=== PATIENT | male | born 1945 | race Caucasian/White ===

== ENCOUNTER 2016-10-28 16:04 | Emergency (ER) | payer MEDICARE, MEDICAID ==
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
[2016-10-28 18:43] VITALS: BP 136/76
== END 2016-10-28 18:43 | disposition home or self-care (01) ==
LOC: ED 16:04
DX: L03.115 Cellulitis of right lower limb (principal); Z88.0 Allergy status to penicillin
CPT/HCPCS: 99282

== ENCOUNTER 2016-12-02 18:23 | Emergency (ER) | payer MEDICARE, MEDICAID ==
[2016-12-02] MEDS ORDERED: Oxymetazoline 0.05% NASAL SPR* 15 ML BTL RIGHT NARE ONE (19:52)
--- NOTE | 2016-12-02 19:56 | ED ---
Throat Pain/Nasal Congestion - HPI Summary HPI Summary: 71M presents with nose bleed from right nostril today. He takes Flonase on a daily basis. He states he had some sinus pain so he placed neosporin up his noses and that it started to ooze. only had nosebleed 6 years ago and stopped on own although states lost a lot of blood. was told has superficial veins. no fever. no chest pain or SOB. not on blood thinners. Also has lesion on right armstrong that is healing. had infection there and is currently placing neosporin on it. has been there for a month. was on antibiotics but is done with them. is requesting a new script. - History of Current Complaint Chief Complaint: EDGeneral Time Seen by Provider: 12/02/16 19:19 - Allergies/Home Medications Allergies/Adverse Reactions: Allergies Allergy/AdvReac Type Severity Reaction Status Date / Time Penicillins Allergy Unknown Verified 12/02/16 18:26 Reaction Details Sulfa Drugs Allergy Unknown Verified 12/02/16 18:26 Reaction Details PMH/Surg Hx/FS Hx/Imm Hx Endocrine/Hematology History: Denies: Hx Anticoagulant Therapy Cardiovascular History: Denies: Hx Pacemaker/ICD Sensory History: Reports: Hx Contacts or Glasses Denies: Hx Hearing Aid Opthamlomology History: Reports: Hx Contacts or Glasses Neurological History: Reports: Other Neuro Impairments/Disorders - HX DISK PROBLEM 1967 Psychiatric History: Reports: Hx Panic Disorder - Surgical History Surgery Procedure, Year, and Place: BILATERAL BREAST GLAND SURGERY 2007&1973 Infectious Disease History: No Infectious Disease History: Denies: Traveled Outside the [place] in Last 30 Days - Family History Known Family History: Negative: Blood Disorder - Social History Alcohol Use: None Hx Substance Use: No Substance Use Type: Reports: None Hx Tobacco Use: No Smoking Status (MU): Never Smoked Tobacco Review of Systems Negative: Fever Positive: Epistaxis Negative: Chest Pain Negative: Shortness Of Breath Positive: Other - lesion right armstrong All Other Systems Reviewed And Are Negative: Yes Physical Exam Triage Information Reviewed: Yes Vital Signs On Initial Exam: Initial Vitals Temp Pulse Resp BP Pulse Ox 98.5 F 62 16 146/77 100 12/02/16 18:25 12/02/16 18:25 12/02/16 18:25 12/02/16 18:25 12/02/16 18:25 Vital Signs Reviewed: Yes Appearance: Positive: Well-Appearing Skin: Positive: Warm, Dry, Other - healing wound on right armstrong without dehisence , no surrounding erythema Head/Face: Positive: Normal Head/Face Inspection Eyes: Positive: Normal, EOMI, VENTURA, Conjunctiva Clear ENT: Positive: Other - area of irritation on right nostril Respiratory/Lung Sounds: Positive: Clear to Auscultation, Breath Sounds Present Cardiovascular: Positive: Normal, RRR Abdomen Description: Positive: Nontender, Soft Bowel Sounds: Positive: Present Musculoskeletal: Positive: Strength/ROM Intact - legs, Other - good pulses - [place] Coma Scale Coma Scale Total: 15 Diagnostics - Vital Signs Vital Signs Temp Pulse Resp BP Pulse Ox 12/02/16 18:25 98.5 F 62 16 146/77 100 - Laboratory Lab Statement: Any lab studies that have been ordered have been reviewed, and results considered in the medical decision making process. EENT Course/Dx - Course Course Of Treatment: 71M presents with nose bleed from right nostril today. He takes Flonase on a daily basis. He states he had some sinus pain so he placed neosporin up his noses and that it started to ooze. only had nosebleed 6 years ago and stopped on own although states lost alot of blood. was told has superficial veins. no fever. no chest pain or SOB. on exam has irritated of right nases with no active bleeding. gave dose of afrin and no bleeding. also has wound on right armstrong looks to be healing well. will give antiobiotics although may not be necessary. told to stop flonase as likely causing nosebleeds. patient understands and agrees with plan. - Differential Diagnoses Differential Diagnoses: Allergic Rhinitis, Epistaxis, Sinusitis - Diagnoses Provider Diagnoses: Nosebleed Discharge - Discharge Plan Condition: Good Disposition: HOME Prescriptions: DOXYcycline CAP(*) [DOXYcycline 100MG CAP(*)] 100 mg PO BID #14 cap Patient Education Materials: Nosebleed (ED) Referrals: [facility] [Outside] Rogelio Garza MD [Primary Care Provider] - Additional Instructions: Place one spray of afrin in nostril if bleed returns Place vaseline in nose Stop flonase in that nostril for next [address] saline spray in nose Place ice on nose for 20 mins if bleeding reoccurs Take antibiotic twice a day for 7 days for possible right leg infection, take with food, avoid sun exposure Return to ED if develop any new or worsening symptoms
[2016-12-02 20:30] VITALS: BP 138/79
== END 2016-12-02 20:35 | disposition home or self-care (01) ==
LOC: ED 18:23
DX: R04.0 Epistaxis (principal)
CPT/HCPCS: 99282; A9270-GY

== ENCOUNTER 2016-12-05 16:16 | Emergency (ER) | payer MEDICARE, MEDICAID ==
[2016-12-05 16:28] VITALS: BP 148/57
--- NOTE | 2016-12-05 17:39 | UC ---
Epistaxis Nasal HPI - HPI Summary HPI Summary: had a right side nose bleed earlier this week that he is concerned about---also has some changes and itching in his lower legs he is concerned about - History of Current Complaint Chief Complaint: [place] Stated Complaint: NOSE AND LEG PAIN Time Seen by Provider: 12/05/16 17:11 Hx Obtained From: Patient Onset/Duration: Sudden Onset - right nares, Gradual Onset - lower legs Timing: Constant Severity Initially: Mild Severity Currently: Mild Aggravating Factor(s): Nothing Alleviating Factor(s): Nothing Associated Signs And Symptoms: Positive: Negative - Allergies/Home Medications Allergies/Adverse Reactions: Allergies Allergy/AdvReac Type Severity Reaction Status Date / Time Penicillins Allergy Unknown Verified 12/05/16 16:28 Reaction Details Sulfa Drugs Allergy Unknown Verified 12/05/16 16:28 Reaction Details PMH/Surg Hx/FS Hx/Imm Hx Previously Healthy: Yes Endocrine History: Dyslipidemia Psychological History: Anxiety Other History Of: Negative For: Anticoagulant Therapy - Surgical History Surgical History: Yes Surgery Procedure, Year, and Place: BILATERAL BREAST GLAND SURGERY 2007&1973 - Family History Known Family History: Positive: Hypertension, Diabetes Negative: Blood Disorder - Social History Occupation: Retired Lives: With Family - God Son Alcohol Use: None Substance Use Type: Prescribed Smoking Status (MU): Never Smoked Tobacco Review of Systems Constitutional: Negative Skin: Negative, Other - itching both lower legs Eyes: Negative ENT: Negative Respiratory: Negative Cardiovascular: Negative Gastrointestinal: Negative Genitourinary: Negative Motor: Negative Neurovascular: Negative Musculoskeletal: Negative Neurological: Negative Psychological: Negative Is Patient Immunocompromised?: No All Other Systems Reviewed And Are Negative: Yes Physical Exam Triage Information Reviewed: Yes Appearance: Well-Appearing, No Pain Distress, Well-Nourished Vital Signs: Initial Vital Signs Temp 99.0 F 12/05/16 16:24 Pulse 76 12/05/16 16:24 Resp 18 12/05/16 16:24 BP 148/57 12/05/16 16:24 Pulse Ox 99 12/05/16 16:24 Vital Signs Reviewed: Yes Eye Exam: Normal Eyes: Positive: Conjunctiva Clear ENT Exam: Normal ENT: Positive: Normal ENT inspection, Hearing grossly normal, Pharynx normal, Other: - some old blood in right nares. Negative: Nasal congestion, Nasal drainage, TMs normal, Tonsillar swelling, Tonsillar exudate, Trismus, Muffled/ hoarse voice Dental Exam: Normal Neck exam: Normal Neck: Positive: Supple, Nontender, No Lymphadenopathy Respiratory Exam: Normal Respiratory: Positive: Chest non-tender, No respiratory distress, No accessory muscle use Cardiovascular Exam: Normal Cardiovascular: Positive: RRR, Pulses Normal, Brisk Capillary Refill Musculoskeletal Exam: Normal Musculoskeletal: Positive: Strength Intact, ROM Intact, No Edema Neurological Exam: Normal Neurological: Positive: Alert, Muscle Tone Normal Psychological Exam: Normal Skin Exam: Normal Skin: Positive: Other - CHronic PVD changes Bilateral lower extremities Epistaxis Nasal Course/Dx - Course Course Of Treatment: vaseline on q-tip right nare, saline nasal spray, cool mist humidifer, yasmany/compression stockings - Differential Dx/Diagnosis Differential Diagnosis/HQI/PQRI: Allergic Rhinitis, Sinusitis, Trauma, Other - pvd Provider Diagnoses: Chronic PVD, epistaxis right nares Discharge - Discharge Plan Condition: Stable Disposition: HOME Prescriptions: Saline NASAL SPRAY 0.65%* [Sodium Chloride 0.65% Nasal [place]*] 1 spray BOTH NARES Q4H PRN #1 btl PRN Reason: nasal dryness Patient Education Materials: Nosebleed (ED), Peripheral Vascular Disease (ED), Hypertension (ED) Referrals: Rogelio Garza MD [Primary Care Provider] - 1 Week
== END 2016-12-05 17:41 | disposition home or self-care (01) ==
LOC: UCEAST 16:16
DX: R04.0 Epistaxis (principal); Z88.0 Allergy status to penicillin; Z88.2 Allergy status to sulfonamides; E78.5 Hyperlipidemia, unspecified; I73.9 Peripheral vascular disease, unspecified
CPT/HCPCS: 99212; G0463

== ENCOUNTER 2017-03-07 16:43 | Emergency (ER) | payer MEDICARE, MEDICAID ==
--- NOTE | 2017-03-07 18:36 | ED ---
HPI Cardiac - HPI Summary HPI Summary: Pt here w/ pain from throat to epigastrum over the past week. Pain is worse w/ deep breath. He reports feeling "weak" in this area when he tries to take a deep breath. Denies fever, chills, hemoptysis, back pain, general weakness, night sweats, weight loss, change in breathing with sitting or lying. He also admits to a h/o asthma, bronchitis, bronchopneumonia, pneumonia and pleurisy - feels his sx this past week and today may be respiratory in nature. He has been eating and drinking well w/o pain but does admit he needs to drink carefully as he has a lot of nasal/sinus congestion which he's had since Spring d/t allergies. This is better since taking zyrtec and using nasonex nasal spray. Reports his house is warm (in the 70's) in 3 main rooms of the house, however his sleeping quarters are much cooler and the path in between the well heated areas and his room are quite cool (48F). He was seen by his PCP, Tomas PEREZ in [place], since these sx started. Basic labs and a CXR were ordered this past week in our system - labs reveals mild anemia and so per pt a colonoscopy has been ordered for the pt although he does not report rectal bleeding, hematochezia nor dark tarry stools today. His CXR was w /o acute findings of pneumonia, CHF, pneumothorax, wide mediastinum, etc and no chronic conditions such as cardiomegaly, COPD, etc. Tomas, his PA, also mentioned he's concerned about the pt's heart and wants him to see a turning and beading machine operator. Pt does admit to leg swelling for a few years now and was recommended he wear compression stockings as he admits he's on his feet all day - has not tried yet. Also reports he has a h/o arrhythmia and mitral valve dysfunction - "snaps". Was seen by a turning and beading machine operator in the past however this physician hence new referral. Does not take any medications for cardiac issues. - History of Current Complaint Chief Complaint: EDGeneral Stated Complaint: SHORT OF BREATH Time Seen by Provider: 03/07/17 17:41 Hx Obtained From: Patient Pain Intensity: 2 - Allergy/Home Medications Allergies/Adverse Reactions: Allergies Allergy/AdvReac Type Severity Reaction Status Date / Time Penicillins Allergy Unknown Verified 03/07/17 16:58 Reaction Details Sulfa Drugs Allergy Unknown Verified 03/07/17 16:58 Reaction Details PMH/Surg Hx/FS Hx/Imm Hx Previously Healthy: Yes Endocrine/Hematology History: Reports: Hx Anemia Denies: Hx Anticoagulant Therapy, Hx Blood Disorders, Hx Blood Transfusions, Hx Diabetes, Hx Systemic Lupus Erythematosus, Hx Thyroid Disease, Hx Unexplained Bleeding, Hx Coagulopothy Cardiovascular History: Reports: 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 " - no meds, Other Cardiovascular Problems/Disorders - "arrhythmia" in the past - no meds Denies: Hx Aneurysm, Hx Angina, Hx Atrial Fibrillation, Hx Cardiomegaly, Hx Congenital Heart Disease, Hx Congestive Heart Failure, Hx Coronary Artery Disease, Hx Deep Vein Thrombosis, Hx Hypercholesterolemia, Hx Hypotension, Hx Hypertension, Hx Myocardial Infarction, Hx Pacemaker/ICD, Hx Peripheral Vascular Disease, Hx Rheumatic Fever, Hx Syncope Respiratory History: Reports: Hx Asthma, Hx Pneumonia, Hx Seasonal Allergies, Other Respiratory Problems/Disorders - pleurisy, bronchitis Denies: Hx Chronic Obstructive Pulmonary Disease (COPD), Hx Pulmonary Edema, Hx Pulmonary Embolism, Hx Sleep Apnea GI History: Reports: Other GI Disorders - Hep A and Hep B - followed by PCP - no issues at this time Denies: Hx Crohn's Disease, Hx Diverticulosis, Hx Gall Bladder Disease, Hx Gastroesophageal Reflux Disease, Hx Gastrointestinal Bleed, Hx Hiatal Hernia, Hx Irritable Bowel, Hx Obstructive Bowel, Hx Ulcer Musculoskeletal History: Reports: Hx Back Problems - wears an elastic wrap but makes blood pressure increase while on Sensory History: Reports: Hx Contacts or Glasses Denies: Hx Hearing Aid Opthamlomology History: Reports: Hx Contacts or Glasses Neurological History: Reports: Other Neuro Impairments/Disorders - HX DISK PROBLEM 1967 Psychiatric History: Reports: Hx Panic Disorder - Surgical History Surgery Procedure, Year, and Place: BILATERAL BREAST GLAND SURGERY 2007&1973 Infectious Disease History: No Infectious Disease History: Reports: Hx Hepatitis Denies: Traveled Outside the [place] in Last 30 Days - Family History Known Family History: Positive: Cardiac Disease - mom, Hypertension, Diabetes Negative: Blood Disorder - Social History Occupation: Unemployed Lives: With Family - godson lives w/ him Alcohol Use: None Hx Substance Use: No Substance Use Type: Reports: Prescribed Hx Tobacco Use: No Smoking Status (MU): Never Smoked Tobacco Review of Systems Constitutional: Negative Negative: Fever, Chills, Fatigue Eyes: Negative Negative: Drainage, Erythema Positive: Sore Throat, Ear Ache Positive: Chest Pain Positive: Shortness Of Breath, Cough - scant Positive: Abdominal Pain. Negative: Vomiting, Diarrhea, Nausea Positive: no symptoms reported Musculoskeletal: Negative Skin: Negative Neurological: Negative Psychological: Normal All Other Systems Reviewed And Are Negative: Yes Physical Exam Vital Signs On Initial Exam: Initial Vitals Temp Pulse Resp BP Pulse Ox 98.2 F 80 16 139/83 99 03/07/17 16:53 03/07/17 16:53 03/07/17 16:53 03/07/17 16:53 03/07/17 16:53 - [place] Coma Scale Coma Scale Total: 15 Diagnostics - Vital Signs Vital Signs Temp Pulse Resp BP Pulse Ox 03/07/17 16:53 98.2 F 80 16 139/83 99 - Laboratory Result Diagrams: 03/07/17 18:30 03/07/17 18:30 Diagnostic Studies Comment: CT: report reviewed - neg for acute findings however he does appear to have cholelithiasis w/o cholecystitis and Rt renal cyst 1.3 cm in size. 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 Lab Statement: Any lab studies that have been ordered have been reviewed, and results considered in the medical decision making process. Disposition - Course Course Of Treatment: Pt presents w/ throat, chest and upper ab "weakness" and pain w/ deep breathes. Reports h/o resp issues and this feels similar. Had CXR this week which was normal and labs which are also normal. He had mild anemia however this has improved today. D/t sx a Ddimer was ordered and upon being elevated, further imaging ordered. 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 Pt was offered an albuterol HFA to aid in sx as he does have a h/o asthma and this has helped in the past. Does not appear to have acute bronchospasm at the moment however w/ h/o asthma, recent URI sx and living in cold conditions at times, this may reduce sx of chest tightness if he is having bronchospasm in these conditions. He will try this and f/u w/ PCP. He is d/c'd home and advised to f/u w/ PCP if symptoms persist. If worse will return to ED. - Diagnoses Provider Diagnoses: Chest pain made worse by breathing Discharge - Discharge Plan Condition: Stable Disposition: HOME Patient Education Materials: Noncardiac Chest Pain (ED), Albuterol (By breathing) Referrals: Michael Perez PA [Primary Care Provider] - Additional Instructions: The definitive cause of your chest discomfort was not identified tonight however given your recent symptoms of head congestion and history of asthma while in and out of cold temperatures may indicate mild bronchospasm or "asthma attack". It is advised that you try the inhaler provided for your tonight and if this relieves your symptoms, notify your PCP. If it does not improve symptoms and they persist, please follow-up with your PCP. Call Thursday to update office of your visit here today. You may try the following to aid in respiratory health: Nasal wash (netti pot) & throat gargle 2 x day with 8 ounces of warm water + 1/ 4 teaspoon of salt Drink 60+ ounces of water daily Sleep 8+ hours per night Avoid Dairy and sugar Hot herbal/decaf tea with lemon & honey Chicken broth (preferably organic, free range chicken) - try to get low sodium brothes Humidifier in house, but especially near bed at night Try a facial steam with or without eucalyptus essential oil OR Vicks vapor rub to aid in decongestion Avoid extremes in temperature (hot to cold and cold to hot). This may be done by covering your nose and mouth to keep breath warm. Avoid scents/chemical such as candles, colognes, household irradiated fuel handler, etc until symptoms resolve. Consider taking Vitamin C 1,000mg every day during illness *If symptoms are worse or you develop worsening chest pain, trouble breathing or swallowing, fever or chills, return to the ED.
[2017-03-07 18:53] LABS: ABS Basophils 0 10^3/ul (0-0.2); ABS Eosinophils 0.1 10^3/ul (0-0.6); ABS Lymphocytes 1.6 10^3/ul (1.0-4.8); ABS Monocytes 0.6 10^3/ul (0-0.8); ABS Neutrophils 6.6 10^3/ul (1.5-7.7); ABS Nucleated RBC 0 10^3/ul; Eosinophil % 0.7 % (0-6); Hematocrit 40 % (42-52); Lymphocyte % 18.3 % (25-47); Mean Corpuscular HGB Conc 33 g/dl (31-36); Mean Corpuscular Hemoglobin 30 pg (27-31); Mean Corpuscular Volume 90 fL (80-94); Mean Platelet Volume 10 um3 (7.4-10.4); Nucleated Red Blood Cells % 0; Platelet Count 180 10^3/ul (150-450); Red Blood Count 4.41 10^6/ul (4.0-5.4); Red Cell Distribution Width 14 % (10.5-15)
[2017-03-07 19:03] LABS: INR 0.98 (0.77-1.02)
[2017-03-07 19:07] LABS: EGFR Non-African American 66.4 (>60)
[2017-03-07] MEDS ORDERED: Iohexol 350* (CONTRAST) 500 ML MDV IV ONE (19:33)
--- NOTE | 2017-03-07 20:14 | RAD ---
INDICATION: Chest and epigastric pain with deep breath, shortness of breath. COMPARISON: Comparison is made with a prior chest x-ray study from March 04, 2017. TECHNIQUE: A CT angiogram of the chest and a CT of the abdomen and pelvis was performed with intravenous contrast following intravenous injection of 100 ml of Omnipaque 350 nonionic contrast. Contiguous axial sections were obtained from the lung apices through the symphysis pubis. Images were reconstructed in the coronal and sagittal planes. FINDINGS: CT ANGIOGRAM OF THE CHEST: There is relatively homogeneous opacification of the pulmonary arteries. No intraluminal filling defect or pulmonary embolism is seen. The heart is within normal limits in size. No pericardial effusion is present. The thoracic aorta is normal in caliber and demonstrates homogeneous contrast opacification without evidence for dissection. No significant enlarged mediastinal or hilar lymph nodes are seen. There is mild dependent bilateral lower lobe subsegmental atelectasis. There is a small 0.5 cm calcified nodule in the left upper lobe suggestive of old granulomatous disease. The lungs are otherwise clear. No pleural effusion is seen. CT OF THE ABDOMEN AND PELVIS: The liver and spleen are normal in size without significant focal abnormality. There is mild increased density in the neck of the gallbladder possibly representing gallstones. No gallbladder wall thickening is seen. No pericholecystic fluid is noted. The pancreas appears to be within normal limits. The kidneys and adrenal glands are normal in size. No hydronephrosis is seen. There is a small 1.3 cm right renal cyst. The abdominal aorta is normal in caliber. There is mild calcific plaque present. No significant enlarged retroperitoneal lymph nodes are seen. The stomach, small and large bowel appear nondistended. The appendix appears to be within normal limits. There are few scattered diverticuli within the colon. There is no evidence for diverticulitis or colitis. There are bilateral inguinal hernias right greater than left containing fat. No free intraperitoneal air or fluid is seen. No significant focal osseous abnormality is seen. IMPRESSION: 1. NO EVIDENCE FOR PULMONARY EMBOLISM. 2. POSSIBLE CHOLELITHIASIS.
[2017-03-07] MEDS ORDERED: Albuterol HFA INHALER* 8 gm MDI INH ONE (20:34)
[2017-03-07 21:44] VITALS: BP 147/71
== END 2017-03-07 21:52 | disposition home or self-care (01) ==
LOC: ED 16:43
DX: R07.9 Chest pain, unspecified (principal); R06.02 Shortness of breath; J02.9 Acute pharyngitis, unspecified; R05 Cough; R10.9 Unspecified abdominal pain
CPT/HCPCS: 36415; 71275; 74177; 80053; 83605; 83735; 83880; 84484; 85025; 85379; 85610; 85730; 93005; 99283; A9270-GY; Q9967

== ENCOUNTER 2017-03-20 20:22 | Emergency (ER) | payer MEDICARE, MEDICAID ==
[2017-03-20] MEDS ORDERED: Fluorescein Sodium TOPICAL* 1 MG TEST OPHTHALMIC ONE (20:55)
[2017-03-20] MEDS ORDERED: Tetracaine 0.5% OPTH.SOL 4 ML* 1 DROP BTL LEFT EYE ONE (20:55)
[2017-03-20] MEDS ORDERED: Fluorescein Sodium TOPICAL* 1 MG TEST ONE (20:56)
[2017-03-20] MEDS ORDERED: Tetracaine 0.5% OPTH.SOL 15ML* BTL ONE (20:56)
--- NOTE | 2017-03-20 21:37 | ED ---
Throat Pain/Nasal Congestion - HPI Summary HPI Summary: 71M presents with left eye injury today. He was walking when his masked slipped into his eye and then he found an eyelash there. He states he flushed his eye multiples times at it helped. He states occasionally he feels like something may be in there and it is irritated. He denies any drainage from area. He denies any change in vision. He does not wear contacts. He has had sore throat for past month and a half and has been evaluated by primary and here multiple times and lab work was normal last time and had normal CTA. He states pain has not mold changer past month and a half. He denies any difficult swallow. He states that his voice has been more hoarse due to sore throat. He admits to post nasal drip. He states zytrec helps the irritation. - History of Current Complaint Chief Complaint: EDThroatPain Time Seen by Provider: 03/20/17 20:53 - Allergies/Home Medications Allergies/Adverse Reactions: Allergies Allergy/AdvReac Type Severity Reaction Status Date / Time Penicillins Allergy Unknown Verified 03/07/17 16:58 Reaction Details Sulfa Drugs Allergy Unknown Verified 03/07/17 16:58 Reaction Details PMH/Surg Hx/FS Hx/Imm Hx Endocrine/Hematology History: Reports: Hx Anemia Denies: Hx Anticoagulant Therapy, Hx Blood Disorders, Hx Blood Transfusions, Hx Diabetes, Hx Systemic Lupus Erythematosus, Hx Thyroid Disease, Hx Unexplained Bleeding Cardiovascular History: Reports: 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 " - no meds, Other Cardiovascular Problems/Disorders - "arrhythmia" in the past - no meds Denies: Hx Aneurysm, Hx Angina, Hx Atrial Fibrillation, Hx Cardiomegaly, Hx Congenital Heart Disease, Hx Congestive Heart Failure, Hx Coronary Artery Disease, Hx Deep Vein Thrombosis, Hx Hypercholesterolemia, Hx Hypotension, Hx Hypertension, Hx Myocardial Infarction, Hx Pacemaker/ICD, Hx Peripheral Vascular Disease, Hx Rheumatic Fever, Hx Syncope Respiratory History: Reports: Hx Asthma, Hx Pneumonia, Hx Seasonal Allergies, Other Respiratory Problems/Disorders - pleurisy, bronchitis Denies: Hx Chronic Obstructive Pulmonary Disease (COPD), Hx Pulmonary Edema, Hx Pulmonary Embolism, Hx Sleep Apnea GI History: Reports: Other GI Disorders - Hep A and Hep B - followed by PCP - no issues at this time Denies: Hx Crohn's Disease, Hx Diverticulosis, Hx Gall Bladder Disease, Hx Gastroesophageal Reflux Disease, Hx Gastrointestinal Bleed, Hx Hiatal Hernia, Hx Irritable Bowel, Hx Obstructive Bowel, Hx Ulcer Musculoskeletal History: Reports: Hx Back Problems - wears an elastic wrap but makes blood pressure increase while on Sensory History: Reports: Hx Contacts or Glasses Denies: Hx Hearing Aid Opthamlomology History: Reports: Hx Contacts or Glasses Neurological History: Reports: Other Neuro Impairments/Disorders - HX DISK PROBLEM 1967 Psychiatric History: Reports: Hx Panic Disorder - Surgical History Surgery Procedure, Year, and Place: BILATERAL BREAST GLAND SURGERY 2007&1973 - Immunization History Date of Influenza Vaccine: 11/2016 Immunizations Up to Date: Yes Infectious Disease History: No Infectious Disease History: Reports: Hx Hepatitis Denies: Traveled Outside the [place] in Last 30 Days - Family History Known Family History: Positive: Cardiac Disease - mom, Hypertension, Diabetes Negative: Blood Disorder - Social History Alcohol Use: None Hx Substance Use: No Substance Use Type: Reports: Prescribed Hx Tobacco Use: No Smoking Status (MU): Never Smoked Tobacco Review of Systems Negative: Fever Positive: Other - irritation of left eye Positive: Sore Throat All Other Systems Reviewed And Are Negative: Yes Physical Exam Triage Information Reviewed: Yes Vital Signs On Initial Exam: Initial Vitals Temp Pulse Resp BP Pulse Ox 99.4 F 71 16 157/79 100 03/20/17 20:25 03/20/17 20:25 03/20/17 20:25 03/20/17 20:25 03/20/17 20:25 Vital Signs Reviewed: Yes Appearance: Positive: Well-Appearing Skin: Positive: Warm, Dry Head/Face: Positive: Normal Head/Face Inspection Eyes: Positive: Normal, EOMI, VENTURA, Conjunctiva Clear, Other: - no uptake on fluorescein exam ENT: Positive: Normal ENT inspection, Pharynx normal, TMs normal Respiratory/Lung Sounds: Positive: Clear to Auscultation, Breath Sounds Present Cardiovascular: Positive: Normal, RRR Musculoskeletal: Positive: Normal Neurological: Positive: Normal - [place] Coma Scale Coma Scale Total: 15 Procedures - Eye Procedure Alcaine Drops Administered: Yes - no uptake on fluorescein exam of left eye Diagnostics - Vital Signs Vital Signs Temp Pulse Resp BP Pulse Ox 03/20/17 20:25 99.4 F 71 16 157/79 100 - Laboratory Lab Results: Lab Results 01/19/18 01/19/18 Range/Units 21:11 21:13 Influenza A (Rapid) Negative (Negative) Influenza B (Rapid) Negative (Negative) Group A Strep Rapid Negative (Negative) Lab Statement: Any lab studies that have been ordered have been reviewed, and results considered in the medical decision making process. EENT Course/Dx - Course Course Of Treatment: 71M presents with left eye injury today. He was walking when his masked slipped into his eye and then he found an eyelash there. He states he flushed his eye multiples times at it helped. He states occasionally he feels like something may be in there and it is irritated. He denies any drainage from area. He denies any change in vision. He does not wear contacts. He has had sore throat for past month and a half and has been evaluated by primary and here multiple times and lab work was normal last time and had normal CTA. He states pain has not mold changer past month and a half. He denies any difficult swallow. He states that his voice has been more hoarse due to sore throat. He admits to post nasal drip. He states zytrec helps the irritation. on exam pharynx normal. lungs CTA. no uptake fluorescein exam of left eye. flu and strept normal. throat irritation may be allergic so will have continue zytrec. has history of nose bleeds so consider adding flonase but will wait at this time. patient has an ENT so will have follow up with such for throat pain. patient understand and agrees with plan. - Differential Diagnoses Differential Diagnoses: Corneal Abrasion, Foreign Body, Pharyngitis, URI/ Bronchitis - Diagnoses Provider Diagnoses: Sensation of foreign body in eye, Throat irritation Discharge - Discharge Plan Condition: Good Disposition: HOME Referrals: Michael Perez PA [Primary Care Provider] - Robert Lara MD [Medical Doctor] - Additional Instructions: Follow up with your ent doctor about throat pain Continue saline flush for eye Use zytrec once a day for throat Take tyenlol for pain every 6 hours Return to ED if develop any new or worsening symptoms
[2017-03-20 22:06] VITALS: BP 137/72
== END 2017-03-20 22:08 | disposition home or self-care (01) ==
LOC: ED 20:22
DX: H57.8 Other specified disorders of eye and adnexa (principal); R07.0 Pain in throat; Z88.0 Allergy status to penicillin; Z88.2 Allergy status to sulfonamides; I38 Endocarditis, valve unspecified
CPT/HCPCS: 87502; 87651; 99282; A9270-GY

== ENCOUNTER 2017-08-11 07:12 | Day surgery (SDC) | payer MEDICARE, MEDICAID ==
[~2017-08-11 07:12] MED LIST: Acetaminophen TAB* 325 MG PO PRN; Buffered Lidocaine 0.9% SYRIN* 5 ML/SYR SYRINGE INTRADERM ONE
[2017-08-11] MEDS ORDERED: fentaNYL* 50 MCG/ML 2 ML VIAL (100 MCG VIAL) ONE (08:40)
[2017-08-11] MEDS ORDERED: Midazolam* 1 MG/ML 2 ML VIAL (2 MG) ONE ×2 (08:40→09:37)
[2017-08-11] MEDS ORDERED: Lidocaine 1%* 5 ML VIAL ONE (09:08)
[2017-08-11] MEDS ORDERED: Tetracaine 0.5% OPTH.SOL 4 ML* 1 DROP BTL ONE (09:08)
[2017-08-11] MEDS ORDERED: Neomycin/Polymy/Dex OPHTH.OIN* 3.5 GM ONE (09:08)
[2017-08-11] MEDS ORDERED: Phenylephrine 2.5% OPTH.SOL* 2 ML BTL ONE (09:08)
[2017-08-11] MEDS ORDERED: Cyclopentolate 1% OPTH.SOL* 2 ML BTL ONE (09:08)
[2017-08-11] MEDS ORDERED: Ketorolac 0.5% OPHTH (NF) 0.5 % 5 ML BTL ONE (09:08)
[2017-08-11] MEDS ORDERED: Tropicamide 1% OPTH.SOL* BTL ONE (09:08)
[2017-08-11 09:59] VITALS: BP 119/66
--- NOTE | 2017-08-12 00:29 | OP ---
DATE OF OPERATION: 08/11/17 [facility] DATE OF : 49 SURGEON: Dr. Davis Mccoy. WAITER/WAITRESS FORMAL: None. ANESTHESIA: Topical with intravenous sedation. PRE-OP DIAGNOSIS: Cataract, right eye. POST-OP DIAGNOSIS: Cataract, right eye. OPERATIVE PROCEDURE: Phacoemulsification and cataract extraction with posterior chamber intraocular lens implant, right eye. COMPLICATIONS: None. BLOOD LOSS: None. DESCRIPTION OF PROCEDURE: The patient was brought to the operating room and received a small amount of intravenous sedation. A drop of Tetracaine was placed in the right eye. He was prepped and draped in the usual sterile fashion for ophthalmic surgery and attention was directed to the right eye where a speculum was placed. A paracentesis was created at the 11 o'clock position and 0.1 cc of 1 percent preservative-free Lidocaine was injected into the anterior chamber followed by DisCoVisc. The eye was digitally stabilized while a 2.75 mm keratome was used to create a triplanar clear corneal incision at the 9 o'clock position. A continuous curvilinear capsulorrhexis was created with a cystotome and Utrata forceps. BSS on a cannula was used to hydrodissect the lens from the capsule. Phacoemulsification was performed in a divide-and- conquer technique to create four fragments which were removed. Residual cortical material was removed with irrigation and aspiration. DisCoVisc was used to inflate the capsular bag and an AU00T0 21.0 diopter lens was folded and inserted into the capsular bag. DisCoVisc was removed using irrigation and aspiration. BSS on a cannula was used to hydrate the corneal stroma and seal the wound. At the end of the case the pupil was round and the lens was centered. The eye was of normal pressure and the wound was water tight. The speculum was removed and topical Maxitrol ointment was placed on the surface of the eye. The eye was closed, patched and shielded and the patient was sent to the recovery room in stable condition with post operative instructions and follow-up appointment given. [id number]/CPS #: [id number] BELIA
== END 2017-08-11 10:00 | disposition home or self-care (01) ==
LOC: OREAST 07:12
PROVIDERS: ATTEND Ophthalmology
DX: H25.11 Age-related nuclear cataract, right eye (principal); G47.33 Obstructive sleep apnea (adult) (pediatric); F41.8 Other specified anxiety disorders; J45.909 Unspecified asthma, uncomplicated; R00.2 Palpitations; E83.42 Hypomagnesemia
CPT/HCPCS: A9270-GY; J2250; J3010; V2632

== ENCOUNTER 2017-08-18 10:25 | Day surgery (SDC) | payer MEDICARE, MEDICAID ==
[~2017-08-18 10:25] MED LIST changes: -Acetaminophen TAB* 325 MG PO PRN
[2017-08-18] MEDS ORDERED: Tetracaine 0.5% OPTH.SOL 4 ML* 1 DROP BTL ONE (11:53)
[2017-08-18] MEDS ORDERED: Phenylephrine 2.5% OPTH.SOL* 2 ML BTL ONE (11:53)
[2017-08-18] MEDS ORDERED: Neomycin/Polymy/Dex OPHTH.OIN* 3.5 GM ONE (11:53)
[2017-08-18] MEDS ORDERED: Cyclopentolate 1% OPTH.SOL* 2 ML BTL ONE (11:53)
[2017-08-18] MEDS ORDERED: Tropicamide 1% OPTH.SOL* BTL ONE (11:53)
[2017-08-18] MEDS ORDERED: Ketorolac 0.5% OPHTH (NF) 0.5 % 5 ML BTL ONE (11:53)
[2017-08-18] MEDS ORDERED: Lidocaine 1%* 5 ML VIAL ONE (11:53)
[2017-08-18] MEDS ORDERED: Midazolam* 1 MG/ML 2 ML VIAL (2 MG) ONE (12:04)
[2017-08-18] MEDS ORDERED: fentaNYL* 50 MCG/ML 2 ML VIAL (100 MCG VIAL) ONE (12:04)
[2017-08-18 22:34] VITALS: BP 124/77
--- NOTE | 2017-08-19 09:35 | OP ---
DATE OF OPERATION: 08/18/17 [facility] DATE OF : 49 SURGEON: Dr. Davis Mccoy. FURNACE COMBUSTION TESTER: None. ANESTHESIA: Topical with intravenous sedation. PRE-OP DIAGNOSIS: Cataract, left eye. POST-OP DIAGNOSIS: Cataract, left eye. OPERATIVE PROCEDURE: Phacoemulsification and cataract extraction with posterior chamber intraocular lens implant, left eye. COMPLICATIONS: None. BLOOD LOSS: None. DESCRIPTION OF PROCEDURE: The patient was brought to the operating room and received a small amount of intravenous sedation. A drop of Tetracaine was placed in his left eye. The patient was prepped and draped in the usual sterile fashion for ophthalmic surgery and attention was directed to the left eye where a speculum was placed. A paracentesis was created at the 5 o'clock position and 0.1 cc of 1 percent preservative-free Lidocaine was injected into the anterior chamber followed by DisCoVisc. The eye was digitally stabilized while a 2.75 mm keratome was used to create a triplanar clear corneal incision at the 3 o'clock position. A continuous curvilinear capsulorrhexis was created with a cystotome and Utrata forceps. BSS on a cannula was used to hydrodissect the lens from the capsule. Phacoemulsification was performed in a divide-and- conquer technique to create four fragments which were removed. Residual cortical material was removed with irrigation and aspiration. DisCoVisc was used to inflate the capsular bag and an AUOOTO 21.0 diopter lens was folded and inserted into the capsular bag. DisCoVisc was removed using irrigation and aspiration. BSS on a cannula was used to hydrate the corneal stroma and seal the wound. At the end of the case the pupil was round and the lens was centered. The eye was of normal pressure and the wound was water tight. The speculum was removed and topical Maxitrol ointment was placed on the surface of the eye. The eye was closed, patched and shielded and the patient was sent to the recovery room in stable condition with post operative instructions and follow-up appointment given. [id number]/CPS #: [id number] BELIA
== END 2017-08-18 12:44 | disposition home or self-care (01) ==
LOC: OREAST 10:25
PROVIDERS: ATTEND Ophthalmology
DX: H25.13 Age-related nuclear cataract, bilateral (principal); E78.00 Pure hypercholesterolemia, unspecified; F32.2 Major depressive disorder, single episode, severe without psychotic features; Z88.0 Allergy status to penicillin; Z88.2 Allergy status to sulfonamides
CPT/HCPCS: A9270-GY; J2250; J3010; V2632

== ENCOUNTER 2018-02-15 16:06 | Emergency (ER) | payer MEDICARE, MEDICAID ==
[2018-02-15 16:11] VITALS: BP 154/81
--- NOTE | 2018-02-15 16:28 | ED ---
Throat Pain/Nasal Congestion - HPI Summary HPI Summary: The pt is a 72 y/o male [facility] ear pain worse in the L since 1 week ago. The pain rated 10/10 in severity is described as fullness . He notes sore throat and hoarseness. He recently saw Dr. Kerns to no relief. - History of Current Complaint Chief Complaint: EDEarPain Time Seen by Provider: 02/15/18 16:17 Hx Obtained From: Patient Onset/Duration: Gradual Onset, Lasting Weeks - 1 week, Still Present Severity: Severe Associated Signs And Symptoms: Positive: Hoarseness - Allergies/Home Medications Allergies/Adverse Reactions: Allergies Allergy/AdvReac Type Severity Reaction Status Date / Time Penicillins Allergy Unknown Verified 02/15/18 16:08 Reaction Details red dye Allergy Facial Verified 02/15/18 16:08 Redness/Flushing Sulfa (Sulfonamide Allergy Unknown Verified 02/15/18 16:08 Antibiotics) Reaction Details PMH/Surg Hx/FS Hx/Imm Hx Previously Healthy: No Endocrine/Hematology History: Reports: Hx Anemia Denies: Hx Anticoagulant Therapy, Hx Blood Disorders, Hx Blood Transfusions, Hx Diabetes, Hx Systemic Lupus Erythematosus, Hx Thyroid Disease, Hx Unexplained Bleeding Cardiovascular History: Reports: Hx Angina - DOESN;T TAKE ANYTHING FOR THIS, 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" - no meds, Other Cardiovascular Problems/Disorders - "arrhythmia" in the past - no meds Denies: Hx Aneurysm, Hx Atrial Fibrillation, Hx Cardiomegaly, Hx Congenital Heart Disease, Hx Congestive Heart Failure, Hx Coronary Artery Disease, Hx Deep Vein Thrombosis, Hx Hypercholesterolemia, Hx Hypotension, Hx Hypertension, Hx Myocardial Infarction, Hx Pacemaker/ICD, Hx Peripheral Vascular Disease, Hx Rheumatic Fever, Hx Syncope Respiratory History: Reports: Hx Asthma - INHALER, Hx Pneumonia, Hx Seasonal Allergies, Other Respiratory Problems/Disorders - pleurisy, bronchitis IN THE PAST Denies: Hx Chronic Obstructive Pulmonary Disease (COPD), Hx Pulmonary Edema, Hx Pulmonary Embolism, Hx Sleep Apnea GI History: Reports: Other GI Disorders - Hep A and Hep B - followed by PCP - no issues at this time Denies: Hx Crohn's Disease, Hx Diverticulosis, Hx Gall Bladder Disease, Hx Gastroesophageal Reflux Disease, Hx Gastrointestinal Bleed, Hx Hiatal Hernia, Hx Irritable Bowel, Hx Obstructive Bowel, Hx Ulcer History: Reports: Other Problems/Disorders - ENLARGED PROSTATE Musculoskeletal History: Reports: Hx Arthritis - R/A, Hx Back Problems - wears an elastic wrap but makes blood pressure increase while on Sensory History: Reports: Hx Cataracts, Hx Contacts or Glasses - GLASSES Denies: Hx Hearing Aid Opthamlomology History: Reports: Hx Cataracts, Hx Contacts or Glasses - GLASSES Neurological History: Reports: Hx Migraine, Other Neuro Impairments/Disorders - HX DISK PROBLEM 1967 Psychiatric History: Reports: Hx Anxiety, Hx Depression, Hx Panic Disorder - Cancer History Cancer Type, Location and Year: None reported - Surgical History Surgery Procedure, Year, and Place: BILATERAL BREAST GLAND SURGERY 2007&1973 Hx Anesthesia Reactions: No - Immunization History Date of Influenza Vaccine: 11/2016 Infectious Disease History: No Infectious Disease History: Reports: Hx Hepatitis Denies: Traveled Outside the [place] in Last 30 Days - Family History Known Family History: Positive: Cardiac Disease - mom, Hypertension, Diabetes Negative: Blood Disorder - Social History Occupation: Disabled Lives: With Family Alcohol Use: None Hx Substance Use: No Substance Use Type: Reports: Prescribed Hx Tobacco Use: No Smoking Status (MU): Never Smoked Tobacco Have You Smoked in the Last Year: No Review of Systems Negative: Fever Positive: Sore Throat, Ear Ache, Other - Hoarseness Positive: no symptoms reported All Other Systems Reviewed And Are Negative: Yes Physical Exam - Summary Physical Exam Summary: Appearance: Well appearing, no pain distress Skin: warm, dry, reflects adequate perfusion Head/face: normal Eyes: EOMI, VENTURA ENT: L ext ear canal is tender and swollen,Unable to see the left TM Neck: supple, non-tender Respiratory: CTA, breath sounds present Cardiovascular: RRR, pulses symmetrical Abdomen: non-tender, soft Musculoskeletal: normal, strength/ROM intact Neuro: normal, sensory motor intact, A&Ox3 Triage Information Reviewed: Yes Vital Signs On Initial Exam: Initial Vitals Temp Pulse Resp BP Pulse Ox 98.0 F 70 18 154/81 100 02/15/18 16:08 02/15/18 16:08 02/15/18 16:08 02/15/18 16:08 02/15/18 16:08 Vital Signs Reviewed: Yes Diagnostics - Vital Signs Vital Signs Temp Pulse Resp BP Pulse Ox 02/15/18 16:08 98.0 F 70 18 154/81 100 - Laboratory Lab Statement: Any lab studies that have been ordered have been reviewed, and results considered in the medical decision making process. EENT Course/Dx - Course Course Of Treatment: A 72 year-old M presents to the ED with a CC of bilateral ear pain worse in the L since 1 week ago. He notes sore throat and hoarseness. A physical exam revealed a swollen and tender L ear. The L TM is not visible. In the ED course, pt was given Ibuprofen 600 mg PO and Levofloxacin 500 mg PO which improved the symptoms. Patient will be discharged with a final Dx of otitis media. Pt is agreeable with this plan. Allergies noted. - Differential Diagnoses Differential Diagnoses: Otitis Externa, Otitis Media - Diagnoses Provider Diagnoses: Otitis media Discharge - Sign-Out/Discharge Documenting (check all that apply): Patient Departure - DC - Discharge Plan Condition: Stable Disposition: HOME Prescriptions: Ibuprofen TAB* [Motrin TAB* 600 MG] 600 mg PO Q8H PRN #15 tab MDD 3 PRN Reason: Pain Levofloxacin TAB* [Levaquin TAB*] 500 mg PO DAILY #9 tab Patient Education Materials: Ear Infection (ED) Referrals: Michael Perez PA [Primary Care Provider] - Robert Lara MD [Medical Doctor] - Additional Instructions: Follow up with Dr. Lara as soon as possible. Return to the ED for any new or worsening symptoms. - Billing Disposition and Condition Condition: STABLE Disposition: Home - Attestation Statements Document Initiated by Elvinibe: Yes Documenting Scribe: Cheyenne Villanueva Provider For Whom Elvinibe is Documenting (Include Credential): Dr. Gerber Deshpande MD Scribe Attestation: Cheyenne Escobar scribed for Dr. Gerber Deshpande MD on 02/15/18 at 1747. Scribe Documentation Reviewed: Yes Provider Attestation: The documentation as recorded by the Cheyenne garcia accurately reflects the service I personally performed and the decisions made by , Dr. Gerber Deshpande MD Status of Scribe Document: Viewed
[2018-02-15] MEDS ORDERED: Levofloxacin TAB* 500 MG PO ONE (16:30)
[2018-02-15] MEDS ORDERED: Ibuprofen TAB* 600 MG PO ONE (16:30)
--- OUTSIDE RECORDS SUMMARY | 2018-02-15 16:44 | XMS REPORT ---
:1945 Author Organization [facility] Address [address] [place] [address] Care Team Providers Name Role Phone Michael Perez Unavailable Unavailable PROBLEMS Type Condition ICD9-CM Code [id number] Onset Condition SNOMED Code Code Dates Status Problem High cholesterol E78.00 Active 32720255 Problem Right inguinal K40.90 Active 090982353 hernia Problem Environmental Z91.09 Active 723537932 allergies Problem Hypomagnesemia E83.42 Active 059350613 Problem Heart palpitations R00.2 Active 66894966 Problem Nasal congestion R09.81 Active 88787184 Problem Chronic fatigue R53.82 Active 11702271 Problem Mood disorder F39 Active 08738462 Problem BMI 27.0-27.9,adult Z68.27 Active 601874645 Problem Overweight (BMI E66.3 Active 113907765 25.0-29.9) Problem History of Z86.59 Active 535137488 depression Problem Migraine without G43.009 Active 723793682 aura and without status migrainosus, not intractable ALLERGIES No Information ENCOUNTERS Encounter Location Date Diagnosis [facility] [address] [facility] Jan, [place] [address] [facility] [address] [facility] Jan, [place] [address] [facility] [address] Dec, [place] [address] [facility] [address] Dec, [place] [address] infectious origin R19.7 [facility] [address] Dec, Skin rash R21 ; [place] [address] blood pressure reading without diagnosis of hypertension R03.0 and Shaking R25.[address] Nov, [place] [address] Nov, Dermatitis L30.9 ; [place] [address] without aura and without status migrainosus, not intractable G43.009 ; Elevated blood pressure reading without diagnosis of hypertension R03.0 and Encounter for immunization Z23 [facility] [address] [facility] Nov, [place] [address] Nov, Mood disorder F39 [place] [address] [facility] Nov, Mood disorder F39 [place] [address] Nov, [place] [address] Oct, [place] [address] Oct, Mood disorder F39 [place] [address] Sep, [place] [address] without status migrainosus, not intractable G43.009 and Chronic fatigue R53.[address] [facility] Sep, [place] [address] without status migrainosus, not intractable G43.[address] Sep, [place] [address] Sep, [place] [address] Sep, [place] [address] Sep, [place] [address] Sep, [place] [address] Sep, Other [place] [address] externa of left ear H60.392 and Migraine without aura and without status migrainosus, not intractable G43.[address] Sep, [place] [address] Sep, [place] [address] Aug, [place] [address] Aug, [place] [address] Aug, [place] [address] [place] [address] . [facility] Jul, [place] [address] Jul, [place] [address] Jul, [place] [address] Jul, History of depression Z86.59 [place] [address] Jul, [place] [address] Jul, [place] [address] Jul, [place] [address] Jul, [place] [address] Jul, [place] [address] cardiovascular examination Z01.810 ; Snoring R06.83 ; Postnasal drip R09.82 and Moderately severe depression F32.[address] June, [place] [address] June, [place] [address] June, [place] [address] [place] [address]50[address] . [facility] June, [place] [address] June, [place] [address] without status migrainosus, not intractable G43.[address] June, [place] [address] June, Right inguinal hernia K40.90 [place] [address] ; Screening for lipid disorders Z13.220 ; Screening for prostate cancer Z12.5 and Anxiety F41.[address] June, [place] [address] [facility] [address] [place] June, [place] [address] [facility] [address] [place] June, [place] [address] [facility] [address] [place] June, [place] [address] [facility] [address] [facility] [address] June, [address] [place] [address] June, [place] [address] [facility] [address] [place] June, [place] [address] June, Moder[place] [address] F32.2 ; Hypomagnesemia E83.42 ; Anxiety F41.9 ; Pain in right knee M25.561 and Pain in left knee M25.[address] June, [place] [address] May, [place] [address] May, [place] [address] May, Neck pain M54.2 ; [place] [address] Hypomagnesemia E83.42 ; Rash R21 ; Moderately severe depression F32.2 and Elevated blood pressure reading without diagnosis of hypertension R03.[address] May, [place] [address] May, Migraine without aura and [place] without status migrainosus, [address] not intractable G43.[address] May, [place] [address] May, [place] [address] without status migrainosus, not intractable G43.009 and Environmental allergies Z91.[address] [facility] May, [place] [address] May, Moder[place] [address] F32.2 and Migraine without aura and without status migrainosus, not intractable G43.009 [facility] [address] May, 2017 [address] [place] [address] Apr, [place] [address] [place] [address] [place], [place] [address] [place] [address] [place] Apr, [place] [address] Apr, [place] [address] Apr, Worst headache of life R51 [place] [address] Apr, Pain [place] [address] M25.541 ; Hepatitis B core antibody positive R76.8 and Pain in joints of left hand M25.[address] Apr, [place] [address] Apr, [place] [address] Apr, Pain [place] [address] M25.541 ; Pain in joints of left hand M25.542 and Need for hepatitis C screening test Z11.[address] Apr, Anxiety F41.9 [place] [address] Apr, Chest tightness R07.89 ; [place] [address] Overweight (BMI 25.0-29.9) E66.3 ; BMI 27.0-27.9,adult Z68.27 and History of asthma Z87.[address] Mar, Chest tightness R07.89 [place] [address] [place] [address] [place] Mar, [place] [address] Mar, [place] [address] Z91.09 [place] [address] [place] Mar, [place] [address] Mar, Chest tightness R07.89 [place] [address] Mar, [place] [address] Mar, Heart palpitations R00.2 ; [place] [address] Nasal congestion R09.81 ; Screening for HIV (human immunodeficiency virus) Z11.4 ; Right inguinal hernia K40.90 ; Anxiety F41.9 ; Screening for colon cancer Z12.11 and Anemia, unspecified type D64.[address] Jan, Chest congestion R09.89 [place] [address] Unilateral recurrent inguinal hernia without obstruction or gangrene K40.[address] Jan, [place] [address] Z91.09 ; Anxiety F41.9 ; Skin lesion L98.9 ; Screening, lipid Z13.220 and Right inguinal hernia K40.[address] Nov, [place] [address] Sep, [place] [address] IMMUNIZATIONS No Known Immunizations SOCIAL HISTORY Never Assessed REASON FOR REFERRAL FUNCTIONAL STATUS PLAN OF CARE VITAL SIGNS MEDICATIONS Medication Instructions Dosage Frequency Start End Date Duration Status Date [place] 3 1000 Orally daily 2 capsule 24h 90 days Active mg Nasonex 50 Nasally Once a 2 sprays in 24h Jan, 30 day(s) Active MCG/ACT day each 2018 nostril PROCEDURES No Known procedures RESULTS No Results REASON FOR VISIT Refill Medication Insurance Providers [facility] Member Patient Patient Patient Patient Patient Subscriber Subscriber Subscriber Group Insurance Plan Plan Plan Plan ID Relationship Address Phone Name Date of ID Name Date of No Type Insurance Insurance Insurance Coverage to Subscriber Address Phone Name Dates Medicaid [phone] Medicaid self [place] [id number] [facility] [address] [address] Medicare National Medicare self [place] [id number] PPS QMB No Government 41 PPS QMB No [place] [employer] [address] [place] [id number] Medicare National 702 Medicare self [place] [id number] PPS QMB No Government 41 PPS QMB No [place] [employer] [address] [place] [id number] Case [phone] Case self [place] [id number] Management Teodoro Mortensen 02 Management [facility] [address] [facility] MEDICAL (GENERAL) HISTORY Type Description Date Medical History anxiety and panic disorder Medical History hyperactive Medical History Hep A and B Medical History Herpes Medical History Asthma (as a child) Surgical History glands in breast removed Hospitalization History glands removed 2007
--- OUTSIDE RECORDS SUMMARY | 2018-02-15 16:44 | XMS REPORT ---
:1945 Author Organization [facility] Address [address] [place] [address] Care Team Providers Name Role Phone Michael Perez Unavailable Unavailable PROBLEMS Type Condition ICD9-CM Code [id number] Onset Condition SNOMED Code Code Dates Status Problem High cholesterol E78.00 Active 86816046 Problem Right inguinal K40.90 Active 727983804 hernia Problem Environmental Z91.09 Active 081401401 allergies Problem Hypomagnesemia E83.42 Active 226736767 Problem Heart palpitations R00.2 Active 02798221 Problem Nasal congestion R09.81 Active 70100558 Problem Chronic fatigue R53.82 Active 27772900 Problem Mood disorder F39 Active 69116574 Problem BMI 27.0-27.9,adult Z68.27 Active 424372253 Problem Overweight (BMI E66.3 Active 868636170 25.0-29.9) Problem History of Z86.59 Active 581632807 depression Problem Migraine without G43.009 Active 877281935 aura and without status migrainosus, not intractable ALLERGIES No Information ENCOUNTERS Encounter Location Date Diagnosis [place] [address] Dec, [place] [address] [facility] [address] Dec, Diarrhea of presumed [place] infectious origin R19.[address] [place] [address] Dec, Skin rash R21 ; [place] [address] blood pressure reading without diagnosis of hypertension R03.0 and Shaking R25.1 [facility] [address] Nov, [place] [address] [facility] [address] Nov, Dermatitis L30.9 ; [place] [address] without aura and without status migrainosus, not intractable G43.009 ; Elevated blood pressure reading without diagnosis of hypertension R03.0 and Encounter for immunization Z23 Teodoro Mortensen [facility] [address] [facility] Nov, [place] [address] Nov, Mood disorder F39 [place] [address] [facility] Nov, Mood disorder F39 [place] [address] Nov, [facility] [place] [address] Oct, [place] [address] Oct, Mood disorder F39 [place] [address] Sep, Migraine [place] [address] without status migrainosus, not intractable G43.009 and Chronic fatigue R53.[address] [facility] Sep, Migraine [place] [address] without status migrainosus, not intractable G43.[address] Sep, [place] [address] Sep, [place] [address] Sep, [place] [address] Sep, [place] [address] Sep, [place] [address] Sep, Other [place] [address] externa of left ear H60.392 and Migraine without aura and without status migrainosus, not intractable G43.[address] Sep, [facility] [address] Sep, [place] [address] Aug, [place] [address] Aug, [place] [address] [facility] [address] [place] [address] Aug, [place] [address] [facility] [address] [facility] Jul, [place] [address] Jul, [place] [address] Jul, [place] [address] Jul, History of depression Z86.59 [place] [address] [place] [id number] [facility] Jul, [place] [address] Jul, [place] [address] Jul, [place] [address] Jul, [place] [address] Jul, [place] [address] cardiovascular examination Z01.810 ; Snoring R06.83 ; Postnasal drip R09.82 and Moderately severe depression F32.[address] June, [place] [address] June, [place] [address] June, [place] [address] [place] [address] . [facility] June, [place] [address] June, [place] [address] without status migrainosus, not intractable G43.[address] June, [place] [address] June, Right inguinal hernia K40.90 [place] [address] ; Screening for lipid disorders Z13.220 ; Screening for prostate cancer Z12.5 and Anxiety F41.[address] June, [place] [address] June, [place] [address] June, [place] [address] June, [place] [address] [facility] [address] [facility] [address], [address] [place] [address] June, [place] [address] June, [place] [address] June, [place] [address] F32.2 ; Hypomagnesemia E83.42 ; Anxiety F41.9 ; Pain in right knee M25.561 and Pain in left knee M25.[address] June, [place] [address] May, [place] [address] May, [facility] [place] [address] May, Neck pain M54.2 ; [place] [address] Hypomagnesemia E83.42 ; Rash R21 ; Moderately severe depression F32.2 and Elevated blood pressure reading without diagnosis of hypertension R03.[address] May, [place] [address] May, Migraine without aura and [place] without status migrainosus, [address] not intractable G43.[address] May, [place] [address] May, [place] [address] without status migrainosus, not intractable G43.009 and Environmental allergies Z91.[address] May, [place] [address] May, [place] [address] F32.2 and Migraine without aura and without status migrainosus, not intractable G43.[address], [address] [place] [address] Apr, [place] [address] Apr, [place] [address] Apr, [place] [address] Apr, [place] [address] Apr, Worst headache of life R51 [place] [address] Apr, Pain [place] [address] M25.541 ; Hepatitis B core antibody positive R76.8 and Pain in joints of left hand M25.[address] Apr, [place] [address] Apr, [place] [address] Apr, Pain [place] [address] M25.541 ; Pain in joints of left hand M25.542 and Need for hepatitis C screening test Z11.[address] Apr, Anxiety F41.9 [place] [address] Apr, Chest tightness R07.89 ; [place] [address] Overweight (BMI 25.0-29.9) E66.3 ; BMI 27.0-27.9,adult Z68.27 and History of asthma Z87.[address] Mar, Chest tightness R07.89 [place] [address] Mar, [place] [address] Mar, [place] [address] Z91.[address] Mar, [place] [address] Mar, Chest tightness R07.89 [place] [address] Mar, [place] [address] Mar, Heart palpitations R00.2 ; [place] [address] Nasal congestion R09.81 ; Screening for HIV (human immunodeficiency virus) Z11.4 ; Right inguinal hernia K40.90 ; Anxiety F41.9 ; Screening for colon cancer Z12.11 and Anemia, unspecified type D64.[address] Jan, Chest congestion R09.89 [place] [address] Unilateral recurrent inguinal hernia without obstruction or gangrene K40.[address] Jan, [place] [address] Z91.09 ; Anxiety F41.9 ; Skin lesion L98.9 ; Screening, lipid Z13.220 and Right inguinal hernia K40.[address] Nov, [place] [address] Sep, [place] [address] IMMUNIZATIONS No Known Immunizations SOCIAL HISTORY Never Assessed REASON FOR REFERRAL FUNCTIONAL STATUS PLAN OF CARE VITAL SIGNS MEDICATIONS Unknown Medications PROCEDURES No Known procedures RESULTS No Results REASON FOR VISIT neuro 04/28/18 Insurance Providers [facility] Member Patient Patient Patient Patient Patient Subscriber Subscriber Subscriber Group Insurance Plan Plan Plan Plan ID Relationship Address Phone Name Date of ID Name Date of No Type Insurance Insurance Insurance Coverage to Subscriber Address Phone Name Dates Medicare National [id number] Medicare self [place] [id number] PPS QMB No Government 41 PPS QMB No [facility] [employer] e [address] [place] [id number] Medicare National [phone] Medicare self [place] [id number] PPS QMB No Government 41 PPS QMB No [place] [employer] e [address] [place] [id number] Case [phone] Case self [place] [id number] Management [place] Management [place] [id number] Community Medicaid [id number] Medicaid self [place] [id number] [facility] [address] [address] MEDICAL (GENERAL) HISTORY Type Description Date Medical History anxiety and panic disorder Medical History hyperactive Medical History Hep A and B Medical History Herpes Medical History Asthma (as a child) Surgical History glands in breast removed Hospitalization History glands removed 2007
--- OUTSIDE RECORDS SUMMARY | 2018-02-15 16:44 | XMS REPORT ---
:1945 Author Organization [facility] Address [address] [place] [address] Care Team Providers Name Role Phone Michael Perez Unavailable Unavailable PROBLEMS Type Condition ICD9-CM Code [id number] Onset Condition SNOMED Code Code Dates Status Problem High cholesterol E78.00 Active 81398326 Problem Right inguinal K40.90 Active 666694307 hernia Problem Environmental Z91.09 Active 116707137 allergies Problem Hypomagnesemia E83.42 Active 814520286 Problem Heart palpitations R00.2 Active 26658561 Problem Nasal congestion R09.81 Active 08896726 Problem Chronic fatigue R53.82 Active 14504310 Problem Mood disorder F39 Active 22453461 Problem BMI 27.0-27.9,adult Z68.27 Active 941195782 Problem Overweight (BMI E66.3 Active 331259276 25.0-29.9) Problem History of Z86.59 Active 455606829 depression Problem Migraine without G43.009 Active 383697338 aura and without status migrainosus, not intractable ALLERGIES No Information ENCOUNTERS Encounter Location Date Diagnosis [address] Jan, [place] [address] Jan, [place] [address] Jan, [place] [address] [facility] [address] Dec, [place] [address] [facility] [address] Dec, [place] [address] infectious origin R19.7 [facility] [address] Dec, Skin rash R21 ; [place] [address] blood pressure reading without diagnosis of hypertension R03.0 and Shaking R25.[address] Nov, [place] [address] Nov, Dermatitis L30.9 ; [place] [address] without aura and without status migrainosus, not intractable G43.009 ; Elevated blood pressure reading without diagnosis of hypertension R03.0 and Encounter for immunization Z23 [facility] [address] [facility] Nov, [place] [address] Nov, Mood disorder [address] [address] Nov, Mood disorder [address] [address] Nov, [place] [address] Oct, [place] [address] Oct, Mood disorder 9 [place] [address] Sep, [place]raine [place] [address] without status migrainosus, not intractable G43.009 and Chronic fatigue R53.[address] [facility] Sep, Migraine without [place] [address] without status migrainosus, not intractable G43.[address] Sep, [place] [address] Sep, [place] [address] Sep, [place] [address] Sep, [place] [address] Sep, [place] [address] Sep, Other infect[place] [address] externa of left ear H60.392 and Migraine without aura and without status migrainosus, not intractable G43.[address] Sep, [place] [address] [facility] [address] [facility] Sep, [place] [address] [facility] [address] [place] [address] Aug, [place] [address] [facility] [address] [place] [address] [place], [place] [address] Aug, [place] [address] [facility] 513 . [facility] Jul, [place] [address] Jul, [place] [address] [facility] [address] [place] [address] Jul, [place] [address] Jul, History of depression Z86.59 [place] [address] [facility] [address] [facility] Jul, [place] [address] Jul, [place] [address] [facility] [address] [facility] Jul, [place] [address] Jul, [place] [address] Jul, [place] [address] cardiovascular examination Z01.810 ; Snoring R06.83 ; Postnasal drip R09.82 and Moderately severe depression F32.[address] June, [place] [address] June, [place] [address] June, [place] [address] [facility] 513 . [facility] June, [place] [address] June, [place] [address] without status migrainosus, not intractable G43.[address] June, [place] [address] June, Right inguinal hernia K40.90 [place] [address] ; Screening for lipid disorders Z13.220 ; Screening for prostate cancer Z12.5 and Anxiety F41.[address] June, [place] [address] [place] [address] June, [place] [address] [place] [address] June, [place] [address] [place] [address] June[place] [address] [facility] [address] [facility] [address], [address] [place] [address] June, [place] [address] [place] [address] June, [place] [address] June, Moder[place] [address] F32.2 ; Hypomagnesemia E83.42 ; Anxiety F41.9 ; Pain in right knee M25.561 and Pain in left knee M25.[address] June, [place] [address] May, [place] [address] [facility] [address] [facility] May, [place] [address] May, Neck pain M54.2 ; [place] [address] Hypomagnesemia E83.42 ; Rash R21 ; Moderately severe depression F32.2 and Elevated blood pressure reading without diagnosis of hypertension R03.[address] May, [place] [address] May, Migraine without aura [place] without status migrainosus, [address] not intractable G43.[address] May, [place] [address] May, Migraine [place] [address] without status migrainosus, not intractable G43.009 and Environmental allergies Z91.[address] [facility] May, [place] [address] May, Moder[place] [address] F32.2 and Migraine without aura and without status migrainosus, not intractable G43.009 [facility] [address] May, 2017 [address] [place] [address] Apr, [place] [address] [place] [address] Apr, [place] [address] [place] [address] Apr, [place] [address] Apr, [place] [address] Apr, Worst headache of life R51 [place] [address] Apr, Pain [place] [address] M25.541 ; Hepatitis B core antibody positive R76.8 and Pain in joints of left hand M25.[address] Apr, [place] [address] [place] [address] Apr, [place] [address] Apr, Pain [place] [address] M25.541 ; Pain in joints of left hand M25.542 and Need for hepatitis C screening test Z11.[address] Apr, Anxiety F41.9 [place] [address] Apr, Chest tightness R07.89 ; [place] [address] Overweight (BMI 25.0-29.9) E66.3 ; BMI 27.0-27.9,adult Z68.27 and History of asthma Z87.09 [place] [address] Mar, Chest tightness R07.89 [place] [address] [place] [address] Mar, [place] [address] [place] [address] Mar, [place] [address] Z91.09 [place] [address] Mar, [place] [address] [place] [address] Mar, Chest tightness R07.89 [place] [address] [facility] [address], [place] [address] Mar, Heart palpitations R00.2 ; [place] [address] Nasal congestion R09.81 ; Screening for HIV (human immunodeficiency virus) Z11.4 ; Right inguinal hernia K40.90 ; Anxiety F41.9 ; Screening for colon cancer Z12.11 and Anemia, unspecified type D64.[address] Jan, Chest congestion R09.89 [place] [address] Unilateral recurrent inguinal hernia without obstruction or gangrene K40.[address] Jan, Environmental allergies [place] [address] Z91.09 ; Anxiety F41.9 ; Skin lesion L98.9 ; Screening, lipid Z13.220 and Right inguinal hernia K40.[address] Nov, [place] [address] Sep, [place] [address] IMMUNIZATIONS No Known Immunizations SOCIAL HISTORY Never Assessed REASON FOR REFERRAL FUNCTIONAL STATUS PLAN OF CARE VITAL SIGNS MEDICATIONS Medication Instructions Dosage Frequency Start Date End Date Duration Status [place] 3 1000 mg Orally daily 2 capsule 24h 90 days Active PROCEDURES No Known procedures RESULTS No Results REASON FOR VISIT Refill Medication Insurance Providers [facility] Health Member Patient Patient Patient Patient Patient Subscriber Subscriber Subscriber Group Insurance Plan Plan Plan Plan ID Relationship Address Phone Name Date of ID Name Date of No Type Insurance Insurance Insurance Coverage to Subscriber Address Phone Name Dates Medicaid [phone] Medicaid self [place] [id number] [facility] [place] [address] Medicare National 67- Medicare self [place] [id number] PPS QMB No [facility] 41 PPS QMB No [facility] [employer] Co[employer] e [address] [place] [id number] Case [phone] Case self [place] [id number] Management [place] [facility] [address] Community Medicare National 7 Medicare self [place] [id number] PPS QMB No [facility] 41 PPS QMB No [facility] [employer] Co[employer]anc e [address] [facility] [id number] MEDICAL (GENERAL) HISTORY Type Description Date Medical History anxiety and panic disorder Medical History hyperactive Medical History Hep A and B Medical History Herpes Medical History Asthma (as a child) Surgical History glands in breast removed Hospitalization History glands removed 2007
--- OUTSIDE RECORDS SUMMARY | 2018-02-15 16:44 | XMS REPORT ---
:1945 Author Organization [facility] Address [address] [place] [address] Care Team Providers Name Role Phone Michael Perez Unavailable Unavailable PROBLEMS Type Condition ICD9-CM Code [id number] Onset Condition SNOMED Code Code Dates Status Problem High cholesterol E78.00 Active 53573766 Problem Right inguinal K40.90 Active 413290123 hernia Problem Environmental Z91.09 Active 446268322 allergies Problem Hypomagnesemia E83.42 Active 681210197 Problem Heart palpitations R00.2 Active 67134940 Problem Nasal congestion R09.81 Active 79730451 Problem Chronic fatigue R53.82 Active 42545020 Problem Mood disorder F39 Active 90669012 Problem BMI 27.0-27.9,adult Z68.27 Active 107971586 Problem Overweight (BMI E66.3 Active 702825737 25.0-29.9) Problem History of Z86.59 Active 072545997 depression Problem Migraine without G43.009 Active 769731691 aura and without status migrainosus, not intractable ALLERGIES No Information ENCOUNTERS Encounter Location Date Diagnosis [place] [address] Dec, [place] [address] [facility] [address] Dec, Diarrhea of presumed [place] infectious origin R19.7 [place] [address] Dec, Skin rash R21 ; [place] [address] blood pressure reading without diagnosis of hypertension R03.0 and Shaking R25.1 [facility] [address] Nov, [place] [address] [facility] [address] Nov, Dermatitis L30.9 ; [place] [address] without aura and without status migrainosus, not intractable G43.009 ; Elevated blood pressure reading without diagnosis of hypertension R03.0 and Encounter for immunization Z23 Teodoro Mortensen [facility] [address] [facility] Nov, [place] [address] Nov, Mood disorder F39 [place] [address] [facility] Nov, Mood disorder F39 [place] [address] Nov, [facility] [place] [address] Oct, [place] [address] Oct, Mood disorder F39 [place] [address] Sep, Migraine [place] [address] without status migrainosus, not intractable G43.009 and Chronic fatigue R53.[address] [facility] Sep, Migraine without [place] [address] without status migrainosus, not intractable G43.[address] Sep, [place] [address] Sep, [place] [address] Sep, [place] [address] Sep, [place] [address] Sep, [place] [address] Sep, Other [place] [address] externa of left ear H60.392 and Migraine without aura and without status migrainosus, not intractable G43.[address] Sep, [place] [address] Sep, [place] [address] Aug, [place] [address] Aug, [place] [address] [facility] [address] [place] [address] Aug, [place] [address] [facility] [address] [facility] Jul, [place] [address] Jul, [place] [address] Jul, [place] [address] Jul, History of depression Z86.59 [place] [address] [place] [id number] [facility] Jul, [place] [address] Jul, [place] [address] Jul, [place] [address] Jul, [place] [address] Jul, [place] [address] cardiovascular examination Z01.810 ; Snoring R06.83 ; Postnasal drip R09.82 and Moderately severe depression F32.[address] June, [place] [address] June, [place] [address] June, [place] [address] [place] [address] . [facility] June, [place] [address] June, [place] [address] without status migrainosus, not intractable G43.[address] June, [place] [address] June, Right inguinal hernia K40.90 [place] [address] ; Screening for lipid disorders Z13.220 ; Screening for prostate cancer Z12.5 and Anxiety F41.[address] June, [place] [address] June, [place] [address] June, [place] [address] June, [place] [address] [facility] [address] [facility] [address] [place] [address] June, [place] [address] June, [place] [address] June, Moder[place] [address] F32.2 ; Hypomagnesemia E83.42 ; Anxiety F41.9 ; Pain in right knee M25.561 and Pain in left knee M25.[address] June, [place] [address] May, [place] [address] May, [facility] [address] May, Neck pain M54.2 ; [place] [address] Hypomagnesemia E83.42 ; Rash R21 ; Moderately severe depression F32.2 and Elevated blood pressure reading without diagnosis of hypertension R03.[address] May, [place] [address] May, Migraine without aura and [place] without status migrainosus, [address] not intractable G43.[address] May, [place] [address] May, Migraine [place] [address] without status migrainosus, not intractable G43.009 and Environmental allergies Z91.[address] May, [place] [address] May, Moder[place] [address] F32.2 and Migraine without aura and without status migrainosus, not intractable G43.[address], [address] [place] [address] Apr, [place] [address] Apr, [place] [address] Apr, [place] [address] Apr, [place] [address] Apr, Worst headache of life R51 [place] [address] Apr, Pain [place] [address] M25.541 ; Hepatitis B core antibody positive R76.8 and Pain in joints of left hand M25.[address] Apr, [place] [address] Apr, [place] [address] Apr, Pain [place] [address] M25.541 ; Pain in joints of left hand M25.542 and Need for hepatitis C screening test Z11.[address] Apr, Anxiety F41.9 [place] [address] Apr, Chest tightness R07.89 ; [place] [address] Overweight (BMI 25.0-29.9) E66.3 ; BMI 27.0-27.9,adult Z68.27 and History of asthma Z87.[address] Mar, Chest tightness R07.89 [place] [address] Mar, [place] [address] Mar, [place] [address] Z91.[address] Mar, [place] [address] Mar, Chest tightness R07.89 [place] [address] Mar, [place] [address] Mar, Heart palpitations R00.2 ; [place] [address] Nasal congestion R09.81 ; Screening for HIV (human immunodeficiency virus) Z11.4 ; Right inguinal hernia K40.90 ; Anxiety F41.9 ; Screening for colon cancer Z12.11 and Anemia, unspecified type D64.[address] Jan, Chest congestion R09.89 [place] [address] Unilateral recurrent inguinal hernia without obstruction or gangrene K40.[address] Jan, [place] [address] Z91.09 ; Anxiety F41.9 ; Skin lesion L98.9 ; Screening, lipid Z13.220 and Right inguinal hernia K40.[address] Nov, [place] [address] Sep, [place] [address] IMMUNIZATIONS No Known Immunizations SOCIAL HISTORY Never Assessed REASON FOR REFERRAL FUNCTIONAL STATUS PLAN OF CARE VITAL SIGNS MEDICATIONS Unknown Medications PROCEDURES No Known procedures RESULTS No Results REASON FOR VISIT 1st no show Insurance Providers [facility] Health Member Patient Patient Patient Patient Patient Subscriber Subscriber Subscriber Group Insurance Plan Plan Plan Plan ID Relationship Address Phone Name Date of ID Name Date of No Type Insurance Insurance Insurance Coverage to Subscriber Address Phone Name Dates Medicare National [id number] Medicare self [place] [id number] PPS QMB No Government 41 PPS QMB No [place] [employer] Co[employer]sur[employer] e [address] [place] [id number] Medicare National [phone] Medicare self [place] [id number] PPS QMB No Government 41 PPS QMB No [place] [employer] e [address] [place] [id number] Medicaid [phone] Medicaid self [place] [id number] [facility] [address] [place] [address] Case [phone] Case self [place] [id number] Management [place] [facility] [address] MEDICAL (GENERAL) HISTORY Type Description Date Medical History anxiety and panic disorder Medical History hyperactive Medical History Hep A and B Medical History Herpes Medical History Asthma (as a child) Surgical History glands in breast removed Hospitalization History glands removed 2007
--- OUTSIDE RECORDS SUMMARY | 2018-02-15 16:44 | XMS REPORT ---
:1945 Author Organization [facility] Address [address] [place] [address] Care Team Providers Name Role Phone Michael Perez Unavailable Unavailable PROBLEMS Type Condition ICD9-CM Code [id number] Onset Condition SNOMED Code Code Dates Status Problem High cholesterol E78.00 Active 79388295 Problem Right inguinal K40.90 Active 385330666 hernia Problem Environmental Z91.09 Active 362848977 allergies Problem Hypomagnesemia E83.42 Active 853160049 Problem Heart palpitations R00.2 Active 01684439 Problem Nasal congestion R09.81 Active 78262569 Problem Chronic fatigue R53.82 Active 47862049 Problem Mood disorder F39 Active 87707698 Problem BMI 27.0-27.9,adult Z68.27 Active 597175405 Problem Overweight (BMI E66.3 Active 496148349 25.0-29.9) Problem History of Z86.59 Active 668427284 depression Problem Migraine without G43.009 Active 079856297 aura and without status migrainosus, not intractable ALLERGIES No Information ENCOUNTERS Encounter Location Date Diagnosis [address] Jan, [place] [address] Jan, [place] [address] Jan, [place] [address] [facility] [address] Dec, [place] [address] [facility] [address] Dec, [place] [address] infectious origin R19.[address] [facility] [address] Dec, Skin rash R21 ; [place] [address] blood pressure reading without diagnosis of hypertension R03.0 and Shaking R25.[address] Nov, [place] [address] Nov, Dermatitis L30.9 ; [place] [address] without aura and without status migrainosus, not intractable G43.009 ; Elevated blood pressure reading without diagnosis of hypertension R03.0 and Encounter for immunization Z23 [facility] [address] [facility] Nov, [place] [address] Nov, Mood disorder [address] [address] Nov, Mood disorder [address] [address] Nov, [place] [address] Oct, [place] [address] Oct, Mood disorder [address] [place] [address] Sep, Migraine [place] [address] without status migrainosus, not intractable G43.009 and Chronic fatigue R53.[address] [facility] Sep, Migraine [place] [address] without status migrainosus, not intractable G43.[address] Sep, [place] [address] Sep, [place] [address] Sep, [place] [address] Sep, [place] [address] Sep, [place] [address] Sep, Other infective [place] [address] externa of left ear H60.392 and Migraine without aura and without status migrainosus, not intractable G43.[address] Sep, [place] [address] [facility] [address] [facility] Sep, [place] [address] [facility] [address] [place] [address] Aug, [place] [address] [facility] [address] [place] [address] Aug, [place] [address] Aug, [place] [address] [facility] [address] [facility] Jul, [place] [address] Jul, [place] [address] [facility] [address] [place] [address] Jul, [place] [address] Jul, History of depression Z86.59 [place] [address] [facility] [address] [facility] Jul, [place] [address] Jul, [place] [address] [facility] [address] [facility] Jul, [place] [address] Jul, [place] [address] Jul, [place] [address] cardiovascular examination Z01.810 ; Snoring R06.83 ; Postnasal drip R09.82 and Moderately severe depression F32.[address] June, [place] [address] June, [place] [address] June, [place] [address] [facility] 513 . [facility] June, [place] [address] June, [place] [address] without status migrainosus, not intractable G43.[address] June, [place] [address] June, Right inguinal hernia K40.90 [place] [address] ; Screening for lipid disorders Z13.220 ; Screening for prostate cancer Z12.5 and Anxiety F41.[address] June, [place] [address] [place] [address] June, [place] [address] [place] [address] June, [place] [address] [place] [address] June[place] [address] [facility] [address] [facility] [address], [address] [place] [address] June, [place] [address] [place] [address] June, [place] [address] June, Moderately [place] [address] F32.2 ; Hypomagnesemia E83.42 ; Anxiety F41.9 ; Pain in right knee M25.561 and Pain in left knee M25.[address] June, [place] [address] May, [place] [address] [facility] 60 [facility] May, [place] [address] May, Neck pain M54.2 ; [place] [address] Hypomagnesemia E83.42 ; Rash R21 ; Moderately severe depression F32.2 and Elevated blood pressure reading without diagnosis of hypertension R03.[address] May, [place] [address] May, Migraine without aura and [place] without status migrainosus, [address] not intractable G43.[address] May, [place] [address] May, Migraine [place] [address] without status migrainosus, not intractable G43.009 and Environmental allergies Z91.[address] [facility] May, [place] [address] May, Moderately [place] [address] F32.2 and Migraine without aura and without status migrainosus, not intractable G43.009 [facility] [address] [facility] [address] May, 2017 [address] [place] [address] [place] Apr, [facility] [place] [address] [place] [address] Apr, [place] [address] [place] [address] Apr, [place] [address] Apr, [place] [address] Apr, Worst headache of life R51 [place] [address] Apr, Pain in [place] [address] M25.541 ; Hepatitis B core antibody positive R76.8 and Pain in joints of left hand M25.[address] Apr, [place] [address] [place] [address] Apr, [place] [address] Apr, Pain in [place] [address] M25.541 ; Pain in joints of left hand M25.542 and Need for hepatitis C screening test Z11.[address] Apr, Anxiety F41.9 [place] [address] Apr, Chest tightness R07.89 ; [place] [address] Overweight (BMI 25.0-29.9) E66.3 ; BMI 27.0-27.9,adult Z68.27 and History of asthma Z87.09 [place] [address] Mar, Chest tightness R07.89 [place] [address] [place] [address] Mar, [place] [address] [place] [address] Mar, [place] [address] Z91.09 [place] [address] Mar, [place] [address] [place] [address] Mar, Chest tightness R07.89 [place] [address] [facility] [address] [facility] Mar, [place] [address] Mar, Heart palpitations R00.2 ; [place] [address] Nasal congestion R09.81 ; Screening for HIV (human immunodeficiency virus) Z11.4 ; Right inguinal hernia K40.90 ; Anxiety F41.9 ; Screening for colon cancer Z12.11 and Anemia, unspecified type D64.[address] Jan, Chest congestion R09.89 [place] [address] Unilateral recurrent inguinal hernia without obstruction or gangrene K40.[address] Jan, [place] [address] Z91.09 ; Anxiety F41.9 ; Skin lesion L98.9 ; Screening, lipid Z13.220 and Right inguinal hernia K40.[address] Nov, [place] [address] Sep, [place] [address] IMMUNIZATIONS No Known Immunizations SOCIAL HISTORY Never Assessed REASON FOR REFERRAL FUNCTIONAL STATUS PLAN OF CARE VITAL SIGNS MEDICATIONS Unknown Medications PROCEDURES No Known procedures RESULTS No Results REASON FOR VISIT Information Request Insurance Providers [facility] Member Patient Patient Patient Patient Patient Subscriber Subscriber Subscriber Group Insurance Plan Plan Plan Plan ID Relationship Address Phone Name Date of ID Name Date of No Type Insurance Insurance Insurance Coverage to Subscriber Address Phone Name Dates Medicare National Medicare self [place] [id number] PPS QMB No Government 41 PPS QMB No [place]ael[place] [employer] [address] [place] [id number] Medicaid [phone] Medicaid self [place] [id number] [facility] [address] [place] [address] Medicare National Medicare self [place] [id number] PPS QMB No Government 41 PPS QMB No [place] [employer] [address] [place] [id number] Case [phone] Case self [place] [id number] Management [facility] 02 Management [facility] [address] [facility] MEDICAL (GENERAL) HISTORY Type Description Date Medical History anxiety and panic disorder Medical History hyperactive Medical History Hep A and B Medical History Herpes Medical History Asthma (as a child) Surgical History glands in breast removed Hospitalization History glands removed 2007
--- OUTSIDE RECORDS SUMMARY | 2018-02-15 16:44 | XMS REPORT ---
:1945 Author Organization [facility] Address [address] [place] [address] Care Team Providers Name Role Phone Michael Perez Unavailable Unavailable PROBLEMS Type Condition ICD9-CM Code [id number] Onset Condition SNOMED Code Code Dates Status Problem High cholesterol E78.00 Active 10823376 Problem Right inguinal K40.90 Active 919429177 hernia Problem Environmental Z91.09 Active 672537460 allergies Problem Hypomagnesemia E83.42 Active 491594558 Problem Heart palpitations R00.2 Active 10926268 Problem Nasal congestion R09.81 Active 13723706 Problem Chronic fatigue R53.82 Active 79042974 Problem Mood disorder F39 Active 83935451 Problem BMI 27.0-27.9,adult Z68.27 Active 101149518 Problem Overweight (BMI E66.3 Active 735948460 25.0-29.9) Problem History of Z86.59 Active 366308509 depression Problem Migraine without G43.009 Active 099677902 aura and without status migrainosus, not intractable ALLERGIES No Information ENCOUNTERS Encounter Location Date Diagnosis [place] [address] Dec, [place] [address] [facility] [address] Dec, Diarrhea of presumed [place] infectious origin R19.7 [place] [address] Dec, Skin rash R21 ; [place] [address] blood pressure reading without diagnosis of hypertension R03.0 and Shaking R25.1 [facility] [address] Nov, [place] [address] [facility] [address] Nov, Dermatitis L30.9 ; [place] [address] without aura and without status migrainosus, not intractable G43.009 ; Elevated blood pressure reading without diagnosis of hypertension R03.0 and Encounter for immunization Z23 Teodoro Mortensen [facility] [address] [facility] Nov, [place] [address] Nov, Mood disorder F39 [place] [address] [facility] Nov, Mood disorder F39 [place] [address] Nov, [facility] [place] [address] Oct, [place] [address] Oct, Mood disorder F39 [place] [address] Sep, Migraine without aura [place] [address] without status migrainosus, not intractable G43.009 and Chronic fatigue R53.[address] [facility] Sep, Migraine without [place] [address] without status migrainosus, not intractable G43.[address] Sep, [place] [address] Sep, [place] [address] Sep, [place] [address] Sep, [place] [address] Sep, [place] [address] Sep, Other infect[place] [address] externa of left ear H60.392 and Migraine without aura and without status migrainosus, not intractable G43.[address] Sep, [place] [address] Sep, [place] [address] Aug, [place] [address] Aug, [place] [address] [facility] [address] [place] [address] [place] [address] [facility] [address] [facility] Jul, [place] [address] Jul, [place] [address] Jul, [place] [address] Jul, History of depression Z86.59 [place] [address] [place] [address] [facility] Jul, [place] [address] Jul, [place] [address] Jul, [place] [address] Jul, [place] [address] Jul, En[place] [address] cardiovascular examination Z01.810 ; Snoring R06.83 ; Postnasal drip R09.82 and Moderately severe depression F32.[address] June, [place] [address] June, [place] [address] June, [place] [address] [place] [id number] . [facility] June, [place] [address] June, Mig[place] [address] without status migrainosus, not intractable G43.[address] June, [place] [address] June, Right inguinal hernia K40.90 [place] [address] ; Screening for lipid disorders Z13.220 ; Screening for prostate cancer Z12.5 and Anxiety F41.[address] June, [place] [address] June, [place] [address] June, [place] [address] June, [place] [address] [facility] [address] [facility] [address], [address] [place] [address] June, [place] [address] June, [place] [address] June, Moder[place] [address] F32.2 ; Hypomagnesemia E83.42 ; Anxiety F41.9 ; Pain in right knee M25.561 and Pain in left knee M25.[address] June, [place] [address] May, [place] [address] May, [facility] [place] [address] May, Neck pain M54.2 ; [place] [address] Hypomagnesemia E83.42 ; Rash R21 ; Moderately severe depression F32.2 and Elevated blood pressure reading without diagnosis of hypertension R03.[address] May, [place] [address] May, Migraine without aura [place] without status migrainosus, [address] not intractable G43.[address] May, [place] [address] May, Mig[place] [address] without status migrainosus, not intractable G43.009 and Environmental allergies Z91.[address] May, [place] [address] May, [place] [address] F32.2 and Migraine without aura and without status migrainosus, not intractable G43.[address], [address] [place] [address] [place] Apr, [place] [address] Apr, [place] [address] Apr, [place] [address] Apr, [place] [address] Apr, Worst headache of life R51 [place] [address] Apr, Pain [place] [address] M25.541 ; Hepatitis B core antibody positive R76.8 and Pain in joints of left hand M25.[address] Apr, [place] [address] Apr, [place] [address] Apr, Pain [place] [address] M25.541 ; Pain in joints of left hand M25.542 and Need for hepatitis C screening test Z11.[address] Apr, Anxiety F41.9 [place] [address] Apr, Chest tightness R07.89 ; [place] [address] Overweight (BMI 25.0-29.9) E66.3 ; BMI 27.0-27.9,adult Z68.27 and History of asthma Z87.[address] Mar, Chest tightness R07.89 [place] [address] Mar, [place] [address] Mar, [place] [address] Z91.[address] Mar, [place] [address] Mar, Chest tightness R07.89 [place] [address] Mar, [place] [address] Mar, Heart palpitations R00.2 ; [place] [address] Nasal congestion R09.81 ; Screening for HIV (human immunodeficiency virus) Z11.4 ; Right inguinal hernia K40.90 ; Anxiety F41.9 ; Screening for colon cancer Z12.11 and Anemia, unspecified type D64.[address] Jan, Chest congestion R09.89 [place] [address] Unilateral recurrent inguinal hernia without obstruction or gangrene K40.[address] Jan, [place] [address] Z91.09 ; Anxiety F41.9 ; Skin lesion L98.9 ; Screening, lipid Z13.220 and Right inguinal hernia K40.90 [place] [address] [place] Nov, [place] [address] Sep, [place] [address] IMMUNIZATIONS No Known Immunizations SOCIAL HISTORY Never Assessed REASON FOR REFERRAL FUNCTIONAL STATUS PLAN OF CARE Activity Details Follow Up prn Reason: VITAL SIGNS Temperature 97.9 degrees Fahrenheit 2018-01-06 Weight 187 2018-01-06 Height 68.9 in 2018-01-06 BMI 27.69 kg/m2 2018-01-06 Oximetry 99% % 2018-01-06 Blood pressure systolic 121 mm Hg 2018-01-06 Blood pressure diastolic 73 mm Hg 2018-01-06 MEDICATIONS Medication Instructions Dosage Frequency Start End Duration Status Date Date Sumatriptan Orally Once a 1 tablet May, Active Succinate 100 mg day as needed 2018 for headache [place] 3 1000 mg Orally daily 2 capsule 24h 90 days Active Trazadone 100 orally every 3 tab 30 days Active night at bedtime as needed Zyrtec Allergy 10 Orally Once a 1 tablet 24h Jan, day(s) Active mg day 2016 Triamcinolone Externally 1 application 12h Nov, day(s) Active Acetonide 0.1 % Twice a day to affected 2018 area Pseudoephedrine Orally qam 1 tablet as Active HCl 30 mg needed Depakote ER 500 Orally two as directed Oct, 30 days Active MG tablets take 2018 at night Albuterol 90 as directed Mar, Not-Taki MCG/ACT 2017 ng Advil 200 MG Orally Three 1 capsule 8h Not-Taki times a day with food or ng milk as needed Lipitor 40 mg Orally Once a TAKE 1 TABLET 24h 90 Active day BY MOUTH EVERY NIGHT AT BEDTIME Fluticasone Nasally Once a 1 spray in 24h June, day(s) Not-Taki Propionate 50 day each nostril 2017 ng MCG/DOSE HydrOXYzine HCl Orally every 8 1 tablet as Oct, days Not-Taki 50 MG hrs for needed 2017 ng anxiety PROCEDURES Procedure Date Ordered Result Body Site BLOOD PRESSURE, MEASURED Jan 06, 2018 Oxygen saturation results documented and reviewed Jan 06, 2018 BODY MASS INDEX DOCD Jan 06, 2018 SMOKING + 2ND HAND ASSESSED Jan 06, 2018 [facility] visit, est patient Jan 06, 2018 RESULTS No Results REASON FOR VISIT possible flu, STOMACH BUG [id number] Insurance Providers [facility] Health Member Patient Patient Patient Patient Patient Subscriber Subscriber Subscriber Group Insurance Plan Plan Plan Plan ID Relationship Address Phone Name Date of ID Name Date of No Type Insurance Insurance Insurance Coverage to Subscriber Address Phone Name Dates Medicare National [id number] Medicare self [place] [id number] PPS QMB No Government 41 PPS QMB No [facility] [employer]anc Services CoInsur[employer] e [address] [place] [id number] Case [phone] Case self [place] [id number] Management [place] 02 Management [facility] [address] Community Medicaid [id number] Medicaid self [place] [id number] [facility] 00 [place] [address] Medicare National [id number] Medicare self [place] [id number] PPS QMB No Government 41 PPS QMB No [facility] [employer] Services CoInsuranc e [address] [place] [id number] MEDICAL (GENERAL) HISTORY Type Description Date Medical History anxiety and panic disorder Medical History hyperactive Medical History Hep A and B Medical History Herpes Medical History Asthma (as a child) Surgical History glands in breast removed Hospitalization History glands removed 2007
== END 2018-02-15 17:00 | disposition home or self-care (01) ==
LOC: ED 16:06
DX: H66.90 Otitis media, unspecified, unspecified ear (principal); H92.03 Otalgia, bilateral; Z88.0 Allergy status to penicillin; J02.9 Acute pharyngitis, unspecified
CPT/HCPCS: 99282; A9270-GY

== ENCOUNTER 2018-06-17 12:18 | Emergency (ER) | payer MEDICARE, MEDICAID ==
--- OUTSIDE RECORDS SUMMARY | 2018-06-17 12:37 | XMS REPORT ---
:1945 Author Organization [facility] Address [address] [place] [address] Care Team Providers Name Role Phone Michael Perez Unavailable Unavailable PROBLEMS Type Condition ICD9-CM Code [id number] Onset Condition SNOMED Code Code Dates Status Problem High cholesterol E78.00 Active 58197733 Problem Environmental Z91.09 Active 090334529 allergies Problem Right inguinal K40.90 Active 348859805 hernia Problem Hypomagnesemia E83.42 Active 677493604 Problem Mood disorder F39 Active 10454336 Problem Nasal congestion R09.81 Active 54191296 Problem Chronic fatigue R53.82 Active 38896884 Problem Heart palpitations R00.2 Active 49582531 Problem Overweight (BMI E66.3 Active 896071209 25.0-29.9) Problem BMI 27.0-27.9,adult Z68.27 Active 543062927 Problem Migraine without G43.009 Active 098771303 aura and without status migrainosus, not intractable Problem History of Z86.59 Active 924269164 depression ALLERGIES Substance Reaction Event Type Date Status Penicillin Unknown Drug Allergy Apr, Active pollen Unknown Non Drug Allergy Apr, Active Red Dye shortness of breath Non Drug Allergy Apr, Active Sulfa Unknown Drug Allergy Apr, Active ENCOUNTERS Encounter Location Date Diagnosis [place] [address] Apr, [place] [address] R10.12 and Right inguinal hernia K40.[address] [place] [address] Apr, [place] [address] [facility] Resource - [place] [address] Apr, [place] [address] [place] [address] Apr, [place] [address] [facility] [address] [place] [address] Mar, Cellulitis, neck L03.221 [place] [address] Mood disorder F39 [address] Jan, [place] [address] Jan, [place] [address] Jan, [place] [address] [facility] [address] [facility] Jan, [place] [address] Jan, [place] [address] Dec, [place] [address] Dec, [place] [address] infectious origin R19.[address] Dec, Skin rash R21 ; [place] [address] blood pressure reading without diagnosis of hypertension R03.0 and Shaking R25.[address] Nov, [place] [address] Nov, Dermatitis L30.9 ; [place] [address] without aura and without status migrainosus, not intractable G43.009 ; Elevated blood pressure reading without diagnosis of hypertension R03.0 and Encounter for immunization Z23 [facility] [address] [facility] Nov, [place] [address] Nov, Mood disorder F39 [place] [address] [place] [address] [facility] Nov, Mood disorder 9 [place] [address] Nov, [place] [address] Oct, [place] [address] Oct, Mood disorder F39 [place] [address] Sep, Migraine [place] [address] without status migrainosus, not intractable G43.009 and Chronic fatigue R53.82 [facility] [address] [facility] Sep, Migraine [place] [address] without status migrainosus, not intractable G43.009 [facility] [address] [facility] Sep, [place] [address] [facility] [address] [place] [address] Sep, [place] [address] [facility] [address] [facility] Sep, [place] [address] [facility] [address] [place] [address] [place] [address] [facility] [address] [facility] Sep, [place] [address] [facility] [address] [facility] Sep, Other [place] [address] externa of left ear H60.392 and Migraine without aura and without status migrainosus, not intractable G43.[address] Sep, [place] [address] Sep, [place] [address] [facility] [address] [facility] Aug, [place] [address] [facility] [address] [place] [address] [place] [address] Aug, [place] [address] [place] [address] . [facility] Jul, [place] [address] [facility] [address] [facility] Jul, [place] [address] Jul, [place] [address] [facility] [address] [facility] Jul, History of depression Z86.59 [place] [address] [facility] [address] [place] [address] Jul, [place] [address] Jul, [place] [address] Jul, [facility] [address] Jul, [place] [address] Jul, [place] [address] cardiovascular examination Z01.810 ; Snoring R06.83 ; Postnasal drip R09.82 and Moderately severe depression F32.[address] June, [place] [address] June, [place] [address] June, [place] [address] [facility] [address] [facility] June, [place] [address] June, [place] [address] without status migrainosus, not intractable G43.[address] June, [place] [address] June, Right inguinal hernia K40.90 [place] [address] ; Screening for lipid disorders Z13.220 ; Screening for prostate cancer Z12.5 and Anxiety F41.[address] June, [place] [address] June, [place] [address] June, [place] [address] June, [place] [address] June, [address] [place] [address] June, [place] [address] June, [place] [address] June, [place] [address] F32.2 ; Hypomagnesemia E83.42 ; Anxiety F41.9 ; Pain in right knee M25.561 and Pain in left knee M25.[address] June, [place] [address] [address] May, [facility] [address] [facility] [address] [facility] [place] May, [place] [address] May, Neck pain M54.2 ; [place] [address] Hypomagnesemia E83.42 ; Rash R21 ; Moderately severe depression F32.2 and Elevated blood pressure reading without diagnosis of hypertension R03.0 [facility] [address] May, [place] [address] May, Migraine without aura [place] without status migrainosus, [address] not intractable G43.[address] May, [place] [address] [place] [address] May, Migraine [place] [address] without status migrainosus, not intractable G43.009 and Environmental allergies Z91.[address] [facility] May, [place] [address] [facility] [address] May, [place] [address] F32.2 and Migraine without aura and without status migrainosus, not intractable G43.009 [employer] [employer] [facility] [address] [facility] [address], [address] [place] [address] [facility] [address] [facility] [place] Apr, [place] [address] [facility] [address] [place], [place] [address] [place] [address] Apr, [place] [address] Apr, [place] [address] [facility] [address] Apr, Worst headache of life R51 [place] [address] [place] [address] Apr, [place] [address] M25.541 ; Hepatitis B core antibody positive R76.8 and Pain in joints of left hand M25.542 [facility] [address] Apr, [place] [address] [place] [address] Apr, [place] [address] [facility] [address] Apr, Pain [place] [address] M25.541 ; Pain in joints of left hand M25.542 and Need for hepatitis C screening test Z11.[address] Apr, Anxiety F41.9 [place] [address] Apr, Chest tightness R07.89 ; [place] [address] Overweight (BMI 25.0-29.9) E66.3 ; BMI 27.0-27.9,adult Z68.27 and History of asthma Z87.[address] Mar, Chest tightness R07.89 [place] [address] Mar, [place] [address] Mar, [place] [address] Z91.[address] Mar, [place] [address] Mar, Chest tightness R07.89 [place] [address] Mar, [place] [address] Mar, Heart palpitations R00.2 ; [place] [address] Nasal congestion R09.81 ; Screening for HIV (human immunodeficiency virus) Z11.4 ; Right inguinal hernia K40.90 ; Anxiety F41.9 ; Screening for colon cancer Z12.11 and Anemia, unspecified type D64.[address] Jan, Chest congestion R09.89 [place] [address] Unilateral recurrent inguinal hernia without obstruction or gangrene K40.[address] Jan, [place] [address] Z91.09 ; Anxiety F41.9 ; Skin lesion L98.9 ; Screening, lipid Z13.220 and Right inguinal hernia K40.[address] Nov, [place] [address] Sep, [place] [address] IMMUNIZATIONS No Known Immunizations SOCIAL HISTORY Never Assessed REASON FOR REFERRAL FUNCTIONAL STATUS PLAN OF CARE Activity Details Follow Up 6 Weeks Reason:Abd pain Pending Test -HEPATITIS PANEL W/REFLEX Pending Test -CBC W/ DIFF and PLT Pending Test -COMPREHENSIVE METABOLIC PANEL W/EGFR VITAL SIGNS Temperature 97.6 degrees Fahrenheit 2018-05-27 Heart Rate 16 2018-05-27 Weight 186.8 2018-05-27 Height 68.9 in 2018-05-27 BMI 27.66 kg/m2 2018-05-27 Oximetry 100 % 2018-05-27 Blood pressure systolic 143 mm Hg 2018-05-27 Blood pressure diastolic 68 mm Hg 2018-05-27 MEDICATIONS Medication Instructions Dosage Frequency Start End Duration Status Date Date Albuterol 90 as directed Mar, Not-Taki MCG/ACT 2017 ng Fluticasone Nasally Once a 1 spray in 24h June, day(s) Not-Taki Propionate 50 day each 2017 ng MCG/DOSE nostril Nasonex 50 MCG/ACT Nasally Once a 2 sprays in 24h Jan, day(s) Not -Taki day each 2017 ng nostril Lipitor 40 mg Orally Once a TAKE 1 24h 90 Active day TABLET BY MOUTH EVERY NIGHT AT BEDTIME Depakote ER 500 MG Orally two as directed Oct, days Not-Taki tablets take at 2017 ng night Trazadone 100 orally every 3 tab 30 days Active night at bedtime as needed HydrOXYzine HCl 50 Orally every 8 1 tablet as Oct, days Not-Taki MG hrs for anxiety needed 2017 ng Ethridge 3 1000 mg Orally daily 2 capsule 24h 90 days Active Zyrtec Allergy 10 Orally Once a 1 tablet 24h Jan, day(s) Not-Taki mg day 2016 ng Pseudoephedrine Orally qam 1 tablet as Active HCl 30 mg needed Advil 200 MG Orally Three 1 capsule 8h Not-Taki times a day with food ng or milk as needed Sumatriptan Orally Once a 1 tablet 30 Not-Taki Succinate 100 mg day as needed ng for headache PROCEDURES Procedure Date Ordered Result Body Site [facility] visit, est patient May 27, 2018 BODY MASS INDEX DOCD May 27, 2018 SMOKING + 2ND HAND ASSESSED May 27, 2018 Oxygen saturation results documented and reviewed May 27, 2018 BLOOD PRESSURE, MEASURED May 27, 2018 RESULTS No Results REASON FOR VISIT speak about blood draw/liver profile, Patient woould like to have labs for Liver function due to having Hep A and Hep B over 30 years ago. Has had discomfort where liver is but that is all he states.Does not have any specific symptoms. - BL Insurance Providers [facility] Patient Patient Patient Patient Patient Subscriber Subscriber Subscriber Group Insurance Plan Plan Plan Plan ID Relationship Address Phone Name Date of ID Name Date of No Type Insurance Insurance Insurance Coverage to Subscriber Address Phone Name Dates Case [phone] Case self [place] [id number] Management [place] 02 Management [facility] [address] Community Medicaid [phone] Medicaid self [place] [id number] [facility] [address] [place] [address] Medicare National [phone] Medicare self [place] [id number] PPS QMB No Government 41 PPS QMB No [place] [employer] [address] [place] [id number] Medicare National [phone] Medicare self [place] [id number] PPS QMB No Government [address] [facility] [employer] e [address] [place] [id number] MEDICAL (GENERAL) HISTORY Type Description Date Medical History anxiety and panic disorder Medical History hyperactive Medical History Hep A and B Medical History Herpes Medical History Asthma (as a child) Surgical History glands in breast removed Hospitalization History glands removed 2007
--- OUTSIDE RECORDS SUMMARY | 2018-06-17 12:37 | XMS REPORT ---
:1945 Author Organization [facility] Address [address] [place] [address] Care Team Providers Name Role Phone Michael Perez Unavailable Unavailable PROBLEMS Type Condition ICD9-CM Code ZEZ50-AE Onset Condition SNOMED Code Code Dates Status Problem High cholesterol E78.00 Active 47457375 Problem Environmental Z91.09 Active 947722816 allergies Problem Right inguinal K40.90 Active 715138229 hernia Problem Hypomagnesemia E83.42 Active 656342214 Problem Mood disorder F39 Active 21326378 Problem Nasal congestion R09.81 Active 20400295 Problem Chronic fatigue R53.82 Active 30465914 Problem Heart palpitations R00.2 Active 12138746 Problem Overweight (BMI E66.3 Active 611479231 25.0-29.9) Problem BMI 27.0-27.9,adult Z68.27 Active 215603223 Problem Migraine without G43.009 Active 480725280 aura and without status migrainosus, not intractable Problem History of Z86.59 Active 447682930 depression ALLERGIES No Information ENCOUNTERS Encounter Location Date Diagnosis [place] [address] May, [place] [address] [place] [address] May, [place] [address] effusion H65.[address] [place] [address] May, [place] [address] May, [place] [address] [place] [address] Apr, [place] [address] R10.12 and Right inguinal hernia K40.90 [place] [address] Apr, [place] [address] [facility] - Resource - [place] [address] [facility] Apr, [place] [address] Apr, [place] [address] Mar, Cellulitis, neck L03.221 [place] [address] Mood disorder F39 [address] Jan, [place] [address] Jan, [place] [address] Jan, [place] [address] [facility] [address] [facility] Jan, [place] [address] Jan, [place] [address] Dec, [place] [address] Dec, [place] [address] infectious origin R19.[address] Dec, Skin rash R21 ; [place] [address] blood pressure reading without diagnosis of hypertension R03.0 and Shaking R25.[address] Nov, [place] [address] Nov, Dermatitis L30.9 ; [place] [address] without aura and without status migrainosus, not intractable G43.009 ; Elevated blood pressure reading without diagnosis of hypertension R03.0 and Encounter for immunization Z23 [facility] [address] [facility] Nov, [place] [address] [facility] [address] [place] [address] Nov, Mood disorder F39 [place] [address] [facility] [address] [facility] Nov, Mood disorder F39 [place] [address] Nov, [place] [address] Oct, [place] [address] [facility] [address] [place] [address] Oct, Mood disorder F39 [place] [address] [facility] [address] [facility] Sep, Migraine [place] [address] without status migrainosus, not intractable G43.009 and Chronic fatigue R53.82 [facility] [address] . [facility] Sep, Migraine [place] [address] without status migrainosus, not intractable G43.009 [facility] [address] [facility] Sep, [place] [address] Sep, [place] [address] Sep, [place] [address] Sep, [place] [address] [facility] [address] [place] [address] Sep, [place] [address] Sep, Other [place] [address] externa of left ear H60.392 and Migraine without aura and without status migrainosus, not intractable G43.[address] Sep, [place] [address] Sep, [place] [address] [place] [id number] [facility] Aug, [place] [address] Aug, [place] [address] Aug, [place] [address] [facility] Jul, [place] [address] Jul, [place] [address] Jul, [place] [address] [facility] [address] [facility] Jul, History of depression Z86.59 [place] [address] Jul, [place] [address] Jul, [place] [address] [facility] [address] [facility] Jul, [place] [address] Jul, [place] [address] Jul, [place] [address] cardiovascular examination Z01.810 ; Snoring R06.83 ; Postnasal drip R09.82 and Moderately severe depression F32.[address] June, [place] [address] June, [place] [address] June, [place] [address] [facility] June, [place] [address] June, Migraine [place] [address] without status migrainosus, not intractable G43.[address] June, [place] [address] June, Right inguinal hernia K40.90 [place] [address] ; Screening for lipid disorders Z13.220 ; Screening for prostate cancer Z12.5 and Anxiety F41.[address] June, [place] [address] June, [place] [address] June, [place] [address] June, [place] [address] [facility] [address] [place] [address] June, [address] [place] [address] June, [place] [address] [place] [address] June, [place] [address] June, Moder[place] [address] F32.2 ; Hypomagnesemia E83.42 ; Anxiety F41.9 ; Pain in right knee M25.561 and Pain in left knee M25.562 [place] [address] June, [place] [address] May, [place] [address] [place], [place] [address] [facility] [address] May, Neck pain M54.2 ; [place] [address] Hypomagnesemia E83.42 ; Rash R21 ; Moderately severe depression F32.2 and Elevated blood pressure reading without diagnosis of hypertension R03.0 [facility] [address] May, [place] [address] May, Migraine without aura and [place] without status migrainosus, [address] not intractable G43.[address] May, [place] [address] May, Migraine [place] [address] without status migrainosus, not intractable G43.009 and Environmental allergies Z91.[address] [facility] May, [place] [address] May, Moderately [place] [address] F32.2 and Migraine without aura and without status migrainosus, not intractable G43.[address] [facility] [address] May, [address] [place] [address] Apr, [place] [address] [facility] [address] Apr, [place] [address] [place] [address] Apr, [place] [address] Apr, [place] [address] [place] [address] Apr, Worst headache of life R51 [place] [address] [place] [address] Apr, Pain [place] [address] M25.541 ; Hepatitis B core antibody positive R76.8 and Pain in joints of left hand M25.542 [facility] [address] Apr, [place] [address] [facility] [address] Apr, [place] [address] Apr, Pain [place] [address] M25.541 ; Pain in joints of left hand M25.542 and Need for hepatitis C screening test Z11.[address] Apr, Anxiety F41.9 [place] [address] Apr, Chest tightness R07.89 ; [place] [address] Overweight (BMI 25.0-29.9) E66.3 ; BMI 27.0-27.9,adult Z68.27 and History of asthma Z87.[address] Mar, Chest tightness R07.89 [place] [address] Mar, [place] [address] Mar, [place] [address] Z91.[address] Mar, [place] [address] Mar, Chest tightness R07.89 [place] [address] Mar, [place] [address] Mar, Heart palpitations R00.2 ; [place] [address] Nasal congestion R09.81 ; Screening for HIV (human immunodeficiency virus) Z11.4 ; Right inguinal hernia K40.90 ; Anxiety F41.9 ; Screening for colon cancer Z12.11 and Anemia, unspecified type D64.[address] Jan, Chest congestion R09.89 [place] [address] Unilateral recurrent inguinal hernia without obstruction or gangrene K40.[address] Jan, [place] [address] Z91.09 ; Anxiety F41.9 ; Skin lesion L98.9 ; Screening, lipid Z13.220 and Right inguinal hernia K40.[address] Nov, [place] [address] Sep, [place] [address] IMMUNIZATIONS No Known Immunizations SOCIAL HISTORY Never Assessed REASON FOR REFERRAL FUNCTIONAL STATUS PLAN OF CARE VITAL SIGNS MEDICATIONS Unknown Medications PROCEDURES No Known procedures RESULTS No Results REASON FOR VISIT Test Results Insurance Providers [facility] Health Member Patient Patient Patient Patient Patient Subscriber Subscriber Subscriber Group Insurance Plan Plan Plan Plan ID Relationship Address Phone Name Date of ID Name Date of No Type Insurance Insurance Insurance Coverage to Subscriber Address Phone Name Dates Medicare National Medicare self [place] [id number] PPS QMB No Government 41 PPS QMB No [place] [employer] [address] [place] [id number] Medicaid [address] [phone] Medicaid self [place] [id number] [facility] [address] [place] [address] Medicare National Medicare self [place] [id number] PPS QMB No Government 41 PPS QMB No [place] [employer] e [address] [place] [id number] Case [phone] Case self [place] [id number] Management [place] 02 Management [place] [id number] [facility] MEDICAL (GENERAL) HISTORY Type Description Date Medical History anxiety and panic disorder Medical History hyperactive Medical History Hep A and B Medical History Herpes Medical History Asthma (as a child) Surgical History glands in breast removed Hospitalization History glands removed 2007
--- OUTSIDE RECORDS SUMMARY | 2018-06-17 12:37 | XMS REPORT ---
:1945 Author Organization [facility] Address [address] [place] [address] Care Team Providers Name Role Phone Michael Perez Unavailable Unavailable PROBLEMS Type Condition ICD9-CM Code [id number] Onset Condition SNOMED Code Code Dates Status Problem High cholesterol E78.00 Active 56039645 Problem Environmental Z91.09 Active 109100299 allergies Problem Right inguinal K40.90 Active 183700326 hernia Problem Hypomagnesemia E83.42 Active 835028811 Problem Mood disorder F39 Active 32830800 Problem Nasal congestion R09.81 Active 87901727 Problem Chronic fatigue R53.82 Active 59558791 Problem Heart palpitations R00.2 Active 18121117 Problem Overweight (BMI E66.3 Active 022441461 25.0-29.9) Problem BMI 27.0-27.9,adult Z68.27 Active 943184318 Problem Migraine without G43.009 Active 621235790 aura and without status migrainosus, not intractable Problem History of Z86.59 Active 267963719 depression ALLERGIES No Information ENCOUNTERS Encounter Location Date Diagnosis [place] [address] May, [place] [address] effusion H65.[address] [place] [address] May, [place] [address] May, [place] [address] [place] [address] Apr, [place] [address] R10.12 and Right inguinal hernia K40.[address] [place] [address] Apr, [place] [address] [facility] - Resource - [place] [address] Apr, [place] [address] [facility] [address] [place] Apr, [place] [address] Mar, Cellulitis, neck L03.221 [place] [address] Mood disorder F39 [address] Jan, [place] [address] [facility] [address] [place] [address] Jan, [place] [address] Jan, [place] [address] [facility] [address] [facility] Jan, [place] [address] Jan, [place] [address] Dec, [place] [address] Dec, [place] [address] infectious origin R19.[address] Dec, Skin rash R21 ; [place] [address] blood pressure reading without diagnosis of hypertension R03.0 and Shaking R25.[address] Nov, [place] [address] Nov, Dermatitis L30.9 ; [place] [address] without aura and without status migrainosus, not intractable G43.009 ; Elevated blood pressure reading without diagnosis of hypertension R03.0 and Encounter for immunization Z23 [facility] [address] [facility] Nov, [place] [address] Nov, Mood disorder F39 [place] [address] [place] [address] [facility] Nov, Mood disorder 9 [place] [address] Nov, [place] [address] Oct, [place] [address] Oct, Mood disorder F39 [place] [address] Sep, [place] [address] without status migrainosus, not intractable G43.009 and Chronic fatigue R53.82 [facility] 513 . [facility] Sep, Migraine without [place] [address] without status migrainosus, not intractable G43.009 [facility] [address] [place] Sep, [place] [address] [facility] [address] [place] [address] Sep, [place] [address] [facility] [address] [facility] Sep, [place] [address] [facility] [address] [place] [address] Sep, [place] [address] [facility] [address] [place] Sep, [place] [address] [facility] [address] [place] [address] Sep, Other [place] [address] externa of left ear H60.392 and Migraine without aura and without status migrainosus, not intractable G43.[address] Sep, [place] [address] [facility] [address] [place] [address] Sep, [place] [address] [facility] [address] [facility] Aug, [place] [address] Aug[place] [address] Aug, [place] [address] [facility] Jul, [place] [address] [facility] [address] [facility] Jul, [place] [address] Jul, [place] [address] [facility] [address] [facility] Jul, History of depression Z86.59 [place] [address] Jul, [place] [address] Jul, [place] [address] Jul, [place] [address] Jul, [place] [address] Jul, [place] [address] cardiovascular examination Z01.810 ; Snoring R06.83 ; Postnasal drip R09.82 and Moderately severe depression F32.[address] June, [place] [address] June, [place] [address] June, [place] [address] [facility] [address] [facility] June, [place] [address] June, [place] [address] without status migrainosus, not intractable G43.[address] June, [place] [address] June, Right inguinal hernia K40.90 [place] [address] ; Screening for lipid disorders Z13.220 ; Screening for prostate cancer Z12.5 and Anxiety F41.[address] June, [place] [address] June, [place] [address] June, [place] [address] June, [place] [address] [facility] [address] [facility] June, [address] [place] [address] June, [place] [address] June, [place] [address] June, Moder[place] [address] F32.2 ; Hypomagnesemia E83.42 ; Anxiety F41.9 ; Pain in right knee M25.561 and Pain in left knee M25.[address] June, [place] [address] [place] [address] [facility] May, [place] [address] May, [place] [address] [facility] [address] May, Neck pain M54.2 ; [place] [address] Hypomagnesemia E83.42 ; Rash R21 ; Moderately severe depression F32.2 and Elevated blood pressure reading without diagnosis of hypertension R03.0 [facility] [address] May, [place] [address] May, Migraine without aura [place] without status migrainosus, [address] not intractable G43.[address] May, [place] [address] [facility] [address] May, [place] [address] without status migrainosus, not intractable G43.009 and Environmental allergies Z91.[address] [facility] May, [place] [address] [facility] [address] May, [place]er[place] [address] F32.2 and Migraine without aura and without status migrainosus, not intractable G43.009 [facility] [address] [facility] [address] May, [address] [place] [address] [place] Apr, [place] [address] [facility] [address] [place] [address] [facility] [address] Apr, [place] [address] Apr, [place] [address] [facility] [address] Apr, Worst headache of life R51 [place] [address] [facility] [address] Apr, Pain [place] [address] M25.541 ; Hepatitis B core antibody positive R76.8 and Pain in joints of left hand M25.542 [facility] [address] Apr, [place] [address] [facility] [address] Apr, [place] [address] [facility] [address] Apr, Pain [place] [address] M25.541 ; Pain in joints of left hand M25.542 and Need for hepatitis C screening test Z11.[address] Apr, Anxiety F41.9 [place] [address] Apr, Chest tightness R07.89 ; [place] [address] Overweight (BMI 25.0-29.9) E66.3 ; BMI 27.0-27.9,adult Z68.27 and History of asthma Z87.09 [place] [address] [place] Mar, Chest tightness R07.89 [place] [address] [place] [address] [place] Mar, [place] [address] Mar, [place] [address] [address]91[address] Mar, [place] [address] Mar, Chest tightness R07.89 [place] [address] Mar, [place] [address] Mar, Heart palpitations R00.2 ; [place] [address] Nasal congestion R09.81 ; Screening for HIV (human immunodeficiency virus) Z11.4 ; Right inguinal hernia K40.90 ; Anxiety F41.9 ; Screening for colon cancer Z12.11 and Anemia, unspecified type D64.[address] Jan, Chest congestion R09.89 [place] [address] Unilateral recurrent inguinal hernia without obstruction or gangrene K40.[address] Jan, [place] [address] Z91.09 ; Anxiety F41.9 ; Skin lesion L98.9 ; Screening, lipid Z13.220 and Right inguinal hernia K40.[address] Nov, [place] [address] [place] [address] [place] Sep, [place] [address] IMMUNIZATIONS No Known Immunizations SOCIAL HISTORY Never Assessed REASON FOR REFERRAL FUNCTIONAL STATUS PLAN OF CARE Activity Details Follow Up as scheduled, or if not better next week Reason: VITAL SIGNS Temperature 97.5 degrees Fahrenheit 2018-06-10 Heart Rate 18 2018-06-10 Weight 186.3 2018-06-10 Height 68.9 in 2018-06-10 BMI 27.59 kg/m2 2018-06-10 Oximetry 100 % 2018-06-10 Blood pressure systolic 132 mm Hg 2018-06-10 Blood pressure diastolic 72 mm Hg 2018-06-10 MEDICATIONS Medication Instructions Dosage Frequency Start End Duration Status Date Date Fluticasone Nasally Once a 1 spray in 24h June, day(s) Not-Taki Propionate 50 day each 2017 ng MCG/DOSE nostril Lipitor 40 mg Orally Once a TAKE 1 24h 90 Active day TABLET BY MOUTH EVERY NIGHT AT BEDTIME Nasonex 50 MCG/ACT Nasally Once a 2 sprays in 24h Jan, day(s) Not -Taki day each 2017 ng nostril Zyrtec Allergy 10 Orally Once a 1 tablet 24h Jan, day(s) Not-Taki mg day 2016 ng Advil 200 MG Orally Three 1 capsule 8h Not-Taki times a day with food ng or milk as needed Depakote ER 500 MG Orally two as directed Oct, 30 days Not-Taki tablets take at 2017 ng night Trazadone 100 orally every 3 tab 30 days Active night at bedtime as needed Albuterol 90 as directed Mar, Not-Taki MCG/ACT 2017 ng HydrOXYzine HCl 50 Orally every 8 1 tablet as Oct, days Not-Taki MG hrs for anxiety needed 2017 ng Sumatriptan Orally Once a 1 tablet 30 Not-Taki Succinate 100 mg day as needed ng for headache Terra Bella 3 1000 mg Orally daily 2 capsule 24h 90 days Active Pseudoephedrine Orally qam 1 tablet as Active HCl 30 mg needed PROCEDURES Procedure Date Ordered Result Body Site [facility] visit, est patient June 10, 2018 BODY MASS INDEX DOCD June 10, 2018 SMOKING + 2ND HAND ASSESSED June 10, 2018 Oxygen saturation results documented and reviewed June 10, 2018 BLOOD PRESSURE, MEASURED June 10, 2018 RESULTS No Results REASON FOR VISIT ear plugged, Patient stated hes having his both ears Plugged since 3 weeks ago, he stated hes havingpain at the putside the ear.CM Insurance Providers [facility] Member Patient Patient Patient Patient Patient Subscriber Subscriber Subscriber Group Insurance Plan Plan Plan Plan ID Relationship Address Phone Name Date of ID Name Date of No Type Insurance Insurance Insurance Coverage to Subscriber Address Phone Name Dates Case [phone] Case self [place] [id number] Management [place] 02 Management [facility] [address] Community Medicare National [id number] Medicare self [place] [id number] PPS QMB No Government 41 PPS QMB No [place] [employer] [address] [place] [id number] Medicaid [id number] [phone] Medicaid self [place] [id number] [facility] [address] [place] [address] Medicare National [phone] Medicare self [place] [id number] PPS QMB No Government 41 PPS QMB No [place] [employer] e [address] [place] [id number] MEDICAL (GENERAL) HISTORY Type Description Date Medical History anxiety and panic disorder Medical History hyperactive Medical History Hep A and B Medical History Herpes Medical History Asthma (as a child) Surgical History glands in breast removed Hospitalization History glands removed 2007
--- OUTSIDE RECORDS SUMMARY | 2018-06-17 12:37 | XMS REPORT ---
:1945 Author Organization [facility] Address [address] [place] [address] Care Team Providers Name Role Phone Michael Perez Unavailable Unavailable PROBLEMS Type Condition ICD9-CM Code [id number] Onset Condition SNOMED Code Code Dates Status Problem High cholesterol E78.00 Active 66915781 Problem Environmental Z91.09 Active 501131961 allergies Problem Right inguinal K40.90 Active 996349083 hernia Problem Hypomagnesemia E83.42 Active 544413151 Problem Mood disorder F39 Active 41961310 Problem Nasal congestion R09.81 Active 36896186 Problem Chronic fatigue R53.82 Active 60556615 Problem Heart palpitations R00.2 Active 91041299 Problem Overweight (BMI E66.3 Active 282997884 25.0-29.9) Problem BMI 27.0-27.9,adult Z68.27 Active 309209714 Problem Migraine without G43.009 Active 111099939 aura and without status migrainosus, not intractable Problem History of Z86.59 Active 331271391 depression ALLERGIES No Information ENCOUNTERS Encounter Location Date Diagnosis [place] [address] May, [place] [address] [place] [address] May, [place] [address] effusion H65.93 [place] [address] May, [place] [address] May, [place] [address] [place] [address] Apr, [place] [address] R10.12 and Right inguinal hernia K40.90 [place] [address] Apr, [place] [address] [facility] - Resource - [place] [address] [facility] Apr, [place] [address] Apr, [place] [address] Mar, Cellulitis, neck L03.221 [place] [address] Mood disorder F39 [address] Jan, [place] [address] Jan, [place] [address] Jan, [place] [address] [facility] [address] [facility] Jan, [place] [address] Jan, [place] [address] Dec, [place] [address] Dec, [place] [address] infectious origin R19.[address] Dec, Skin rash R21 ; [place] [address] blood pressure reading without diagnosis of hypertension R03.0 and Shaking R25.[address] Nov, [place] [address] Nov, Dermatitis L30.9 ; [place] [address] without aura and without status migrainosus, not intractable G43.009 ; Elevated blood pressure reading without diagnosis of hypertension R03.0 and Encounter for immunization Z23 [facility] [address] [facility] Nov, [place] [address] [facility] [address] [place] [address] Nov, Mood disorder F39 [place] [address] [facility] [address] [facility] Nov, Mood disorder F39 [place] [address] Nov, [place] [address] Oct, [place] [address] [facility] [address] [place] [address] Oct, Mood disorder F39 [place] [address] [facility] [address] [facility] Sep, Migraine [place] [address] without status migrainosus, not intractable G43.009 and Chronic fatigue R53.82 [facility] 513 . [facility] Sep, Migraine [place] [address] without status migrainosus, not intractable G43.009 [facility] [address] [facility] Sep, [place] [address] Sep, [place] [address] Sep, [place] [address] Sep, [place] [address] [facility] [address] [place] [address] Sep, [place] [address] Sep, Other [place] [address] externa of left ear H60.392 and Migraine without aura and without status migrainosus, not intractable G43.[address] Sep, [place] [address] Sep, [place] [address] [place] [address] [facility] Aug, [place] [address] [place], [place] [address] Aug, [place] [address] [facility] Jul, [place] [address] Jul, [place] [address] Jul, [place] [address] [facility] [address] [facility] Jul, History of depression Z86.59 [place] [address] [address] Jul, [place] [address] Jul, [place] [address] [facility] 60 [facility] Jul, [place] [address] Jul, [place] [address] Jul, [place] [address] cardiovascular examination Z01.810 ; Snoring R06.83 ; Postnasal drip R09.82 and Moderately severe depression F32.[address] June, [place] [address] June, [place] [address] June, [place] [address] [facility] June, [place] [address] June, Migraine [place] [address] without status migrainosus, not intractable G43.[address] June, [place] [address] June, Right inguinal hernia K40.90 [place] [address] ; Screening for lipid disorders Z13.220 ; Screening for prostate cancer Z12.5 and Anxiety F41.[address] June, [place] [address] June, [place] [address] June, [place] [address] June, [place] [address] [facility] [address] [place] [address] June, [address] [place] [address] June, [place] [address] [place] [address] [place] June, [place] [address] June, Moderately [place] [address] F32.2 ; Hypomagnesemia E83.42 ; Anxiety F41.9 ; Pain in right knee M25.561 and Pain in left knee M25.562 [place] [address] [facility] June, [place] [address] May, [place] [address] [place], [place] [address] [facility] [address] [facility] May, Neck pain M54.2 ; [place] [address] Hypomagnesemia E83.42 ; Rash R21 ; Moderately severe depression F32.2 and Elevated blood pressure reading without diagnosis of hypertension R03.0 [facility] [address] [facility] May, [place] [address] May, Migraine without aura [place] without status migrainosus, [address] not intractable G43.[address] May, [place] [address] May, Migraine [place] [address] without status migrainosus, not intractable G43.009 and Environmental allergies Z91.[address] [facility] May, [place] [address] May, Moder[place] [address] F32.2 and Migraine without aura and without status migrainosus, not intractable G43.[address] [facility] [address] May, [address] [place] [address] [place] Apr, [place] [address] [facility] [address] Apr, [place] [address] [place] [address] Apr, [place] [address] Apr, [place] [address] [place] [address] Apr, Worst headache of life R51 [place] [address] [place] [address] Apr, Pain [place] [address] M25.541 ; Hepatitis B core antibody positive R76.8 and Pain in joints of left hand M25.542 [facility] [address] Apr, [place] [address] [facility] [address] Apr, [place] [address] Apr, Pain [place] [address] M25.541 ; Pain in joints of left hand M25.542 and Need for hepatitis C screening test Z11.[address] Apr, Anxiety F41.9 [place] [address] Apr, Chest tightness R07.89 ; [place] [address] Overweight (BMI 25.0-29.9) E66.3 ; BMI 27.0-27.9,adult Z68.27 and History of asthma Z87.[address] Mar, Chest tightness R07.89 [place] [address] Mar, [place] [address] Mar, [place] [address] Z91.[address] Mar, [place] [address] Mar, Chest tightness R07.89 [place] [address] Mar, [place] [address] Mar, Heart palpitations R00.2 ; [place] [address] Nasal congestion R09.81 ; Screening for HIV (human immunodeficiency virus) Z11.4 ; Right inguinal hernia K40.90 ; Anxiety F41.9 ; Screening for colon cancer Z12.11 and Anemia, unspecified type D64.[address] Jan, Chest congestion R09.89 [place] [address] Unilateral recurrent inguinal hernia without obstruction or gangrene K40.[address] Jan, [place] [address] Z91.09 ; Anxiety F41.9 ; Skin lesion L98.9 ; Screening, lipid Z13.220 and Right inguinal hernia K40.[address] Nov, [place] [address] Sep, [place] [address] IMMUNIZATIONS No Known Immunizations SOCIAL HISTORY Never Assessed REASON FOR REFERRAL FUNCTIONAL STATUS PLAN OF CARE VITAL SIGNS MEDICATIONS Unknown Medications PROCEDURES No Known procedures RESULTS No Results REASON FOR VISIT information Insurance Providers [facility] Member Patient Patient Patient Patient Patient Subscriber Subscriber Subscriber Group Insurance Plan Plan Plan Plan ID Relationship Address Phone Name Date of ID Name Date of No Type Insurance Insurance Insurance Coverage to Subscriber Address Phone Name Dates Medicaid [phone] Medicaid self [place] [id number] [facility] [address] [place] [address] Medicare National [id number] Medicare self [place] [id number] PPS QMB No Government 41 PPS QMB No [place] [employer] e [address] [place] [id number] Medicare National [id number] Medicare self [place] [id number] PPS QMB No Government 41 PPS QMB No [place] [employer] [address] [place] [id number] Case [phone] Case self [place] [id number] Management [place] 02 Management [place] [id number] [facility] MEDICAL (GENERAL) HISTORY Type Description Date Medical History anxiety and panic disorder Medical History hyperactive Medical History Hep A and B Medical History Herpes Medical History Asthma (as a child) Surgical History glands in breast removed Hospitalization History glands removed 2007
--- OUTSIDE RECORDS SUMMARY | 2018-06-17 12:37 | XMS REPORT ---
:1945 Author Organization Formerly [facility] Address [address] [place] [address] Care Team Providers Name Role Phone Michael Perez Unavailable Unavailable PROBLEMS Type Condition ICD9-CM Code [id number] Onset Condition SNOMED Code Code Dates Status Problem High cholesterol E78.00 Active 38232372 Problem Environmental Z91.09 Active 365456547 allergies Problem Right inguinal K40.90 Active 598689144 hernia Problem Hypomagnesemia E83.42 Active 319122515 Problem Mood disorder F39 Active 27088251 Problem Nasal congestion R09.81 Active 71315508 Problem Chronic fatigue R53.82 Active 17844146 Problem Heart palpitations R00.2 Active 56125516 Problem Overweight (BMI E66.3 Active 417627494 25.0-29.9) Problem BMI 27.0-27.9,adult Z68.27 Active 144212158 Problem Migraine without G43.009 Active 165183342 aura and without status migrainosus, not intractable Problem History of Z86.59 Active 900597212 depression ALLERGIES No Information ENCOUNTERS Encounter Location Date Diagnosis [place] [address] May, [place] [address] effusion H65.[address] [place] [address] May, [place] [address] May, [place] [address] [place] [address] Apr, [place] [address] R10.12 and Right inguinal hernia K40.[address] [place] [address] Apr, [place] [address] [facility] - Resource - [place] [address] Apr, [place] [address] [facility]ly [facility] [address] Apr, [place] [address] Mar, Cellulitis, neck L03.221 [place] [address] Mood disorder F39 [address] Jan, [place] [address] [facility] [address] [place] [address] Jan, [place] [address] Jan, [place] [address] [facility] [address] [facility] Jan, [place] [address] Jan, [place] [address] Dec, [place] [address] Dec, [place] [address] infectious origin R19.[address] Dec, Skin rash R21 ; [place] [address] blood pressure reading without diagnosis of hypertension R03.0 and Shaking R25.[address] Nov, [place] [address] Nov, Dermatitis L30.9 ; [place] [address] without aura and without status migrainosus, not intractable G43.009 ; Elevated blood pressure reading without diagnosis of hypertension R03.0 and Encounter for immunization Z23 [facility] [address] [facility] Nov, [place] [address] Nov, Mood disorder F39 [place] [address] [place] [address] [facility] Nov, Mood disorder [address] [place] [address] Nov, [place] [address] Oct, [place] [address] Oct, Mood disorder F39 [place] [address] Sep, Migraine [place] [address] without status migrainosus, not intractable G43.009 and Chronic fatigue R53.82 [facility] [address] . [facility] Sep, Migraine without [place] [address] without status migrainosus, not intractable G43.009 [facility] [address] Sep, [place] [address] [facility] [address] [place] [address] Sep, [place] [address] [facility] [address] [facility] Sep, [place] [address] [facility] [address] [place] [address] Sep, [place] [address] [facility] [address] Sep, [place] [address] [facility] [address] [place] [address] Sep, Other [place] [address] externa of left ear H60.392 and Migraine without aura and without status migrainosus, not intractable G43.[address] Sep, [place] [address] [facility] [address] [place] [address] Sep, [place] [address] [facility] [address] [facility] Aug, [place] [address] Aug, [place] [address] Aug, [place] [address] [facility] Jul, [place] [address] [facility] [address] [facility] Jul, [place] [address] Jul, [place] [address] [facility] [address] [facility] Jul, History of depression Z86.59 [place] [address] Jul, [place] [address] Jul, [place] [address] Jul, [place] [address] Jul, [place] [address] Jul, [place] [address] cardiovascular examination Z01.810 ; Snoring R06.83 ; Postnasal drip R09.82 and Moderately severe depression F32.[address] June, [place] [address] June, [place] [address] June, [place] [address] [facility] [address] [facility] June, [place] [address] June, [place]raine [place] [address] without status migrainosus, not intractable G43.[address] June, [place] [address] June, Right inguinal hernia K40.90 [place] [address] ; Screening for lipid disorders Z13.220 ; Screening for prostate cancer Z12.5 and Anxiety F41.[address] June, [place] [address] June, [place] [address] June, [place] [address] June, [place] [address] [facility] [address] [facility] June, [address] [place] [address] June, [place] [address] June, [place] [address] June, Moder[place] [address] F32.2 ; Hypomagnesemia E83.42 ; Anxiety F41.9 ; Pain in right knee M25.561 and Pain in left knee M25.[address] June, [place] [address] [place] [address] [facility] May, [place] [address] [place] [address] May, [place] [address] [facility] [address] May, Neck pain M54.2 ; [place] [address] Hypomagnesemia E83.42 ; Rash R21 ; Moderately severe depression F32.2 and Elevated blood pressure reading without diagnosis of hypertension R03.0 [facility] [address] May, [place] [address] May, Migraine without aura and [place] without status migrainosus, [address] not intractable G43.[address] May, [place] [address] [facility] [address] May, [place] [address] without status migrainosus, not intractable G43.009 and Environmental allergies Z91.[address] [facility] May, [place] [address] [facility] [address] May, Moder[place] [address] F32.2 and Migraine without aura and without status migrainosus, not intractable G43.009 [facility] [address] [facility] [address] May, [address] [place] [address] [place] Apr, [place] [address] [facility] [address] Apr, [place] [address] [facility] [address] Apr, [place] [address] Apr, [place] [address] [facility] [address] Apr, Worst headache of life R51 [place] [address] [facility] [address] Apr, Pain [place] [address] M25.541 ; Hepatitis B core antibody positive R76.8 and Pain in joints of left hand M25.542 [facility] [address] Apr, [place] [address] [facility] [address] Apr, [place] [address] [facility] [address] Apr, Pain [place] [address] M25.541 ; Pain in joints of left hand M25.542 and Need for hepatitis C screening test Z11.[address] Apr, Anxiety F41.9 [place] [address] Apr, Chest tightness R07.89 ; [place] [address] Overweight (BMI 25.0-29.9) E66.3 ; BMI 27.0-27.9,adult Z68.27 and History of asthma Z87.09 [place] [address] Mar, Chest tightness R07.89 [place] [address] [place] [address] Mar, [place] [address] [place] [address] Mar, [place] [address] Z91.09 [place] [address] Mar, [place] [address] Mar, Chest tightness R07.89 [place] [address] Mar, [place] [address] Mar, Heart palpitations R00.2 ; [place] [address] Nasal congestion R09.81 ; Screening for HIV (human immunodeficiency virus) Z11.4 ; Right inguinal hernia K40.90 ; Anxiety F41.9 ; Screening for colon cancer Z12.11 and Anemia, unspecified type D64.[address] Jan, Chest congestion R09.89 [place] [address] Unilateral recurrent inguinal hernia without obstruction or gangrene K40.[address] Jan, [place] [address] Z91.09 ; Anxiety F41.9 ; Skin lesion L98.9 ; Screening, lipid Z13.220 and Right inguinal hernia K40.[address] Nov, [place] [address] [place] [address] Sep, [place] [address] IMMUNIZATIONS No Known Immunizations SOCIAL HISTORY Never Assessed REASON FOR REFERRAL FUNCTIONAL STATUS PLAN OF CARE VITAL SIGNS MEDICATIONS Unknown Medications PROCEDURES No Known procedures RESULTS No Results REASON FOR VISIT labs Insurance Providers [facility] Health Member Patient Patient Patient Patient Patient Subscriber Subscriber Subscriber Group Insurance Plan Plan Plan Plan ID Relationship Address Phone Name Date of ID Name Date of No Type Insurance Insurance Insurance Coverage to Subscriber Address Phone Name Dates Medicare National [id number] Medicare self [place] [id number] PPS QMB No Government 41 PPS QMB No [employer] [address] [place] [id number] Medicaid [id number] [phone] Medicaid self [place] [id number] [facility] [address] [place] [address] Case [phone] Case self [place] [id number] Management [place] 02 Management [facility] [address] Community Medicare National [id number] Medicare self [place] [id number] PPS QMB No Government 41 PPS QMB No [employer]i [employer] e [address] [place] [id number] MEDICAL (GENERAL) HISTORY Type Description Date Medical History anxiety and panic disorder Medical History hyperactive Medical History Hep A and B Medical History Herpes Medical History Asthma (as a child) Surgical History glands in breast removed Hospitalization History glands removed 2007
--- NOTE | 2018-06-17 13:12 | ED ---
Throat Pain/Nasal Congestion - HPI Summary HPI Summary: 72-year-old male presents with ear pain for the past couple days. He states he has a history of issues with this ear. States wanted to make sure there is not an infection. Denies any fevers. He admits to sinus congestion. has a pressure in both ears. He admits to occasional sore throat. No cough. No chest pain or shortness of breath. He takes Nasonex and Sudafed. - History of Current Complaint Chief Complaint: EDEarPain Time Seen by Provider: 06/17/18 12:44 - Allergies/Home Medications Allergies/Adverse Reactions: Allergies Allergy/AdvReac Type Severity Reaction Status Date / Time Penicillins Allergy Unknown Verified 02/15/18 16:08 Reaction Details red dye Allergy Facial Verified 02/15/18 16:08 Redness/Flushing Sulfa (Sulfonamide Allergy Unknown Verified 02/15/18 16:08 Antibiotics) Reaction Details PMH/Surg Hx/FS Hx/Imm Hx Endocrine/Hematology History: Reports: Hx Anemia Denies: Hx Anticoagulant Therapy, Hx Blood Disorders, Hx Blood Transfusions, Hx Diabetes, Hx Systemic Lupus Erythematosus, Hx Thyroid Disease, Hx Unexplained Bleeding Cardiovascular History: Reports: Hx Angina - DOESN;T TAKE ANYTHING FOR THIS, 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" - no meds, Other Cardiovascular Problems/Disorders - "arrhythmia" in the past - no meds Denies: Hx Aneurysm, Hx Atrial Fibrillation, Hx Cardiomegaly, Hx Congenital Heart Disease, Hx Congestive Heart Failure, Hx Coronary Artery Disease, Hx Deep Vein Thrombosis, Hx Hypercholesterolemia, Hx Hypotension, Hx Hypertension, Hx Myocardial Infarction, Hx Pacemaker/ICD, Hx Peripheral Vascular Disease, Hx Rheumatic Fever, Hx Syncope Respiratory History: Reports: Hx Asthma - INHALER, Hx Pneumonia, Hx Seasonal Allergies, Other Respiratory Problems/Disorders - pleurisy, bronchitis IN THE PAST Denies: Hx Chronic Obstructive Pulmonary Disease (COPD), Hx Pulmonary Edema, Hx Pulmonary Embolism, Hx Sleep Apnea GI History: Reports: Other GI Disorders - Hep A and Hep B - followed by PCP - no issues at this time Denies: Hx Crohn's Disease, Hx Diverticulosis, Hx Gall Bladder Disease, Hx Gastroesophageal Reflux Disease, Hx Gastrointestinal Bleed, Hx Hiatal Hernia, Hx Irritable Bowel, Hx Obstructive Bowel, Hx Ulcer History: Reports: Other Problems/Disorders - ENLARGED PROSTATE Musculoskeletal History: Reports: Hx Arthritis - R/A, Hx Back Problems - wears an elastic wrap but makes blood pressure increase while on Sensory History: Reports: Hx Cataracts, Hx Contacts or Glasses - GLASSES Denies: Hx Hearing Aid Opthamlomology History: Reports: Hx Cataracts, Hx Contacts or Glasses - GLASSES Neurological History: Reports: Hx Migraine, Other Neuro Impairments/Disorders - HX DISK PROBLEM 1968 Psychiatric History: Reports: Hx Anxiety, Hx Depression, Hx Panic Disorder - Cancer History Cancer Type, Location and Year: None reported - Surgical History Surgery Procedure, Year, and Place: BILATERAL BREAST GLAND SURGERY 2007&1973 Hx Anesthesia Reactions: No - Immunization History Date of Influenza Vaccine: 11/2016 Infectious Disease History: No Infectious Disease History: Reports: Hx Hepatitis Denies: Traveled Outside the [place] in Last 30 Days - Family History Known Family History: Positive: Cardiac Disease - mom, Hypertension, Diabetes Negative: Blood Disorder - Social History Alcohol Use: None Hx Substance Use: No Substance Use Type: Reports: Prescribed Hx Tobacco Use: No Smoking Status (MU): Never Smoked Tobacco Have You Smoked in the Last Year: No Review of Systems Negative: Fever Positive: Ear Ache, Nasal Discharge Negative: Chest Pain Negative: Shortness Of Breath All Other Systems Reviewed And Are Negative: Yes Physical Exam Triage Information Reviewed: Yes Vital Signs On Initial Exam: Initial Vitals Temp Pulse Resp BP Pulse Ox 98.4 F 85 16 138/76 98 06/17/18 12:20 06/17/18 12:20 06/17/18 12:20 06/17/18 12:20 06/17/18 12:20 Vital Signs Reviewed: Yes Appearance: Positive: Well-Appearing Skin: Positive: Warm, Dry Head/Face: Positive: Normal Head/Face Inspection Eyes: Positive: Normal, EOMI, VENTURA, Conjunctiva Clear ENT: Positive: Normal ENT inspection, Pharynx normal, Nasal congestion, TMs normal - fluid behind. Negative: TM bulging, TM dull, TM red Respiratory/Lung Sounds: Positive: Clear to Auscultation, Breath Sounds Present Cardiovascular: Positive: Normal, RRR Abdomen Description: Positive: Nontender, Soft Bowel Sounds: Positive: Present Musculoskeletal: Positive: Normal Neurological: Positive: Normal Psychiatric: Positive: Normal Diagnostics - Vital Signs Vital Signs Temp Pulse Resp BP Pulse Ox 06/17/18 12:20 98.4 F 85 16 138/76 98 - Laboratory Lab Statement: Any lab studies that have been ordered have been reviewed, and results considered in the medical decision making process. EENT Course/Dx - Course Course Of Treatment: 72-year-old male presents with ear pain for the past couple days. He states he has a history of issues with this ear. States wanted to make sure there is not an infection. Denies any fevers. He admits to sinus congestion. has a pressure in both ears. He admits to occasional sore throat. No cough. No chest pain or shortness of breath. He takes Nasonex and Sudafed. On exam and TMs fluid behind but no erythema. No bulging. Sinus congestion noted. Pharynx normal. Discussed likely has Eustachian Tube dysfunction. Told to continue Nasonex and Sudafed. Offered steroid and patient declined. We'll have follow-up with ENT as patient has previously seen them. Patient understands agrees with plan. - Differential Diagnoses Differential Diagnoses: Otitis Externa, Otitis Media, URI/Bronchitis - Diagnoses Provider Diagnoses: Ear pain, Eustachian tube dysfunction Discharge - Sign-Out/Discharge Documenting (check all that apply): Patient Departure Patient Received Moderate/Deep Sedation with Procedure: No - Discharge Plan Condition: Good Disposition: HOME Referrals: Michael Perez PA [Primary Care Provider] - Facundo Meléndez MD [Medical Doctor] - Additional Instructions: continue nasonex as prescribed Take Zytrec (generic name cetirizine) once a day Use nasal saline in the nose for nasal congestion Take Tylenol for pain every 6 hours follow up with ent Return to ED if develop any new or worsening symptoms - Billing Disposition and Condition Condition: GOOD Disposition: Home
[2018-06-17 13:26] VITALS: BP 130/56
== END 2018-06-17 13:25 | disposition home or self-care (01) ==
LOC: ED 12:18
DX: H92.09 Otalgia, unspecified ear (principal); H69.90 Unspecified Eustachian tube disorder, unspecified ear; D64.9 Anemia, unspecified; I38 Endocarditis, valve unspecified; J45.909 Unspecified asthma, uncomplicated; Z79.51 Long term (current) use of inhaled steroids; M19.90 Unspecified osteoarthritis, unspecified site; Z88.0 Allergy status to penicillin; Z88.2 Allergy status to sulfonamides
CPT/HCPCS: 99281

== ENCOUNTER → 2018-07-18 18:27 | Emergency (ER) | payer MEDICARE, MEDICAID ==
[~2018-07-18 18:27] MED LIST changes: -Buffered Lidocaine 0.9% SYRIN* 5 ML/SYR SYRINGE INTRADERM ONE; +Midazolam* 1 MG/ML 5 ML VIAL (5 MG) IV SLOW PU ONE; +fentaNYL* 50 MCG/ML 2 ML VIAL (100 MCG VIAL) IV SLOW PU ONE
--- OUTSIDE RECORDS SUMMARY | 2018-07-18 19:46 | XMS REPORT ---
:1945 Author Organization [facility] Address [address] [place] [address] Care Team Providers Name Role Phone Michael Perez Unavailable Unavailable PROBLEMS Type Condition ICD9-CM Code [id number] Onset Condition SNOMED Code Code Dates Status Problem Heart palpitations R00.2 Active 82711963 Problem Hypomagnesemia E83.42 Active 140511176 Problem Environmental Z91.09 Active 233399744 allergies Problem Right inguinal K40.90 Active 750825707 hernia Problem Overweight (BMI E66.3 Active 054836824 25.0-29.9) Problem Chronic fatigue R53.82 Active 46133979 Problem High cholesterol E78.00 Active 70292110 Problem Chronic GERD K21.9 Active 150507738 Problem Nasal congestion R09.81 Active 49242957 Problem BMI 27.0-27.9,adult Z68.27 Active 548361451 Problem Migraine without G43.009 Active 414914423 aura and without status migrainosus, not intractable Problem History of Z86.59 Active 744458003 depression Problem Mood disorder F39 Active 90970742 ALLERGIES No Information ENCOUNTERS Encounter Location Date Diagnosis [facility] [address] Jul, [place] [address] [facility] [address] Jul, [place] [address] [facility] [address] June, [place] [address] [facility] [address] June, [place] [address] [facility] [address] May, [place] [address] disorders Z13.220 [facility] [address] May, [place] [address] [place] [address] May, Sore throat J02.9 ; [place] [address] disorder F39 and Chronic GERD K21.9 [place] [address] May, [place] [address] [place] [address] May, [place] [address] effusion H65.93 [place] [address] May, [place] [address] [facility] [address] [facility] May, [place] [address] [place] [address] Apr, [place] [address] R10.12 and Right inguinal hernia K40.90 [place] [address] Apr, [place] [address] [facility] - [facility] - [place] [address] Apr, [place] [address] [place] [address] Apr, [place] [address] [place] [address] Mar, Cellulitis, neck L03.221 [place] [address] Mood disorder F39 [place] [address] Jan, [place] [address] Jan, [place] [address] [place] [address] Jan[place] [address] [place] [address] Jan, [place] [address] Jan, [place] [address] [place] [address] Dec, [place] [address] [place] [address] Dec, [place] [address] infectious origin R19.7 [place] [address] Dec, Skin rash R21 ; [place] [address] blood pressure reading without diagnosis of hypertension R03.0 and Shaking R25.1 [place] [address] Nov, [place] [address] [place] [address] Nov, Dermatitis L30.9 ; [place] [address] without aura and without status migrainosus, not intractable G43.009 ; Elevated blood pressure reading without diagnosis of hypertension R03.0 and Encounter for immunization Z23 Teodoro Mortensen [facility] [address] [facility] Nov, [place] [address] Nov, Mood disorder F39 [place] [address] [facility] Nov, Mood disorder F39 [place] [address] Nov, [facility] [place] [address] Oct, [place] [address] Oct, Mood disorder F39 [place] [address] Sep, Migraine [place] [address] without status migrainosus, not intractable G43.009 and Chronic fatigue R53.[address] [facility] Sep, Migraine [place] [address] without status migrainosus, not intractable G43.[address] Sep, [place] [address] Sep, [place] [address] Sep, [place] [address] Sep, [place] [address] Sep, [place] [address] Sep, Other [place] [address] externa of left ear H60.392 and Migraine without aura and without status migrainosus, not intractable G43.[address] [place] Sep, [facility] [place] [address] Sep, [place] [address] Aug, [place] [address] Aug, [place] [address] Aug, [place] [address] [facility] [address] [facility] Jul, [place] [address] [facility] [address] [facility] Jul, [place] [address] Jul, [place] [address] [facility] [address] [facility] Jul, History of depression Z86.59 [place] [address] [facility] [address] [place] [address] Jul, [place] [address] Jul, [place] [address] Jul, [place] [address] Jul, [place] [address] [facility] [address] [place] [address] Jul, En[place] [address] cardiovascular examination Z01.810 ; Snoring R06.83 ; Postnasal drip R09.82 and Moderately severe depression F32.2 [facility] [address] [facility] June, [place] [address] [facility] [address] [place] [address] June, [place] [address] [facility] [address] [facility] June, [place] [address] [place] [address] . [facility] June, [place] [address] [facility] [address] [facility] June, Migraine [place] [address] without status migrainosus, not intractable G43.[address] June, [place] [address] [facility] [address] [facility] June, Right inguinal hernia K40.90 [place] [address] ; Screening for lipid disorders Z13.220 ; Screening for prostate cancer Z12.5 and Anxiety F41.9 [facility] [address] [facility] June, [place] [address] [facility] [address] [facility] June, [place] [address] [facility] [address] [facility] June, [place] [address] [place] [address] June, [place] [address] [facility] [address] [place] [address] June, [place] [address] [place] [address] June, [place] [address] June, [place] [address] F32.2 ; Hypomagnesemia E83.42 ; Anxiety F41.9 ; Pain in right knee M25.561 and Pain in left knee M25.562 [place] [address] June, [place] [address] May, [place] [address] May, [place] [address] May, Neck pain M54.2 ; [place] [address] Hypomagnesemia E83.42 ; Rash R21 ; Moderately severe depression F32.2 and Elevated blood pressure reading without diagnosis of hypertension R03.[address] May, [place] [address] May, Migraine without aura and [place] without status migrainosus, [address] not intractable G43.[address] May, [place] [address] May, [place] [address] without status migrainosus, not intractable G43.009 and Environmental allergies Z91.[address] [facility] May, [place] [address] May, [place] [address] F32.2 and Migraine without aura and without status migrainosus, not intractable G43.[address] [place] [address] May, [address] [place] [address] [place] Apr, [place] [address] [place] [address] Apr, [place] [address] [place] [address] Apr, [place] [address] Apr, [place] [address] Apr, Worst headache of life R51 [place] [address] Apr, [place] [address] M25.541 ; Hepatitis B core antibody positive R76.8 and Pain in joints of left hand M25.[address] Apr, [place] [address] [place] [address] Apr, [place] [address] Apr, [place] [address] M25.541 ; Pain in joints of left hand M25.542 and Need for hepatitis C screening test Z11.[address] Apr, Anxiety F41.9 [place] [address] Apr, Chest tightness R07.89 ; [place] [address] Overweight (BMI 25.0-29.9) E66.3 ; BMI 27.0-27.9,adult Z68.27 and History of asthma Z87.[address] Mar, Chest tightness R07.89 [place] [address] Mar, [place] [address] Mar, [place] [address] Z91.09 [place] [address] Mar, [place] [address] Mar, Chest tightness R07.89 [place] [address] Mar, [place] [address] Mar, Heart palpitations R00.2 ; [place] [address] Nasal congestion R09.81 ; Screening for HIV (human immunodeficiency virus) Z11.4 ; Right inguinal hernia K40.90 ; Anxiety F41.9 ; Screening for colon cancer Z12.11 and Anemia, unspecified type D64.[address] Jan, Chest congestion R09.89 [place] [address] Unilateral recurrent inguinal hernia without obstruction or gangrene K40.[address] Jan, [place] [address] Z91.09 ; Anxiety F41.9 ; Skin lesion L98.9 ; Screening, lipid Z13.220 and Right inguinal hernia K40.[address] Nov, [place] [address] Sep, [place] [address] IMMUNIZATIONS No Known Immunizations SOCIAL HISTORY Never Assessed REASON FOR REFERRAL FUNCTIONAL STATUS PLAN OF CARE Activity Details Pending Test LIPID PANEL WITH REFLEX TO DIRECT LDL VITAL SIGNS MEDICATIONS Unknown Medications PROCEDURES No Known procedures RESULTS No Results REASON FOR VISIT *PA for [place]-3 Insurance Providers [facility] Member Patient Patient Patient Patient Patient Subscriber Subscriber Subscriber Group Insurance Plan Plan Plan Plan ID Relationship Address Phone Name Date of ID Name Date of No Type Insurance Insurance Insurance Coverage to Subscriber Address Phone Name Dates Case [phone] Case self [place] [id number] Management [place] [address] [facility] [address] Community Medicare National [id number] Medicare self [place] [id number] PPS QMB No Government 41 PPS QMB No [employer] [address] [place] [id number] Medicare National [phone] Medicare self [place] [id number] PPS QMB No Government 41 PPS QMB No [employer] [address] [place] [id number] Medicaid [id number] [phone] Medicaid self [place] [id number] [facility] [address] [place] [address] MEDICAL (GENERAL) HISTORY Type Description Date Medical History anxiety and panic disorder Medical History hyperactive Medical History Hep A and B Medical History Herpes Medical History Asthma (as a child) Surgical History glands in breast removed Hospitalization History glands removed 2007
--- OUTSIDE RECORDS SUMMARY | 2018-07-18 19:46 | XMS REPORT ---
:1945 Author Organization [facility] Address [address] [place] [address] Care Team Providers Name Role Phone Michael Perez Unavailable Unavailable PROBLEMS Type Condition ICD9-CM Code [id number] Onset Condition SNOMED Code Code Dates Status Problem Heart palpitations R00.2 Active 43922996 Problem Hypomagnesemia E83.42 Active 289820060 Problem Environmental Z91.09 Active 388237180 allergies Problem Right inguinal K40.90 Active 679712047 hernia Problem Overweight (BMI E66.3 Active 915557008 25.0-29.9) Problem Chronic fatigue R53.82 Active 54021979 Problem High cholesterol E78.00 Active 59046836 Problem Chronic GERD K21.9 Active 542941961 Problem Nasal congestion R09.81 Active 75759181 Problem BMI 27.0-27.9,adult Z68.27 Active 785748115 Problem Migraine without G43.009 Active 010430072 aura and without status migrainosus, not intractable Problem History of Z86.59 Active 453258043 depression Problem Mood disorder F39 Active 89675038 ALLERGIES No Information ENCOUNTERS Encounter Location Date Diagnosis [facility] [address] Jul, [place] [address] [facility] [address] Jul, [place] [address] [facility] [address] June, [place] [address] [facility] [address] May, Sore throat J02.9 ; [place] [address] disorder F39 and Chronic GERD K21.9 [facility] [address] May, [place] [address] [place] [facility] [address] May, [place] [address] effusion H[address] May, [place] [address] May, [place] [address] Apr, [place] [address] R10.12 and Right inguinal hernia K40.[address] Apr, [place] [address] [facility] [place] [facility] Apr, [place] [address] Apr, [place] [address] Mar, Cellulitis, neck L03.221 [place] [address] Mood disorder F39 [address] Jan, [place] [address] Jan, [place] [address] [place] [address] Jan, [place] [address] [place] [address] Jan, [place] [address] Jan, [place] [address] Dec, [place] [address] Dec, [place] [address] infectious origin R19.[address] Dec, Skin rash R21 ; [place] [address] blood pressure reading without diagnosis of hypertension R03.0 and Shaking R25.[address] Nov, [place] [address] Nov, Dermatitis L30.9 ; [place] [address] without aura and without status migrainosus, not intractable G43.009 ; Elevated blood pressure reading without diagnosis of hypertension R03.0 and Encounter for immunization Z23 [address] Nov, [place] [address] Nov, Mood disorder F39 [place] [address] [facility] Nov, Mood disorder F39 [place] [address] Nov, [facility] [place] [address] [facility] [address] [facility] Oct, [place] [address] Oct, Mood disorder F39 [place] [address] [facility] [address] [facility] Sep, [place] [address] without status migrainosus, not intractable G43.009 and Chronic fatigue R53.[address] [facility] Sep, Migraine [place] [address] without status migrainosus, not intractable G43.009 [facility] [address] [facility] Sep, [place] [address] Sep, [place] [address] [facility] [address] [facility] Sep, [place] [address] Sep, [place] [address] [facility] [address] Sep, [place] [address] Sep, Other [place] [address] externa of left ear H60.392 and Migraine without aura and without status migrainosus, not intractable G43.[address] [place] [address] Sep, [place] [address] Sep, [place] [address] [facility] [address] [facility] Aug, [place] [address] Aug, [place] [address] Aug, [place] [address] [facility] Jul, [place] [address] [facility] [address] [facility] Jul, [place] [address] Jul, [place] [address] [facility] [address] [facility] Jul, History of depression Z86.59 [place] [address] Jul, [place] [address] Jul, [place] [address] Jul, [place] [address] Jul, [place] [address] [facility] [address] [place] [address] Jul, [place] [address] cardiovascular examination Z01.810 ; Snoring R06.83 ; Postnasal drip R09.82 and Moderately severe depression F32.2 [facility] [address] [place] [address] June, [place] [address] [facility] [address] [facility] June, [place] [address] [facility] [address] [facility] June, [place] [address] [facility] June, [place] [address] [facility] [address] [facility] June, [place] [address] without status migrainosus, not intractable G43.[address] June, [place] [address] [facility] [address] [facility] June, Right inguinal hernia K40.90 [place] [address] ; Screening for lipid disorders Z13.220 ; Screening for prostate cancer Z12.5 and Anxiety F41.9 [facility] [address] June, [place] [address] [facility] [address] June, [place] [address] [facility] [address] June, [place] [address] [facility] [address] June, [place] [address] [facility] [address] [facility] June, [address] [address] June, [place] [address] [facility] [address] June, [place] [address] [place] [address] June, [place] [address] F32.2 ; Hypomagnesemia E83.42 ; Anxiety F41.9 ; Pain in right knee M25.561 and Pain in left knee M25.562 [facility] [address] June, [place] [address] Teodoro Mortensen [address] May, [place] [address] [place] [address] [place], [place] [address] [place] [address] May, Neck pain M54.2 ; [place] [address] Hypomagnesemia E83.42 ; Rash R21 ; Moderately severe depression F32.2 and Elevated blood pressure reading without diagnosis of hypertension R03.0 [place] [address] May, [place] [address] May, Migraine without aura [place] without status migrainosus, [address] not intractable G43.[address] May, [place] [address] May, [place] [address] without status migrainosus, not intractable G43.009 and Environmental allergies Z91.[address] [facility] May, [place] [address] [place] [address] May, [place] [address] F32.2 and Migraine without aura and without status migrainosus, not intractable G43.009 [facility] [address] [place] [address] [address] [place] [address] [place] Apr, [place] [address] [place] [address] Apr, [place] [address] [place] [address] Apr, [place] [address] Apr, [place] [address] Apr, Worst headache of life R51 [place] [address] Apr, Pain [place] [address] M25.541 ; Hepatitis B core antibody positive R76.8 and Pain in joints of left hand M25.[address] Apr, [place] [address] Apr, [place] [address] Apr, Pain [place] [address] M25.541 ; Pain in joints of left hand M25.542 and Need for hepatitis C screening test Z11.[address] Apr, Anxiety F41.9 [place] [address] Apr, Chest tightness R07.89 ; [place] [address] Overweight (BMI 25.0-29.9) E66.3 ; BMI 27.0-27.9,adult Z68.27 and History of asthma Z87.[address] Mar, Chest tightness R07.89 [place] [address] Mar, [place] [address] Mar, [place] [address] [address]91.[address] Mar, [place] [address] Mar, Chest tightness R07.89 [place] [address] Mar, [place] [address] Mar, Heart palpitations R00.2 ; [place] [address] Nasal congestion R09.81 ; Screening for HIV (human immunodeficiency virus) Z11.4 ; Right inguinal hernia K40.90 ; Anxiety F41.9 ; Screening for colon cancer Z12.11 and Anemia, unspecified type D64.[address] Jan, Chest congestion R09.89 [place] [address] Unilateral recurrent inguinal hernia without obstruction or gangrene K40.91 [place] [address] Jan, 2017 [place] [address] Z91.09 ; Anxiety F41.9 ; Skin lesion L98.9 ; Screening, lipid Z13.220 and Right inguinal hernia K40.[address] [place] [address] Nov, 2016 [place] [address] [place] [address] Sep, [place] [address] IMMUNIZATIONS No Known Immunizations SOCIAL HISTORY Never Assessed REASON FOR REFERRAL FUNCTIONAL STATUS PLAN OF CARE Activity Details Follow Up 6 weeks Reason:mood Pending Test [facility] VITAL SIGNS Temperature 98.0 degrees Fahrenheit 2018-06-17 Heart Rate 18 2018-06-17 Weight 185.1 2018-06-17 Height 68.9 in 2018-06-17 BMI 27.41 kg/m2 2018-06-17 Oximetry 97 % 2018-06-17 Blood pressure systolic 130 mm Hg 2018-06-17 Blood pressure diastolic 74 mm Hg 2018-06-17 MEDICATIONS Medication Instructions Dosage Frequency Start End Duration Status Date Date Pseudoephedrine Orally qam 1 tablet Active HCl 30 mg as needed Lipitor 40 mg Orally Once a TAKE 1 24h 90 Active day TABLET BY MOUTH EVERY NIGHT AT BEDTIME Trazadone 100 orally every 3 tab 17 30 day(s) Active night at [place], bedtime as 2019 needed Sumatriptan Orally Once a 1 tablet 30 Not-Taki Succinate 100 mg day as needed ng for headache [place] 3 1000 mg Orally daily 2 capsule 24h 90 days Active Ranitidine HCl 75 Orally Twice a 1 tablet 12h 18 May, day(s) Active mg day as needed 2019 Zyrtec Allergy 10 Orally Once a 1 tablet 24h 14 Jan, 30 day(s) Not-Taki mg day 2016 ng Nasonex 50 MCG/ACT Nasally Once a 2 sprays 24h 06 Jan, 30 day(s) Active day in each 2018 nostril PROCEDURES Procedure Date Ordered Result Body Site [facility] visit, est patient June 17, 2018 BODY MASS INDEX DOCD June 17, 2018 SMOKING + 2ND HAND ASSESSED June 17, 2018 Oxygen saturation results documented and reviewed June 17, 2018 BLOOD PRESSURE, MEASURED June 17, 2018 RESULTS No Results REASON FOR VISIT cold symptoms, Patient stated hes having problems sleeping and he also having sore troath and very dry.CM Insurance Providers [facility] Member Patient Patient Patient Patient Patient Subscriber Subscriber Subscriber Group Insurance Plan Plan Plan Plan ID Relationship Address Phone Name Date of ID Name Date of No Type Insurance Insurance Insurance Coverage to Subscriber Address Phone Name Dates Medicaid [phone] Medicaid self [place] [id number] [facility] [address] [address] Medicare National Medicare self [place] [id number] PPS QMB No Government 41 PPS QMB No [place] [employer] [address] [place] [id number] Medicare National 6837- Medicare self [place] [id number] PPS QMB No Government 41 PPS QMB No [place]ael[place] [employer] [address] [place] [id number] Case [phone] Case self [place] [id number] Management Teodoro Mortensen [address] [place] [id number] [facility] MEDICAL (GENERAL) HISTORY Type Description Date Medical History anxiety and panic disorder Medical History hyperactive Medical History Hep A and B Medical History Herpes Medical History Asthma (as a child) Surgical History glands in breast removed Hospitalization History glands removed 2007
--- OUTSIDE RECORDS SUMMARY | 2018-07-18 19:46 | XMS REPORT ---
:1945 Author Organization [facility] Address [address] [place] [address] Care Team Providers Name Role Phone Michael Perez Unavailable Unavailable PROBLEMS Type Condition ICD9-CM Code [id number] Onset Condition SNOMED Code Code Dates Status Problem Heart palpitations R00.2 Active 25129205 Problem Hypomagnesemia E83.42 Active 077862283 Problem Environmental Z91.09 Active 995997056 allergies Problem Right inguinal K40.90 Active 121245481 hernia Problem Overweight (BMI E66.3 Active 454659672 25.0-29.9) Problem Chronic fatigue R53.82 Active 01065914 Problem High cholesterol E78.00 Active 51972184 Problem Chronic GERD K21.9 Active 432278503 Problem Nasal congestion R09.81 Active 17677191 Problem BMI 27.0-27.9,adult Z68.27 Active 857058622 Problem Migraine without G43.009 Active 681401042 aura and without status migrainosus, not intractable Problem History of Z86.59 Active 034690140 depression Problem Mood disorder F39 Active 99691734 ALLERGIES No Information ENCOUNTERS Encounter Location Date Diagnosis [facility] [address] Jul, [place] [address] [facility] [address] Jul, [place] [address] [facility] [address] June, [place] [address] [facility] [address] May, [place] [address] disorders Z13.220 [place] [facility] [address] May, [place] [address] [facility] [address] May, Sore throat J02.9 ; [place] [address] disorder F39 and Chronic GERD K21.9 [place] [address] May, [place] [address] [place] [address] May, [place] [address] effusion H65.93 [place] [address] May, [place] [address] [facility] [address] [facility] May, [place] [address] [place] [address] Apr, [place] [address] R10.12 and Right inguinal hernia K40.90 [place] [address] Apr, [place] [address] [facility] - Resource - [place] [facility]. [address] Apr, [place] [address] [place] [address] Apr, [place] [address] [place] [address] Mar, Cellulitis, neck L03.221 [place] [address] Mood disorder F39 [address] Jan, [place] [address] [facility] [address] [place] [address] Jan, [place] [address] [place] [address] Jan, [place] [address] [facility] [address] [facility] Jan, [place] [address] Jan, [place] [address] Dec, [place] [address] [place] [address] Dec, [place] [address] infectious origin R19.7 [place] [address] Dec, Skin rash R21 ; [place] [address] blood pressure reading without diagnosis of hypertension R03.0 and Shaking R25.1 [place] [address] Nov, [place] [address] [place] [address] Nov, Dermatitis L30.9 ; [place] [address] without aura and without status migrainosus, not intractable G43.009 ; Elevated blood pressure reading without diagnosis of hypertension R03.0 and Encounter for immunization Z23 [facility] [address] [facility] Nov, [place] [address] Nov, Mood disorder F39 [place] [address] [place] [address] [facility] Nov, Mood disorder F39 [place] [address] Nov, [facility] [place] [address] [facility] [address] [place] [address] Oct, [place] [address] Oct, Mood disorder F39 [place] [address] Sep, [place] [address] without status migrainosus, not intractable G43.009 and Chronic fatigue R53.[address] [place] [address] . [facility] Sep, Migraine [place] [address] without status migrainosus, not intractable G43.[address] Sep, [place] [address] Sep, [place] [address] Sep, [place] [address] Sep, [place] [address] Sep, [place] [address] Sep, Other [place] [address] externa of left ear H60.392 and Migraine without aura and without status migrainosus, not intractable G43.[address] Sep, [facility] [place] [address] Sep, [place] [address] Aug, [place] [address] Aug, [place] [address] Aug, [place] [address] [place] [address] . [facility] Jul, [place] [address] [facility] [address] [facility] Jul, [place] [address] Jul, [place] [address] Jul, History of depression Z86.59 [place] [address] Jul, [place] [address] Jul, [place] [address] Jul, [place] [address] Jul, [place] [address] Jul, [place] [address] cardiovascular examination Z01.810 ; Snoring R06.83 ; Postnasal drip R09.82 and Moderately severe depression F32.[address] June, [place] [address] June, [place] [address] June, [place] [address] [facility] June, [place] [address] June, [place]raine [place] [address] without status migrainosus, not intractable G43.[address] June, [place] [address] June, Right inguinal hernia K40.90 [place] [address] ; Screening for lipid disorders Z13.220 ; Screening for prostate cancer Z12.5 and Anxiety F41.9 [facility] [address] June, [place] [address] [facility] [address] June, [place] [address] [facility] [address] [facility] June, [place] [address] [facility] [address] [facility] June, [place] [address] [place] [id number] [facility] [address], [address] [place] [address] June, [place] [address] [place] [address] June, [place] [address] [place] [address] June, [place] [address] F32.2 ; Hypomagnesemia E83.42 ; Anxiety F41.9 ; Pain in right knee M25.561 and Pain in left knee M25.562 [place] [address] June, [place] [address] May, [place] [address] May, [place] [address] May, Neck pain M54.2 ; [place] [address] Hypomagnesemia E83.42 ; Rash R21 ; Moderately severe depression F32.2 and Elevated blood pressure reading without diagnosis of hypertension R03.0 [place] [address] May, [place] [address] May, Migraine without aura and [place] without status migrainosus, [address] not intractable G43.[address] May, [place] [address] May, [place]raine [place] [address] without status migrainosus, not intractable G43.009 and Environmental allergies Z91.[address] May, [place] [address] May, [place] [address] F32.2 and Migraine without aura and without status migrainosus, not intractable G43.[address], [address] [place] [address] [place] Apr, [place] [address] [place] [address] Apr, [place] [address] Apr, [place] [address] Apr, [place] [address] Apr, Worst headache of life R51 [place] [address] Apr, Pain [place] [address] M25.541 ; Hepatitis B core antibody positive R76.8 and Pain in joints of left hand M25.[address] Apr, [place] [address] Apr, [place] [address] Apr, Pain [place] [address] M25.541 ; Pain in joints of left hand M25.542 and Need for hepatitis C screening test Z11.[address] Apr, Anxiety F41.9 [place] [address] Apr, Chest tightness R07.89 ; [place] [address] Overweight (BMI 25.0-29.9) E66.3 ; BMI 27.0-27.9,adult Z68.27 and History of asthma Z87.[address] Mar, Chest tightness R07.89 [place] [address] Mar, [place] [address] Mar, [place] [address] Z91.[address] Mar, [place] [address] Mar, Chest tightness R07.89 [place] [address] Mar, [place] [address] Mar, Heart palpitations R00.2 ; [place] [address] Nasal congestion R09.81 ; Screening for HIV (human immunodeficiency virus) Z11.4 ; Right inguinal hernia K40.90 ; Anxiety F41.9 ; Screening for colon cancer Z12.11 and Anemia, unspecified type D64.[address] Jan, Chest congestion R09.89 [place] [address] Unilateral recurrent inguinal hernia without obstruction or gangrene K40.[address] 14 Jan, 2017 [place] [address] Z91.09 ; Anxiety F41.9 ; Skin lesion L98.9 ; Screening, lipid Z13.220 and Right inguinal hernia K40.[address] Nov, [place] [address] Sep, [place] [address] IMMUNIZATIONS No Known Immunizations SOCIAL HISTORY Never Assessed REASON FOR REFERRAL FUNCTIONAL STATUS PLAN OF CARE VITAL SIGNS MEDICATIONS Medication Instructions Dosage Frequency Start End Duration Status Date Date Fluticasone Nasally Once a 1 spray in 24h May, 30 day(s) Active Propionate 50 day each 2018 MCG/ACT nostril PROCEDURES No Known procedures RESULTS No Results REASON FOR VISIT Drug Request Change Form Insurance Providers [facility] Member Patient Patient Patient Patient Patient Subscriber Subscriber Subscriber Group Insurance Plan Plan Plan Plan ID Relationship Address Phone Name Date of ID Name Date of No Type Insurance Insurance Insurance Coverage to Subscriber Address Phone Name Dates Medicare National Medicare self [place] [id number] PPS QMB No Government 41 PPS QMB No [employer] [address] [place] [id number] Medicaid [id number] [phone] Medicaid self [place] [id number] [facility] [address] [place] [address] Case [phone] Case self [place] [id number] Management [place] 02 Management [facility] [address] Community Medicare National Medicare self [place] [id number] PPS QMB No Government 41 PPS QMB No [employer] [address] [place] [id number] MEDICAL (GENERAL) HISTORY Type Description Date Medical History anxiety and panic disorder Medical History hyperactive Medical History Hep A and B Medical History Herpes Medical History Asthma (as a child) Surgical History glands in breast removed Hospitalization History glands removed 2007
--- OUTSIDE RECORDS SUMMARY | 2018-07-18 19:46 | XMS REPORT | Continuity of Care Document ---
:1945 External Reference #:[id number] Author Name Triston Mariee, OD Address [address] [place] [address] Care Team Providers Name Role Phone Davis Mccoy M.D. 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 Onset: 07/25/2014 Regular astigmatism Eunice Unger O.D. Onset: 07/25/2014 Presbyopia Eunice Unger O.D. 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 Onset: 06/17/2013 Nuclear senile cataract Davis Mccoy M.D. Onset: 06/17/2013 Family History Date Family Member(s) Observation Comments General Cataract General Diabetes General Cancer General High BP Father Noncontributory Mother Noncontributory Social History Type Date Description Comments Sex Unknown ETOH Use Denies alcohol use Tobacco Use Start: Unknown Patient has never smoked Smoking Status Reviewed: 06/24/18 Patient has never smoked Allergies, Adverse Reactions, Alerts Active Allergies Reaction Severity Comments Date Sulfacetamide 06/17/2013 Penicillin 06/17/2013 Seasonal 06/17/2013 Dust 06/09/2018 Pollen 06/09/2018 Red Dye 06/09/2018 Medications Active Medications SIG Qnty Indications Ordering Provider Date Sumatriptan Succinate TK 2 - 1 T Unknown Onset Of Headache. 100mg Tablets May Repeat Once In One Hour Ibuprofen TK 1 T PO tid prn Unknown 600mg Tablets Clotrimazole/Betametha Apply Topically To Unknown sone Dipropionate Groin Area bid prn 1-0.05% Cream Meclizine HCL TK 1/2 To 1 T PO Unknown 25mg tid prn Tablets Doxycycline Hyclate TK One C PO bid Unknown 100mg Capsules Doxazosin Mesylate TK 1 T PO qd Unknown 2mg Tablets Lovaza TK 2 CS PO bid Unknown 1gm Capsules Nasonex Minto 1 Minto Into Unknown 50mcg/Act Each Nostril qd Suspension Valacyclovir HCL TK 1 T PO qd Unknown 1gm Tablets Atorvastatin Calcium TK 1 T PO QHS Unknown 40mg Tablets Omeprazole Unknown 20mg Tablets DR Trazodone HCL Unknown 100mg Tablets History Medications Neomycin/Polymyxin/Dexamethasone one drop 5ml Triston 06/09/2018 - 3.5-48135-6.1 three times a Mariee, OD 06/24/2018 Suspension day both eyes x 1 week, then d/c Soothe XP Xtra Protection 1 drop three 1Bottle Davis 09/30/2017 - 1%-4.5% Solution times a day Darius, 06/09/2018 M.D. Ciprofloxacin HCL instill 1 10ml Davis 08/12/2017 - 0.3% Solution drop right Mccoy, 10/12/2017 eye four M.D. times a day Vigamox 0.5% 1 drop drops 9ml Davis 07/29/2017 - Solution right eye Darius, 08/12/2017 four times a M.D. day Ketorolac Tromethamine 1 drops right 10ml Davis 07/29/2017 - 0.5% Solution eye twice a Mccoy, 10/12/2017 day M.D. Pred Forte 1% 1 drops right 10ml Davis 07/29/2017 - Suspension eye four Darius 10/12/2017 times a day M.D. Neomycin/Polymyxin/Dexamethasone apply 1/4 3.500gm Triston 02/05/2017 - 3.5-18044-3.1 Ointment inch ribbon Mariee, OD 06/22/2017 to affected area bid Ou x 1 week Artificial Tears one drop 15ml Triston 02/05/2017 - 1.4% Solution three times a Mariee, OD 06/09/2018 day both eyes Fluorometholone 1gtt tid OU x 5ml Triston 09/05/2016 - 0.1% Suspension 1 week Mariee, OD 01/16/2017 Immunizations Description No Information Available Vital Signs Date Vital Result Comment 06/24/2018 3:15pm Intraocular Pressure Right Eye 12 mmHg Intraocular Pressure Left Eye 12 mmHg 06/09/2018 3:06pm Intraocular Pressure Right Eye 12 mmHg Intraocular Pressure Left Eye 12 mmHg 09/16/2017 2:10pm Intraocular Pressure Right Eye 14 mmHg Intraocular Pressure Left Eye 14 mmHg 09/01/2017 3:32pm Intraocular Pressure Right Eye 14 mmHg Intraocular Pressure Left Eye 14 mmHg 08/19/2017 11:33am Intraocular Pressure Right Eye 14 mmHg Intraocular Pressure Left Eye 14 mmHg 08/14/2017 3:13pm Intraocular Pressure Right Eye 13 mmHg 08/12/2017 10:55am Intraocular Pressure Right Eye 14 mmHg 09/24/2016 2:26pm Intraocular Pressure Right Eye 12 mmHg Intraocular Pressure Left Eye 12 mmHg 09/05/2016 11:48am Intraocular Pressure Right Eye 15 mmHg Intraocular Pressure Left Eye 15 mmHg 07/25/2014 3:29pm Intraocular Pressure Right Eye 12 mmHg Intraocular Pressure Left Eye 12 mmHg 06/17/2013 3:43pm Intraocular Pressure Right Eye 14 mmHg Intraocular Pressure Left Eye 15 mmHg Results Description No Information Available Procedures Date Code Description Status 06/24/2018 27499 Oct, Optic Nerve Completed 06/24/2018 83808 Refraction Completed 06/24/2018 12764 Eye Exam Est Comprehensive Completed 08/18/2017 07323 Extracapsular Cataract Extraction W/Intraocular Lens Completed 08/14/2017 66994 Eye Exam Est Intermediate Completed 08/11/2017 06234 Extracapsular Cataract Extraction W/Intraocular Lens Completed 07/20/2017 43619 Ophthalmic Biometry By Partial Coherence Interferometry Completed W/Intra 07/20/2017 03944 Eye Exam Est Intermediate Completed 06/22/2017 95661 Eye Exam Est Intermediate Completed 02/05/2017 22817 Eye Exam Est Intermediate Completed 01/16/2017 81597 Eye Exam Est Intermediate Completed 01/16/2017 98796 Refraction Completed 01/16/2017 06141 Oct, Optic Nerve Completed 09/24/2016 50050 Fundus Photography W/Interpretation & Report Completed 09/24/2016 56189 Refraction Completed 09/24/2016 62100 Eye Exam Est Comprehensive Completed 09/05/2016 58304 Eye Exam Est Intermediate Completed 07/25/2014 20319 Fundus Photography W/Interpretation & Report Completed 07/25/2014 94482 Ophthalmoscopy Subsequent Completed 07/25/2014 99678 Refraction Completed 07/25/2014 08203 Eye Exam Est Comprehensive Completed 12/20/2013 64440 Eye Exam Est Intermediate Completed 12/20/2013 47816 Visual Field Exam Extended, Unilateral Or Bilateral Completed 12/20/2013 66236 Oct, Optic Nerve Completed 06/17/2013 06641 Fundus Photography W/Interpretation & Report Completed 06/17/2013 66511 Eye Exam Est Intermediate Completed 06/17/2013 65242 B-Scan Contact, Ophthalmic Ultrasound Echography Completed 06/05/2011 10604 Fundus Photography W/Interpretation & Report Completed 06/05/2011 45769 Ophthalmoscopy Subsequent Completed 06/05/2011 12133 Eye Exam Est Comprehensive Completed 12/30/2010 26847 Ophthalmoscopy Subsequent Completed 12/30/2010 64025 Eye Exam Est Intermediate Completed 07/04/2010 74735 Eye Exam Est Comprehensive Completed 07/04/2010 57555 Ophthalmoscopy Subsequent Completed 07/04/2010 29499 Fundus Photography W/Interpretation & Report Completed 07/27/2009 55363 Ophthalmoscopy Subsequent Completed 07/27/2009 26079 Refraction Completed 07/27/2009 64721 Eye Exam Est Comprehensive Completed 08/21/2008 88460 Eye Exam Est Intermediate Completed 05/18/2008 60599 Ophthalmoscopy Subsequent Completed 05/18/2008 03448 Refraction Completed 05/18/2008 52585 Eye Exam Est Comprehensive Completed 12/31/2006 96227 Ophthalmoscopy Subsequent Completed 12/31/2006 71472 Eye Exam Est Comprehensive Completed 11/25/2006 73352 Fundus Photography W/Interpretation & Report Completed 11/25/2006 74585 Ophthalmoscopy Initial Completed 11/25/2006 67248 Eye Exam New Comprehensive Completed Encounters Type Date Location Provider Dx Diagnosis Office Visit 06/09/2018 Main Office Triston Mariee, OD H04.123 Dry eye syndrome of 2:15p bilateral lacrimal glands H01.02A Squamous blepharitis right eye, upper and lower eyelids H01.02B Squamous blepharitis left eye, upper and lower eyelids Office Visit 11/01/2010 2:40p Main Office DR. Annette Fitch, 366.16 Cataract Nuclear O.D. Sclerosis Plan of Treatment 06/24/2018 - Triston Mariee, ODH47.323 Drusen of optic disc, dkacibxumZ59.493 Other secondary cataract, wqdvxooxxV44.4 GtriibfzqgQ40.123 Dry eye syndrome of bilateral lacrimal glandsFollow up:yearly full, sooner PRN
--- NOTE | 2018-07-18 20:04 | ED ---
GI/ HPI - HPI Summary HPI Summary: Patient complains of insertion of anal plug into rectum and being unable to withdraw plug tonight. States he has some discomfort in the rectal area, denies abdominal pain, change in urine, change in BM. States plug is 5 inches long by 2 inches in diameter at widest, made of plastic. Denies any other pain injury or symptoms. - History of Current Complaint Chief Complaint: EDRectalPain Time Seen by Provider: 07/18/18 18:40 Stated Complaint: "FOREIGN OBJECT IN ANUS PER PT" Hx Obtained From: Patient Onset/Duration: Started Hours Ago Severity: Mild Current Severity: Mild Pain Intensity: 2 Location of Pain: Rectal Pain Characteristics: Dull Associated Signs and Symptoms: Positive: Rectal Pain - Allergy/Home Medications Allergies/Adverse Reactions: Allergies Allergy/AdvReac Type Severity Reaction Status Date / Time Penicillins Allergy Unknown Verified 07/18/18 18:50 Reaction Details red dye Allergy Facial Verified 07/18/18 18:50 Redness/Flushing Sulfa (Sulfonamide Allergy Unknown Verified 07/18/18 18:50 Antibiotics) Reaction Details PMH/Surg Hx/FS Hx/Imm Hx Endocrine/Hematology History: Reports: Hx Anemia Denies: Hx Anticoagulant Therapy, Hx Blood Disorders, Hx Blood Transfusions, Hx Diabetes, Hx Systemic Lupus Erythematosus, Hx Thyroid Disease, Hx Unexplained Bleeding Cardiovascular History: Reports: Hx Angina - DOESN;T TAKE ANYTHING FOR THIS, 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" - no meds, Other Cardiovascular Problems/Disorders - "arrhythmia" in the past - no meds Denies: Hx Aneurysm, Hx Atrial Fibrillation, Hx Cardiomegaly, Hx Congenital Heart Disease, Hx Congestive Heart Failure, Hx Coronary Artery Disease, Hx Deep Vein Thrombosis, Hx Hypercholesterolemia, Hx Hypotension, Hx Hypertension, Hx Myocardial Infarction, Hx Pacemaker/ICD, Hx Peripheral Vascular Disease, Hx Rheumatic Fever, Hx Syncope Respiratory History: Reports: Hx Asthma - INHALER, Hx Pneumonia, Hx Seasonal Allergies, Other Respiratory Problems/Disorders - pleurisy, bronchitis IN THE PAST Denies: Hx Chronic Obstructive Pulmonary Disease (COPD), Hx Pulmonary Edema, Hx Pulmonary Embolism, Hx Sleep Apnea GI History: Reports: Other GI Disorders - Hep A and Hep B - followed by PCP - no issues at this time Denies: Hx Crohn's Disease, Hx Diverticulosis, Hx Gall Bladder Disease, Hx Gastroesophageal Reflux Disease, Hx Gastrointestinal Bleed, Hx Hiatal Hernia, Hx Irritable Bowel, Hx Obstructive Bowel, Hx Ulcer History: Reports: Other Problems/Disorders - ENLARGED PROSTATE Musculoskeletal History: Reports: Hx Arthritis - R/A, Hx Back Problems - wears an elastic wrap but makes blood pressure increase while on Sensory History: Reports: Hx Cataracts, Hx Contacts or Glasses - GLASSES Denies: Hx Hearing Aid Opthamlomology History: Reports: Hx Cataracts, Hx Contacts or Glasses - GLASSES Neurological History: Reports: Hx Migraine, Other Neuro Impairments/Disorders - HX DISK PROBLEM 1967 Psychiatric History: Reports: Hx Anxiety, Hx Depression, Hx Panic Disorder - Cancer History Cancer Type, Location and Year: None reported - Surgical History Surgery Procedure, Year, and Place: BILATERAL BREAST GLAND SURGERY 2007&1973 Hx Anesthesia Reactions: No - Immunization History Date of Influenza Vaccine: 11/2016 Infectious Disease History: No Infectious Disease History: Reports: Hx Hepatitis Denies: Traveled Outside the [place] in Last 30 Days - Family History Known Family History: Positive: Cardiac Disease - mom, Hypertension, Diabetes Negative: Blood Disorder - Social History Alcohol Use: None Hx Substance Use: No Substance Use Type: Reports: Prescribed Hx Tobacco Use: No Smoking Status (MU): Never Smoked Tobacco Have You Smoked in the Last Year: No Review of Systems Constitutional: Negative Eyes: Negative ENT: Negative Cardiovascular: Negative Respiratory: Negative Gastrointestinal: Negative Genitourinary: Negative Musculoskeletal: Negative Skin: Negative Neurological: Negative Psychological: Normal All Other Systems Reviewed And Are Negative: Yes Physical Exam - Summary Physical Exam Summary: Rectal exam unremarkable other than foreign body able to be palpated by DOUGLAS Unable to remove foreign body. Abdomen soft nontender. Unable to feel inserted foreign body on abdominal exam. Triage Information Reviewed: Yes Vital Signs On Initial Exam: Initial Vitals Temp Pulse Resp BP Pulse Ox 97.8 F 90 18 123/104 98 07/18/18 18:30 07/18/18 18:30 07/18/18 18:30 07/18/18 18:30 07/18/18 18:30 Vital Signs Reviewed: Yes Appearance: Positive: Well-Appearing Skin: Positive: Warm Head/Face: Positive: Normal Head/Face Inspection Eyes: Positive: Normal Neck: Positive: Supple Respiratory/Lung Sounds: Positive: Clear to Auscultation Cardiovascular: Positive: Normal Abdomen Description: Positive: Nontender Musculoskeletal: Positive: Normal Neurological: Positive: Normal Psychiatric: Positive: Normal AVPU Assessment: Alert - Martin Coma Scale Best Eye Response: 4 - Spontaneous Best Motor Response: 6 - Obeys Commands Best Verbal Response: 5 - Oriented Coma Scale Total: 15 Diagnostics - Vital Signs Vital Signs Temp Pulse Resp BP Pulse Ox 07/18/18 18:30 97.8 F 90 18 123/104 98 - Laboratory Lab Statement: Any lab studies that have been ordered have been reviewed, and results considered in the medical decision making process. GIGU Course/Dx - Course Course Of Treatment: Patient complains of insertion of anal plug into rectum and being unable to withdraw plug tonight. States he has some discomfort in the rectal area, denies abdominal pain, change in urine, change in BM. States plug is 5 inches long by 2 inches in diameter at widest, made of plastic. Denies any other pain injury or symptoms. Physical exam:Rectal exam unremarkable other than foreign body able to be palpated by DOUGLAS Unable to remove foreign body. Abdomen soft nontender. Unable to feel inserted foreign body on abdominal exam. Vital signs within normal limits. X-ray positive for foreign body in rectum. Removed by GI Dr. Garcia without sedation. - Diagnoses Provider Diagnoses: Foreign body in anus and rectum Discharge - Sign-Out/Discharge Documenting (check all that apply): Patient Departure Patient Received Moderate/Deep Sedation with Procedure: No - Discharge Plan Condition: Stable Disposition: HOME Patient Education Materials: Rectal Foreign Body (ED) Referrals: Michael Perez PA [Primary Care Provider] - Additional Instructions: Follow-up with primary care. Return to the ED for any new or worsening symptoms. - Billing Disposition and Condition Condition: STABLE Disposition: Home
[2018-07-18 20:18] VITALS: BP 128/90
--- NOTE | 2018-07-18 21:25 | CONS ---
CC: Primary care physician * CONSULTATION REPORT: DATE OF CONSULT: 07/18/18 REQUESTING PHYSICIAN: Tono Elmore MD REASON FOR CONSULT: Rectal foreign body. HISTORY OF PRESENT ILLNESS: A 80-year-old male who is utilizing an anal plug at home and had it fall into his rectum. Despite multiple attempts at home removing it with bearing down and flushing, he was unsuccessful and presented to the emergency room. He denies any black or blood in his stools. Denies any abdominal pain or rectal pain. Remainder of the 14-point review of systems were grossly negative. PAST MEDICAL HISTORY: Hyperlipidemia, insomnia. PAST SURGICAL HISTORY: Bilateral breast surgery. ALLERGIES: PENICILLINS, RED DYE and SULFA. FAMILY HISTORY: No family history of colorectal cancer. SOCIAL HISTORY: No alcohol. No substance use. No tobacco. REVIEW OF SYSTEMS: The remainder of the 14-point review of systems is grossly negative. PHYSICAL EXAM: Vital Signs: Blood pressure 123/104, pulse 90, respiratory rate 18, 97.8, he is 98% on room air. In general, alert and oriented x3, in no acute distress. HEENT: Atraumatic, normocephalic. Pupils equal, round and reactive to light. Extraocular movements are intact. Cardiovascular: Regular rate and rhythm, S1, S2. Respiratory: Clear to auscultation bilaterally. Abdomen is soft, nontender, nondistended. Bowel sounds positive. Extremities: No clubbing. No cyanosis. No edema. Rectal exam: Palpable foreign body appreciated. DIAGNOSTIC STUDIES/LAB DATA: X-ray reviewed that shows foreign body roughly 5 x 2 cm in the rectum. ASSESSMENT AND PLAN: This is a 72-year-old male with a rectal foreign body. PROCEDURE: Procedure was done without sedation at initial try, nurse within the room as tie up worker, I was able to digitally extract foreign body manually with success without any rectal trauma. IMPRESSION: Foreign rectal body. RECOMMENDATION: Successful removal. [id number]/[facility] #: [id number] [facility]ENTERMichael
== END | disposition home or self-care (01) ==
LOC: ED 18:27
DX: T18.5XXA Foreign body in anus and rectum, initial encounter (principal); X58.XXXA Exposure to other specified factors, initial encounter; Y92.9 Unspecified place or not applicable; Z88.0 Allergy status to penicillin; Z88.2 Allergy status to sulfonamides; D64.9 Anemia, unspecified; J45.909 Unspecified asthma, uncomplicated; F41.9 Anxiety disorder, unspecified; F32.9 Major depressive disorder, single episode, unspecified; B15.9 Hepatitis A without hepatic coma; B19.10 Unspecified viral hepatitis B without hepatic coma; E78.5 Hyperlipidemia, unspecified; G47.00 Insomnia, unspecified
CPT/HCPCS: 74018; 99282; J2250; J3010

== ENCOUNTER 2018-08-24 15:48 | Emergency (ER) | payer MEDICARE, MEDICAID ==
--- NOTE | 2018-08-24 16:29 | ED ---
Complex/Multi-Sys Presentation - HPI Summary HPI Summary: This pt is a 72 y/o male presenting to [facility] for a referral to an plumber and dentist. Pt reports he saw an fish housekeeper yesterday and was told he had inflammation around both eyes. Pt states he thinks it is sinus related as he has sinus pressure and post nasal drip. He notes he was allergy tested in the 1970s and was placed "immediately on shots." Denies chest pain, SOB, cough, fever, nausea, vomiting. He reports his breathing at night is "depressed." Additionally pt reports he lost a tooth filling and now this tooth is broken. He notes his tooth has been making his tongue bleed from the friction against it. Pt states he needs to see a dentist for this. Pt states he has not been able to get his PCP to refer him to an plumber or dentist. He reports he would like to be referred to an plumber and dentist today because his PCP is not able to help him. - History Of Current Complaint Chief Complaint: EDEyeProblem Time Seen by Provider: 08/24/18 16:08 Hx Obtained From: Patient Onset/Duration: Lasting Days, Still Present Timing: Days Severity Currently: Mild Location: Negative Aggravating Factor(s): nothing Alleviating Factor(s): nothing Associated Signs And Symptoms: Positive: Other - POSITIVE: broken tooth, inflammation around both eyes, sinus pressure, post nasal drip. Negative: SOB , Cough, Chest Pain, Nausea, Vomiting, Fever - Allergies/Home Medications Allergies/Adverse Reactions: Allergies Allergy/AdvReac Type Severity Reaction Status Date / Time Penicillins Allergy Unknown Verified 08/24/18 15:55 Reaction Details red dye Allergy Facial Verified 08/24/18 15:55 Redness/Flushing Sulfa (Sulfonamide Allergy Unknown Verified 08/24/18 15:55 Antibiotics) Reaction Details PMH/Surg Hx/FS Hx/Imm Hx Endocrine/Hematology History: Reports: Hx Anemia Denies: Hx Anticoagulant Therapy, Hx Blood Disorders, Hx Blood Transfusions, Hx Diabetes, Hx Systemic Lupus Erythematosus, Hx Thyroid Disease, Hx Unexplained Bleeding Cardiovascular History: Reports: Hx Angina - DOESN;T TAKE ANYTHING FOR THIS, 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" - no meds, Other Cardiovascular Problems/Disorders - "arrhythmia" in the past - no meds Denies: Hx Aneurysm, Hx Atrial Fibrillation, Hx Cardiomegaly, Hx Congenital Heart Disease, Hx Congestive Heart Failure, Hx Coronary Artery Disease, Hx Deep Vein Thrombosis, Hx Hypercholesterolemia, Hx Hypotension, Hx Hypertension, Hx Myocardial Infarction, Hx Pacemaker/ICD, Hx Peripheral Vascular Disease, Hx Rheumatic Fever, Hx Syncope Respiratory History: Reports: Hx Asthma - INHALER, Hx Pneumonia, Hx Seasonal Allergies, Other Respiratory Problems/Disorders - pleurisy, bronchitis IN THE PAST Denies: Hx Chronic Obstructive Pulmonary Disease (COPD), Hx Pulmonary Edema, Hx Pulmonary Embolism, Hx Sleep Apnea GI History: Reports: Other GI Disorders - Hep A and Hep B - followed by PCP - no issues at this time Denies: Hx Crohn's Disease, Hx Diverticulosis, Hx Gall Bladder Disease, Hx Gastroesophageal Reflux Disease, Hx Gastrointestinal Bleed, Hx Hiatal Hernia, Hx Irritable Bowel, Hx Obstructive Bowel, Hx Ulcer History: Reports: Other Problems/Disorders - ENLARGED PROSTATE Musculoskeletal History: Reports: Hx Arthritis - R/A, Hx Back Problems - wears an elastic wrap but makes blood pressure increase while on Sensory History: Reports: Hx Cataracts, Hx Contacts or Glasses - GLASSES Denies: Hx Hearing Aid Opthamlomology History: Reports: Hx Cataracts, Hx Contacts or Glasses - GLASSES Neurological History: Reports: Hx Migraine, Other Neuro Impairments/Disorders - HX DISK PROBLEM 1967 Psychiatric History: Reports: Hx Anxiety, Hx Depression, Hx Panic Disorder - Cancer History Cancer Type, Location and Year: None reported - Surgical History Surgery Procedure, Year, and Place: BILATERAL BREAST GLAND SURGERY 2007&1973 Hx Anesthesia Reactions: No - Immunization History Date of Influenza Vaccine: 11/2016 Infectious Disease History: No Infectious Disease History: Reports: Hx Hepatitis Denies: Traveled Outside the [place] in Last 30 Days - Family History Known Family History: Positive: Cardiac Disease - mom, Hypertension, Diabetes Negative: Blood Disorder - Social History Alcohol Use: None Hx Substance Use: No Substance Use Type: Reports: Prescribed Hx Tobacco Use: No Smoking Status (MU): Never Smoked Tobacco Have You Smoked in the Last Year: No Review of Systems Negative: Fever, Chills Eyes: Other - POSITIVE: inflammation around eyes ENT: Other - POSITIVE: broken tooth, sinus pressure, post nasal drip Negative: Chest Pain Negative: Shortness Of Breath, Cough Negative: Vomiting, Nausea Skin: Negative Neurological: Negative All Other Systems Reviewed And Are Negative: Yes Physical Exam - Summary Physical Exam Summary: VITAL SIGNS: Reviewed. GENERAL: Patient is a well-developed and nourished male who is lying comfortable in the stretcher. Patient is not in any acute respiratory distress. HEAD AND FACE: No signs of trauma. No ecchymosis, hematomas or skull depressions. No sinus tenderness. EYES: PERRLA, EOMI x 2, No injected conjunctiva, no nystagmus. EARS: Hearing grossly intact. Ear canals and tympanic membranes are within normal limits. MOUTH: Oropharynx within normal limits. NECK: Supple, trachea is midline, no adenopathy, no JVD, no carotid bruit, no c- spine tenderness, neck with full ROM. CHEST: Symmetric, no tenderness at palpation LUNGS: Clear to auscultation bilaterally. No wheezing or crackles. CVS: Regular rate and rhythm, S1 and S2 present, no murmurs or gallops appreciated. ABDOMEN: Soft, non-tender. No signs of distention. No rebound, no guarding, and no masses palpated. Bowel sounds are normal. EXTREMITIES: FROM in all major joints, no edema, no cyanosis or clubbing. NEURO: Alert and oriented x 3. No acute neurological deficits. Speech is normal and follows commands. SKIN: Dry and warm Triage Information Reviewed: Yes Vital Signs On Initial Exam: Initial Vitals Temp Pulse Resp BP Pulse Ox 99.1 F 72 16 143/81 100 08/24/18 15:52 08/24/18 15:52 08/24/18 15:52 08/24/18 15:52 08/24/18 15:52 Vital Signs Reviewed: Yes Diagnostics - Vital Signs Vital Signs Temp Pulse Resp BP Pulse Ox 08/24/18 15:52 99.1 F 72 16 143/81 100 - Laboratory Lab Statement: Any lab studies that have been ordered have been reviewed, and results considered in the medical decision making process. Complex Multi-Symp Course/Dx Assessment/Plan: Pt is a 72 y/o male who presents to the ED for a referral to an plumber and dentist. Pt reports he saw an fish housekeeper yesterday and was told he had inflammation around both eyes. Pt states he thinks it is sinus related as he has sinus pressure and post nasal drip. He notes he was allergy tested in the 1970s and was placed "immediately on shots." Denies chest pain, SOB, cough, fever, nausea, vomiting. He reports his breathing at night is "depressed.". Additionally pt reports he lost a tooth filling and now this tooth is broken. He notes his tooth has been making his tongue bleed from the friction against it. Pt states he needs to see a dentist for this. Pt states he has not been able to get his PCP to refer him to an plumber or dentist. He denies any other complaints. Pt didn't require any pain medications. Pt was discharged home with follow up from an plumber and a dentist. He was given intructions to return to the ED for any new or worsening symptoms. - Diagnoses Provider Diagnoses: Referral needed, Allergy Discharge - Sign-Out/Discharge Documenting (check all that apply): Patient Departure - Discharge home Patient Received Moderate/Deep Sedation with Procedure: No - Discharge Plan Condition: Stable Disposition: HOME Patient Education Materials: Allergy Testing (ED) Referrals: Michael Perez PA [Primary Care Provider] - Additional Instructions: You have been referred to the following plumber: [facility] OFFICE HOURS: M: 8:30-6, W: 8:30-5, Th: 8:30-5, F: 8:30-5 Address: [address] [place] [address] CALL: You have also been referred to the following dentist: [facility] Address: [address] [place] [address] CALL: RETURN TO THE ED FOR ANY NEW OR WORSENING SYMPTOMS. - Billing Disposition and Condition Condition: STABLE Disposition: Home - Attestation Statements Document Initiated by Kristine: Yes Documenting Scribe: Latoya Root Provider For Whom Kristine is Documenting (Include Credential): Jorge Narvaez MD Scribe Attestation: Latoya Escobar, scribed for Jorge Narvaez MD on 08/24/18 at 2131. Scribe Documentation Reviewed: Yes Provider Attestation: The documentation as recorded by the Latoya garcia accurately reflects the service I personally performed and the decisions made by me, Jorge Narvaez MD Status of Scribe Document: Viewed
[2018-08-24 16:45] VITALS: BP 148/80
--- OUTSIDE RECORDS SUMMARY | 2018-08-24 16:59 | XMS REPORT ---
:1945 Author Organization Formerly [facility] Address [address] [place] [address] Care Team Providers Name Role Phone Michael Perez Unavailable Unavailable PROBLEMS Type Condition ICD9-CM Code [id number] Code Onset Condition SNOMED Code Dates Status Problem High cholesterol E78.00 Active 56899657 Problem History of Z86.59 Active 877828109 depression Problem Chronic GERD K21.9 Active 730387908 Problem Right inguinal K40.90 Active 552119088 hernia Problem Environmental Z91.09 Active 148156295 allergies Problem Overweight (BMI E66.3 Active 378007447 25.0-29.9) Problem Migraine without G43.009 Active 425806424 aura and without status migrainosus, not intractable ALLERGIES No Information ENCOUNTERS Encounter Location Date Diagnosis [facility]ly [facility] [address] Jul, [place] [address] [facility] [address] Jul, [place] [address] [facility] [address] Jul, [place] [address] [facility] [address] June, Mood disorder F39 ; [place] [address] Environmental allergies Z91.09 ; Chronic GERD K21.9 and High cholesterol E78.00 Formerly [facility] [address] [facility] [address] June, [address] [place] [address] [facility] [address] [place] June, [place] [address] Z91.09 [facility]ly [facility] [address] June, [place] [address] [facility] [address] [place] [address] June, [place] [address] [facility] [address] June, Mood disorder F39 [place] [address] [facility] [address] [facility] [address] June, Mood disorder F39 [place] [address] June, Mood disorder F39 [place] [address] [place] [address] June, [place] [address] M25.512 and Environmental allergies Z91.09 [place] [address] May, [place] [address] disorders Z13.220 [place] [address] May, [place] [address] [place] [address] May, Sore throat J02.9 ; [place] [address] disorder F39 and Chronic GERD K21.9 [place] [address] May, [place] [address] [place] [address] May, Bilateral [place] [address] effusion H65.93 [place] [address] May, [place] [address] May, [place] [address] Apr, [place] [address] R10.12 and Right inguinal hernia K40.[address] Apr, [place] [address] [facility] [place] [facility] [address] Apr, [place] [address] [place] [address] Apr, [place] [address] [place] [address] Mar, Cellulitis, neck L03.221 [place] [address] Mood disorder F39 [place] [address] Jan, [place] [address] [facility] [address] [facility] Jan, [place] [address] [facility] [address] [facility] Jan, [place] [address] [facility] [address] [facility] Jan, [place] [address] [facility] [address] [facility] Jan, [place] [address] Dec, [place] [address] Dec, [place] [address] infectious origin R19.[address] Dec, Skin rash R21 ; [place] [address] blood pressure reading without diagnosis of hypertension R03.0 and Shaking R25.[address] Nov, [place] [address] Nov, Dermatitis L30.9 ; [place] [address] without aura and without status migrainosus, not intractable G43.009 ; Elevated blood pressure reading without diagnosis of hypertension R03.0 and Encounter for immunization Z23 [facility] [address] [facility] Nov, [place] [address] Nov, Mood disorder F39 [place] [address] Nov, Mood disorder F39 [place] [address] Nov, [place] [address] Oct, [place] [address] Oct, Mood disorder F39 [place] [address] Sep, Migraine [place] [address] without status migrainosus, not intractable G43.009 and Chronic fatigue R53.[address] [facility] Sep, Migraine without [place] [address] without status migrainosus, not intractable G43.[address] Sep, [place] [address] Sep, [place] [address] Sep, [place] [address] Sep, [place] [address] Sep, [place] [address] [facility] [address] [facility] Sep, Other [place] [address] externa of left ear H60.392 and Migraine without aura and without status migrainosus, not intractable G43.009 Teodoro Mortensen [address] Sep, Health [facility] [place] [address] [facility] [address] [facility] Sep, [place] [address] [facility] [address] [place] [address] [facility] [address] [facility] Aug, [place] [address] Aug, [place] [address] [facility] Jul, [place] [address] [facility] [address] Jul, [place] [address] [facility] [address] [place] [address] Jul, [place] [address] Jul, History of depression Z86.59 [place] [address] [facility] [address] [facility] Jul, [place] [address] Jul, [place] [address] [facility] [address] [facility] Jul, [place] [address] Jul, [place] [address] Jul, Encounter [place] [address] cardiovascular examination Z01.810 ; Snoring R06.83 ; Postnasal drip R09.82 and Moderately severe depression F32.2 [facility] [address] June, [place] [address] [facility] [address] June, [place] [address] [facility] [address] June, [place] [address] [place] [address] . [facility] June, [place] [address] June, Migraine [place] [address] without status migrainosus, not intractable G43.[address] June, [place] [address] June, Right inguinal hernia K40.90 [place] [address] ; Screening for lipid disorders Z13.220 ; Screening for prostate cancer Z12.5 and Anxiety F41.[address] June, [place] [address] [place] [address] June, [place] [address] [place] [address] June, [place] [address] June, [place] [address] June, [address] [place] [address] June, [place] [address] June, [place] [address] June, Moder[place] [address] F32.2 ; Hypomagnesemia E83.42 ; Anxiety F41.9 ; Pain in right knee M25.561 and Pain in left knee M25.[address] June, [place] [address] May, [place] [address] May, [place] [address] May, Neck pain M54.2 ; [place] [address] Hypomagnesemia E83.42 ; Rash R21 ; Moderately severe depression F32.2 and Elevated blood pressure reading without diagnosis of hypertension R03.[address] May, [place] [address] May, Migraine without aura and [place] without status migrainosus, [address] not intractable G43.[address] May, [place] [address] May, Migraine [place] [address] without status migrainosus, not intractable G43.009 and Environmental allergies Z91.09 [facility] [address] . [facility] May, [place] [address] May, Moder[place] [address] F32.2 and Migraine without aura and without status migrainosus, not intractable G43.009 [facility] [address] [facility] [address] May, [address] [place] [address] [facility] [address] [facility] [address] Apr, [place] [address] [place], [place] [address] Apr, [place] [address] Apr, [place] [address] Apr, Worst headache of life R51 [place] [address] Apr, Pain [place] [address] M25.541 ; Hepatitis B core antibody positive R76.8 and Pain in joints of left hand M25.[address] Apr, [place] [address] Apr, [place] [address] Apr, Pain [place] [address] M25.541 ; Pain in joints of left hand M25.542 and Need for hepatitis C screening test Z11.[address] Apr, Anxiety F41.9 [place] [address] Apr, Chest tightness R07.89 ; [place] [address] Overweight (BMI 25.0-29.9) E66.3 ; BMI 27.0-27.9,adult Z68.27 and History of asthma Z87.[address] Mar, Chest tightness R07.89 [place] [address] Mar, [place] [address] Mar, [place] [address] [address]91.[address] Mar, [place] [address] Mar, Chest tightness R07.89 [place] [address] Mar, [place] [address] Mar, Heart palpitations R00.2 ; [place] [address] Nasal congestion R09.81 ; Screening for HIV (human immunodeficiency virus) Z11.4 ; Right inguinal hernia K40.90 ; Anxiety F41.9 ; Screening for colon cancer Z12.11 and Anemia, unspecified type D64.[address] Jan, Chest congestion R09.89 [place] [address] Unilateral recurrent inguinal hernia without obstruction or gangrene K40.[address] Jan, [place] [address] Z91.09 ; Anxiety F41.9 ; Skin lesion L98.9 ; Screening, lipid Z13.220 and Right inguinal hernia K40.[address] Nov, [place] [address] Sep, [place] [address] IMMUNIZATIONS No Known Immunizations SOCIAL HISTORY Never Assessed REASON FOR REFERRAL FUNCTIONAL STATUS PLAN OF CARE VITAL SIGNS MEDICATIONS Medication Instructions Dosage Frequency Start End Date Duration Status Date Fluticasone Nasally Once a 1 spray in 24h May, Active Propionate 50 day each 2019 MCG/ACT nostril PROCEDURES No Known procedures RESULTS No Results REASON FOR VISIT Refill Medication / Diamond Expert Insurance Providers [facility] Member Patient Patient Patient Patient Patient Subscriber Subscriber Subscriber Group Insurance Plan Plan Plan Plan ID Relationship Address Phone Name Date of ID Name Date of No Type Insurance Insurance Insurance Coverage to Subscriber Address Phone Name Dates Medicare National [id number] Medicare self Julio [id number] PPS QMB No Government 41 PPS QMB No [employer] [address] [place] [id number] Medicaid [phone] Medicaid self Julio [id number] [facility] [address] [place] [address] Case [phone] Case self Julio [id number] Management [place] 02 Management [facility] [address] Community Medicare National [phone] Medicare self Julio [id number] PPS QMB No [facility] 41 PPS QMB No [facility] [employer] [address] [place] [id number] MEDICAL (GENERAL) HISTORY Type Description Date Medical History anxiety and panic disorder Medical History hyperactive Medical History Hep A and B Medical History Herpes Medical History Asthma (as a child) Medical History Heart palpitations Surgical History glands in breast removed Hospitalization History glands removed 2007
--- OUTSIDE RECORDS SUMMARY | 2018-08-24 16:59 | XMS REPORT ---
:1945 Author Organization [facility] Address [address] [place] [address] Care Team Providers Name Role Phone Michael Perez Unavailable Unavailable PROBLEMS Type Condition ICD9-CM Code ORQ24-KC Code Onset Condition SNOMED Code Dates Status Problem High cholesterol E78.00 Active 84687936 Problem History of Z86.59 Active 245073934 depression Problem Chronic GERD K21.9 Active 814623604 Problem Right inguinal K40.90 Active 079038074 hernia Problem Environmental Z91.09 Active 622908702 allergies Problem Overweight (BMI E66.3 Active 319401547 25.0-29.9) Problem Migraine without G43.009 Active 950733056 aura and without status migrainosus, not intractable ALLERGIES No Information ENCOUNTERS Encounter Location Date Diagnosis [facility] [address] Oct, [place] [address] [facility] [address] Jul, [place] [address] [place] [address] Jul, [place] [address] [facility] [address] June, Mood disorder F39 ; [place] [address] Environmental allergies Z91.09 ; Chronic GERD K21.9 and High cholesterol E78.00 [place] [id number] [facility] [address] June, [address] [place] [address] [facility] [address] [facility] [address] June, [place] [address] Z91.09 [facility] [address] June, [place] [address] June, [place] [address] [place] [address] [place] June, Mood disorder F39 [place] [address] [facility] [address] [facility] June, Mood disorder F39 [place] [address] June, Mood disorder F39 [facility] [place] [address] June, [place] [address] M25.512 and Environmental allergies Z91.09 [place] [address] [place] May, [place] [address] disorders Z13.220 [place] [address] [place] May, [place] [address] [place] [address] [place] May, Sore throat J02.9 ; [place] [address] disorder F39 and Chronic GERD K21.[address] May, [place] [address] [place] [address] [place] May, [place] [address] effusion H65.[address] May, [place] [address] May, [facility] [place] [address] [place] [address] Apr, [place] [address] R10.12 and Right inguinal hernia K40.90 [place] [address] Apr, [place] [address] [facility] - Resource - [place] [facility] [place] Apr, [place] [address] [place] [address] [place] Apr, [place] [address] [place] [address] Mar, Cellulitis, neck L03.221 [place] [address] Mood disorder F39 [place] [address] Jan, [place] [address] [facility] [address] [facility] Jan, [place] [address] [facility] [address] [place] [address] Jan, [place] [address] [address] Jan, [place] [address] Jan, [place] [address] [place] [address] Dec, [place] [address] [place] [address] Dec, [place] [address] infectious origin R19.7 [place] [address] Dec, Skin rash R21 ; [place] [address] blood pressure reading without diagnosis of hypertension R03.0 and Shaking R25.1 [place] [address] Nov, [place] [address] Nov, Dermatitis L30.9 ; [place] [address] without aura and without status migrainosus, not intractable G43.009 ; Elevated blood pressure reading without diagnosis of hypertension R03.0 and Encounter for immunization Z23 [facility] [address] [facility] Nov, [place] [address] Nov, Mood disorder F39 [place] [address] [address] [facility] Nov, Mood disorder F39 [place] [address] Nov, [place] [address] Oct, [place] [address] Oct, Mood disorder F39 [place] [address] Sep, [place]raine [place] [address] without status migrainosus, not intractable G43.009 and Chronic fatigue R53.[address] [facility] Sep, Migraine [place] [address] without status migrainosus, not intractable G43.009 [place] [address] Sep, [place] [address] Sep, [place] [address] [place] [address] Sep, [place] [address] Sep, [place] [address] [facility] Health [address] [facility] Sep, [place] [address] [facility] [address] [facility] Sep, [place] [address] externa of left ear H60.392 and Migraine without aura and without status migrainosus, not intractable G43.[address] Sep, [place] [address] [facility] [address] [place] [address] Sep, [place] [address] [facility] [address] [facility] Aug, [place] [address] Aug, [place] [address] Aug, [place] [address] [facility] Jul, [place] [address] [facility] [address] [place] [address] Jul, [place] [address] Jul, [place] [address] Jul, History of depression Z86.59 [place] [address] Jul, [place] [address] Jul, [place] [address] [facility] [address] [facility] Jul, [place] [address] Jul, [place] [address] Jul, En[place] [address] cardiovascular examination Z01.810 ; Snoring R06.83 ; Postnasal drip R09.82 and Moderately severe depression F32.2 [facility] [address] [place] June, [place] [address] [facility] [address] [place] June, [place] [address] [facility] [address] [facility] June, [place] [address] June, [place] [address] June, Migraine [place] [address] without status migrainosus, not intractable G43.[address] June, [place] [address] June, Right inguinal hernia K40.90 [place] [address] ; Screening for lipid disorders Z13.220 ; Screening for prostate cancer Z12.5 and Anxiety F41.[address] June, [place] [address] June, [place] [address] June, [place] [address] June, [place] [address] [address] June, [address] [place] [address] June, [place] [address] June, [place] [address] June, Moderately [place] [address] F32.2 ; Hypomagnesemia E83.42 ; Anxiety F41.9 ; Pain in right knee M25.561 and Pain in left knee M25.[address] June, [place] [address] May, [place] [address] May, [place] [address] May, Neck pain M54.2 ; [place] [address] Hypomagnesemia E83.42 ; Rash R21 ; Moderately severe depression F32.2 and Elevated blood pressure reading without diagnosis of hypertension R03.[address] May, [place] [address] May, Migraine without aura and [place] without status migrainosus, [address] not intractable G43.[address] May, [place] [address] [facility] [address] [place] [address] May, Migraine [place] [address] without status migrainosus, not intractable G43.009 and Environmental allergies Z91.09 [facility] [address] . [facility] May, [place] [address] May, Moderately [place] [address] F32.2 and Migraine without aura and without status migrainosus, not intractable G43.009 [facility] [address] [facility] [address] May, [address] [place] [address] [address] Apr, [place] [address] Apr, [place] [address] Apr, [place] [address] Apr, [place] [address] Apr, Worst headache of life R51 [place] [address] Apr, Pain [place] [address] M25.541 ; Hepatitis B core antibody positive R76.8 and Pain in joints of left hand M25.[address] Apr, [place] [address] Apr, [place] [address] Apr, Pain [place] [address] M25.541 ; Pain in joints of left hand M25.542 and Need for hepatitis C screening test Z11.[address] Apr, Anxiety F41.9 [place] [address] Apr, Chest tightness R07.89 ; [place] [address] Overweight (BMI 25.0-29.9) E66.3 ; BMI 27.0-27.9,adult Z68.27 and History of asthma Z87.[address] Mar, Chest tightness R07.89 [place] [address] Mar, [place] [address] Mar, [place] [address] Z91.[address] Mar, [place] [address] Mar, Chest tightness R07.89 [place] [address] Mar, [place] [address] Mar, Heart palpitations R00.2 ; [place] [address] Nasal congestion R09.81 ; Screening for HIV (human immunodeficiency virus) Z11.4 ; Right inguinal hernia K40.90 ; Anxiety F41.9 ; Screening for colon cancer Z12.11 and Anemia, unspecified type D64.[address] Jan, Chest congestion R09.89 [place] [address] Unilateral recurrent inguinal hernia without obstruction or gangrene K40.[address] Jan, [place] [address] Z91.09 ; Anxiety F41.9 ; Skin lesion L98.9 ; Screening, lipid Z13.220 and Right inguinal hernia K40.[address] Nov, [place] [address] Sep, [place] [address] IMMUNIZATIONS No Known Immunizations SOCIAL HISTORY Never Assessed REASON FOR REFERRAL FUNCTIONAL STATUS PLAN OF CARE VITAL SIGNS MEDICATIONS Unknown Medications PROCEDURES No Known procedures RESULTS No Results REASON FOR VISIT Medication Insurance Providers [facility] Patient Patient Patient Patient Patient Subscriber Subscriber Subscriber Group Insurance Plan Plan Plan Plan ID Relationship Address Phone Name Date of ID Name Date of No Type Insurance Insurance Insurance Coverage to Subscriber Address Phone Name Dates Medicare National [id number] Medicare self Julio [id number] PPS QMB No Government 41 PPS QMB No Saeli [employer] [address] [place] [id number] Case [phone] Case self Julio [id number] Management Medon 02 Management [facility] [address] Community Medicare National [phone] Medicare self Julio [id number] PPS QMB No Government 41 PPS QMB No [facility] [employer] e [address] [place] [id number] Medicaid [id number] [phone] Medicaid self Julio [id number] [facility] [address] [place] [id number] MEDICAL (GENERAL) HISTORY Type Description Date Medical History anxiety and panic disorder Medical History hyperactive Medical History Hep A and B Medical History Herpes Medical History Asthma (as a child) Medical History Heart palpitations Surgical History glands in breast removed Hospitalization History glands removed 2007
--- OUTSIDE RECORDS SUMMARY | 2018-08-24 16:59 | XMS REPORT | Continuity of Care Document ---
:1945 External Reference #:[id number] Author Name Triston Mariee, OD Address [address] [address] [place] [address] Care Team Providers Name Role Phone Davis Mccoy M.D. Care Team Information Field Underwriter Unavailable Payers Date Identification Numbers Payment Provider Subscriber Policy Number: [id number] Medicare [facility] Julio Russochang AGUIRRE PayID: [id number] [address] [place] [address] Policy Number: [id number] Medicaid MD Julio Servando AGUIRRE PayID: [id number] [address] [place] [address] Problems Active Problems Provider Date Hypermetropia Eunice [...] Patient has never smoked Smoking Status Reviewed: 07/28/18 Patient has never smoked Allergies, Adverse Reactions, Alerts Active Allergies Reaction Severity Comments Date Sulfacetamide 06/17/2013 Penicillin 06/17/2013 Seasonal 06/17/2013 Dust 06/09/2018 Pollen 06/09/2018 Red Dye 06/09/2018 Medications Active Medications SIG Qnty Indications Ordering Date Provider Ketotifen Fumarate one drop twice a 5ml Triston Mariee, 07/28/2018 day both eyes OD 0.025% Solution Ocusoft Lid Scrub apply to outer 60units Triston Mariee, 07/28/2018 Plus eyelids twice a OD Pads day both eyes Fluticasone Unknown Propionate 50mcg/Act Suspension Sumatriptan Succinate TK 1/2 - 1 T Unknown Onset Of 100mg Tablets Headache. May Repeat Once In One Hour Ibuprofen TK 1 T PO tid prn Unknown 600mg Tablets Clotrimazole/Betameth Apply Topically Unknown asone Dipropionate To Groin Area bid prn 1-0.05% Cream Meclizine HCL TK 1/2 To 1 T PO Unknown 25mg tid prn Tablets Doxazosin Mesylate TK 1 T PO qd Unknown 2mg Tablets Lovaza TK 2 CS PO bid Unknown 1gm Capsules Nasonex Craig 1 Craig Unknown 50mcg/Act Into Each Nostril Suspension qd Valacyclovir HCL TK 1 T PO qd Unknown 1gm Tablets Atorvastatin Calcium TK 1 T PO QHS Unknown 40mg Tablets Omeprazole Unknown 20mg Tablets DR Trazodone HCL Unknown 100mg Tablets History Medications Neomycin/Polymyxin/Dexamethasone one drop 5ml Triston 06/09/2018 - 3.5-07762-6.1 three times a Kodi, OD 06/24/2018 Suspension day both eyes x 1 week, then d/c Soothe XP Xtra Protection 1 drop three 1Bottle Davis 09/30/2017 - 1%-4.5% Solution times a day Darius, 06/09/2018 M.D. Ciprofloxacin HCL instill 1 10ml Davis 08/12/2017 - 0.3% Solution drop right Darius, 10/12/2017 eye four M.D. times a day Vigamox 0.5% 1 drop drops 9ml Davis 07/29/2017 - Solution right eye Darius, 08/12/2017 four times a M.D. day Ketorolac Tromethamine 1 drops right 10ml Davis 07/29/2017 - 0.5% Solution eye twice a Darius, 10/12/2017 day M.D. Pred Forte 1% 1 drops right 10ml Peter 07/29/2017 - Suspension eye four Mccoy, 10/12/2017 times a day M.D. Neomycin/Polymyxin/Dexamethasone apply 03/05 3.500gm Triston 02/05/2017 - 3.5-82168-2.1 Ointment inch ribbon Mariee, OD 06/22/2017 to affected area bid Ou x 1 week Artificial Tears one drop 15ml Triston 02/05/2017 - 1.4% Solution three times a Mariee, OD 06/09/2018 day both eyes Fluorometholone 1gtt tid OU x 5ml Triston 09/05/2016 - 0.1% Suspension 1 week Mariee, OD 01/16/2017 Doxycycline Hyclate TK One C PO Unknown - 100mg Capsules bid 07/28/2018 Vital Signs Date Vital Result Comment 07/28/2018 3:25pm Intraocular Pressure Right Eye 13 mmHg Intraocular Pressure Left Eye 13 mmHg 06/24/2018 3:15pm Intraocular Pressure Right Eye 12 [...] mmHg Intraocular Pressure Left Eye 15 mmHg Procedures Date Code Description Status 07/28/2018 60732 Eye Exam Est Intermediate Completed 06/24/2018 23926 Oct, Optic Nerve Completed 06/24/2018 36535 Refraction Completed 06/24/2018 18419 Eye Exam Est Comprehensive Completed 08/18/2017 23262 Extracapsular Cataract Extraction W/Intraocular Lens Completed 08/14/2017 55026 Eye Exam Est Intermediate Completed 08/11/2017 43501 Extracapsular Cataract Extraction W/Intraocular Lens Completed 07/20/2017 21013 Ophthalmic Biometry By Partial Coherence Interferometry Completed W/Intra 07/20/2017 54644 Eye Exam Est Intermediate Completed 06/22/2017 90984 Eye Exam Est Intermediate Completed 02/05/2017 90473 Eye Exam Est Intermediate Completed 01/16/2017 80590 Eye Exam Est Intermediate Completed 01/16/2017 32712 Refraction Completed 01/16/2017 81895 Oct, Optic Nerve Completed 09/24/2016 49931 Fundus Photography W/Interpretation & Report Completed 09/24/2016 52698 Refraction Completed 09/24/2016 37947 Eye Exam Est Comprehensive Completed 09/05/2016 38961 Eye Exam Est Intermediate Completed 07/25/2014 90313 Fundus Photography W/Interpretation & Report Completed 07/25/2014 31907 Ophthalmoscopy Subsequent Completed 07/25/2014 34465 Refraction Completed 07/25/2014 13290 Eye Exam Est Comprehensive Completed 12/20/2013 58077 Eye Exam Est Intermediate Completed 12/20/2013 37536 Visual Field Exam Extended, Unilateral Or Bilateral Completed 12/20/2013 30647 Oct, Optic Nerve Completed 06/17/2013 95225 Fundus Photography W/Interpretation & Report Completed 06/17/2013 42053 Eye Exam Est Intermediate Completed 06/17/2013 67153 B-Scan Contact, Ophthalmic Ultrasound Echography Completed 06/05/2011 29958 Fundus Photography W/Interpretation & Report Completed 06/05/2011 09631 Ophthalmoscopy Subsequent Completed 06/05/2011 37923 Eye Exam Est Comprehensive Completed 12/30/2010 00170 Ophthalmoscopy Subsequent Completed 12/30/2010 65568 Eye Exam Est Intermediate Completed 07/04/2010 24083 Eye Exam Est Comprehensive Completed 07/04/2010 94645 Ophthalmoscopy Subsequent Completed 07/04/2010 53733 Fundus Photography W/Interpretation & Report Completed 07/27/2009 68114 Ophthalmoscopy Subsequent Completed 07/27/2009 00606 Refraction Completed 07/27/2009 24631 Eye Exam Est Comprehensive Completed 08/21/2008 96559 Eye Exam Est Intermediate Completed 05/18/2008 17150 Ophthalmoscopy Subsequent Completed 05/18/2008 35638 Refraction Completed 05/18/2008 25759 Eye Exam Est Comprehensive Completed 12/31/2006 89490 Ophthalmoscopy Subsequent Completed 12/31/2006 45944 Eye Exam Est Comprehensive Completed 11/25/2006 71770 Fundus Photography W/Interpretation & Report Completed 11/25/2006 76309 Ophthalmoscopy Initial Completed 11/25/2006 98756 Eye Exam New Comprehensive Completed Encounters Type [...] Cataract Nuclear O.D. Sclerosis Plan of Treatment Future Appointment(s):08/30/2018 2:15 pm - Triston Mariee, OD at [facility] [id number] - Triston Mariee, ODH10.45 Other chronic allergic dcqmdachlmkgfxZ41.123 Dry eye syndrome of bilateral lacrimal saatkwS55.02A Squamous blepharitis right eye, upper and lower vnccxaiX05.02B Squamous blepharitis left eye, upper and lower eyelidsFollow up:1 month f/u, sooner PRN
--- OUTSIDE RECORDS SUMMARY | 2018-08-24 16:59 | XMS REPORT ---
:1945 Author Organization [facility] Address [address] [place] [address] Care Team Providers Name Role Phone Michael Perez Unavailable Unavailable PROBLEMS Type Condition ICD9-CM Code [id number] Onset Condition SNOMED Code Code Dates Status Problem Heart palpitations R00.2 Active 93419266 Problem Hypomagnesemia E83.42 Active 135503094 Problem Environmental Z91.09 Active 010901122 allergies Problem Right inguinal K40.90 Active 570278403 hernia Problem Overweight (BMI E66.3 Active 898551312 25.0-29.9) Problem Chronic fatigue R53.82 Active 48593859 Problem High cholesterol E78.00 Active 85815496 Problem Chronic GERD K21.9 Active 574072925 Problem Nasal congestion R09.81 Active 12090833 Problem BMI 27.0-27.9,adult Z68.27 Active 860821016 Problem Migraine without G43.009 Active 212137063 aura and without status migrainosus, not intractable Problem History of Z86.59 Active 621149847 depression Problem Mood disorder F39 Active 11270472 ALLERGIES No Information ENCOUNTERS Encounter Location Date Diagnosis [facility] [address] Jul, [place] [address] [facility] [address] Jul, [place] [address] [facility] [address] Jul, [place] [address] [facility] [address] June, [place] [address] [facility] [address] June, [place] [address] June, [place] [address] [place] [address] [place] June, Mood disorder F39 [place] [address] [facility] [address] [facility] June, Mood disorder F39 [place] [address] June, Mood disorder F39 [place] [address] June, [place] [address] M25.512 and Environmental allergies Z91.09 [place] [address] [place] May, [place] [address] disorders Z13.220 [place] [address] [place] May, [place] [address] [place] [address] [place] May, Sore throat J02.9 ; [place] [address] disorder F39 and Chronic GERD K21.9 [place] [address] [place] May, [place] [address] [place] [address] [place] May, [place] [address] effusion H[address] May, [place] [address] May, [place] [address] Apr, [place] [address] R10.12 and Right inguinal hernia K40.[address] Apr, [place] [address] [facility] [place] [facility] [address] Apr, [place] [address] [place] [address] [place] Apr, [place] [address] [place] [address] [place] Mar, Cellulitis, neck L03.221 [place] [address] Mood disorder F39 [place] [address] Jan, [place] [address] Jan, [place] [address] Jan, [place] [address] [facility] [address] [facility] Jan, [place] [address] Jan, [place] [address] [facility] [address] Dec, [place] [address] [place] [address] [place] Dec, [place] [address] infectious origin R19.7 [place] [address] [place] Dec, Skin rash R21 ; [place] [address] blood pressure reading without diagnosis of hypertension R03.0 and Shaking R25.1 [place] [address] Nov, [place] [address] [place] [address] [place] Nov, Dermatitis L30.9 ; [place] [address] without aura and without status migrainosus, not intractable G43.009 ; Elevated blood pressure reading without diagnosis of hypertension R03.0 and Encounter for immunization Z23 [facility] [address] [facility] Nov, [place] [address] Nov, Mood disorder F39 [place] [address] [facility] Nov, Mood disorder [place] [place] [address] Nov, [place] [address] Oct, [place] [address] Oct, Mood disorder F39 [place] [address] Sep, Migraine [place] [address] without status migrainosus, not intractable G43.009 and Chronic fatigue R53.[address] [facility] Sep, Migraine [place] [address] without status migrainosus, not intractable G43.[address] Sep, [place] [address] Sep, [place] [address] [place] [address] Sep, [place] [address] Sep, [place] [address] [place] [address] Sep, [place] [address] [facility] [address] [facility] Sep, [place] [address] externa of left ear H60.392 and Migraine without aura and without status migrainosus, not intractable G43.009 Teodoro Mortensen [address] Sep, Health [facility] [place] [address] [facility] [address] [place] [address] Sep, [place] [address] [facility] [address] Aug, [place] [address] [facility] [address] [facility] Aug, [place] [address] Aug, [place] [address] [facility] Jul, [place] [address] [facility] [address] Jul, [place] [address] [facility] [address] [place] [address] Jul, [place] [address] Jul, History of depression Z86.59 [place] [address] [facility] [address] [place] [address] Jul, [place] [address] Jul, [place] [address] [facility] [address] [facility] Jul, [place] [address] Jul, [place] [address] Jul, En[place] [address] cardiovascular examination Z01.810 ; Snoring R06.83 ; Postnasal drip R09.82 and Moderately severe depression F32.2 [facility] [address] June, [place] [address] [facility] [address] June, [place] [address] [facility] [address] June[place] [address] [place] [address] [facility] June, [place] [address] [facility] [address] [place] [address] June, [place] [address] without status migrainosus, not intractable G43.[address] June, [place] [address] June, Right inguinal hernia K40.90 [place] [address] ; Screening for lipid disorders Z13.220 ; Screening for prostate cancer Z12.5 and Anxiety F41.[address] June, [place] [address] June, [place] [address] June, [place] [address] June, [place] [address] June, [address] [place] [address] [address] June, [place] [address] June, [place] [address] June, Moderately [place] [address] F32.2 ; Hypomagnesemia E83.42 ; Anxiety F41.9 ; Pain in right knee M25.561 and Pain in left knee M25.[address] June, [place] [address] May, [place] [address] May, [place] [address] May, Neck pain M54.2 ; [place] [address] Hypomagnesemia E83.42 ; Rash R21 ; Moderately severe depression F32.2 and Elevated blood pressure reading without diagnosis of hypertension R03.[address] May, [place] [address] May, Migraine without aura and [place] without status migrainosus, [address] not intractable G43.[address] May, [place] [address] May, Migraine [place] [address] without status migrainosus, not intractable G43.009 and Environmental allergies Z91.09 [facility] [address] . [facility] May, [place] [address] May, Moderately [place] [address] F32.2 and Migraine without aura and without status migrainosus, not intractable G43.009 [facility] [address] [facility] [address] May, [address] [place] [address] [facility] [address] [facility] [address] Apr, [place] [address] [place], [place] [address] Apr, [place] [address] Apr, [place] [address] Apr, Worst headache of life R51 [place] [address] Apr, Pain [place] [address] M25.541 ; Hepatitis B core antibody positive R76.8 and Pain in joints of left hand M25.[address] Apr, [place] [address] Apr, [place] [address] Apr, Pain [place] [address] M25.541 ; Pain in joints of left hand M25.542 and Need for hepatitis C screening test Z11.[address] Apr, Anxiety F41.9 [place] [address] Apr, Chest tightness R07.89 ; [place] [address] Overweight (BMI 25.0-29.9) E66.3 ; BMI 27.0-27.9,adult Z68.27 and History of asthma Z87.[address] Mar, Chest tightness R07.89 [place] [address] Mar, [place] [address] Mar, [place] [address] Z91.[address] Mar, [place] [address] Mar, Chest tightness R07.89 [place] [address] Mar, [place] [address] Mar, Heart palpitations R00.2 ; [place] [address] Nasal congestion R09.81 ; Screening for HIV (human immunodeficiency virus) Z11.4 ; Right inguinal hernia K40.90 ; Anxiety F41.9 ; Screening for colon cancer Z12.11 and Anemia, unspecified type D64.[address] Jan, Chest congestion R09.89 [place] [address] Unilateral recurrent inguinal hernia without obstruction or gangrene K40.[address] Jan, [place] [address] Z91.09 ; Anxiety F41.9 ; Skin lesion L98.9 ; Screening, lipid Z13.220 and Right inguinal hernia K40.[address] Nov, [place] [address] Sep, [place] [address] IMMUNIZATIONS No Known Immunizations SOCIAL HISTORY Never Assessed REASON FOR REFERRAL FUNCTIONAL STATUS PLAN OF CARE VITAL SIGNS MEDICATIONS Unknown Medications PROCEDURES No Known procedures RESULTS No Results REASON FOR VISIT RHIO Alert [facility] ED Insurance Providers [facility] Member Patient Patient Patient Patient Patient Subscriber Subscriber Subscriber Group Insurance Plan Plan Plan Plan ID Relationship Address Phone Name Date of ID Name Date of No Type Insurance Insurance Insurance Coverage to Subscriber Address Phone Name Dates Medicare National Medicare self Jul[place] [id number] PPS QMB No Government 41 PPS QMB No [employer] [address] [place] [id number] Medicare National Medicare self [place] [id number] PPS QMB No Government 41 PPS QMB No [facility] [employer] [facility] [address] [place] [id number] Case [phone] Case self Julio [id number] Management Teodoro Mortensen 02 Management [facility] [address] Community Medicaid [phone] Medicaid self [place] [id number] [facility] [address] [place] [address] MEDICAL (GENERAL) HISTORY Type Description Date Medical History anxiety and panic disorder Medical History hyperactive Medical History Hep A and B Medical History Herpes Medical History Asthma (as a child) Surgical History glands in breast removed Hospitalization History glands removed 2007
--- OUTSIDE RECORDS SUMMARY | 2018-08-24 16:59 | XMS REPORT ---
:1945 Author Organization [facility] Address [address] [place] [address] Care Team Providers Name Role Phone Michael Perez Unavailable Unavailable PROBLEMS Type Condition ICD9-CM Code ONS61-ZZ Code Onset Condition SNOMED Code Dates Status Problem High cholesterol E78.00 Active 22519228 Problem History of Z86.59 Active 545835484 depression Problem Chronic GERD K21.9 Active 994167383 Problem Right inguinal K40.90 Active 879847185 hernia Problem Environmental Z91.09 Active 812490204 allergies Problem Overweight (BMI E66.3 Active 094085945 25.0-29.9) Problem Migraine without G43.009 Active 446363763 aura and without status migrainosus, not intractable ALLERGIES No Information ENCOUNTERS Encounter Location Date Diagnosis [facility] [address] Oct, [place] [address] [place] [address] Jul, [place] [address] [place] [address], [place] [address] Jul, [place] [address] [facility] [address] [place] [address] Jul, [place] [address] [facility] [address] June, Mood disorder F39 ; [place] [address] Environmental allergies Z91.09 ; Chronic GERD K21.9 and High cholesterol E78.00 [employer] [facility] [address] June, [address] [place] [address] June, [place] [address] Z91.09 [place] [address] [place] June, [place] [address] June, [place] [address] [place] [address] [place] June, Mood disorder F39 [place] [address] June, Mood disorder F39 [place] [address] June, Mood disorder F39 [place] [address] [place] [address] [place] June, [place] [address] M25.512 and Environmental allergies Z91.09 [place] [address] [place] May, [place] [address] disorders Z13.220 [place] [address] [place] May, [place] [address] [place] [address] [place] May, Sore throat J02.9 ; [place] [address] disorder F39 and Chronic GERD K21.9 [place] [address] [place] May, [place] [address] [place] [address] [place] May, [place] [address] effusion H65.93 [place] [address] [place] May, [place] [address] May, [place] [address] [place] [address] [place] Apr, [place] [address] R10.12 and Right inguinal hernia K40.90 [place] [address] [place] Apr, [place] [address] [facility] [place] [facility] [address] Apr, [place] [address] [place] [address] Apr, [place] [address] [place] [address] [place] Mar, Cellulitis, neck L03.221 [place] [address] Mood disorder F39 [place] [address] [place] Jan, [place] [address] Jan, [place] [address] Jan, [place] [address] [facility] [address] [facility] Jan, [place] [address] Jan, [place] [address] Dec, [place] [address] Dec, [place] [address] infectious origin R19.[address] Dec, Skin rash R21 ; [place] [address] blood pressure reading without diagnosis of hypertension R03.0 and Shaking R25.[address] Nov, [place] [address] Nov, Dermatitis L30.9 ; [place] [address] without aura and without status migrainosus, not intractable G43.009 ; Elevated blood pressure reading without diagnosis of hypertension R03.0 and Encounter for immunization Z23 [facility] [address] [facility] Nov, [place] [address] Nov, Mood disorder F39 [place] [address] [facility] Nov, Mood disorder F39 [place] [address] Nov, [place] [address] Oct, [place] [address] Oct, Mood disorder F39 [place] [address] Sep, Migraine [place] [address] without status migrainosus, not intractable G43.009 and Chronic fatigue R53.[address] [facility] Sep, Migraine [place] [address] without status migrainosus, not intractable G43.[address] Sep, [place] [address] [place] Sep, [place] [address] [facility] [address] [facility] Sep, [place] [address] Sep, [place] [address] [facility] [address] [facility] Sep, [place] [address] [facility] [address] [facility] Sep, [place] [address] externa of left ear H60.392 and Migraine without aura and without status migrainosus, not intractable G43.[address] Sep, [place] [address] [facility] [address] [place] [address] Sep, [place] [address] [facility] [address] [facility] Aug, [place] [address] Aug, [place] [address] Aug, [place] [address] [facility] [address] . [facility] Jul, [place] [address] [facility] [address] [facility] Jul, [place] [address] Jul, [place] [address] [place] [address] [facility] Jul, History of depression Z86.59 [place] [address] Jul, [place] [address] Jul, [place] [address] [facility] [address] [facility] Jul, [place] [address] Jul, [place] [address] Jul, [place] [address] cardiovascular examination Z01.810 ; Snoring R06.83 ; Postnasal drip R09.82 and Moderately severe depression F32.2 [facility] [address] [facility] June, [place] [address] [facility] [address] [place] June, [place] [address] June, [place] [address] [facility] [address] [facility] June, [place] [address] June, [place] [address] without status migrainosus, not intractable G43.[address] June, [place] [address] June, Right inguinal hernia K40.90 [place] [address] ; Screening for lipid disorders Z13.220 ; Screening for prostate cancer Z12.5 and Anxiety F41.9 [place] [address] [place] June, [place] [address] June, [place] [address] June, [place] [address] June, [place] [address] [facility] [address] [facility] [address] June, [address] [place] [address] June, [place] [address] June, [place] [address] June, [place] [address] F32.2 ; Hypomagnesemia E83.42 ; Anxiety F41.9 ; Pain in right knee M25.561 and Pain in left knee M25.562 [place] [address] [place] June, [place] [address] May, [place] [address] [facility] [address] [facility] [place] May, [place] [address] [place] [address] [place] May, Neck pain M54.2 ; [place] [address] Hypomagnesemia E83.42 ; Rash R21 ; Moderately severe depression F32.2 and Elevated blood pressure reading without diagnosis of hypertension R03.0 [place] [address] [place] May, [place] [address] May, Migraine without aura and [place] without status migrainosus, [address] not intractable G43.[address] May, [place] [address] May, [place] [address] without status migrainosus, not intractable G43.009 and Environmental allergies Z91.[address] [facility] May, [place] [address] [facility] [address] [place] [address] May, [place] [address] F32.2 and Migraine without aura and without status migrainosus, not intractable G43.[address] [facility] [address] May, [address] [place] [address] Apr, [place] [address] [facility] [address] Apr, [place] [address] Apr, [place] [address] Apr, [place] [address] [facility] [address] [place] [address] Apr, Worst headache of life R51 [place] [address] Apr, Pain [place] [address] M25.541 ; Hepatitis B core antibody positive R76.8 and Pain in joints of left hand M25.542 [facility] [address] [place] [address] Apr, [place] [address] [place] [address] [place] Apr, [place] [address] [facility] [address] Apr, Pain [place] [address] M25.541 ; Pain in joints of left hand M25.542 and Need for hepatitis C screening test Z11.[address] Apr, Anxiety F41.9 [place] [address] [facility] [address] [place] [address] Apr, Chest tightness R07.89 ; [place] [address] Overweight (BMI 25.0-29.9) E66.3 ; BMI 27.0-27.9,adult Z68.27 and History of asthma Z87.[address] Mar, Chest tightness R07.89 [place] [address] Mar, [place] [address] Mar, [place] [address] Z91.[address] Mar, [place] [address] Mar, Chest tightness R07.89 [place] [address] Mar, [place] [address] Mar, Heart palpitations R00.2 ; [place] [address] Nasal congestion R09.81 ; Screening for HIV (human immunodeficiency virus) Z11.4 ; Right inguinal hernia K40.90 ; Anxiety F41.9 ; Screening for colon cancer Z12.11 and Anemia, unspecified type D64.[address] Jan, Chest congestion R09.89 [place] [address] Unilateral recurrent inguinal hernia without obstruction or gangrene K40.[address] Jan, [place] [address] Z91.09 ; Anxiety F41.9 ; Skin lesion L98.9 ; Screening, lipid Z13.220 and Right inguinal hernia K40.[address] Nov, [place] [address] Sep, [place] [address] IMMUNIZATIONS No Known Immunizations SOCIAL HISTORY Never Assessed REASON FOR REFERRAL FUNCTIONAL STATUS PLAN OF CARE VITAL SIGNS MEDICATIONS Unknown Medications PROCEDURES No Known procedures RESULTS No Results REASON FOR VISIT Information Request Insurance Providers [facility] Member Patient Patient Patient Patient Patient Subscriber Subscriber Subscriber Group Insurance Plan Plan Plan Plan ID Relationship Address Phone Name Date of ID Name Date of No Type Insurance Insurance Insurance Coverage to Subscriber Address Phone Name Dates Medicare National [id number] Medicare self [place] [id number] PPS QMB No Government 41 PPS QMB No [place] [address] [place] [id number] Medicaid [id number] Medicaid self Julio [id number] [facility] [address] [place] [address] Case [phone] Case self Julio [id number] Management [place] 02 Management [facility] [address] Community Medicare National [phone] Medicare self Julio [id number] PPS QMB No Government 41 PPS QMB No Saeli [employer] [address] [place] [id number] MEDICAL (GENERAL) HISTORY Type Description Date Medical History anxiety and panic disorder Medical History hyperactive Medical History Hep A and B Medical History Herpes Medical History Asthma (as a child) Medical History Heart palpitations Surgical History glands in breast removed Hospitalization History glands removed 2007
--- OUTSIDE RECORDS SUMMARY | 2018-08-24 16:59 | XMS REPORT | Continuity of Care Document ---
:1945 External Reference #:[id number] Author Name Triston Mariee, OD Address [address] [place] [address] Care Team Providers Name Role Phone Davis Mccoy M.D. Care Team Information [employer] Unavailable Payers Date Identification Numbers Payment Provider Subscriber Policy Number: [id number] Medicare [facility] Julio Russochang AGUIRRE PayID: [id number] [address] [place] [address] Policy Number: [id number] [place] Julio Russochang AGUIRRE PayID: [id number] [address] [place] [address] Problems Active Problems Provider Date Hypermetropia Eunice [...] Diabetes General Cancer General High BP Father due to heart failure () Father Noncontributory Mother due to arterial sclerosis () Mother Noncontributory Social History Type Date Description Comments Sex Unknown ETOH Use Denies alcohol use Tobacco Use Start: Unknown Patient has never smoked Smoking Status Reviewed: 08/23/18 Patient has never smoked Allergies, Adverse Reactions, Alerts Active Allergies Reaction Severity Comments Date Sulfacetamide 06/17/2013 Penicillin 06/17/2013 Seasonal 06/17/2013 Dust 06/09/2018 Pollen 06/09/2018 Red Dye 06/09/2018 Medications Active Medications SIG Qnty Indications Ordering Date Provider Fluorometholone 1gtt three times 10ml Triston Mariee, 08/23/2018 0.1% a day both eyes x OD Suspension 1 week, then twice per day x 1 week, then once per day x 1 week, then d/c Ketotifen Fumarate one drop twice a 5ml Triston Mariee, 07/28/2018 0.025% day both eyes OD Solution Fluticasone Propionate Unknown 50mcg/Act Suspension Sumatriptan Succinate TK 1/2 - 1 T Unknown 100mg Onset Of Tablets Headache. May Repeat Once In One Hour Ibuprofen TK 1 T PO tid prn Unknown 600mg Tablets Clotrimazole/Betamethaso Apply Topically Unknown ne Dipropionate To Groin Area bid 1-0.05% Cream prn Meclizine HCL TK 1/2 To 1 T PO Unknown 25mg Tablets tid prn Doxazosin Mesylate TK 1 T PO qd Unknown 2mg Tablets Lovaza TK 2 CS PO bid Unknown 1gm Capsules Nasonex Monroe 1 Monroe Unknown 50mcg/Act Suspension Into Each Nostril qd Valacyclovir HCL TK 1 T PO qd Unknown 1gm Tablets Atorvastatin Calcium TK 1 T PO QHS Unknown 40mg Tablets Omeprazole Unknown 20mg Tablets DR Trazodone HCL Unknown 100mg Tablets History Medications Ocusoft Lid Scrub Plus apply to outer 60units Triston Mariee, 07/28/2018 - Pads eyelids twice a OD 08/23/2018 day both eyes Neomycin/Polymyxin/Dexam one drop three 5ml Triston Mariee, 06/09/2018 - ethasone times a day both OD 06/24/2018 3.5-99637-4.1 eyes x 1 week, Suspension then d/c Soothe XP Xtra 1 drop three 1Bottle Davis Mccoy, 09/30/2017 - Protection times a day M.D. 06/09/2018 1%-4.5% Solution Ciprofloxacin HCL instill 1 drop 10ml Davis Mccoy, 08/12/2017 - 0.3% right eye four M.D. 10/12/2017 Solution times a day Vigamox 1 drop drops 9ml Davis Mccoy, 07/29/2017 - 0.5% Solution right eye four M.D. 08/12/2017 times a day Ketorolac Tromethamine 1 drops right eye 10ml Davis Mccoy, 07/29/2017 - 0.5% twice a day M.D. 10/12/2017 Solution Pred Forte 1 drops right eye 10ml Davis Mccoy, 07/29/2017 - 1% Suspension four times a day M.D. 10/12/2017 Neomycin/Polymyxin/Dexam apply 1/4 inch 3.500gm Triston Mariee, 2016 - ethasone ribbon to OD 06/22/2017 3.5-84536-1.1 affected area bid Ointment Ou x 1 week Artificial Tears one drop three 15ml Triston Mariee, 02/05/2017 - 1.4% times a day both OD 06/09/2018 Solution eyes Fluorometholone 1gtt tid OU x 1 5ml Triston Mariee, 09/05/2016 - 0.1% week OD 01/16/2017 Suspension Doxycycline Hyclate TK One C PO bid Unknown - 100mg 07/28/2018 Capsules Vital Signs Date Vital Result Comment 08/23/2018 3:49pm Intraocular Pressure Right Eye 14 mmHg Intraocular Pressure Left Eye 14 mmHg 07/28/2018 3:25pm Intraocular Pressure Right Eye 13 [...] mmHg Procedures Date Code Description Status 07/28/2018 96166 Eye Exam Est Intermediate Completed 06/24/2018 44525 Oct, Optic Nerve Completed 06/24/2018 00444 Refraction Completed 06/24/2018 10925 Eye Exam Est Comprehensive Completed 08/18/2017 44677 Extracapsular Cataract Extraction W/Intraocular Lens Completed 08/14/2017 78563 Eye Exam Est Intermediate Completed 08/11/2017 43944 Extracapsular Cataract Extraction W/Intraocular Lens Completed 07/20/2017 62610 Ophthalmic Biometry By Partial Coherence Interferometry Completed W/Intra 07/20/2017 62940 Eye Exam Est Intermediate Completed 06/22/2017 92516 Eye Exam Est Intermediate Completed 02/05/2017 44692 Eye Exam Est Intermediate Completed 01/16/2017 76074 Eye Exam Est Intermediate Completed 01/16/2017 20934 Refraction Completed 01/16/2017 05226 Oct, Optic Nerve Completed 09/24/2016 19375 Fundus Photography W/Interpretation & Report Completed 09/24/2016 22975 Refraction Completed 09/24/2016 78940 Eye Exam Est Comprehensive Completed 09/05/2016 86365 Eye Exam Est Intermediate Completed 07/25/2014 77819 Fundus Photography W/Interpretation & Report Completed 07/25/2014 92539 Ophthalmoscopy Subsequent Completed 07/25/2014 57814 Refraction Completed 07/25/2014 87975 Eye Exam Est Comprehensive Completed 12/20/2013 48520 Eye Exam Est Intermediate Completed 12/20/2013 96130 Visual Field Exam Extended, Unilateral Or Bilateral Completed 12/20/2013 09249 Oct, Optic Nerve Completed 06/17/2013 63054 Fundus Photography W/Interpretation & Report Completed 06/17/2013 57919 Eye Exam Est Intermediate Completed 06/17/2013 80692 B-Scan Contact, Ophthalmic Ultrasound Echography Completed 06/05/2011 22972 Fundus Photography W/Interpretation & Report Completed 06/05/2011 15843 Ophthalmoscopy Subsequent Completed 06/05/2011 40502 Eye Exam Est Comprehensive Completed 12/30/2010 84717 Ophthalmoscopy Subsequent Completed 12/30/2010 06083 Eye Exam Est Intermediate Completed 07/04/2010 03001 Eye Exam Est Comprehensive Completed 07/04/2010 32187 Ophthalmoscopy Subsequent Completed 07/04/2010 43005 Fundus Photography W/Interpretation & Report Completed 07/27/2009 23138 Ophthalmoscopy Subsequent Completed 07/27/2009 64097 Refraction Completed 07/27/2009 45350 Eye Exam Est Comprehensive Completed 08/21/2008 96446 Eye Exam Est Intermediate Completed 05/18/2008 17335 Ophthalmoscopy Subsequent Completed 05/18/2008 68931 Refraction Completed 05/18/2008 63022 Eye Exam Est Comprehensive Completed 12/31/2006 95829 Ophthalmoscopy Subsequent Completed 12/31/2006 27929 Eye Exam Est Comprehensive Completed 11/25/2006 15374 Fundus Photography W/Interpretation & Report Completed 11/25/2006 82553 Ophthalmoscopy Initial Completed 11/25/2006 21952 Eye Exam New Comprehensive Completed Encounters Type Date Location Provider Dx Diagnosis Office Visit 08/23/2018 Main Office Triston Mariee, OD H10.45 Other chronic allergic 1:15p conjunctivitis H04.123 Dry eye syndrome of bilateral lacrimal glands Office Visit 06/09/2018 2:15p Main Office Triston Mariee, H04.123 Dry eye syndrome OD of bilateral lacrimal glands H01.02A Squamous blepharitis right eye, upper and lower eyelids H01.02B Squamous blepharitis left eye, upper and lower eyelids Office Visit 11/01/2010 2:40p Main Office DR. Annette Fitch, 366.16 Cataract Nuclear O.D. Sclerosis Plan of Treatment Future Appointment(s):09/09/2018 3:15 pm - Triston Mariee, OD at Main Upqngh1303/2018 2:15 pm - Triston Mariee, OD at Main Ewpkgt0908/23/2018 - Triston Mariee, ODH10.45 Other chronic allergic izmebnevgyyiikQ04.123 Dry eye syndrome of bilateral lacrimal glandsFollow up:2 weeks f/u, sooner PRN
--- OUTSIDE RECORDS SUMMARY | 2018-08-24 16:59 | XMS REPORT ---
:1945 Author Organization [facility] Address [address] [place] [address] Care Team Providers Name Role Phone Michael Perez Unavailable Unavailable PROBLEMS Type Condition ICD9-CM Code XRT08-FO Code Onset Condition SNOMED Code Dates Status Problem High cholesterol E78.00 Active 00171366 Problem History of Z86.59 Active 991957111 depression Problem Chronic GERD K21.9 Active 503437090 Problem Right inguinal K40.90 Active 756580689 hernia Problem Environmental Z91.09 Active 559253018 allergies Problem Overweight (BMI E66.3 Active 674074888 25.0-29.9) Problem Migraine without G43.009 Active 330202068 aura and without status migrainosus, not intractable ALLERGIES No Information ENCOUNTERS Encounter Location Date Diagnosis [facility] [address] Oct, [place] [address] [place] [address] Jul, [place] [address] [place] [address] Jul, [place] [address] Jul, [place] [address] [employer] Replaced By [facility] [address] [place] [address] Jul, [place] [address] [facility] [address] June, Mood disorder F39 ; [place] [address] Environmental allergies Z91.09 ; Chronic GERD K21.9 and High cholesterol E78.00 [employer] Replaced By [facility] [address] June, [address] [place] [address] June, Environmental [place] [address] Z91.09 [place] [address] June, [place] [address] June, [place] [address] [place] [address] June, Mood disorder F39 [place] [address] June, Mood disorder F39 [place] [address] June, Mood disorder F39 [place] [address] [place] [address] June, [place] [address] M25.512 and Environmental allergies Z91.09 [place] [address] May, [place] [address] disorders Z13.220 [place] [address] May, [place] [address] [place] [address] May, Sore throat J02.9 ; [place] [address] disorder F39 and Chronic GERD K21.9 [place] [address] May, [place] [address] [place] [address] May, [place] [address] effusion H65.93 [place] [address] May, [place] [address] May, [place] [address] [place] [address] Apr, [place] [address] R10.12 and Right inguinal hernia K40.90 [place] [address] Apr, [place] [address] [facility] [place] [facility] [address] Apr, [place] [address] [place] [address] Apr, [place] [address] [place] [address] Mar, Cellulitis, neck L03.221 [place] [address] Mood disorder F39 [place] [address] Jan, [place] [address] Jan, [place] [address] Jan, [place] [address] [facility] [address] [facility] Jan, [place] [address] Jan, [place] [address] Dec, [place] [address] Dec, [place] [address] infectious origin R19.[address] Dec, Skin rash R21 ; [place] [address] blood pressure reading without diagnosis of hypertension R03.0 and Shaking R25.[address] Nov, [place] [address] Nov, Dermatitis L30.9 ; [place] [address] without aura and without status migrainosus, not intractable G43.009 ; Elevated blood pressure reading without diagnosis of hypertension R03.0 and Encounter for immunization Z23 [facility] [address] [facility] Nov, [place] [address] Nov, Mood disorder F39 [place] [address] [facility] Nov, Mood disorder F39 [place] [address] Nov, [place] [address] Oct, [place] [address] Oct, Mood disorder F39 [place] [address] Sep, [place] [address] without status migrainosus, not intractable G43.009 and Chronic fatigue R53.[address] [facility] Sep, Migraine without aura [place] [address] without status migrainosus, not intractable G43.[address] Sep, [place] [address] Sep, [place] [address] [facility] [address] [facility] Sep, [place] [address] Sep, [place] [address] [facility] [address] [facility] Sep, [place] [address] [facility] [address] [facility] Sep, Other [place] [address] externa of left ear H60.392 and Migraine without aura and without status migrainosus, not intractable G43.[address] Sep, [place] [address] [facility] [address] [place] [address] Sep, [place] [address] [facility] [address] [facility] Aug, [place] [address] Aug, [place] [address] Aug, [place] [address] [facility] [address] . [facility] Jul, [place] [address] [facility] [address] [facility] Jul, [place] [address] Jul, [place] [address] [place] [address] [facility] Jul, History of depression Z86.59 [place] [address] Jul, [place] [address] Jul, [place] [address] [facility] [address] [facility] Jul, [place] [address] Jul, [place] [address] Jul, [place] [address] cardiovascular examination Z01.810 ; Snoring R06.83 ; Postnasal drip R09.82 and Moderately severe depression F32.2 [facility] [address] [facility] June, [place] [address] [facility] [address] June, [place] [address] June, [place] [address] [facility] [address] [facility] June, [place] [address] June, Migraine [place] [address] without status migrainosus, not intractable G43.[address] June, [place] [address] June, Right inguinal hernia K40.90 [place] [address] ; Screening for lipid disorders Z13.220 ; Screening for prostate cancer Z12.5 and Anxiety F41.9 [place] [address] June, [place] [address] June, [place] [address] June, [place] [address] June, [place] [address] [facility] [address] [facility] [address] June, [address] [place] [address] June, [place] [address] June, [place] [address] June, Mod[place] [address] F32.2 ; Hypomagnesemia E83.42 ; Anxiety F41.9 ; Pain in right knee M25.561 and Pain in left knee M25.562 [place] [address] June, [place] [address] May, [place] [address] [facility] [address] [facility] [address] May, [place] [address] [place] [address] May, Neck pain M54.2 ; [place] [address] Hypomagnesemia E83.42 ; Rash R21 ; Moderately severe depression F32.2 and Elevated blood pressure reading without diagnosis of hypertension R03.0 [place] [address] May, [place] [address] May, Migraine without aura and [place] without status migrainosus, [address] not intractable G43.[address] May, [place] [address] May, Migraine [place] [address] without status migrainosus, not intractable G43.009 and Environmental allergies Z91.[address] [facility] May, [place] [address] [facility] [address] [place] [address] May, Moder[place] [address] F32.2 and Migraine without aura and without status migrainosus, not intractable G43.[address] [facility] [address], [address] [place] [address] Apr, [place] [address] [facility] [address] Apr, [place] [address] Apr, [place] [address] Apr, [place] [address] [facility] [address] [place] [address] Apr, Worst headache of life R51 [place] [address] Apr, Pain [place] [address] M25.541 ; Hepatitis B core antibody positive R76.8 and Pain in joints of left hand M25.542 [facility] [address] [place] [address] Apr, [place] [address] [place] [address] Apr, [place] [address] [facility] [address] Apr, Pain [place] [address] M25.541 ; Pain in joints of left hand M25.542 and Need for hepatitis C screening test Z11.[address] Apr, Anxiety F41.9 [place] [address] [facility] [address] [place] [address] Apr, Chest tightness R07.89 ; [place] [address] Overweight (BMI 25.0-29.9) E66.3 ; BMI 27.0-27.9,adult Z68.27 and History of asthma Z87.[address] Mar, Chest tightness R07.89 [place] [address] Mar, [place] [address] Mar, [place] [address] [address] Mar, [place] [address] Mar, Chest tightness R07.89 [place] [address] Mar, [place] [address] Mar, Heart palpitations R00.2 ; [place] [address] Nasal congestion R09.81 ; Screening for HIV (human immunodeficiency virus) Z11.4 ; Right inguinal hernia K40.90 ; Anxiety F41.9 ; Screening for colon cancer Z12.11 and Anemia, unspecified type D64.[address] Jan, Chest congestion R09.89 [place] [address] Unilateral recurrent inguinal hernia without obstruction or gangrene K40.[address] Jan, [place] [address] Z91.09 ; Anxiety F41.9 ; Skin lesion L98.9 ; Screening, lipid Z13.220 and Right inguinal hernia K40.[address] Nov, [place] [address] Sep, [place] [address] IMMUNIZATIONS No Known Immunizations SOCIAL HISTORY Never Assessed REASON FOR REFERRAL FUNCTIONAL STATUS PLAN OF CARE VITAL SIGNS MEDICATIONS Unknown Medications PROCEDURES No Known procedures RESULTS No Results REASON FOR VISIT RHIO Alert [facility] Insurance Providers [facility] Member Patient Patient Patient Patient Patient Subscriber Subscriber Subscriber Group Insurance Plan Plan Plan Plan ID Relationship Address Phone Name Date of ID Name Date of No Type Insurance Insurance Insurance Coverage to Subscriber Address Phone Name Dates Medicare National [phone] Medicare self [place] [id number] PPS QMB No Government 41 PPS QMB No [employer] [address] [place] [id number] Medicare National [phone] Medicare self [place] [id number] PPS QMB No Government 41 PPS QMB No Saeli [employer] [address] [place] [id number] Case [phone] Case self Julio [id number] Management [place] 02 Management [facility] [address] Community Medicaid [id number] [phone] Medicaid self Julio [id number] [facility] [address] [place] [address] MEDICAL (GENERAL) HISTORY Type Description Date Medical History anxiety and panic disorder Medical History hyperactive Medical History Hep A and B Medical History Herpes Medical History Asthma (as a child) Medical History Heart palpitations Surgical History glands in breast removed Hospitalization History glands removed 2007
--- OUTSIDE RECORDS SUMMARY | 2018-08-24 16:59 | XMS REPORT | Continuity of Care Document ---
:1945 External Reference #:[id number] Author Name Facundo Meléndez MD Address [address] [place] [address] Care Team Providers Name Role Phone Michael Morrow Care Team Information Media Buyer Unavailable Michael Morrow Primary Care Physician Unavailable Payers Date Identification Numbers Payment Provider Subscriber Policy Number: [id number] Medicare-[facility] Govn SRVS Julio Al JR PayID: [id number] [address] [place] [address] Policy Number: [id number] Medicaid/C Julio Al JR Group Name: 2 1 Medicare Primary PayID: [id number] [address] [place] [address] Problems Active Problems Provider Date Otorrhea Facundo Meléndez MD Onset: 01/10/2011 Chronic rhinitis Facundo Meléndez MD Onset: 01/10/2011 Hypertrophy of nasal turbinates Robert Lara M.D. Onset: 07/15/2011 Disorder of nasal cavity Robert Lara M.D. Onset: 07/15/2011 Family History Date Family Member(s) Observation Comments General Allergies General Hearing Loss General Migraine Social History Type Date Description Comments Sex Unknown Occupation Retired Tobacco Use Start: Unknown Never Smoked Cigarettes Tobacco Use Start: Unknown End: Unknown current.no Tobacco Use Start: Unknown End: Unknown current.no Smokeless Tobacco current.no ETOH Use does not drink alcohol Tobacco Use Start: Unknown Patient has never smoked Smoking Status Reviewed: 04/30/17 Patient has never smoked Allergies, Adverse Reactions, Alerts Active Allergies Reaction Severity Comments Date sulfa 08/05/2018 Penicillin 08/05/2018 FD&C Red 40 [place] 08/05/2018 Inactive Allergies NKDA 12/30/2005 Medications Active Medications SIG Qnty Indications Ordering Provider Date Nasonex 2 sprays both 17gm Facundo Velazquez 08/05/2018 50mcg/Act nostrils once a MD Rika Suspension day Trazodone Unknown 12/29/2005 Atorvastatin Calcium TK 1 T PO QHS Unknown 40mg Tablets Sudafed as needed Unknown 30mg Tablets Zyrtec Allergy 1 by mouth every Unknown 10mg night at bedtime Capsules Mens Multi Vitamin & 1 by mouth every Unknown Mineral Formula day Tablets History Medications Mupirocin apply to both 22gm Facundo Velazquez 12/09/2016 - 2% Ointment nostril twice a MD Rika 08/05/2018 day for 14 days Nasonex 1-2 Sprays 1units H69.83 Robert Vaca 06/09/2011 - 50mcg/Act Intranasal bid Jane, 08/05/2018 Suspension M.D. Mometasone Furoate apply to both ears 45gm Robert Vaca 04/15/2011 - 0.1% bid mix with olive Jane, 07/29/2012 Cream oil and drop in M.D. ear Fluticasone 2 sprays each 1month Facundo Velazquez 04/09/2011 - Propionate nostril daily MD Rika 08/07/2011 50mcg/Act Suspension Elocon apply to dry areas 15gm Facundo Velazquez 01/09/2011 - 0.1% Cream of ears twice MD Rika 07/15/2011 daily for 10 days. Vitamin E Unknown 12/29/2005 - 01/09/2011 Dhea Unknown 12/29/2005 - 06/25/2007 Veronica Unknown 12/29/2005 - 01/09/2011 Famotidine Unknown 12/29/2005 - 20mg Tablets 06/25/2007 Avodart Unknown 12/29/2005 - 0.5mg Capsules 01/09/2011 Daypro Unknown 12/29/2005 - 600mg Tablets 01/09/2011 Androgel Unknown 12/29/2005 - 1% Gel 01/09/2011 Arimidex Unknown 12/29/2005 - 1mg Tablets 01/09/2011 Lipitor Unknown 12/29/2005 - 12/09/2016 Flomax 30caps Unknown 12/29/2005 - 0.4mg Capsules 01/09/2011 Cardizem Unknown 12/29/2005 - 06/25/2007 [place]or Unknown - 1gm Capsules 01/09/2011 Hydrocodone Unknown - 07/15/2011 Omeprazole Unknown - 12/09/2016 Multivitamins Unknown - 12/09/2016 Multimineral Plus Unknown - 07/15/2011 Flomax Unknown - 12/09/2016 Lovaza as directed Hayden Garza - 1gm Capsules M.D. 08/05/2018 Montelukast Sodium 1 by mouth every Hayden Garza - 10mg day M.D. 08/05/2018 Tablets Systane as needed Self - 0.4-0.3% 08/05/2018 Solution Doxycycline Hyclate Unknown - 08/05/2018 100mg Capsules Vital Signs Date Vital Result Comment 08/05/2018 1:44pm Weight 182.00 lb Weight 82.555 kg Height 69.50 inches 5'9.50" Height in cm's 176.5 cm BMI (Body Mass Index) 26.5 kg/m2 04/30/2017 2:33pm Weight 185.00 lb Weight 83.916 kg Height 69.50 inches 5'9.50" Height in cm's 176.5 cm BMI (Body Mass Index) 26.9 kg/m2 12/25/2016 1:38pm BP Systolic 134 mmHg BP Diastolic 66 mmHg Heart Rate 69 /min Respiratory Rate 17 /min Weight 183.00 lb Weight 83.009 kg Height 69.50 inches 5'9.50" Height in cm's 176.5 cm BMI (Body Mass Index) 26.6 kg/m2 12/09/2016 10:57am Respiratory Rate 17 /min Weight 183.00 lb Weight 83.009 kg Height 69.50 inches 5'9.50" Height in cm's 176.5 cm BMI (Body Mass Index) 26.6 kg/m2 07/29/2012 3:35pm BP Systolic 114 mmHg BP Diastolic 71 mmHg Heart Rate 76 /min Respiratory Rate 16 /min Weight 206.00 lb Weight 93.442 kg Height 69.50 inches 5'9.50" Height in cm's 176.5 cm BMI (Body Mass Index) 30.0 kg/m2 07/15/2011 3:43pm BP Systolic 137 mmHg BP Diastolic 77 mmHg Heart Rate 86 /min Respiratory Rate 16 /min Weight 197.00 lb Weight 89.359 kg Height 70 inches 5'10" Height in cm's 177.8 cm BMI (Body Mass Index) 28.3 kg/m2 04/09/2011 2:14pm Weight 199.00 lb Weight 90.266 kg Height 70 inches 5'10" Height in cm's 177.8 cm BMI (Body Mass Index) 28.6 kg/m2 01/09/2011 2:21pm BP Systolic 135 mmHg BP Diastolic 82 mmHg Heart Rate 80 /min Respiratory Rate 16 /min Weight 199.00 lb Weight 90.266 kg Height 70 inches 5'10" Height in cm's 177.8 cm BMI (Body Mass Index) 28.6 kg/m2 08/03/2007 3:07pm BP Systolic 158 mmHg BP Diastolic 94 mmHg Heart Rate 86 /min Respiratory Rate 16 /min Procedures Date Code Description Status 12/25/2016 54468 Tympanometry Completed 12/25/2016 46010 Comprehensive Audiogram Completed 12/09/2016 44909 Nasal Endoscopy, Diagnostic Completed 06/10/2016 31747 No Show Fee Completed 06/16/2011 63245 Tympanometry Completed 06/16/2011 66468 Binocular Microscopy Completed 06/09/2011 42177 Tympanometry Completed 04/15/2011 12425 Binocular Microscopy Completed 04/09/2011 53247 Tympanometry Completed 04/09/2011 65615 Comprehensive Audiogram Completed 07/02/2007 84397 No Show Fee Completed Encounters Type Date Location Provider Dx Diagnosis Office Visit 08/05/2018 [place],After Facundo Meléndez, R09.82 Postnasal drip 2:00p 03/02/07 J30.9 Allergic rhinitis, unspecified Office Visit 04/30/2017 2:45p [place]After Facundo Velazquez R09.81 Nasal congestion 03/02/07 MD Rika H69.83 Other specified disorders of Eustachian tube, bilateral Office Visit 12/25/2016 [place],After Facundo Velazquez H90.3 Sensorineural 2:00p 03/02/07 MD Rika hearing loss, bilateral Office Visit 12/09/2016 [place],After Facundo Velazquez J31.0 Chronic rhinitis 10:45a 03/02/07 MD Rika Office Visit 07/29/2012 [place],After Alma Delia, 784.91 Postnasal Drip 3:30p 03/02/07 Iva [employer]ASTER 380.4 Impacted Cerumen / Wax Office Visit 08/11/2011 3:15p [place],After 03/02/07 [place], 477.9 Rhinitis , Iva [employer] Allergic Office Visit 08/07/2011 2:30p [place],After 03/02/07 [place], 784.91 Postnasal Drip Iva [employer] 472.0 Rhinitis, Chronic Office Visit 07/15/2011 [place],After Robert Vaca 478.19 Mucocele Of 3:45p 03/02/07 Juan Carlos Lara Sinus/Perf Nasal Septum 478.1-4 Obstruction Of Nasal Airway 478.0 Hypertrophy, Nasal Turbinates Office Visit 06/16/2011 [place],After Alma Delia, 381.81 Dysfunction Of 2:15p 03/02/07 Iva [employer] RO[employer] Eustachian Tube Office Visit 06/09/2011 [place],After Alma Delia, 381.81 Dysfunction Of 2:30p 03/02/07 Iva [employer] Eustachian Tube Office Visit 04/15/2011 [place],After Alma Delia, 381.81 Dysfunction Of 2:30p 03/02/07 Iva [employer] Eustachian Tube Office Visit 01/09/2011 [place],After Facundo Velazquez 388.60 Otorrhea/Unspecif 2:30p 03/02/07 MD Rika ied 472.0 Rhinitis, Chronic Office Visit 08/03/2007 [place],After Robert Vaca 478.1-4 Obstruction Of 2:45p 03/02/07 Juna Carlos Lara Nasal Airway 470 Deviated Nasal Septum 478.0 Hypertrophy, Nasal Turbinates 784.7 Epistaxis
== END 2018-08-24 16:44 | disposition home or self-care (01) ==
LOC: ED 15:48
DX: T78.40XA Allergy, unspecified, initial encounter (principal); X58.XXXA Exposure to other specified factors, initial encounter
CPT/HCPCS: 99282

== ENCOUNTER 2018-09-17 16:16 | Emergency (ER) | payer MEDICARE, MEDICAID ==
--- OUTSIDE RECORDS SUMMARY | 2018-09-17 16:52 | XMS REPORT ---
:1945 Author Organization Formerly [facility] Address [address] [place] [address] Care Team Providers Name Role Phone Michael Perez Unavailable Unavailable PROBLEMS Type Condition ICD9-CM Code QWD93-TU Code Onset Condition SNOMED Code Dates Status Problem High cholesterol E78.00 Active 63783447 Problem History of Z86.59 Active 469574633 depression Problem Chronic GERD K21.9 Active 583842335 Problem Right inguinal K40.90 Active 126469578 hernia Problem Environmental Z91.09 Active 082929971 allergies Problem Overweight (BMI E66.3 Active 274032683 25.0-29.9) Problem Migraine without G43.009 Active 919260122 aura and without status migrainosus, not intractable ALLERGIES No Information ENCOUNTERS Encounter Location Date Diagnosis [facility] [address] Oct, [place] [address] Aug, [place] [address] [facility] [address] Aug, [place] [address] Jul, [place] [address] [facility] [address] Jul, [place] [address] Jul, [place] [address] Jul, [address] [place] [address] Jul, [place] [address] [facility] [address] June, Mood disorder F39 ; [place] [address] Environmental allergies Z91.09 ; Chronic GERD K21.9 and High cholesterol E78.00 [facility] [address] [facility] [address] June, [address] [place] [address] [place] [address] [place] June, [place] [address] Z91.[address] [place] [address] June, [place] [address] June, [place] [address] [place] [address] June, Mood disorder F39 [place] [address] [place] [address] [place] June, Mood disorder F39 [place] [address] June, Mood disorder F39 [place] [address] [place] [address] June, [place] [address] M25.512 and Environmental allergies Z91.09 [place] [address] May, [place] [address] disorders Z13.220 [place] [address] [place] May, [place] [address] [place] [address] May, Sore throat J02.9 ; [place] [address] disorder F39 and Chronic GERD K21.9 [place] [address] May, [place] [address] [place] [address] May, B[place] [address] effusion H65.93 [place] [address] May, [place] [address] May, [place] [address] [place] [address] Apr, Left [place] [address] R10.12 and Right inguinal hernia K40.90 [place] [address] Apr, [place] [address] [facility] - Resource - [place] [address] Apr, [place] [address] [place] [address] Apr, [place] [address] [place] [address] Mar, Cellulitis, neck L03.221 [place] [address] Mood disorder F39 [facility] [address] [place] [address] Jan, [place] [address] Jan, [place] [address] Jan, [place] [address] [facility] [address] [facility] Jan, [place] [address] Jan, [place] [address] Dec, [place] [address] Dec, Di[place] [address] infectious origin R19.[address] Dec, Skin rash R21 ; [place] [address] blood pressure reading without diagnosis of hypertension R03.0 and Shaking R25.[address] Nov, [place] [address] Nov, Dermatitis L30.9 ; [place] [address] without aura and without status migrainosus, not intractable G43.009 ; Elevated blood pressure reading without diagnosis of hypertension R03.0 and Encounter for immunization Z23 [facility] [address] [facility] Nov, [place] [address] Nov, Mood disorder F39 [place] [address] Nov, Mood disorder F39 [place] [address] Nov, [place] [address] Oct, [place] [address] Oct, Mood disorder F39 [place] [address] Sep, Migraine [place] [address] without status migrainosus, not intractable G43.009 and Chronic fatigue R53.[address] Sep, Migraine without [place] [address] without status migrainosus, not intractable G43.009 [facility] [address] [facility] Sep, [place] [address] [facility] [address] [place] [address] Sep, [place] [address] [place] [id number] [facility] Sep, [place] [address] [facility] [address] [place] [address] Sep, [place] [address] Sep, [place] [address] Sep, Other [place] [address] externa of left ear H60.392 and Migraine without aura and without status migrainosus, not intractable G43.[address] Sep, [place] [address] [facility] [address] [place] [address] Sep, [place] [address] Aug, [place] [address] [facility] [address] [place] [address] Aug[place] [address] Aug, [place] [address] [facility] [address] . [facility] Jul, [place] [address] Jul, [place] [address] Jul, [place] [address] Jul, History of depression Z86.59 [place] [address] Jul, [place] [address] Jul, [place] [address] [facility] [address] [facility] Jul, [place] [address] Jul, [place] [address] Jul, [place] [address] cardiovascular examination Z01.810 ; Snoring R06.83 ; Postnasal drip R09.82 and Moderately severe depression F32.[address] June, [place] [address] June, [place] [address] June, [place] [address] [facility] [address] [facility] June, [place] [address] June, [place] [address] without status migrainosus, not intractable G43.[address] June, [place] [address] June, Right inguinal hernia K40.90 [place] [address] ; Screening for lipid disorders Z13.220 ; Screening for prostate cancer Z12.5 and Anxiety F41.[address] June, [place] [address] June, [place] [address] June, [place] [address] June, [place] [address] Pending [facility] [address] [place] [address] June, [address] [place] [address] June, [place] [address] June, [place] [address] June, [place]er[place] [address] F32.2 ; Hypomagnesemia E83.42 ; Anxiety F41.9 ; Pain in right knee M25.561 and Pain in left knee M25.[address] June, [place] [address] Teodoro Mortensen [address] May, Health [facility] LAUREL Castaneda [address] [facility] [address] [facility] May, [place] [address] [place] [address] [place] May, Neck pain M54.2 ; [place] [address] Hypomagnesemia E83.42 ; Rash R21 ; Moderately severe depression F32.2 and Elevated blood pressure reading without diagnosis of hypertension R03.0 [facility] [address] [place] May, [place] [address] May, Migraine without aura and [place] without status migrainosus, [address] not intractable G43.[address] May, [place] [address] [facility] [address] [place] May, Migraine [place] [address] without status migrainosus, not intractable G43.009 and Environmental allergies Z91.[address] [facility] May, [place] [address] [facility] [address] [place] May, Moder[place] [address] F32.2 and Migraine without aura and without status migrainosus, not intractable G43.[address] May, [address] [place] [address] Apr, [place] [address] [facility] [address] [place] Apr, [place] [address] [facility] [address] Apr, [place] [address] Apr, [place] [address] [facility] [address] [place] Apr, Worst headache of life R51 [place] [address] [facility] [address] [place] Apr, Pain [place] [address] M25.541 ; Hepatitis B core antibody positive R76.8 and Pain in joints of left hand M25.542 [facility] [address] Apr, [place] [address] [facility] [address] Apr, [place] [address] [place] [address] [place] Apr, Pain [place] [address] M25.541 ; Pain in joints of left hand M25.542 and Need for hepatitis C screening test Z11.[address] Apr, Anxiety F41.9 [place] [address] Apr, Chest tightness R07.89 ; [place] [address] Overweight (BMI 25.0-29.9) E66.3 ; BMI 27.0-27.9,adult Z68.27 and History of asthma Z87.[address] Mar, Chest tightness R07.89 [place] [address] Mar, [place] [address] Mar, [place] [address] [address]91[address] Mar, [place] [address] Mar, Chest tightness R07.89 [place] [address] Mar, [place] [address] Mar, Heart palpitations R00.2 ; [place] [address] Nasal congestion R09.81 ; Screening for HIV (human immunodeficiency virus) Z11.4 ; Right inguinal hernia K40.90 ; Anxiety F41.9 ; Screening for colon cancer Z12.11 and Anemia, unspecified type D64.[address] Jan, Chest congestion R09.89 [place] [address] Unilateral recurrent inguinal hernia without obstruction or gangrene K40.[address] Jan, [place] [address] Z91.09 ; Anxiety F41.9 ; Skin lesion L98.9 ; Screening, lipid Z13.220 and Right inguinal hernia K40.[address] Nov, [place] [address] Sep, [place] [address] IMMUNIZATIONS No Known Immunizations SOCIAL HISTORY Never Assessed REASON FOR REFERRAL FUNCTIONAL STATUS PLAN OF CARE VITAL SIGNS MEDICATIONS Unknown Medications PROCEDURES No Known procedures RESULTS No Results REASON FOR VISIT RHIO Alert [facility] Insurance Providers [facility] Health Member Patient Patient Patient Patient Patient Subscriber Subscriber Subscriber Group Insurance Plan Plan Plan Plan ID Relationship Address Phone Name Date of ID Name Date of No Type Insurance Insurance Insurance Coverage to Subscriber Address Phone Name Dates Medicaid [id number] [phone] Medicaid self Julio [id number] [facility] [address] [address] [phone] Case self Julio [id number] Management [place] [address] [facility] [address] Community Medicare National Medicare self Julio [id number] PPS QMB No Government 41 PPS QMB No [place] [employer] [address] [place] [id number] Medicare National 6 Medicare self Julio [id number] PPS QMB No Government 41 PPS QMB No [place]i [employer] [address] [place] [id number] MEDICAL (GENERAL) HISTORY Type Description Date Medical History anxiety and panic disorder Medical History hyperactive Medical History Hep A and B Medical History Herpes Medical History Asthma (as a child) Medical History Heart palpitations Surgical History glands in breast removed Hospitalization History glands removed 2007
--- OUTSIDE RECORDS SUMMARY | 2018-09-17 16:52 | XMS REPORT ---
:1945 Author Organization [facility] Address [address] [place] [address] Care Team Providers Name Role Phone Michael Perez Unavailable Unavailable PROBLEMS Type Condition ICD9-CM Code XIA98-JI Code Onset Condition SNOMED Code Dates Status Problem High cholesterol E78.00 Active 65745524 Problem History of Z86.59 Active 039796657 depression Problem Chronic GERD K21.9 Active 823335955 Problem Right inguinal K40.90 Active 346611748 hernia Problem Environmental Z91.09 Active 857605544 allergies Problem Overweight (BMI E66.3 Active 099004678 25.0-29.9) Problem Migraine without G43.009 Active 438864891 aura and without status migrainosus, not intractable ALLERGIES No Information ENCOUNTERS Encounter Location Date Diagnosis [address] Aug, [place] [address] Aug, [place] [address] Jul, [place] [address] [facility] [address] Jul, [place] [address] Jul, [place] [address] [facility] [address] [facility] [address], [facility] [place] [address] Jul, [place] [address] [facility] [address] June, Mood disorder F39 ; [place] [address] Environmental allergies Z91.09 ; Chronic GERD K21.9 and High cholesterol E78.00 [facility] [address] June, [address] [place] [address] [place] [address] [place] June, [place] [address] Z91.[address] [place] [address] June, [place] [address] June, [place] [address] [place] [address] June, Mood disorder F39 [place] [address] [place] [address] [place] June, Mood disorder F39 [place] [address] June, Mood disorder F39 [place] [address] [place] [address] [place] June, [place] [address] M25.512 and Environmental allergies Z91.09 [place] [address] May, [place] [address] disorders Z13.220 [place] [address] [place] May, [place] [address] [place] [address] May, Sore throat J02.9 ; [place] [address] disorder F39 and Chronic GERD K21.[address] [place] [address] May, [place] [address] [place] [address] May, [place] [address] effusion H65.[address] [place] [address] May, [place] [address] May, [place] [address] [place] [address] Apr, [place] [address] R10.12 and Right inguinal hernia K40.90 [place] [address] Apr, [place] [address] [facility] - [facility] - [place] [facility] [address] Apr, [place] [address] [place] [address] Apr, [place] [address] [place] [address] Mar, Cellulitis, neck L03.221 [place] [address] Mood disorder F39 [address] Jan, [place] [address] Jan, [place] [address] Jan, [place] [address] [facility] Jan, [facility] [place] [address] Jan, [place] [address] Dec, [place] [address] Dec, [place] [address] infectious origin R19.[address] Dec, Skin rash R21 ; [place] [address] blood pressure reading without diagnosis of hypertension R03.0 and Shaking R25.[address] Nov, [place] [address] Nov, Dermatitis L30.9 ; [place] [address] without aura and without status migrainosus, not intractable G43.009 ; Elevated blood pressure reading without diagnosis of hypertension R03.0 and Encounter for immunization Z23 [facility] [address] [facility] Nov, [place] [address] Nov, Mood disorder F39 [place] [address] Nov, Mood disorder F39 [place] [address] Nov, [place] [address] Oct, [place] [address] Oct, Mood disorder F39 [place] [address] Sep, [place] [address] without status migrainosus, not intractable G43.009 and Chronic fatigue R53.[address] [facility] Sep, Migraine [place] [address] without status migrainosus, not intractable G43.009 [facility] [address] [facility] Sep, [place] [address] Sep, [place] [address] [facility] [address] [facility] Sep, [place] [address] Sep, [place] [address] [facility] [address] [facility] Sep, [place] [address] [facility] [address] [facility] Sep, Other [place] [address] externa of left ear H60.392 and Migraine without aura and without status migrainosus, not intractable G43.[address] Sep, [place] [address] Sep, [place] [address] Aug, [place] [address] Aug, [place] [address] Aug, [place] [address] [place] [address] [facility] Jul, [place] [address] [facility] [address] [place] [address] Jul, [place] [address] Jul, [place] [address] Jul, History of depression Z86.59 [place] [address] Jul, [place] [address] Jul, [place] [address] [facility] [address] [facility] Jul, [place] [address] Jul, [place] [address] Jul, [place] [address] cardiovascular examination Z01.810 ; Snoring R06.83 ; Postnasal drip R09.82 and Moderately severe depression F32.[address] June, [place] [address] [place] [address] June, [place] [address] June, [place] [address] [facility] [address] [facility] June, [place] [address] June, [place] [address] without status migrainosus, not intractable G43.[address] June, [place] [address] June, Right inguinal hernia K40.90 [place] [address] ; Screening for lipid disorders Z13.220 ; Screening for prostate cancer Z12.5 and Anxiety F41.[address] June, [place] [address] June, [place] [address] June, [place] [address] June, [place] [address] [facility] [address] [facility] June, [address] [place] [address] June, [place] [address] June, [place] [address] June, [place] [address] F32.2 ; Hypomagnesemia E83.42 ; Anxiety F41.9 ; Pain in right knee M25.561 and Pain in left knee M25.[address] June, [place] [address] Teodoro Mortensen [facility] [address] [facility] May, Health Medical [place] [address] [facility] [address] [facility] May, [facility] [place] [address] May, Neck pain M54.2 ; [place] [address] Hypomagnesemia E83.42 ; Rash R21 ; Moderately severe depression F32.2 and Elevated blood pressure reading without diagnosis of hypertension R03.0 [facility] [address] May, [place] [address] May, Migraine without aura [place] without status migrainosus, [address] not intractable G43.[address] May, [place] [address] [facility] [address] May, [place] [address] without status migrainosus, not intractable G43.009 and Environmental allergies Z91.09 [facility] [address] [facility] May, [place] [address] [facility] [address] [place] May, [place] [address] F32.2 and Migraine without aura and without status migrainosus, not intractable G43.009 [place] [address] [place] [address] Suite May, [address] [place] [address] [facility] [address] [facility] Apr, [place] [address] [facility] [address] [place], [place] [address] [facility] [address] Apr, [place] [address] Apr, [place] [address] [facility] [address] Apr, Worst headache of life R51 [place] [address] [facility] [address] Apr, [place] [address] M25.541 ; Hepatitis B core antibody positive R76.8 and Pain in joints of left hand M25.542 [facility] [address] Apr, [place] [address] [facility] [address] Apr, [place] [address] [facility] [address] Apr, Pain [place] [address] M25.541 ; Pain in joints of left hand M25.542 and Need for hepatitis C screening test Z11.[address] Apr, Anxiety F41.9 [place] [address] Apr, Chest tightness R07.89 ; [place] [address] Overweight (BMI 25.0-29.9) E66.3 ; BMI 27.0-27.9,adult Z68.27 and History of asthma Z87.[address] Mar, Chest tightness R07.89 [place] [address] Mar, [place] [address] Mar, Environmental allergies [address] Z91.[address] Mar, [place] [address] Mar, Chest tightness R07.89 [place] [address] Mar, [place] [address] Mar, Heart palpitations R00.2 ; [place] [address] Nasal congestion R09.81 ; Screening for HIV (human immunodeficiency virus) Z11.4 ; Right inguinal hernia K40.90 ; Anxiety F41.9 ; Screening for colon cancer Z12.11 and Anemia, unspecified type D64.[address] Jan, Chest congestion R09.89 [place] [address] Unilateral recurrent inguinal hernia without obstruction or gangrene K40.[address] Jan, [place] [address] Z91.09 ; Anxiety F41.9 ; Skin lesion L98.9 ; Screening, lipid Z13.220 and Right inguinal hernia K40.[address] Nov, [place] [address] Sep, [place] [address] IMMUNIZATIONS No Known Immunizations SOCIAL HISTORY Never Assessed REASON FOR REFERRAL FUNCTIONAL STATUS PLAN OF CARE VITAL SIGNS MEDICATIONS Unknown Medications PROCEDURES No Known procedures RESULTS No Results REASON FOR VISIT No Show # 2 Insurance Providers [facility] Member Patient Patient Patient Patient Patient Subscriber Subscriber Subscriber Group Insurance Plan Plan Plan Plan ID Relationship Address Phone Name Date of ID Name Date of No Type Insurance Insurance Insurance Coverage to Subscriber Address Phone Name Dates Case [phone] Case self [place] [id number] Management [place] [address] Management [facility] [address] Community Medicaid [phone] Medicaid self [place] [id number] [facility] [address] [address] Medicare National [phone] Medicare self [place] [id number] PPS QMB No Government 41 PPS QMB No [place] [employer] [address] [place] [id number] Medicare National [id number] Medicare self [place] [id number] PPS QMB No Government 41 PPS QMB No [place] [employer] [address] [place] [id number] MEDICAL (GENERAL) HISTORY Type Description Date Medical History anxiety and panic disorder Medical History hyperactive Medical History Hep A and B Medical History Herpes Medical History Asthma (as a child) Medical History Heart palpitations Surgical History glands in breast removed Hospitalization History glands removed 2007
--- OUTSIDE RECORDS SUMMARY | 2018-09-17 16:52 | XMS REPORT ---
:1945 Author Organization [facility] Address [address] [place] [address] Care Team Providers Name Role Phone Michael Perez Unavailable Unavailable PROBLEMS Type Condition ICD9-CM Code CAB66-RW Code Onset Condition SNOMED Code Dates Status Problem High cholesterol E78.00 Active 85155366 Problem History of Z86.59 Active 202980076 depression Problem Chronic GERD K21.9 Active 286027662 Problem Right inguinal K40.90 Active 209313317 hernia Problem Environmental Z91.09 Active 384181742 allergies Problem Overweight (BMI E66.3 Active 213451928 25.0-29.9) Problem Migraine without G43.009 Active 650707268 aura and without status migrainosus, not intractable ALLERGIES No Information ENCOUNTERS Encounter Location Date Diagnosis [facility] [address] Oct, [place] [address] Aug, [place] [address] Aug, [place] [address] Jul, [place] [address] [facility] [address] Jul, [place] [address] [place], [place] [address] [facility] [address] [facility] Jul, [address] [place] [address] Jul, [place] [address] [facility] [address] June, Mood disorder F39 ; [place] [address] Environmental allergies Z91.09 ; Chronic GERD K21.9 and High cholesterol E78.00 [facility] [address] [facility] [address] June, [address] [place] [address] [place] June, Environmental [place] [address] Z91.09 [facility] [address] June, [place] [address] June, [place] [address] [place] [address] June, Mood disorder F39 [place] [address] [place] June, Mood disorder F39 [place] [address] June, Mood disorder F39 [place] [address] [place] [address] June, [place] [address] M25.512 and Environmental allergies Z91.09 [place] [address] May, [place] [address] disorders Z13.220 [place] [address] [place] May, [place] [address] [place] [address] May, Sore throat J02.9 ; [place] [address] disorder F39 and Chronic GERD K21.9 [place] [address] [place] May, [place] [address] [place] [address] May, [place] [address] effusion H65.[address] [place] [address] May, [place] [address] May, [place] [address] [place] [address] Apr, [place] [address] R10.12 and Right inguinal hernia K40.[address] [place] [address] Apr, [place] [address] [facility] [place] [facility] [address] Apr, [place] [address] [place] [address] Apr, [place] [address] [place] [address] [facility] Mar, Cellulitis, neck L03.221 [place] [address] Mood disorder F39 [facility] [address] [place] [address] Jan, [place] [address] Jan, [place] [address] Jan, [place] [address] [facility] [address] [facility] Jan, [place] [address] Jan, [place] [address] Dec, [place] [address] Dec, [place] [address] infectious origin R19.[address] Dec, Skin rash R21 ; [place] [address] blood pressure reading without diagnosis of hypertension R03.0 and Shaking R25.[address] Nov, [place] [address] Nov, Dermatitis L30.9 ; [place] [address] without aura and without status migrainosus, not intractable G43.009 ; Elevated blood pressure reading without diagnosis of hypertension R03.0 and Encounter for immunization Z23 [facility] [address] [facility] Nov, [place] [address] Nov, Mood disorder F39 [place] [address] Nov, Mood disorder F39 [place] [address] Nov, [place] [address] Oct, [place] [address] Oct, Mood disorder F39 [place] [address] Sep, [place] [address] without status migrainosus, not intractable G43.009 and Chronic fatigue R53.[address] Sep, Migraine [place] [address] without status migrainosus, not intractable G43.009 [facility] [address] [facility] Sep, [place] [address] [facility] [address] [place] [address] Sep, [place] [address] [facility] [address] [facility] Sep, [place] [address] [facility] [address] [place] [address] [place] [address] [facility] [address] [facility] Sep, [place] [address] [facility] [address] [place] [address] Sep, Other [place] [address] externa of left ear H60.392 and Migraine without aura and without status migrainosus, not intractable G43.[address] [place] Sep, [place] [address] [facility] [address] [place] [address] Sep, [place] [address] [facility] [address] [facility] Aug, [place] [address] [facility] [address] [place] [address] Aug[place] [address] Aug, [place] [address] [facility] [address] [facility] Jul, [place] [address] [facility] [address] [facility] Jul, [place] [address] [facility] [address] [place] [address] Jul, [place] [address] [facility] [address] [facility] Jul, History of depression Z86.59 [place] [address] [facility] [address] [place] [address] Jul, [place] [address] Jul, [place] [address] [facility] [address] [facility] Jul, [place] [address] Jul, [place] [address] Jul, [place] [address] cardiovascular examination Z01.810 ; Snoring R06.83 ; Postnasal drip R09.82 and Moderately severe depression F32.[address] June, [place] [address] [place] [address] [place] June, [place] [address] June, [place] [address] [facility] [address] [facility] June, [place] [address] June, [place] [address] without status migrainosus, not intractable G43.[address] June, [place] [address] June, Right inguinal hernia K40.90 [place] [address] ; Screening for lipid disorders Z13.220 ; Screening for prostate cancer Z12.5 and Anxiety F41.[address] June, [place] [address] June, [place] [address] June, [place] [address] June, [place] [address] June, [address] [place] [address] June, [place] [address] June, [place] [address] June, [place]er[place] [address] F32.2 ; Hypomagnesemia E83.42 ; Anxiety F41.9 ; Pain in right knee M25.561 and Pain in left knee M25.[address] June, [place] [address] [place] May, Health [facility] LAUREL Castan[place] [address] [facility] [address] [facility] [place] May, [place] [address] May, Neck pain M54.2 ; [place] [address] Hypomagnesemia E83.42 ; Rash R21 ; Moderately severe depression F32.2 and Elevated blood pressure reading without diagnosis of hypertension R03.0 [facility] [address] May, [place] [address] May, Migraine without aura [place] without status migrainosus, [address] not intractable G43.[address] May, [place] [address] [facility] [address] [place] May, [place] [address] without status migrainosus, not intractable G43.009 and Environmental allergies Z91.[address] [facility] May, [place] [address] [facility] [address] [place] May, [place] [address] F32.2 and Migraine without aura and without status migrainosus, not intractable G43.[address] May, [address] [place] [address] [place] Apr, [place] [address] [facility] [address] [place], [place] [address] [facility] [address] Apr, [place] [address] Apr, [place] [address] [facility] [address] [place] Apr, Worst headache of life R51 [place] [address] [facility] [address] Apr, Pain [place] [address] M25.541 ; Hepatitis B core antibody positive R76.8 and Pain in joints of left hand M25.542 [facility] [address] Apr, [place] [address] [facility] [address] Apr, [place] [address] [facility] [address] Apr, Pain [place] [address] M25.541 ; Pain in joints of left hand M25.542 and Need for hepatitis C screening test Z11.[address] Apr, Anxiety F41.9 [place] [address] Apr, Chest tightness R07.89 ; [place] [address] Overweight (BMI 25.0-29.9) E66.3 ; BMI 27.0-27.9,adult Z68.27 and History of asthma Z87.[address] Mar, Chest tightness R07.89 [place] [address] Mar, [place] [address] Mar, [place] [address] Z91.[address] Mar, [place] [address] Mar, Chest tightness R07.89 [place] [address] Mar, [place] [address] Mar, Heart palpitations R00.2 ; [place] [address] Nasal congestion R09.81 ; Screening for HIV (human immunodeficiency virus) Z11.4 ; Right inguinal hernia K40.90 ; Anxiety F41.9 ; Screening for colon cancer Z12.11 and Anemia, unspecified type D64.[address] Jan, Chest congestion R09.89 [place] [address] Unilateral recurrent inguinal hernia without obstruction or gangrene K40.[address] Jan, [place] [address] Z91.09 ; Anxiety F41.9 ; Skin lesion L98.9 ; Screening, lipid Z13.220 and Right inguinal hernia K40.[address] Nov, [place] [address] Sep, [place] [address] IMMUNIZATIONS No Known Immunizations SOCIAL HISTORY Never Assessed REASON FOR REFERRAL FUNCTIONAL STATUS PLAN OF CARE VITAL SIGNS MEDICATIONS Unknown Medications PROCEDURES No Known procedures RESULTS No Results REASON FOR VISIT No Show Insurance Providers [facility] Patient Patient Patient Patient Patient Subscriber Subscriber Subscriber Group Insurance Plan Plan Plan Plan ID Relationship Address Phone Name Date of ID Name Date of No Type Insurance Insurance Insurance Coverage to Subscriber Address Phone Name Dates Case [phone] Case self Julio [id number] Management [place] [address] Management [facility] [place] [address] Community Medicare National [id number] Medicare self Julio [id number] PPS QMB No Government 41 PPS QMB No [place] [employer] [address] [place] [id number] Medicare National [id number] self Herald [id number] PPS QMB No Government 41 PPS QMB No [place] [employer] [address] [place] [id number] Medicaid [id number] [phone] Medicaid self Julio [id number] [facility] [address] [place] [address] MEDICAL (GENERAL) HISTORY Type Description Date Medical History anxiety and panic disorder Medical History hyperactive Medical History Hep A and B Medical History Herpes Medical History Asthma (as a child) Medical History Heart palpitations Surgical History glands in breast removed Hospitalization History glands removed 2007
--- OUTSIDE RECORDS SUMMARY | 2018-09-17 16:52 | XMS REPORT | Continuity of Care Document ---
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 Rate 72 /min BP Systolic Sitting 118 mmHg L BP Diastolic Sitting 68 mmHg L BMI (Body Mass Index) 29.8 kg/m2 12/17/2010 2:59pm Weight 195.00 lb Heart Rate 64 /min BP Systolic Sitting 122 mmHg BP Diastolic Sitting 82 mmHg Body Temperature 97.5 F lt ear 12/04/2010 4:33pm Height 69.25 inches 5'9.25" Weight 197.50 lb Heart Rate 84 /min BP Systolic Sitting 122 mmHg BP Diastolic Sitting 68 mmHg BMI (Body Mass Index) 29.0 kg/m2 10/11/2010 2:50pm Height 69 inches 5'9" Weight 199.00 lb Heart Rate 74 /min BP Systolic Sitting 118 mmHg BP Diastolic Sitting 70 mmHg BMI (Body Mass Index) 29.4 kg/m2 08/02/2010 2:29pm Weight 200.00 lb Heart Rate 64 /min BP Systolic Sitting 118 mmHg BP Diastolic Sitting 62 mmHg 06/12/2010 11:47am Weight 204.00 lb Heart Rate 78 /min BP Systolic Sitting 124 mmHg BP Diastolic Sitting 70 mmHg Body Temperature 98.2 F Tympanically 05/15/2010 1:05pm Weight 201.00 lb Heart Rate 66 /min BP Systolic 112 mmHg BP Diastolic 64 mmHg 12/31/2009 4:28pm Heart Rate 80 /min BP Systolic 128 mmHg BP Diastolic 82 mmHg Body Temperature 97.8 F 11/29/2009 1:16pm Weight 202.00 lb Heart Rate 88 /min BP Systolic Sitting 126 mmHg BP Diastolic Sitting 80 mmHg 10/08/2009 2:50pm Weight 200.00 lb Heart Rate 70 /min BP Systolic Sitting 128 mmHg BP Diastolic Sitting 68 mmHg 08/24/2009 1:53pm Weight 198.00 lb Heart Rate 62 /min BP Systolic Sitting 118 mmHg BP Diastolic Sitting 80 mmHg Body Temperature 97.8 F 08/03/2009 4:20pm Weight 197.00 lb Heart Rate 68 /min BP Systolic 122 mmHg BP Diastolic 78 mmHg Respiratory Rate 16 /min Body Temperature 98.1 F 07/20/2009 2:16pm Weight 197.00 lb Heart Rate 74 /min BP Systolic 126 mmHg BP Diastolic 68 mmHg 05/15/2009 3:44pm Weight 197.75 lb Heart Rate 84 /min BP Systolic Sitting 136 mmHg BP Diastolic Sitting 72 mmHg Respiratory Rate 16 /min 04/13/2009 3:41pm Height 69 inches 5'9" Weight 194.25 lb Heart Rate 70 /min BP Systolic Sitting 128 mmHg BP Diastolic Sitting 74 mmHg Body Temperature 98.6 F BMI (Body Mass Index) 28.7 kg/m2 03/16/2009 1:48pm Height 69 inches 5'9" Weight 200.00 lb Heart Rate 84 /min BP Systolic Sitting 130 mmHg BP Diastolic Sitting 74 mmHg BMI (Body Mass Index) 29.5 kg/m2 03/09/2009 2:37pm Height 69 inches 5'9" Weight 203.00 lb Heart Rate 74 /min BP Systolic Sitting 136 mmHg BP Diastolic Sitting 76 mmHg BMI (Body Mass Index) 30.0 kg/m2 02/07/2009 3:41pm Height 69 inches 5'9" Weight 205.00 lb Heart Rate 80 /min BP Systolic Sitting 123 mmHg BP Diastolic Sitting 75 mmHg Body Temperature 97.7 F BMI (Body Mass Index) 30.3 kg/m2 11/21/2008 2:08pm Height 69 inches 5'9" Weight 209.00 lb Heart Rate 72 /min BP Systolic Sitting 120 mmHg BP Diastolic Sitting 76 mmHg BMI (Body Mass Index) 30.9 kg/m2 09/20/2008 2:30pm Height 69 inches 5'9" Weight 219.00 lb Heart Rate 82 /min BP Systolic Sitting 102 mmHg BP Diastolic Sitting 78 mmHg Respiratory Rate 16 /min BMI (Body Mass Index) 32.3 kg/m2 Results Test Date Facility Test Result H/L Range Note Laboratory test 12/14/2016 [facility] O&P Ova & SEE RESULT [address] [place] [address] Screen [phone] Parasitic Examination See Comment N 2 Laboratory test 03/24/2016 [facility] Vitamin B12 383 pg/mL N 180-[address] [place], [place] [id number] [phone] Ferritin 231.5 ng/mL N 24-336 Iron & Iron Binding 03/24/2016 [facility] Iron 115 g/dL N 50 -[address] [place] [address] [phone] Unsaturated Iron Binding 239 g/dL N Total Iron Binding Capacity 354 g/dL N 250-450 % Iron Saturation 32 % N 15-55 Retic Count 03/24/2016 [facility] Retic Count 1.2 % N 0.5-1.[address] [place] [address] [phone] Corrected Retic Count 1.1 % N 0.5-1.5 Maturation Factor Retic 1.0 N Retic Index 1.10 N Mean Retic Volume 103.1 N Immature Retic Fraction 0.31 N RBC Retic Count 4.56 10^6/uL Low 4.6-6.2 Hematocrit for Retic CNT 40 % Low 42-52 Laboratory test 03/24/2016 [facility] Vitamin D 21.2 ng/mL Low 30-[address] Total 25(Oh) [place], [place] [id number] [phone] Urine Culture And 01/03/2016 [facility] Urine Culture SEE RESULT [address] [place] [address] [phone] Ua Routine 01/03/2016 [facility] Ua Specific 1.015 [place] Ua PH 5 Ua Color dark yellow Ua Appera cloudy Ua WBC neg Ua Protein trace Ua Glucose normal Ua Ketones neg Ua Bilirubin neg Ua Urobilinogen normal Ua Nitrite neg Ua Occult Blood 50 CBC Auto Diff 07/12/2015 [facility] White Blood 6.0 10^3/uL N 3.5-10.[address] [place] [address] [phone] Red Blood Count 4.48 10^6/uL N 4.0-5.4 Hemoglobin 13.1 g/dL Low 14.0-18.0 Hematocrit 40 % Low 42-52 Mean Corpuscular Volume 89 fL N 80-94 Mean Corpuscular Hemoglobin 29 pg N 27-31 Mean Corpuscular HGB Conc 33 g/dL N 31-36 Red Cell Distribution Width 13 % N 10.5-15 Platelet Count 176 10^3/uL N 150-450 Mean Platelet Volume 10 um3 N 7.4-10.4 Abs Neutrophils 4.0 10^3/uL N 1.5-7.7 Abs Lymphocytes 1.4 10^3/uL N 1.0-4.8 Abs Monocytes 0.5 10^3/uL N 0-0.8 Abs Eosinophils 0 10^3/uL N 0-0.6 Abs Basophils 0 10^3/uL N 0-0.2 Abs Nucleated RBC 0 10^3/uL N Granulocyte % 66.7 % N 38-83 Lymphocyte % 23.3 % Low 25-47 Monocyte % 8.7 % N 1-9 Eosinophil % 0.8 % N 0-6 Basophil % 0.5 % N 0-2 Nucleated Red Blood Cells % 0.1 N Comp Metabolic Panel 07/12/2015 [facility] Sodium 137 mmol/L N 133-[address] [place] [address] [phone] Potassium 4.5 mmol/L N 3.5-5.0 Chloride 102 mmol/L N 101-111 Co2 Carbon Dioxide 30 mmol/L N 22-32 Anion Gap 5 mmol/L N 2-11 Glucose 104 mg/dL High 70-100 Blood Urea Nitrogen 10 mg/dL N 6-24 Creatinine 1.07 mg/dL N 0.67-1.17 BUN/Creatinine Ratio 9.3 N 8-20 Calcium 9.3 mg/dL N 8.6-10.3 Total Protein 7.5 g/dL N 6.4-8.9 Albumin 4.4 g/dL N 3.2-5.2 Globulin 3.1 g/dL N 2-4 Albumin/Globulin Ratio 1.4 N 1-3 Total Bilirubin 0.70 mg/dL N 0.2-1.0 Alkaline Phosphatase 68 U/L N 34-104 Alt 30 U/L N 7-52 Ast 23 U/L N 13-39 Egfr Non- 68.9 N >60 Egfr 88.7 N >60 5 Lipid Profile 07/12/2015 [facility] Triglycerides 101 mg/dL N 6 (Trig/Chol/HDL) [address] [place], [place] [id number] [phone] Cholesterol 191 mg/dL N 7 HDL Cholesterol 54.3 mg/dL N 8 LDL Cholesterol 117 mg/dL N 9 Leukemia/Lymphoma Flow 12/21/2014 [facility] Path Interpretation TNP N [address] 2-8 Marker [place], [place] [id number] [phone] Path Interpret > 16 Marker TNP N Path Interpret 9-15 Marker (SEE NOTE) N 10 Leukemia/Lymphoma Flow 12/21/2014 [facility] Path Interpretation TNP N [address] 2-8 Marker [place], [place] [id number] [phone] Path Interpret > 16 Marker TNP N Path Interpret 9-15 Marker (SEE NOTE) N 11 Laboratory test 12/21/2014 [facility] Cytology Non-Behavioral Modification Assistant SEE RESULT [address] BELOW [place], [place] [id number] [phone] Lipid Profile 12/07/2014 [facility] Triglycerides 98 mg/dL N 13 (Trig/Chol/HDL) [address] [place], [place] [id number] [phone] Cholesterol 239 mg/dL N 14 HDL Cholesterol 43.9 mg/dL N 15 LDL Cholesterol 176 mg/dL N 16 Comp Metabolic Panel 05/15/2014 [facility] Sodium 135 mmol/L N 133-[address] [place] [address] [phone] Potassium 4.1 mmol/L N 3.5-5.0 Chloride 99 mmol/L Low 101-111 Co2 Carbon Dioxide 30 mmol/L N 22-32 Anion Gap 6 mmol/L N 2-11 Glucose 108 mg/dL High 70-100 Blood Urea Nitrogen 13 mg/dL N 6-24 Creatinine 1.09 mg/dL N 0.67-1.17 BUN/Creatinine Ratio 11.9 N 8-20 Calcium 9.5 mg/dL N 8.6-10.3 Total Protein 7.5 g/dL N 6.4-8.9 Albumin 4.5 g/dL N 3.2-5.2 Globulin 3.0 g/dL N 2-4 Albumin/Globulin Ratio 1.5 N 1-3 Total Bilirubin 0.50 mg/dL N 0.2-1.0 Alkaline Phosphatase 49 U/L N 34-104 Alt 28 U/L N 7-52 Ast 21 U/L N 13-39 Egfr Non- 67.7 N >60 Egfr 87.0 N >60 17 Laboratory test 02/28/2014 [facility] Throat (SEE NOTE) [address] [place] [address] [phone] CBC With Manual 08/03/2013 [facility] White Blood 4.7 10^3/uL Low 4.8-[address] Count .8 [place] [address] [phone] Red Blood Count 4.15 10^6/uL N 4.0-5.4 Hemoglobin 12.8 g/dL Low 14.0-18.0 Hematocrit 37 % Low 42-52 Mean Corpuscular Volume 90 fL N 80-94 Mean Corpuscular Hemoglobin 31 pg N 27-31 Mean Corpuscular HGB Conc 34 g/dL N 31-36 Red Cell Distribution Width 13 % N 10.5-15 Platelet Count 156 10^3/uL N 150-450 Mean Platelet Volume 9 um3 N 7.4-10.4 Abs Neutrophils 2.9 10^3/uL N 1.5-7.7 Abs Lymphocytes 1.3 10^3/uL N 1.0-4.8 Abs Monocytes 0.5 10^3/uL N 0-0.8 Abs Eosinophils 0.1 10^3/uL N 0-0.6 Abs Basophils 0 10^3/uL N 0-0.2 Abs Nucleated RBC 0 10^3/uL N Neutrophil % 60 % N 38-83 Lymphocytes % 28 % N 25-47 Monocytes % 10 % N 0-13 Basophil % 1 % N 0-2 Reactive Lymph % 1 % N 0-6 RBC Morphology Normal N Normal Laboratory test 08/03/2013 [facility] PSA Screening 0.662 ng/mL N 0-4.[address] [place] [address] [phone] Comp Metabolic 08/03/2013 [facility] Sodium 138 mmol/L N 133- 145 19 Panel [address] [place] [address] [phone] Potassium 4.1 mmol/L N 3.7-5.6 Chloride 104 mmol/L N 101-111 Co2 Carbon Dioxide 29 mmol/L N 22-32 Anion Gap 5 mmol/L N 2-11 Glucose 105 mg/dL High 70-100 Blood Urea Nitrogen 10 mg/dL N 6-24 Creatinine 1.08 mg/dL N 0.67-1.17 BUN/Creatinine Ratio 9.3 N 8-20 Calcium 9.7 mg/dL N 8.6-10.3 Total Protein 7.2 g/dL N 6.4-8.9 Albumin 4.1 g/dL N 3.2-5.2 Globulin 3.1 g/dL N 2-4 Albumin/Globulin Ratio 1.3 N 1-3 Total Bilirubin 0.60 mg/dL N 0.2-1.0 Alkaline Phosphatase 64 U/L N 34-104 Alt 35 U/L N 7-52 Ast 22 U/L N 13-39 Egfr Non- 68.6 N >60 Egfr 88.2 N >60 20 Testosterone Free 05/04/2013 [facility] Free Testosterone 10 ng/ dL 9-30 21 & Total [address] ng/[place] [address] [phone] Testosterone 383 ng/dL 240-950 22 Laboratory test 05/04/2013 [facility] Luteinizing 9.0 IU/mL 2 -[address] [place] [address] [phone] Estradiol 29.000 pg/mL Less Than 50 Laboratory test 04/04/2013 [facility] Rheumatoid Factor <15 IU/ mL <15 [address] [place] [address] [phone] Cyclic Citrullinated Pept IgG <15.6 U 24 Laboratory test 02/03/2013 [facility] Rheumatoid Factor <15 IU/ mL <15 [address] [place] [address] [phone] Erythrocyte Sed Rate 25 mm/Hr 0-40 C Reactive Protein < 0.5 mg/dL Less than 0.5 26 Uric Acid 6.8 mg/dL 2.6-7.2 27 Lipid Profile 02/03/2013 [facility] Triglycerides 91 mg/dL 40 -200 (Trig/Chol/HDL) [address] [place] [address] [phone] Cholesterol 156 mg/dL Less than 200 HDL Cholesterol 50 mg/dL 40-60 28 Cholesterol/HDL Ratio 3.1 Average 1-4.44 LDL Cholesterol 87.8 Less Than 100 29 Liver Function 02/03/2013 [facility] Total Protein 7.4 g/dL 6.2-8.1 Panel [address] [place] [address] [phone] Albumin 4.5 g/dL 3.2-5.2 Globulin 2.9 g/dL 2-4 Albumin/Globulin Ratio 1.6 1-3 Total Bilirubin 0.9 mg/dL 0.4-1.5 Direct Bilirubin 0.1 mg/dL 0.1-0.5 Indirect Bilirubin 0.8 mg/dL 0.3-1.0 Alkaline Phosphatase 60 U/L 30-110 Alt 28 U/L 14-54 Ast 24 U/L 12-42 Laboratory 02/03/2013 [facility] Hepatitis C Nonreactive Nonreactive test finding [address] [place] [address] [phone] Laboratory 11/11/2012 [facility] Luteinizing 8.34 miu/mL 2- 12 test finding 101 [facility] [place] [address] [phone] Estradiol 32 pg/mL Less Than 50 Testosterone Free 11/11/2012 [facility] Free Testosterone 9.3 ng /dL 9-30 30 & Total 101 [facility] ng/[place] [address] [phone] Testosterone 424 ng/dL 240-950 31 Ua Routine 07/30/2012 [facility] Ua Specific [place] 1.010 Ua PH 5.0 Ua Color yellow Ua Appera clear Ua WBC neg Ua Protein neg Ua Glucose neg Ua Ketones neg Ua Bilirubin neg Ua Urobilinogen neg Ua Nitrite neg Ua Occult Blood neg Basic Metabolic Panel 06/16/2012 [facility] Sodium 138 mmol/L 133-145 [address] [place] [address] [phone] Potassium 4.5 mmol/L 3.5-5.0 Chloride 101 mmol/L 101-111 Co2 Carbon Dioxide 31.0 mmol/L 22-32 Anion Gap 6.0 mmol/L 2-11 Glucose 85 mg/dL 70-100 Blood Urea Nitrogen 10 mg/dL 6-24 Creatinine 1.20 mg/dL 0.50-1.40 BUN/Creatinine Ratio 8.3 8-20 Calcium 9.6 mg/dL 8.1-9.9 Egfr Non- 61.0 >60 Egfr 78.4 >60 32 Liver Function 06/16/2012 [facility] Total Protein 7.6 g/dL 6.2-8.[address] [place] [address] [phone] Albumin 4.3 g/dL 3.2-5.2 Globulin 3.3 g/dL 2-4 Albumin/Globulin Ratio 1.3 1-3 Total Bilirubin 0.4 mg/dL 0.4-1.5 Direct Bilirubin 0.1 mg/dL 0.1-0.5 Indirect Bilirubin 0.3 mg/dL 0.3-1.0 Alkaline Phosphatase 71 U/L 30-110 Alt 32 U/L 14-54 Ast 24 U/L 12-42 Lipid Profile 06/16/2012 [facility] Triglycerides 92 mg/dL 40 -200 (Trig/Chol/HDL) [address] [place] [address] [phone] Cholesterol 179 mg/dL Less than 200 HDL Cholesterol 59 mg/dL 40-60 33 Cholesterol/HDL Ratio 3.0 Average 1-4.44 LDL Cholesterol 101.6 mg/dL High Less Than 100 34 Laboratory test 03/15/2012 [facility] Estradiol 49 pg/mL Less finding [address] Than 50 [place] [address] [phone] Laboratory test 03/09/2012 [facility] Luteinizing 8.68 2-[address] Hormone MIU/[place] [address] [phone] Testosterone Free 03/09/2012 [facility] Free Testosterone 13 ng/ dL 9-30 & Total [address] ng/[place] [address] [phone] Testosterone 518 ng/dL 240-950 35 CBC Auto Diff 03/09/2012 [facility] White Blood 8.1 10^3/uL 4.8-10.[address] [place] [address] [phone] Red Blood Count 4.49 10^6/uL 4.0-5.4 Hemoglobin 13.5 g/dL Low 14.0-18.0 Hematocrit 40 % Low 42-52 Mean Corpuscular Volume 88 fL 80-94 Mean Corpuscular Hemoglobin 30 pg 27-31 Mean Corpuscular HGB Conc 34 g/dL 31-36 Red Cell Distribution Width 13 % 10.5-15 Platelet Count 178 10^3/uL 150-450 Mean Platelet Volume 10 um3 7.4-10.4 Abs Neutrophils 5.4 10^3/uL 1.5-7.7 Abs Lymphocytes 1.9 10^3/uL 1.0-4.8 Abs Monocytes 0.7 10^3/uL 0-0.8 Abs Eosinophils 0.1 10^3/uL 0-0.6 Abs Basophils 0 10^3/uL 0-0.2 Abs Nucleated RBC 0 10^3/uL Granulocyte % 66.5 % 38-83 Lymphocyte % 24.0 % Low 25-47 Monocyte % 8.1 % 1-9 Eosinophil % 1.0 % 0-6 Basophil % 0.4 % 0-2 Nucleated Red Blood Cells % 0 Laboratory test 10/28/2011 [facility] CPK (Creatine 107 U/L 0 -200 [address] Kinase) [place] [address] [phone] Comp Metabolic 10/28/2011 [facility] Sodium 136 135-[address] mmol/[place] [address] [phone] Potassium 4.5 mmol/L 3.5-5.0 Chloride 101 mmol/L 101-111 Co2 (Carbon Dioxide) 30.0 mmol/L 22-32 Anion Gap 5.0 mmol/L 2-11 37 Glucose 100 mg/dL 70-100 BUN 11 mg/dL 6-24 Creatinine 1.1 mg/dL 0.50-1.40 One Over Creatinine 0.90 BUN/Creatinine Ratio 10.0 8-20 Calcium 9.2 mg/dL 8.1-9.9 Total Protein 6.8 GM/DL 6.2-8.1 Albumin 4.0 GM/DL 3.2-5.2 Globulin 2.8 GM/DL 2-4 Albumin/Globulin Ratio 1.4 1-3 Bilirubin Total 0.8 mg/dL 0.4-1.5 38 Alkaline Phosphatase 63 U/L 39-117 Alt (SGPT) 39 U/L 17-63 Ast (Sgot) 28 U/L 12-42 eGFR Non- 67.4 > 60 eGFR 86.7 > 60 39 Laboratory test 08/11/2011 [facility] BUN 5 mg/dL Low 6-24 finding [address] [place] [address] [phone] Creatinine 08/11/2011 [facility] Creatinine 1.0 mg/dL 0.50- 1.40 [address] [place] [address] [phone] One Over Creatinine 1.00 eGFR Non- 75.5 > 60 eGFR 97.1 > 60 40 Laboratory test 08/11/2011 [facility] PSA,Diagnostic 0.54 NG/ML 0-4 41 finding [address] [place] [address] [phone] Clotest 03/24/2011 [facility] M [address] [place] [address] ------ [place] [address] <SEE NOTE> [phone] Surgical 03/24/2011 [facility] Surgical Pathology [address] [place] [address] ------ [place] [address] <SEE NOTE> [phone] Laboratory test 12/05/2010 [facility] Estradiol < 20 pg/mL [address] [place] [address] [phone] Estriol,Unconjugated 0.08 ng/mL Abnormal <0.07 45 Dhea Sulfate 26.9 g/dL 25-131 46 TSH 1.60 MIU/ML 0.34-5.60 CBC Auto Diff 12/05/2010 [facility] White Blood 6.5 CUMM 4.8- 10.8 [address] [facility] [place] [address] [phone] Red Cell Count 4.33 CUMM Low 4.6-6.2 Hemoglobin 12.9 g/dL Low 14.0-18.0 Hematocrit 38 % Low 42-52 Mean Corpuscular Volume 87 um3 80-94 Mean Corpuscular Hemoglob 30 pg 27-31 Mean Corpuscular HGB Cone 34 g/dL 32-36 Redcell Distribution WDTH 13 % 10.5-15 Platelet Count 164 CUMM 150-450 Mean Platelet Volume 9.6 um3 7.4-10.4 Gran % 64.7 % 38-83 Lymph % 25.4 % 25-47 Mononuclear % 8.6 % 1-9 Eosinophil % 1.0 % 0-6 Basophil % 0.3 % 0-2 Abs Lymphs 1.6 1.0-4.8 Abs Mononuclear 0.6 0-0.8 Absolute Neutrophil Count 4.2 1.5-7.7 Abs Eosinophils 0.1 0-0.6 Abs Basophils 0 0-0.2 FSH And LH 12/05/2010 [facility] FSH 26.83 MIU/ML 47 [address] [place] [address] [phone] Lutenizing Hormone 9.96 MIU/ML 48 Laboratory test 12/05/2010 [facility] Testosterone 333.3 175- 781 finding [address] [facility] Total ng/[place] [address] [phone] Lipid Profile 12/05/2010 [facility] Triglyceride 66 mg/dL 40- 200 (Trig/Chol/HDL) [address] [place] [address] [phone] Cholesterol 158 mg/dL Less Than 200 49 High Density Lipoprotein 50 mg/dL 40-60 50 Cholesterol/HDL Ratio 3.16 AVERAGE 1-4.97 Low Density Lipoprotein 95 mg/dL Less Than 100 51 Comp Metabolic Panel 12/05/2010 [facility] Sodium 138 mmol/L 135-145 [address] [place] [address] [phone] Potassium 4.4 mmol/L 3.5-5.0 Chloride 102 mmol/L 101-111 Co2 (Carbon Dioxide) 30.0 mmol/L 22-32 Anion Gap 6.0 mmol/L 2-11 52 Glucose 98 mg/dL 70-100 BUN 12 mg/dL 6-24 Creatinine 1.2 mg/dL 0.50-1.40 One Over Creatinine 0.83 BUN/Creatinine Ratio 10.0 8-20 Calcium 9.6 mg/dL 8.1-9.9 Total Protein 6.9 GM/DL 6.2-8.1 Albumin 4.3 GM/DL 3.2-5.2 Globulin 2.6 GM/DL 2-4 Albumin/Globulin Ratio 1.7 1-3 Bilirubin Total 0.9 mg/dL 0.4-1.5 53 Alkaline Phosphatase 55 U/L 39-117 Alt (SGPT) 37 U/L 17-63 Ast (Sgot) 26 U/L 12-42 eGFR Non- 61.1 > 60 eGFR 78.6 > 60 54 Lipid Panel - 12/05/2010 [facility] CPK (Creatine 108 U/L 0- 200 JFM [address] [facility] Kinase) [place] [address] [phone] Laboratory test 08/13/2009 [facility] Testosterone Total 339.3 175-781 finding [address] [facility] ng/[place] [address] [phone] Estradiol < 20 pg/mL 55 Lipid Profile 03/28/2009 [facility] Triglyceride 126 mg/dL 40 -200 56 (Trig/Chol/HDL) [address] [place] [address] [phone] Cholesterol 133 mg/dL Less Than 200 57 High Density Lipoprotein 35 mg/dL Low 40-60 58 Cholesterol/HDL Ratio 3.80 AVERAGE 1-4.97 Low Density Lipoprotein 73 mg/dL Less Than 100 59 Laboratory test 03/28/2009 [facility] PSA Screening 0.0 NG/ML 0-4 60 finding [address] [place] [address] [phone] Vitamin B12 And 03/28/2009 [facility] Vitamin B12 343 pg/mL 180-914 Folate Serum 101 [place] [address] [phone] Folic Acid 19.6 NG/ML High 2-16 Laboratory test 03/28/2009 [facility] TSH 2.00 MIU/ML 0.34- 5.60 finding [address] [place] [address] [phone] Protein 03/28/2009 [facility] Albumin 3.57 GM/DL 3.0-4.35 Electrophoresis Serum [address] [place] [address] [phone] Alpha 1 0.25 GM/DL 0.09-0.33 Alpha 2 0.96 GM/DL 0.59-1.18 Beta 0.79 GM/DL 0.68-1.02 Gamma 1.33 GM/DL 0.76-1.60 Albumin % 51.7 % 46-63 Alpha 1 % 3.6 % 1.2-5.3 Alpha 2 % 13.9 % 9-17 Beta % 11.4 % 10-16 Gamma % 19.3 % 12-22 A/G Ratio 1.1 0.9-2 Total Protein 6.9 GM/DL 6.2-8.1 Spep Comments (SEE NOTE) 61 Laboratory test 03/28/2009 [facility] Uric Acid 5.7 mg/dL 2.6 -7.[address] [place] [address] [phone] C Reactive Protein < 0.5 mg/dL Less Than 0.5 Estradiol 21 pg/mL 62 Laboratory test 03/28/2009 [facility] Lutenizing 10.88 MIU/ML [address] [place] [address] [phone] Testosterone Total 348.7 ng/dL 175-781 Comp Metabolic Panel 03/28/2009 [facility] Sodium 138 mmol/L 135-[address] [place] [address] [phone] Potassium 4.3 mmol/L 3.5-5.0 Chloride 105 mmol/L 101-111 Co2 (Carbon Dioxide) 28.0 mmol/L 22-32 Anion Gap 5.0 mmol/L 2-11 64 Glucose 93 mg/dL 70-100 65 BUN 11 mg/dL 6-24 Creatinine 1.20 mg/dL 0.50-1.40 One Over Creatinine 0.80 BUN/Creatinine Ratio 9.2 8-20 Calcium 9.2 mg/dL 8.1-9.9 66 Total Protein 6.7 GM/DL 6.2-8.1 Albumin 4.2 GM/DL 3.2-5.2 Globulin 2.5 GM/DL 2-4 Albumin/Globulin Ratio 1.7 1-3 Bilirubin Total 0.9 mg/dL 0.4-1.5 67 Alkaline Phosphatase 59 U/L 39-117 Alt (SGPT) 26 U/L 17-63 Ast (Sgot) 20 U/L 12-42 eGFR Non- 65.4 > 60 eGFR 79.2 > 60 68 Lipid Panel - 03/28/2009 [facility] CPK 100 U/L 0-[address] ([place] [address] Kinase) [phone] Laboratory 03/16/2009 [facility] Vad NONREACTIVE Nonreactive [address] [place] [address] [phone] Laboratory 02/07/2009 [facility] Throat NF 70 test finding [address] [place] [address] [phone] Laboratory 01/11/2009 [facility] Uric Acid 6.8 mg/dL 2.6-7.2 test finding [address] [place] [address] [phone] Testosterone Total 357.0 ng/dL 175-781 C Reactive Protein < 0.5 mg/dL Less Than 0.5 Laboratory test 01/11/2009 [facility] Lutenizing 10.20 MIU/ML [address] [place] [address] [phone] 1 SEE RESULT BELOW Name: JULIO RIVAS JR : [address]: Naeem Garza MD Acct: [id number] Unit: [id number] AGE: 71 Location: [facility] Re12/14/16 SEX: M Status: REG REF SPEC: [id number] MONICA: 12/14/16-[address]: Rogelio Garza MD REQ: [id number] RECD: [id number] STATUS: COMP _ SOURCE: STOOL SPDESC: ORDERED: O P: Giar/Crypt Procedure Result Reported Site O P: Giardia/Cryptospor Screen Final 12/17/16- 1009 ML Organism 1 Neg Cryptosporidium/Giardia Giardia and cryptosporidium antigen testing performed by enzyme immunoassay. If patient is immunocompromised or has traveled to or is from a developing country, a full ova and parasite exam with microscopic (OPMIC) is recommended. All samples will be held one month in case full ova and parasite testing is requested. Contact the Microbiology Department at [phone]. TEST LIMITATIONS: As with all diagnostic procedures, the results obtained should be used in conjunction with other clinical information available the physician, including confirmation by another method. Negative results can occur in samples containing antigen below lower limits of detection of the assay. One negative specimen does not rule out the possibility of a parasitic infection. To improve detection it is recommended that three specimens be collected on separate days over a period of not more than seven days. The use of colonic washes, aspirates or other diluted sample types has not been established and could affect the performance of the assay. Stool samples contaminated with an oily or particulate base (eg. Barium, mineral oil etc.) could interfere with the test and are not recommended. CONTINUED ON NEXT PAGE * ML=Testing performed at Main Lab DEPARTMENT OF PATHOLOGY, [address] [place] [address] Dannie Vitale M.D. Director [facility] # [id number] Patient: JULIO RIVAS JR [id number] (Continued) Specimen: [id number] Collected: 12/14/16 Received: 12/16/16 (Continued) Procedure Result Reported Site O P: Giardia/Cryptospor Screen Final (continued) 12/17/16 313 * ML - MAIN LAB ([facility]) . END OF REPORT * ML=Testing performed at Main Lab DEPARTMENT OF PATHOLOGY, [address] [place] [address] Dannie Vitale M.D. Director [facility] # [id number] 2 SOURCE: STOOL PARASITIC EXAMINATION FINAL No parasites seen. Cryptosporidium, Cyclospora, and microsporidia are not readily detected by this method. Single negative specimen does not rule out parasitic infection. Test Performed by: [address] [address] 3 Normal Range 180 to 914 Indeterminate Range 145 to 180 Deficient Range <145 4 SEE RESULT BELOW Name: JULIO RIVAS JR : [address]: Naeem Garza MD Acct: [id number] Unit: [id number] AGE: 70 Location: [facility] Re01/03/16 SEX: M Status: REG REF SPEC: [id number] MONICA: 01/03/16-[address]: Rogelio Garza MD REQ: [id number] RECD: 01/03/16 STATUS: COMP _ SOURCE: URINE SPDESC: ORDERED: Urine Culture COMMENTS: [id number] Procedure Result Reported Site Urine Culture Final 01/04/16- 1613 ML No Growth (<1,000 CFU/mL) * ML - MAIN LAB ([facility]) . END OF REPORT * ML=Testing performed at Main Lab DEPARTMENT OF PATHOLOGY, [address] [place] [address] Dannie Vitale M.D. Director [facility] # [id number] 5 Because ethnic data is not always readily available, this report includes an eGFR for both -Americans and non- Americans. The National Kidney Disease Education Program (NKDEP) does not endorse the use of the MDRD equation for patients that are not between the ages of 18 and 70, are , have extremes of body size, muscle mass, or nutritional status, or are non- or non-. According to the National Kidney Foundation, irrespective of diagnosis, the stage of the disease is based on the level of kidney function: Stage Description GFR(mL/min/1.73 m(2)) 1 Kidney damage with normal or decreased GFR 90 2 Kidney damage with mild decrease in GFR 60-89 3 Moderate decrease in GFR 30-59 4 Severe decrease in GFR 15-29 5 Kidney failure <15 (or dialysis) 6 Desirable <150 Borderline high 150-199 High 200-499 Very High >500 7 Desirable <200 Borderline high 200-239 High >239 8 Low <40 Desirable: 40-60 High: >60 9 Desirable: <100 mg/dL Near Optimal: 100-129 mg/dL Borderline High: 130-159 mg/dL High: 160-189 mg/dL Very High: >189 mg/dL 10 FINAL DIAGNOSIS: Specimen Source: Lymph node, left axilla ([id number]) Flow cytometry immunophenotypic analysis: No evidence of an immunophenotypically abnormal cell population. Interpretative data: Lymphocytes: 10% of gated events B-cells: 39% of lymphocytes; kappa:lambda within normal limits T-cells/NK cells: No aberrant population detected. Markers tested: CD3, CD5, CD7, CD16, CD19, CD20, CD23, CD45, kappa surface light chains, lambda surface light chains, 7-AAD. Quality Assessment: Acceptable Viability: Acceptable Viable lymphocytes (7-AAD): 81% Specimen received within validated guidelines. A Briones-Giemsa stained slide prepared from the flow cytometry specimen was examined for quality purposes. Electronically signed by: Sary Laws MD Technical component performed by: [place] [address] Distance Education Director: Jomar Vaughan II, MD, PhD. 11 FINAL DIAGNOSIS: Specimen Source: Lymph node, left axilla ([id number]) Flow cytometry immunophenotypic analysis: No evidence of an immunophenotypically abnormal cell population. Interpretative data: Lymphocytes: 10% of gated events B-cells: 39% of lymphocytes; kappa:lambda within normal limits T-cells/NK cells: No aberrant population detected. Markers tested: CD3, CD5, CD7, CD16, CD19, CD20, CD23, CD45, kappa surface light chains, lambda surface light chains, 7-AAD. Quality Assessment: Acceptable Viability: Acceptable Viable lymphocytes (7-AAD): 81% Specimen received within validated guidelines. A Briones-Giemsa stained slide prepared from the flow cytometry specimen was examined for quality purposes. Electronically signed by: Sary Laws MD Technical component performed by: [facility] [place] [address] Distance Education Director: Jomar Vaughan II, MD, PhD. 12 SEE RESULT BELOW Name: JULIO RIVAS : [address]: Naeem Garza MD Acct: [id number] Unit: [id number] AGE: 69 Location: LAB Re12/21/14 SEX: M Status: REG REF SPEC: [id number] MONICA: 12/21/[address]: Dannie Vitale MD REQ: [id number] RECD: 12/21/14 STATUS: YAA PETTIT DR: Rogelio Garza MD _ ORDERED: FN ASP SUPERFIC, FN ASP PALP, FNA IMMEDIATE S, PATH CONSULT, Leukemia/Ly Flow cytometry has been performed at [facility], [place], [place]. The testing reveals: FINAL DIAGNOSIS: Specimen Source: Lymph node, left axilla ([id number]) Flow cytometry immunophenotypic analysis: No evidence of an immunophenotypically abnormal cell population. Interpretative data: Lymphocytes: 10% of gated events B-cells: 39% of lymphocytes; kappa:lambda within normal limits T-cells/NK cells: No aberrant population detected. Markers tested: CD3, CD5, CD7, CD16, CD19, CD20, CD23, CD45, kappa surface light chains, lambda surface light chains, 7-AAD. Quality Assessment: Acceptable Viability: Acceptable Viable lymphocytes (7-AAD): 81% Specimen received within validated guidelines. A Briones-Giemsa stained slide prepared from the flow cytometry specimen was examined for quality purposes. Electronically signed by: Sary Laws MD Technical component performed by: [address] [address] Distance Education Director: Jomar Vaughan II, MD, PhD. CONTINUED ON NEXT PAGE * ML=Testing performed at Main Lab DEPARTMENT OF PATHOLOGY, [address] [address] Dannie Vitale M.D. Director [facility] # [id number] RUN DATE: 12/25/14 [facility] LAB LIVE PAGE 2 Patient: JULIO RIVAS JR [id number] (Continued) ADDENDUM (Continued) Addendum Signed (signature on file) Dannie Vitale MD 1049 FINAL DIAGNOSIS Lymph node, left axilla, fine needle aspiration by palpation; -- Benign lymphoid tissue. COMMENT: Slides show small lymphocytes and fibroadipose tissue. Flow cytometry is negative for an immunophenotypically abnormal cell population. There is no evidence of metastatic carcinoma. The procedure was explained to and understood by the patient. Signed consent was obtained and a time out procedure was performed at the bedside to verify patient identity and biopsy site. Fine needle aspiration biopsy was performed times 2 with a 25 gauge needle on enlarged lymph node in the left axilla. Adequacy was assessed by fast stain technique. The procedure was tolerated well without complications. AXILLA LEFT - LEFT AXILLA FINE NEEDLE ASPIRATION BY PALPATION CLINICAL HISTORY Enlarged lymph node, left axilla CONTINUED ON NEXT PAGE * ML=Testing performed at Main Lab DEPARTMENT OF PATHOLOGY, [address] [place] [address] Dannie Vitale M.D. Director [facility] # [id number] RUN DATE: 12/25/14 [facility] LAB LIVE PAGE 3 Patient: JULIO RIVAS JR [id number] (Continued) IMMEDIATE INTERPRETATION (Continued) IMMEDIATE INTERPRETATION Pass 1 2-adequate GROSS DESCRIPTION Fine needle aspiration by palpation x 2 passes with 2 Alcohol fixed slide(s) and FLOW Cytometry sent to [facility]. Signed (signature on file) Sary Laws MD 1607 END OF REPORT * ML=Testing performed at Main Lab DEPARTMENT OF PATHOLOGY, [address] [place] [address] Dannie Vitale M.D. Director [facility] # [id number] 13 Desirable <150 Borderline high 150-199 High 200-499 Very High >500 14 Desirable <200 Borderline high 200-239 High >239 15 Low <40 Desirable: 40-60 High: >60 16 Desirable: <100 mg/dL Near Optimal: 100-129 mg/dL Borderline High: 130-159 mg/dL High: 160-189 mg/dL Very High: >189 mg/dL 17 Because ethnic data is not always readily available, this report includes an eGFR for both -Americans and non- Americans. The National Kidney Disease Education Program (NKDEP) does not endorse the use of the MDRD equation for patients that are not between the ages of 18 and 70, are , have extremes of body size, muscle mass, or nutritional status, or are non- or non-. According to the National Kidney Foundation, irrespective of diagnosis, the stage of the disease is based on the level of kidney function: Stage Description GFR(mL/min/1.73 m(2)) 1 Kidney damage with normal or decreased GFR 90 2 Kidney damage with mild decrease in GFR 60-89 3 Moderate decrease in GFR 30-59 4 Severe decrease in GFR 15-29 5 Kidney failure <15 (or dialysis) 18 RUN DATE: 03/02/14 [facility] LAB LIVE PAGE 1 RUN TIME: [address] [place] [address] Specimen Inquiry Name: JULIO RIVAS JR : [address]: Naeem Garza MD Acct: [id number] Unit: [id number] AGE: 68 Location: [facility] Re02/28/14 SEX: M Status: REG REF SPEC: [id number] MONICA: 02/28/[address]: Rogelio Garza MD REQ: [id number] RECD: 02/28/14 STATUS: COMP _ SOURCE: THROAT SPDESC: ORDERED: Throat Culture QUERIES: [employer] Number [id number] Procedure Result Verified Site Throat Culture Final 03/02/14- 923 ML Organism 1 NORMAL ANA Quantity 1+ END OF REPORT * ML=Testing performed at Main Lab DEPARTMENT OF PATHOLOGY, [address] [place] [address] Dannie Vitale M.D. Director [facility] # [id number] 19 Fasting 20 Because ethnic data is not always readily available, this report includes an eGFR for both -Americans and non- Americans. The National Kidney Disease Education Program (NKDEP) does not endorse the use of the MDRD equation for patients that are not between the ages of 18 and 70, are , have extremes of body size, muscle mass, or nutritional status, or are non- or non-. According to the National Kidney Foundation, irrespective of diagnosis, the stage of the disease is based on the level of kidney function: Stage Description GFR(mL/min/1.73 m(2)) 1 Kidney damage with normal or decreased GFR 90 2 Kidney damage with mild decrease in GFR 60-89 3 Moderate decrease in GFR 30-59 4 Severe decrease in GFR 15-29 5 Kidney failure <15 (or dialysis) 21 Testing performed by [facility]. 22 Testing performed by Liquid Chromatography-Tandem Mass Spectrometry (LC-MS/MS). Test Performed by: [place] [address] Distance Education Director: Arthur Eubanks III, M.D. 23 Test Performed by: [address] [address] Distance Education Director: Arthur R. Cockerill, III, M.D. 24 -- REFERENCE VALUE -- <20.0 (Negative) Test Performed by: [place] [address] Distance Education Director: Arthur Eubanks III, M.D. 25 Test Performed by: [place] [address] Distance Education Director: Arthur Eubanks III, M.D. 26 FASTING 27 FASTING 28 HDL Interpretation: Undesirable: High Risk: Less than 40 mg/dL Desirable: Low Risk: Greater than 60 mg/dL 29 LDL Interpretation: Low Risk Optimal Level: LDL Less than 100 mg/dL Near or Above Optimal: LDL 100-129 mg/dL Borderline High Risk: LDL 130-159 mg/dL High Risk: LDL 160-189 mg/dL Very High Risk: LDL Greater than 189 mg/dL 30 Testing performed by [facility]. 31 Testing performed by Liquid Chromatography-Tandem Mass Spectrometry (LC-MS/MS). Test Performed by: [place] [address] Distance Education Director: Arthur Eubanks III, M.D. 32 Because ethnic data is not always readily available, this report includes an eGFR for both -Americans and non- Americans. The National Kidney Disease Education Program (NKDEP) does not endorse the use of the MDRD equation for patients that are not between the ages of 18 and 70, are , have extremes of body size, muscle mass, or nutritional status, or are non- or non-. According to the National Kidney Foundation, irrespective of diagnosis, the stage of the disease is based on the level of kidney function: Stage Description GFR(mL/min/1.73 m(2)) 1 Kidney damage with normal or decreased GFR 90 2 Kidney damage with mild decrease in GFR 60-89 3 Moderate decrease in GFR 30-59 4 Severe decrease in GFR 15-29 5 Kidney failure <15 (or dialysis) 33 HDL Interpretation: Undesirable: High Risk: Less than 40 MG/DL Desirable: Low Risk: Greater than 60 MG/DL 34 LDL Interpretation: Low Risk Optimal Level: LDL Less than 100 MG/DL Near or Above Optimal: LDL 100-129 MG/DL Borderline High Risk: LDL 130-159 MG/DL High Risk: LDL 160-189 MG/DL Very High Risk: LDL Greater than 189 MG/DL 35 Test Performed by: [facility] [address] [address] Distance Education Director: Arthur Eubanks III, M.D. 36 NONFASTING 37 Anion gap measurement may be of limited value in the presence of any alkalosis, especially in a combined acid base disorder. . 38 A metabolite of Naproxen, O-desmethylnaproxen, has been shown to interfere with the Jendrassik-Gisselle method for measuring total bilirubin. Samples from patients who have taken Naproxen have shown spurious elevation in total bilirubin levels. 39 Because ethnic data is not always readily available, this report includes an eGFR for both -Americans and non- Americans. The National Kidney Disease Education Program (NKDEP) does not endorse the use of the MDRD equation for patients that are not between the ages of 18 and 70, are , have extremes of body size, muscle mass, or nutritional status, or are non- or non-. According to the National Kidney Foundation, irrespective of diagnosis, the stage of the disease is based on the level of kidney function: Stage Description GFR(mL/min/1.73 m(2)) 1 Kidney damage with normal or decreased GFR 90 2 Kidney damage with mild decrease in GFR 60-89 3 Moderate decrease in GFR 30-59 4 Severe decrease in GFR 15-29 5 Kidney failure <15 (or dialysis) 40 Because ethnic data is not always readily available, this report includes an eGFR for both -Americans and non- Americans. The National Kidney Disease Education Program (NKDEP) does not endorse the use of the MDRD equation for patients that are not between the ages of 18 and 70, are , have extremes of body size, muscle mass, or nutritional status, or are non- or non-. According to the National Kidney Foundation, irrespective of diagnosis, the stage of the disease is based on the level of kidney function: Stage Description GFR(mL/min/1.73 m(2)) 1 Kidney damage with normal or decreased GFR 90 2 Kidney damage with mild decrease in GFR 60-89 3 Moderate decrease in GFR 30-59 4 Severe decrease in GFR 15-29 5 Kidney failure <15 (or dialysis) 41 * SERUM LEVELS OF PSA MEASURED USING THE ZINA MARY ACCESS HYBRITECH IMMUNOASSAY SHOULD NOT BE INTERPRETED ABSOLUTE EVIDENCE OF THE PRESENCE OR ABSENCE OF DISEASE. THE PSA VALUE SHOULD BE USED IN CONJUNCTION WITH OTHER PERTINENT CLINICAL DIAGNOSTIC PROCEDURES. A PSA value in the range of 0.1 to 0.6 ng/ml is indeterminate if being used as an indicator of recurrent or residual disease. . The values obtained with different assay methods of kits cannot be used interchangeably. 42 RUN DATE: 03/25/11 [facility] NMI LIVE PAGE 1 RUN TIME: 818 Specimen Inquiry RUN USER: INTERFACE Name: JULIO RIVAS JR Status: REG REF Re03/24/11 Age/Sex: 65/M Unit#: [id number] Location: [facility] : 47 SPEC #: [id number] MONICA: 03/24/11-5562 STATUS: SAYDA ALCANTARA #: [id number] RECD: 03/24/[address]: Christine ABREU,Vinh Zavaleta SOURCE: CLOTEST ENTR: 03/24/11-[address]: Kayla ABREU,Naeem Zavaleta [facility]: ORDERED: CLOTEST Procedure Result Verified Site > CLOTEST Final 03/25/11- 817 ML CLOTEST NEGATIVE - [facility] Permit #[id number] [facility] [address] DEPARTMENT OF PATHOLOGY, [facility], [place] [address] [facility] Permit #[id number] Dannie Vitale M.D. Director Jesse Bonner M.D. Document Clerk 43 ---- RUN DATE: 03/26/11 [facility] NMI LIVE PAGE 1 RUN TIME: 1442 Specimen Inquiry RUN USER: INTERFACE -- Name: JULIO RIVAS JR#: [id number] Status: REG REF Re03/24/11 Age/Sex: 65/M Unit#: [id number] Location: END : 47 -- Specimen: [id number] Spec Date: 03/24/[address]: Vinh marquez MD Spec Type: SURGICAL P Received: 03/25/11 Copies to: Rogelio hennessy MD SPECIMEN GASTRIC BIOPSY HISTORY POST-OP DIAGNOSIS: Esophagus - normal; stomach - gastritis, biopsied; du odenum - normal CLINICAL INFORMATION: Reflux disease GROSS DESCRIPTION The specimen is received in formalin labelled Julio Rivas Jr., Gastric Biopsy, and consists of two fragments of yellow tissue each measuring 0.3 x 0.2 x 0.2 cm. Submitted entirely, one cassette. DIAGNOSIS Stomach, biopsy: A. Body type mucosa with focal gland dilatation. B. No evidence of acute gastritis. C. Helicobacter pylori-like microorganisms are not seen. Signed Electronically by: JESSE BONNER 03/26/11 1442 -- -- DEPARTMENT OF PATHOLOGY, [address] [place] [address] [facility] Permit #[id number] Dannie Vitale M.D. Director Jesse Bonner M.D. [employer] Kn[employer] Dir farida -- 44 EXPECTED RESULTS (pg/ml) MALES 20-75 POSTMENOPAUSAL FEMALES 20-88 NON FEMALES Mid-Follicular Phase 24-114 Periovulatory 62-534 Mid Luteal Phase 80-273 45 Test Performed by: [facility] Dpt of Lab Med and Pathology [address] [place] [address] Distance Education Director: Arthur Eubanks III, M.D. 46 Test Performed by: [facility] Dpt of Lab Med and Pathology [address] [place] [address] Distance Education Director: Arthur Eubanks III, M.D. 47 NORMAL RANGE MALES 1 - 20 NORMALLY MENSTRUATING FEMALES - Follicular Phase 3 - 9 - Mid-Cycle Peak 4 - 23 - Luteal Phase 1 - 6 POSTMENOPAUSAL FEMALES 16 - 114 . 48 NORMAL RANGE MALES 2 - 12 NORMALLY MENSTRUATING FEMALES - Follicular Phase 1 - 18 - Mid-Cycle Peak 24 - 105 - Luteal Phase 0.6 - 20 POSTMENOPAUSAL FEMALES 15 - 62 . 49 CHOLESTEROL INTERPRETATION: Desirable: Less than 200 MG/DL Borderline-High Risk: 200-239 MG/DL High-Risk: 240 MG/DL and over 50 HDL INTERPRETATION: Undesirable: High Risk: Less than 40 MG/DL Desirable: Low Risk: Greater than 60 MG/DL 51 LDL INTERPRETATION: Low Risk Optimal Level: LDL Less than 100 MG/DL Near or Above Optimal: LDL 100-129 MG/DL Borderline High Risk: LDL 130-159 MG/DL High Risk: LDL 160-189 MG/DL Very High Risk: LDL Greater than 189 MG/DL 52 Anion gap measurement may be of limited value in the presence of any alkalosis, especially in a combined acid base disorder. . 53 A metabolite of Naproxen, O-desmethylnaproxen, has been shown to interfere with the Jendrassik-Gsiselle method for measuring total bilirubin. Samples from patients who have taken Naproxen have shown spurious elevation in total bilirubin levels. 54 Because ethnic data is not always readily available, this report includes an eGFR for both -Americans and non- Americans. The National Kidney Disease Education Program (NKDEP) does not endorse the use of the MDRD equation for patients that are not between the ages of 18 and 70, are , have extremes of body size, muscle mass, or nutritional status, or are non- or non-. According to the National Kidney Foundation, irrespective of diagnosis, the stage of the disease is based on the level of kidney function: Stage Description GFR(mL/min/1.73 m(2)) 1 Kidney damage with normal or decreased GFR 90 2 Kidney damage with mild decrease in GFR 60-89 3 Moderate decrease in GFR 30-59 4 Severe decrease in GFR 15-29 5 Kidney failure <15 (or dialysis) 55 EXPECTED RESULTS (pg/ml) MALES 20-75 POSTMENOPAUSAL FEMALES 20-88 NON FEMALES Mid-Follicular Phase 24-114 Periovulatory 62-534 Mid Luteal Phase 80-273 56 FASTING FASTING FASTING 57 CHOLESTEROL INTERPRETATION: Desirable: Less than 200 MG/DL Borderline-High Risk: 200-239 MG/DL High-Risk: 240 MG/DL and over 58 HDL INTERPRETATION: Undesirable: High Risk: Less than 40 MG/DL Desirable: Low Risk: Greater than 60 MG/DL 59 LDL INTERPRETATION: Low Risk Optimal Level: LDL Less than 100 MG/DL Near or Above Optimal: LDL 100-129 MG/DL Borderline High Risk: LDL 130-159 MG/DL High Risk: LDL 160-189 MG/DL Very High Risk: LDL Greater than 189 MG/DL 60 * SERUM LEVELS OF PSA MEASURED USING THE ZINA [employer] ACCESS HYBRITECH IMMUNOASSAY SHOULD NOT BE INTERPRETED ABSOLUTE EVIDENCE OF THE PRESENCE OR ABSENCE OF DISEASE. THE PSA VALUE SHOULD BE USED IN CONJUNCTION WITH OTHER PERTINENT CLINICAL DIAGNOSTIC PROCEDURES. A PSA value in the range of 0.1 to 0.6 ng/ml is indeterminate if being used as an indicator of recurrent or residual disease. . 61 NORMAL ELECTROPHORETIC PATTERN. 62 EXPECTED RESULTS (pg/ml) MALES 20-75 POSTMENOPAUSAL FEMALES 20-88 NON FEMALES Mid-Follicular Phase 24-114 Periovulatory 62-534 Mid Luteal Phase 80-273 63 NORMAL RANGE MALES 2 - 12 NORMALLY MENSTRUATING FEMALES - Follicular Phase 1 - 18 - Mid-Cycle Peak 24 - 105 - Luteal Phase 0.6 - 20 POSTMENOPAUSAL FEMALES 15 - 62 . 64 Anion gap measurement may be of limited value in the presence of any alkalosis, especially in a combined acid base disorder. . 65 Note change in reference range as of 10/21/07. The change was based on recommendations from the [place] [employer]. 66 Please note change in reference range effective 07 . 67 A metabolite of Naproxen, O-desmethylnaproxen, has been shown to interfere with the Jendrassik-[place] method for measuring total bilirubin. Samples from patients who have taken Naproxen have shown spurious elevation in total bilirubin levels. 68 Because ethnic data is not always readily available, this report includes an eGFR for both -Americans and non- Americans. The National Kidney Disease Education Program (NKDEP) does not endorse the use of the MDRD equation for patients that are not between the ages of 18 and 70, are , have extremes of body size, muscle mass, or nutritional status, or are non- or non-. According to the National Kidney Foundation, irrespective of diagnosis, the stage of the disease is based on the level of kidney function: Stage Description GFR(mL/min/1.73 m(2)) 1 Kidney damage with normal or decreased GFR 90 2 Kidney damage with mild decrease in GFR 60-89 3 Moderate decrease in GFR 30-59 4 Severe decrease in GFR 15-29 5 Kidney failure <15 (or dialysis) 69 FINAL INTERPRETATION: No HIV antibody is detected. . This information has been disclosed to you from confidential records which are protected by [place] State law. State law prohibits you from making further disclosure of this information without the specific written consent of the person to whom it pertains, or as otherwise permitted by law. Any unauthorized further disclosure in violation of state law may result in a fine or group home sentence or both. General authorization for the release of medical or other information is not, except in limited circumstances set forth in Part 63, Title 10, of [place], sufficient authorization for further disclosure. Disclosure of confidential HIV information that occurs as the result of a general authorization for the release of medical or other information will be in violation of the state law and may result in a fine or a group home sentence. . 70 NORMAL THROAT ANA 71 NORMAL RANGE MALES 2 - 12 NORMALLY MENSTRUATING FEMALES - Follicular Phase 1 - 18 - Mid-Cycle Peak 24 - 105 - Luteal Phase 0.6 - 20 POSTMENOPAUSAL FEMALES 15 - 62 . Procedures Date Code Description Status 03/23/2017 99538 EKG Tracing & Interpretation Completed 09/10/2016 30371 Anoscopy Completed 02/05/2016 57091 ECHO Transthoracic, Real-Time 2D With Doppler And Color Completed Flow 01/10/2016 69464 Holter Monitor Review (24 hr)dr morataya & interp only Completed 01/08/2016 24602 ECG Monitor/Recording W/Visual Superimposition Scanning Completed 01/03/2016 04998 EKG Tracing & Interpretation Completed 05/09/2014 14343 Inject/Drain Joint/Bursa Major W/O US Completed 12/23/2011 35147 Inject/Drain Joint/Bursa Major W/O US Completed 09/06/2010 53561 Holter Monitor Review (24 hr)dr morataya & interp only Completed 09/06/2010 69816 Holter Monitoring 24 HR New Completed 07/10/2010 32195 ECHO Stress Test Incl Perf Contiuous ekg Monitoring Completed W/Phys Superv 09/09/2007 [id number] Colonoscopy Completed Encounters Type Date Location Provider Dx Diagnosis Office Visit 03/23/2017 [facility] Maximino S. 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 Of Tie Puller DO Maximus FAC depolarization E83.42 Hypomagnesemia R00.2 Palpitations Office Visit 10/15/2016 3:40p [facility] Internal Romina Caraballo, L03.115 Cellulitis of Medicine - [employer] right lower limb Suite R S80.811A Abrasion, right lower leg, initial encounter Office Visit 09/10/2016 Surgical Sohail Bernal K64.4 Residual 1:30p [facility] Stacey hemorrhoidal skin Tie Puller tags Office Visit 08/29/2016 [facility] Internal Rogelio Zavaleta R19.5 Other fecal 4:00p Medicine - Suite Juan Carlos Garza,FACP abnormalities R K64.8 Other hemorrhoids R51 Headache Office Visit 05/01/2016 4:40p [facility] Internal Mark Anthony H81.393 Other peripheral Medicine - Juan Carlos Evans vertigo, Suite R bilateral M79.671 Pain in right foot Office Visit 04/14/2016 4:20p [facility] Internal Rogelio Garza, R51 Headache Medicine - [facility] H92.03 Otalgia, bilateral H10.45 Other chronic allergic conjunctivitis Office Visit 03/24/2016 3:40p [facility] Internal Rogelio Zavaleta I49.3 Ventricular Parish Garza M.D.,FACP premature Suite R depolarization L04.9 Acute lymphadenitis, unspecified Office Visit 02/12/2016 1:00p Surgical Zuhair Raymond K40.90 Unil inguinal [facility] Yann Escoto M.D. hernia, w/o obst or gangr, not spcf as recur Office Visit 01/03/2016 4:00p [facility] Internal Rogelio Zavaleta R00.2 Palpitations Medicine - Jase Ramos M.D.,[facility] N39.0 Urinary tract infection, site not specified K40.90 Unil inguinal hernia, w/o obst or gangr, not spcf as recur Z23 Encounter for immunization Office Visit 08/08/2015 2:20p [facility] Internal Rogelio Zavaleta Z00.01 Encounter for Parish Garza M.D.,[facility] general adult Suite R medical exam w abnormal findings D53.9 Nutritional anemia, unspecified E78.0 Pure hypercholesterolemia R73.01 Impaired fasting glucose Office Visit 07/11/2015 1:40p [facility] Internal Rogelio Zavaleta M25.511 Pain in right Parish [facility] M.D[facility] shoulder Suite R Office Visit 05/18/2015 3:40p [facility] Internal Rogelio Zavaleta M25.511 Pain in right Parish Garza M.D.,[facility] shoulder Suite R H60.8x3 Other otitis externa, bilateral Office Visit 12/27/2014 3:40p [facility] Internal Rogelio Zavaleta I88.9 Nonspecific Parish Gar[facility] M.D[facility] lymphadenitis, Suite R unspecified N64.4 Mastodynia 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 K40.90 Unil inguinal hernia, w/o obst or gangr, not spcf as recur Z23 Encounter for immunization Office Visit 12/11/2014 1:40p [facility] Internal Rogelio Zavaleta M79.673 Pain in Medicine Daja Garza M.D.,FACP unspecified foot Suite R R59.0 Localized enlarged lymph nodes E78.0 Pure hypercholesterolemia Office Visit 10/05/2014 4:40p [facility] Internal Rogelio Zavaleta 461.8 Sinusitis Acute Medicine - Suite Juan Carlos Garza,FACP Other R Office Visit 08/03/2014 2:30p Orthopedic Cris Cruz 726.10 [facility]ae [facility] Tendon Services Of RPA-C Disorders C.M.A. Shoulder Region Unspec Office Visit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
--- NOTE | 2018-09-17 17:57 | ED ---
Skin Complaint - HPI Summary HPI Summary: 72 yo male presents to [facility] with two red painful bumps under his left armpit that have been growing in size over the last 3-4 days. He states he had something similar on his buttocks a few years ago that required drainage. He is feeling well otherwise and denies fever, chills, recent illness. No hx of MRSA that he is aware of. - History of Current Complaint Chief Complaint: EDGeneral Time Seen by Provider: 09/17/18 17:57 Stated Complaint: BUMPS UNDER LEFT ARMPIT PER PT Hx Obtained From: Patient Onset Severity: Mild Current Severity: Mild Pain Intensity: 1 Pain Scale Used: 0-10 Numeric - Allergy/Home Medications Allergies/Adverse Reactions: Allergies Allergy/AdvReac Type Severity Reaction Status Date / Time Penicillins Allergy Unknown Verified 08/24/18 15:55 Reaction Details red dye Allergy Facial Verified 08/24/18 15:55 Redness/Flushing Sulfa (Sulfonamide Allergy Unknown Verified 08/24/18 15:55 Antibiotics) Reaction Details PMH/Surg Hx/FS Hx/Imm Hx Endocrine/Hematology History: Reports: Hx Anemia Denies: Hx Anticoagulant Therapy, Hx Blood Disorders, Hx Blood Transfusions, Hx Diabetes, Hx Systemic Lupus Erythematosus, Hx Thyroid Disease, Hx Unexplained Bleeding Cardiovascular History: Reports: Hx Angina - DOESN;T TAKE ANYTHING FOR THIS, 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" - no meds, Other Cardiovascular Problems/Disorders - "arrhythmia" in the past - no meds Denies: Hx Aneurysm, Hx Atrial Fibrillation, Hx Cardiomegaly, Hx Congenital Heart Disease, Hx Congestive Heart Failure, Hx Coronary Artery Disease, Hx Deep Vein Thrombosis, Hx Hypercholesterolemia, Hx Hypotension, Hx Hypertension, Hx Myocardial Infarction, Hx Pacemaker/ICD, Hx Peripheral Vascular Disease, Hx Rheumatic Fever, Hx Syncope Respiratory History: Reports: Hx Asthma - INHALER, Hx Pneumonia, Hx Seasonal Allergies, Other Respiratory Problems/Disorders - pleurisy, bronchitis IN THE PAST Denies: Hx Chronic Obstructive Pulmonary Disease (COPD), Hx Pulmonary Edema, Hx Pulmonary Embolism, Hx Sleep Apnea GI History: Reports: Other GI Disorders - Hep A and Hep B - followed by PCP - no issues at this time Denies: Hx Crohn's Disease, Hx Diverticulosis, Hx Gall Bladder Disease, Hx Gastroesophageal Reflux Disease, Hx Gastrointestinal Bleed, Hx Hiatal Hernia, Hx Irritable Bowel, Hx Obstructive Bowel, Hx Ulcer History: Reports: Other Problems/Disorders - ENLARGED PROSTATE Musculoskeletal History: Reports: Hx Arthritis - R/A, Hx Back Problems - wears an elastic wrap but makes blood pressure increase while on Sensory History: Reports: Hx Cataracts, Hx Contacts or Glasses - GLASSES Denies: Hx Hearing Aid Opthamlomology History: Reports: Hx Cataracts, Hx Contacts or Glasses - GLASSES Neurological History: Reports: Hx Migraine, Other Neuro Impairments/Disorders - HX DISK PROBLEM 1967 Psychiatric History: Reports: Hx Anxiety, Hx Depression, Hx Panic Disorder - Cancer History Cancer Type, Location and Year: None reported - Surgical History Surgery Procedure, Year, and Place: BILATERAL BREAST GLAND SURGERY 2007&1973 Hx Anesthesia Reactions: No - Immunization History Date of Influenza Vaccine: 11/2016 Infectious Disease History: No Infectious Disease History: Reports: Hx Hepatitis Denies: Traveled Outside the [place] in Last 30 Days - Family History Known Family History: Positive: Cardiac Disease - mom, Hypertension, Diabetes Negative: Blood Disorder - Social History Alcohol Use: None Hx Substance Use: No Substance Use Type: Reports: Prescribed Hx Tobacco Use: No Smoking Status (MU): Never Smoked Tobacco Have You Smoked in the Last Year: No Review of Systems Constitutional: Negative Eyes: Negative ENT: Negative Cardiovascular: Negative Respiratory: Negative Gastrointestinal: Negative Skin: Other - Left axilla red bumps Neurological: Negative Psychological: Normal All Other Systems Reviewed And Are Negative: Yes Physical Exam - Summary Physical Exam Summary: GENERAL: NAD. WDWN. No pain distress. SKIN: LEFT AXILLA: 1.0cm erythematous nodule with fluctuance and TTP. Similar appearing nodule 5mm in size just inferior to this. No drainage, streaking, or bleeding. NECK: Supple. Nontender. No lymphadenopathy. CHEST: No accessory muscle use. Breathing comfortably and in no distress. CV: Pulses intact. Cap refill <2seconds NEURO: Alert. PSYCH: Age appropriate behavior. Triage Information Reviewed: Yes Vital Signs On Initial Exam: Initial Vitals Temp Pulse Resp BP Pulse Ox 99.6 F 75 18 140/79 97 09/17/18 16:17 09/17/18 16:17 09/17/18 16:17 09/17/18 16:17 09/17/18 16:17 Vital Signs Reviewed: Yes Diagnostics - Vital Signs Vital Signs Temp Pulse Resp BP Pulse Ox 09/17/18 16:17 99.6 F 75 18 140/79 97 - Laboratory Lab Statement: Any lab studies that have been ordered have been reviewed, and results considered in the medical decision making process. Course/Dx - Course Course Of Treatment: Abscess left axilla. The procedure was explained to the pt and all questions were answered. A time out was performed, witnessed, and signed. The area was cleansed with an alcohol pad. 1mL of 2% lidocaine without epi was administered and good anesthetization was achieved. A #11 blade was used to make a 3mm vertical incision at each abscess. Mild thick yellow purulent material was able to be expressed. The wound was bandaged with telfa. Pt tolerated procedure well. - Diagnoses Provider Diagnoses: Abscess of left axilla Discharge - Sign-Out/Discharge Documenting (check all that apply): Patient Departure Patient Received Moderate/Deep Sedation with Procedure: No - Discharge Plan Condition: Stable Disposition: HOME Prescriptions: DOXYcycline CAP(*) [DOXYcycline 100MG CAP(*)] 100 mg PO BID #14 cap Patient Education Materials: Abscess (ED) Referrals: Michael Perez PA [Primary Care Provider] - Additional Instructions: If you develop a fever, shortness of breath, chest pain, new or worsening symptoms - please call your PCP or go to the ED immediately. Your blood pressure was high at todays visit. Please see your primary provider within 4 weeks for recheck and re-evaluation. Change the dressing to your left armpit daily until well healed. Please schedule a recheck with your primary doctor in 5 days - Billing Disposition and Condition Condition: STABLE Disposition: Home
[2018-09-17] MEDS ORDERED: Lidocaine 1% INJ* 10 MG/ML 30 ML SDV INJ ONE (18:00)
[2018-09-17 18:57] VITALS: BP 145/92
== END 2018-09-17 18:55 | disposition home or self-care (01) ==
LOC: ED 16:16
DX: L02.412 Cutaneous abscess of left axilla (principal); Z88.0 Allergy status to penicillin; Z88.2 Allergy status to sulfonamides; D64.9 Anemia, unspecified; I20.9 Angina pectoris, unspecified; I05.9 Rheumatic mitral valve disease, unspecified; J45.909 Unspecified asthma, uncomplicated
CPT/HCPCS: 10060; 96372; 99282

== ENCOUNTER 2018-11-01 15:53 | Emergency (ER) | payer MEDICARE, MEDICAID ==
[2018-11-01] MEDS ORDERED: Tetan/Diph/Pertus SYR(Tdap)* 0.5 ML SYR(BOOSTRIX) use SYR IM ONE (16:17)
--- OUTSIDE RECORDS SUMMARY | 2018-11-01 16:40 | XMS REPORT ---
:1945 Author Organization [facility] Address [address] [place] [address] Care Team Providers Name Role Phone Michael Perez Unavailable Unavailable PROBLEMS Type Condition ICD9-CM Code YIL99-WT Code Onset Condition SNOMED Code Dates Status Problem High cholesterol E78.00 Active 55351945 Problem History of Z86.59 Active 152610603 depression Problem Chronic GERD K21.9 Active 587791834 Problem Right inguinal K40.90 Active 862712323 hernia Problem Environmental Z91.09 Active 283424615 allergies Problem Overweight (BMI E66.3 Active 450647708 25.0-29.9) Problem Migraine without G43.009 Active 376222077 aura and without status migrainosus, not intractable ALLERGIES No Information ENCOUNTERS Encounter Location Date Diagnosis [address] Aug, [place] [address] Aug, [place] [address] Aug, [place] [address] Aug, [place] [address] Jul, [place] [address] [facility] [address] [facility] Jul, [place] [address] Jul, [place] [address] [facility] [address] [facility] [place], [place] [address] Jul, [facility] [place] [address] [place] [address] [facility] [place] June, Mood disorder F39 ; [place] [address] Environmental allergies Z91.09 ; Chronic GERD K21.9 and High cholesterol E78.00 [facility] [address] [place], [place] [address] [place], [place] [address] [address]91[address] June, [place] [address] June, [place] [address] [place] [address] [address] [place] June, Mood disorder F39 [place] [address] June, Mood disorder F39 [place] [address] June, Mood disorder F[address] [place] [address] [place] [address] [address] [place] June, [place] [address] M25.512 and Environmental allergies Z91.09 [place] [address] [address] [place] May, [place] [address] disorders Z13.220 [place] [address] [address] [place] May, [place] [address] May, Sore throat J02.9 ; [place] [address] disorder F39 and Chronic GERD K21.9 [place] [address] [address] [place] May, [place] [address] [place] [address] [address] [place] May, Bilateral [place] [address] effusion H65.93 [place] [address] [address] [place] May, [place] [address] May, [facility] [place] [address] [place] [address] [address] [place] Apr, Left upper [place] [address] R10.12 and Right inguinal hernia K40.90 [place] [address] [address] [place] Apr, [place] [address] [facility] - [place] [facility] [address] Apr, [place] [address] [place] [address] [address] [place] Apr, [place] [address] Mar, Cellulitis, neck L03.221 [place] [address] Mood disorder F39 [address] Jan, [place] [address] [facility] [address] [place] [address] Jan, [place] [address] Jan, [place] [address] [facility] [address] [facility] Jan, [place] [address] Jan, [place] [address] Dec, [place] [address] Dec, Diarrhea [place] [address] infectious origin R19.[address] Dec, Skin rash R21 ; [place] [address] blood pressure reading without diagnosis of hypertension R03.0 and Shaking R25.[address] Nov, [place] [address] Nov, Dermatitis L30.9 ; [place] [address] without aura and without status migrainosus, not intractable G43.009 ; Elevated blood pressure reading without diagnosis of hypertension R03.0 and Encounter for immunization Z23 [facility] [address] [facility] Nov, [place] [address] Nov, Mood disorder F39 [place] [address] [facility] [address] [facility] Nov, Mood disorder F39 [place] [address] Nov, [place] [address] Oct, [place] [address] Oct, Mood disorder F39 [place] [address] Sep, Migraine [place] [address] without status migrainosus, not intractable G43.009 and Chronic fatigue R53.82 [facility] [address] [facility] Sep, Migraine [place] [address] without status migrainosus, not intractable G43.009 [facility] [address] [facility] Sep, [place] [address] [facility] [address] [facility] Sep, [place] [address] [facility] [address] [facility] [place] [address] [facility] [address] [place] [address] Sep, [place] [address] [facility] [address] [facility] Sep, [place] [address] [facility] [address] [facility] Sep, Other [place] [address] externa of left ear H60.392 and Migraine without aura and without status migrainosus, not intractable G43.[address] Sep, [place] [address] [facility] [address] [place] [address] Sep, [place] [address] [facility] [address] [facility] Aug[place] [address] [facility] [address] [place] [address] Aug, [place] [address] Aug, [place] [address] [facility] [address] [facility] Jul, [place] [address] [facility] [address] [facility] Jul, [place] [address] Jul, [place] [address] [facility] [address] [facility] Jul, History of depression Z86.59 [place] [address] [facility] [address] [place] [address] Jul, [place] [address] Jul, [place] [address] [facility] [address] [facility] Jul, [place] [address] Jul, [place] [address] Jul, [place] [address] cardiovascular examination Z01.810 ; Snoring R06.83 ; Postnasal drip R09.82 and Moderately severe depression F32.[address] June, [place] [address] June, [place] [address] June, [place] [address] [facility] [address] [facility] June, [place] [address] June, [place] [address] without status migrainosus, not intractable G43.[address] June, [place] [address] June, Right inguinal hernia K40.90 [place] [address] ; Screening for lipid disorders Z13.220 ; Screening for prostate cancer Z12.5 and Anxiety F41.[address] June, [place] [address] June, [place] [address] June, [place] [address] June, [place] [address] [facility] [address] [facility] [place], [place] [address] June, [place] [address] June, [place] [address] June, [place]er[place] [address] F32.2 ; Hypomagnesemia E83.42 ; Anxiety F41.9 ; Pain in right knee M25.561 and Pain in left knee M25.[address] June, [place] [address] May, [facility] [place] [address] [facility] [address] [facility] May, [place] [address] May, Neck pain M54.2 ; [place] [address] Hypomagnesemia E83.42 ; Rash R21 ; Moderately severe depression F32.2 and Elevated blood pressure reading without diagnosis of hypertension R03.[address] May, [place] [address] May, Migraine without aura [place] without status migrainosus, [address] not intractable G43.[address] May, [place] [address] May, [place] [address] without status migrainosus, not intractable G43.009 and Environmental allergies Z91.[address] [facility] May, [place] [address] May, [place]er[place] [address] F32.2 and Migraine without aura and without status migrainosus, not intractable G43.009 [facility] [address] [facility] [place], [place] [address] [facility] [address] [facility] Apr, [place] [address] [place] [address] [address] [place], [place] [address] [place] [address] [address] [place] Apr, [place] [address] Apr, [place] [address] [place] [address] [address] [place] Apr, Worst headache of life R51 [place] [address] [place] [address] [address] [place] Apr, Pain [place] [address] M25.541 ; Hepatitis B core antibody positive R76.8 and Pain in joints of left hand M25.542 [place] [address] [address] [place] Apr, [place] [address] [place] [address] Apr, [place] [address] [place] [address] [place] Apr, Pain [place] [address] M25.541 ; Pain in joints of left hand M25.542 and Need for hepatitis C screening test Z11.[address] Apr, Anxiety F41.9 [place] [address] Apr, Chest tightness R07.89 ; [place] [address] Overweight (BMI 25.0-29.9) E66.3 ; BMI 27.0-27.9,adult Z68.27 and History of asthma Z87.[address] Mar, Chest tightness R07.89 [place] [address] Mar, [place] [address] Mar, [place] [address] Z91.[address] Mar, [place] [address] Mar, Chest tightness R07.89 [place] [address] Mar, [place] [address] Mar, Heart palpitations R00.2 ; [place] [address] Nasal congestion R09.81 ; Screening for HIV (human immunodeficiency virus) Z11.4 ; Right inguinal hernia K40.90 ; Anxiety F41.9 ; Screening for colon cancer Z12.11 and Anemia, unspecified type D64.[address] Jan, Chest congestion R09.89 [place] [address] Unilateral recurrent inguinal hernia without obstruction or gangrene K40.[address] Jan, [place] [address] Z91.09 ; Anxiety F41.9 ; Skin lesion L98.9 ; Screening, lipid Z13.220 and Right inguinal hernia K40.[address] Nov, [place] [address] Sep, [place] [address] IMMUNIZATIONS No Known Immunizations SOCIAL HISTORY Never Assessed REASON FOR REFERRAL FUNCTIONAL STATUS PLAN OF CARE VITAL SIGNS MEDICATIONS Unknown Medications PROCEDURES No Known procedures RESULTS No Results REASON FOR VISIT RHIO Alert [facility] ED Insurance Providers Health Health Health Health Health Member Patient Patient Patient Patient Patient Subscriber Subscriber Subscriber Group Insurance Plan Plan Plan Plan ID Relationship Address Phone Name Date of ID Name Date of No Type Insurance Insurance Insurance Coverage to Subscriber Address Phone Name Dates Medicare National [id number] Medicare self [place] [id number] PPS QMB No Government 41 PPS QMB No [employer] [address] [place] [id number] Case [phone] Case self [place] [id number] Management [place] [address] [facility] [address] Community Medicaid [id number] Medicaid self [place] [id number] [facility] [address] [place] [address] Medicare National [phone] Medicare self [place] [id number] PPS QMB No Government 41 PPS QMB No [employer]i [employer] [address] [place] [id number] MEDICAL (GENERAL) HISTORY Type Description Date Medical History anxiety and panic disorder Medical History hyperactive Medical History Hep A and B Medical History Herpes Medical History Asthma (as a child) Medical History Heart palpitations Surgical History glands in breast removed Hospitalization History glands removed 2007
--- OUTSIDE RECORDS SUMMARY | 2018-11-01 16:40 | XMS REPORT | Continuity of Care Document ---
:1945 External Reference #:[id number] Author Name Robert Dia M.D. (transmitted by agent of provider Roula Roman) Address [address] [place] [address] Care Team Providers Name Role Phone Vinh King MD - Gastroenterology Care Team Information [employer]ach [employer] Tender [phone] Jean Claude Sher MD - Urology Care Team Information [employer] Tender [phone] Thomas Eubanks MD - Care Team Information [employer]ach [employer] Tender [phone] Otolaryngology Francisco Doan MD - Endocrinology, Care Team Information Leach [employer] Tender [phone] Diabetes & Metabolism Laurel Dunbar MD - Dermatology Care Team Information [employer] Tender Zuhair Escoto MD - Surgery Care Team Information [employer]ach [employer] Tender [phone] Michael Perez PA-C - Physician Care Team Information Leach Tank Tender [phone] Lpn Cma Maximino Stroud DO, FAC - Care Team Information [employer]ach [employer] Tender [phone] Cardiovascular Disease Problems Active Problems Provider Date Premature beats [...] factor positive Rogelio Garza M.D.,FACP Onset: 08/23/2017 Social History Type Date Description Comments Sex Unknown Tobacco Use Start: Unknown Never Smoked Cigarettes ETOH Use Denies alcohol use Recreational Drug Use Denies Drug Use Tobacco Use Start: Unknown Patient has never smoked Smoking Status Reviewed: 10/13/18 Patient has never smoked Exercise Type/Frequency Does not exercise Allergies, Adverse Reactions, Alerts Active Allergies Reaction Severity Comments Date Sulfa 09/20/2008 Penicillin Anaphylaxis Severe 03/16/2009 Environmental Allergies 03/23/2017 Bee Pollen 08/25/2018 Medications Active Medications SIG Qnty Indications Ordering Provider Date Saline Nasal [place] 1 spray both 44ml Other Ordering 12/09/2016 nares q 4 hrs Provider 0.65% Solution and prn [id number] Ethyl Take 1 Capsule 180caps E78.2 Rogelio [...] Garza,FACP Nasonex 2 sprays meron 34gm J32.9 Gisellaofia Ilya, 08/15/2016 50mcg/Act each side twice GAS SINGER Suspension daily Lipitor Take 1 Tablet By 90tabs Rogelio Zavaleta 09/20/2008 40mg Tablets Mouth Every Juan Carlos Garza,FACP Night AT Bedtime Veronica Allergy 1 by mouth every Unknown 60mg day Tablets Medications Administered in Office Medication SIG Qnty Indications Ordering Provider Date Depomedrol 80MG Anton Agrawal M.D. 05/09/2014 Injection Depomedrol 80MG Anton Agrawal M.D. 12/23/2011 Injection Immunizations CPT Code Status Date Vaccine Reaction Lot # [id number] Given 01/03/2016 Influ Virus Vaccine, no reaction pt [id number] Quadrivalent, Split Virus, [place] [address] Given 12/27/2014 Influenza Virus Vaccine, [id number] Quadrivalent, Split, Preservative Free 58294 Given 12/27/2014 Pneumococcal Conjugate [id number] Vaccine 13 Valent For Intramuscular Use 90474 Given 12/26/2013 Flu Vaccine Split Virus [id number] Preservative Free For Indiv 3Yr Older 18109 Given 12/15/2012 Flu Vaccine Split Virus [id number] Preservative Free For Indiv 3Yr Older 89474 Given 11/08/2012 Pneumonia Vaccine [id number] Q2038 Given 10/31/2011 Fluzone Vaccine 96958 Given 10/31/2011 Zoster (Zostavax) [id number] Q2038 Given 12/04/2010 Fluzone Vaccine [id number] 31108 Given 04/13/2009 Influenza Virus 3Yrs & [id number] Over 30878 Given 03/09/2009 Influenza Virus Vaccine, [id number] 5P Pandemic Formulation Vital Signs Date Vital Result Comment 10/13/2018 2:57pm Height 69.5 inches 5'9.50" Weight 177.00 lb Heart Rate 62 /min BP Systolic 114 mmHg BP Diastolic 70 mmHg Body Temperature 97.4 F O2 % BldC Oximetry 98 % BMI (Body Mass Index) 25.8 kg/m2 08/25/2018 3:05pm Height 69.5 inches 5'9.50" Weight 180.00 lb Heart Rate 60 /min BP Systolic 138 mmHg BP Diastolic 76 mmHg BMI (Body Mass Index) 26.2 kg/m2 Results Test Date Facility Test Result H/L Range Note Xray 10/13/2018 [facility] Spine Thoracic <pending> [address] Minimum 4 [place] [address] [phone] SP Lumbarsacral 4+ VWS <pending> Shoulder Left 2+ VWS <pending> Humerus Left <pending> Hips-Bilateral 5+ VWS <pending> Procedures Date Code Description Status 09/09/2007 [id number] Colonoscopy Completed Medical Devices Description No Information Available Encounters Type Date Location Provider Dx Diagnosis Office Visit 08/25/2018 [facility] Martin Bernal G43.009 Migraine w/o aura, 2:45p [facility] Yann Aparicio M.D. 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 10/13/2018 R76.8 Other specified abnormal immunological Robert Dia M.D. findings in serum 10/13/2018 M25.512 Pain in left shoulder Robert Dia M.D. 10/13/2018 M54.5 Low back pain Robert Dia M.D. 10/13/2018 M25.559 Pain in unspecified hip Robert Dia M.D. 10/13/2018 M79.673 Pain in unspecified foot Robert Dia M.D. 08/25/2018 G43.009 Migraine without aura, not intractable, Martin Aparicio M.D. without status migra 08/25/2018 F81.9 Developmental disorder of scholastic Martin Aparicio M.D. skills, unspecified Plan of Treatment Future Appointment(s):11/18/2018 3:40 pm - Robert Dia M.D. at [facility]10/13/2018 - Robert Dia M.D.R76.0 Raised antibody phwqjC29.8 Other specified abnormal immunological findings in serumFollow up:Follow up in 3 to 4 weeks or sooner if dtvcntR28.512 Pain in left wvtaazreF89.5 Low back painM25.559 Pain in unspecified hipM79.673 Pain in unspecified foot Functional Status Description No Information Available Mental Status Description No Information Available Referrals Description No Information Available
--- OUTSIDE RECORDS SUMMARY | 2018-11-01 16:40 | XMS REPORT ---
:1945 Author Organization [facility] Address [address] [place] [address] Care Team Providers Name Role Phone Michael Perez Unavailable Unavailable PROBLEMS Type Condition ICD9-CM Code [id number] Onset Condition SNOMED Code Code Dates Status Problem High cholesterol E78.00 Active 76549739 Problem Environmental Z91.09 Active 478198959 allergies Problem Chronic GERD K21.9 Active 106546806 Problem Primary M15.0 Active 915822135 osteoarthritis involving multiple joints Problem Right inguinal K40.90 Active 692433515 hernia Problem Overweight (BMI E66.3 Active [id number] 25.0-29.9) Problem Migraine without G43.009 Active 962911989 aura and without status migrainosus, not intractable Problem History of Z86.59 Active 765394758 depression ALLERGIES No Information ENCOUNTERS Encounter Location Date Diagnosis [address] Sep, [place] [address] [facility] [address] [facility] Sep, [place] [address] involving multiple joints M15.0 ; Overweight (BMI 25.0-29.9) E66.3 ; BMI 26.0-26.9,adult Z68.26 and Encounter for immunization Z23 [address] Aug, [place] [address] Aug, [place] [address] Aug, [place] [address] Aug, [place] [address] Jul, [place] [address] [facility] [address] Jul, [place] [address] Jul, [place] [address] [facility] [address] [place], [place] [address] Jul, [facility], [place] [address] [facility] [address] June, Mood disorder F39 ; [place] [address] Environmental allergies Z91.09 ; Chronic GERD K21.9 and High cholesterol E78.00 [facility] [address] [place], [place] [address] June, [place] [address] Z91.[address] [place] [address] June, [place] [address] June, [place] [address] [place] [address] [place] June, Mood disorder F39 [place] [address] June, Mood disorder F39 [place] [address] June, Mood disorder F39 [facility], [place] [address] [place] [address] [place] June, [place] [address] M25.512 and Environmental allergies Z91.09 [place] [address] [place] May, [place] [address] disorders Z13.[address] [place] [address] May, [place] [address] [place] [address] May, Sore throat J02.9 ; [place] [address] disorder F39 and Chronic GERD K21.[address] [place] [address] May, [place] [address] [place] [address] May, [place] [address] effusion H65.[address] [place] [address] May, [place] [address] May, [place] [address] Apr, [place] [address] R10.12 and Right inguinal hernia K40.[address] Apr, [place] [address] [facility] - Resource - [place] [facility] Apr, [place] [address] Apr, [place] [address] Mar, Cellulitis, neck L03.221 [place] [address] Mood disorder F39 [address] Jan, [place] [address] [facility] [address] [place] [address] Jan[place] [address] Jan, [place] [address] [place] [address] Jan, [place] [address] Jan, [place] [address] Dec, [place] [address] Dec, [place] [address] infectious origin R19.[address] Dec, Skin rash R21 ; [place] [address] blood pressure reading without diagnosis of hypertension R03.0 and Shaking R25.[address] Nov, [place] [address] Nov, Dermatitis L30.9 ; [place] [address] without aura and without status migrainosus, not intractable G43.009 ; Elevated blood pressure reading without diagnosis of hypertension R03.0 and Encounter for immunization Z23 [address] Nov, [place] [address] [facility] [address] [place] [address] Nov, Mood disorder F39 [place] [address] [facility] Nov, Mood disorder F39 [place] [address] Nov, [facility] [place] [address] [facility] [address] [facility] Oct, [place] [address] Oct, Mood disorder F39 [place] [address] [facility] [address] [facility] Sep, [place] [address] without status migrainosus, not intractable G43.009 and Chronic fatigue R53.[address] [facility] Sep, Migraine [place] [address] without status migrainosus, not intractable G43.009 [facility] [address] [facility] Sep, [place] [address] Sep, [place] [address] Sep, [place] [address] Sep, [place] [address] [facility] [address] [facility] Sep, [place] [address] [facility] [address] [place] [address] Sep, Other [place] [address] externa of left ear H60.392 and Migraine without aura and without status migrainosus, not intractable G43.[address] Sep, [facility] [place] [address] Sep, [place] [address] [facility] [address] [facility] Aug, [place] [address] Aug, [place] [address] Aug, [place] [address] Jul, [place] [address] [facility] [address] [facility] Jul, [place] [address] Jul, [place] [address] [facility] [address] [facility] Jul, History of depression Z86.59 [place] [address] [facility] [address] [place] [address] Jul, [place] [address] Jul, [place] [address] Jul, [facility] [place] [address] Jul, [place] [address] Jul, [place] [address] cardiovascular examination Z01.810 ; Snoring R06.83 ; Postnasal drip R09.82 and Moderately severe depression F32.[address] June, [place] [address] June, [place] [address] June, [place] [address] [facility] June, [place] [address] June, [place] [address] without status migrainosus, not intractable G43.[address] June, [place] [address] June, Right inguinal hernia K40.90 [place] [address] ; Screening for lipid disorders Z13.220 ; Screening for prostate cancer Z12.5 and Anxiety F41.[address] June, [place] [address] June, [place] [address] June, [place] [address] June, [place] [address] [facility] [address] [place], [place] [address] June, [place] [address] [facility] [address] [place] [address] June, [place] [address] June, [place] [address] F32.2 ; Hypomagnesemia E83.42 ; Anxiety F41.9 ; Pain in right knee M25.561 and Pain in left knee M25.[address] June, [place] [address] [facility] [address] May, [facility] [place] [address] May, [place] [address] May, Neck pain M54.2 ; [place] [address] Hypomagnesemia E83.42 ; Rash R21 ; Moderately severe depression F32.2 and Elevated blood pressure reading without diagnosis of hypertension R03.[address] May, [place] [address] May, Migraine without aura and [place] without status migrainosus, [address] not intractable G43.[address] May, [place] [address] May, [place] [address] without status migrainosus, not intractable G43.009 and Environmental allergies Z91.[address] [facility] May, [place] [address] May, [place] [address] F32.2 and Migraine without aura and without status migrainosus, not intractable G43.009 [facility] [address] [place], [place] [address] Apr, [place] [address] [place] [address] [place] Apr, [place] [address] [place] [address] [place] Apr, [place] [address] Apr, [place] [address] Apr, Worst headache of life R51 [place] [address] Apr, Pain [place] [address] M25.541 ; Hepatitis B core antibody positive R76.8 and Pain in joints of left hand M25.[address] Apr, [place] [address] Apr, [place] [address] Apr, Pain [place] [address] M25.541 ; Pain in joints of left hand M25.542 and Need for hepatitis C screening test Z11.[address] Apr, Anxiety F41.9 [place] [address] Apr, Chest tightness R07.89 ; [place] [address] Overweight (BMI 25.0-29.9) E66.3 ; BMI 27.0-27.9,adult Z68.27 and History of asthma Z87.[address] Mar, Chest tightness R07.89 [place] [address] Mar, [place] [address] Mar, [place] [address] Z91.[address] Mar, [place] [address] Mar, Chest tightness R07.89 [place] [address] Mar, [place] [address] Mar, Heart palpitations R00.2 ; [place] [address] Nasal congestion R09.81 ; Screening for HIV (human immunodeficiency virus) Z11.4 ; Right inguinal hernia K40.90 ; Anxiety F41.9 ; Screening for colon cancer Z12.11 and Anemia, unspecified type D64.[address] Jan, Chest congestion R09.89 [place] [address] Unilateral recurrent inguinal hernia without obstruction or gangrene K40.[address] Jan, [place] [address] Z91.09 ; Anxiety F41.9 ; Skin lesion L98.9 ; Screening, lipid Z13.220 and Right inguinal hernia K40.90 [place] [address] [place] 05 Nov, 2016 [place] [address] [place] [address] Sep, 2016 [place] [address] IMMUNIZATIONS Vaccine Route Administration Date Status [facility] Adult Pneumovax 23 Valent vial IM Intramuscular Oct 28, 2018 Administered SOCIAL HISTORY Never Assessed REASON FOR REFERRAL FUNCTIONAL STATUS PLAN OF CARE Activity Details Follow Up 3 months Reason:45 physical VITAL SIGNS Temperature 97.5 degrees Fahrenheit 2018-10-28 Heart Rate 20 2018-10-28 Weight 178.9 2018-10-28 Height 68.9 in 2018-10-28 BMI 26.49 kg/m2 2018-10-28 Oximetry 99 % 2018-10-28 Blood pressure systolic 113 mm Hg 2018-10-28 Blood pressure diastolic 69 mm Hg 2018-10-28 MEDICATIONS Medication Instructions Dosage Frequency Start End Duration Status Date Date Trazodone HCl 100 Orally Once a 3 tablet 24h June, days Active mg day at bedtime 2018 Nasonex 50 MCG/ACT Nasally Once a 2 sprays 24h 30 Active day in each nostril Fexofenadine HCl Orally Once a 1 tablet 24h 15 July, Dec, day(s) Active 180 MG day as needed 2018 2018 Pseudoephedrine Orally qam 1 tablet Active HCl 30 mg as needed [place] 3 1000 mg Orally daily 2 capsule 24h 90 days Active Fluticasone Nasally Once a 1 spray in 24h May, day(s) Active Propionate 50 day each 2018 MCG/ACT nostril Lipitor 40 mg Orally Once a TAKE 1 24h 90 Active day TABLET BY MOUTH EVERY NIGHT AT BEDTIME Sumatriptan Orally Once a 1 tablet 30 Active Succinate 100 mg day as needed for headache PROCEDURES Procedure Date Ordered Result Body Site [facility] visit, est patient Oct 28, 2018 BMI >= 25 and Follow Up Plan Documented Oct 28, 2018 Vaccine Administration Oct 28, 2018 Admin Pneumococcal Medicare Only Oct 28, 2018 [facility] Adult Pneumovax 23 Valent vial Oct 28, 2018 BODY MASS INDEX DOCD Oct 28, 2018 SMOKING + 2ND HAND ASSESSED Oct 28, 2018 Oxygen saturation results documented and reviewed Oct 28, 2018 BLOOD PRESSURE, MEASURED Oct 28, 2018 RESULTS No Results REASON FOR VISIT go over results, PVP:HIV,BMI and follow up,PPSV,Zoster-MW, Patient states that he wanted to talk today about his lab results from his last Rheumatology appointment. He was seen last week by them and he will have repeat testing done. Next scheduled appointment is in Insurance Providers [facility] Member Patient Patient Patient Patient Patient Subscriber Subscriber Subscriber Group Insurance Plan Plan Plan Plan ID Relationship Address Phone Name Date of ID Name Date of No Type Insurance Insurance Insurance Coverage to Subscriber Address Phone Name Dates Case [phone] Case self [place] [id number] Management [place] [address] Management [facility] [address] Community Medicaid [address] [phone] Medicaid self [place] [id number] [facility] [address] [address] Medicare National 866 Medicare self [place] [id number] PPS QMB No Government 41 PPS QMB No [place]aeli [employer] [address] [place] [id number] Medicare National Medicare self [place] [id number] PPS QMB No Government 41 PPS QMB No [place]i [employer] [address] [place] [id number] MEDICAL (GENERAL) HISTORY Type Description Date Medical History anxiety and panic disorder Medical History hyperactive Medical History Hep A and B Medical History Herpes Medical History Asthma (as a child) Medical History Heart palpitations Surgical History glands in breast removed Hospitalization History glands removed 2007
[2018-11-01 16:42] VITALS: BP 132/88
--- NOTE | 2018-11-01 16:50 | ED ---
Bite Injury/Animal - HPI Summary HPI Summary: Patient presents to the ED with a dog bite to the foot. He states his hiberian husky accidentally bit him when trying to go for something else. The husky also recently had puppies and may have been more protective. Denies hx of this with animal. The dog stays in the house all vaccinations are UTD. He endorses 1 small puncture wound to the lateral side of the dorsum of the foot with some bruising without bleeding. This occurred 2 days ago. Wants tetanus. - History of Current Complaint Chief Complaint: EDExtremityLower Stated Complaint: DOG BITE ON LT FOOT Time Seen by Provider: 11/01/18 16:04 Hx Obtained From: Patient Onset of Injury: Happened days ago Type of Bite: Animal Has Animal Been Immunized?: Yes Severity Initially: Mild Severity Currently: Mild Pain Intensity: 4 Pain Scale Used: 0-10 Numeric Character: Puncture Associated Signs And Symptoms: Positive: Negative Animal Available for Observation: No Animal Control Notified: No - Allergies/Home Medications Allergies/Adverse Reactions: Allergies Allergy/AdvReac Type Severity Reaction Status Date / Time Penicillins Allergy Unknown Verified 11/01/18 15:58 Reaction Details red dye Allergy Facial Verified 11/01/18 15:58 Redness/Flushing Sulfa (Sulfonamide Allergy Unknown Verified 11/01/18 15:58 Antibiotics) Reaction Details PMH/Surg Hx/FS Hx/Imm Hx Previously Healthy: Yes Endocrine/Hematology History: Reports: Hx Anemia Denies: Hx Anticoagulant Therapy, Hx Blood Disorders, Hx Blood Transfusions, Hx Diabetes, Hx Systemic Lupus Erythematosus, Hx Thyroid Disease, Hx Unexplained Bleeding Cardiovascular History: Reports: Hx Angina - DOESN;T TAKE ANYTHING FOR THIS, 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" - no meds, Other Cardiovascular Problems/Disorders - "arrhythmia" in the past - no meds Denies: Hx Aneurysm, Hx Atrial Fibrillation, Hx Cardiomegaly, Hx Congenital Heart Disease, Hx Congestive Heart Failure, Hx Coronary Artery Disease, Hx Deep Vein Thrombosis, Hx Hypercholesterolemia, Hx Hypotension, Hx Hypertension, Hx Myocardial Infarction, Hx Pacemaker/ICD, Hx Peripheral Vascular Disease, Hx Rheumatic Fever, Hx Syncope Respiratory History: Reports: Hx Asthma - INHALER, Hx Pneumonia, Hx Seasonal Allergies, Other Respiratory Problems/Disorders - pleurisy, bronchitis IN THE PAST Denies: Hx Chronic Obstructive Pulmonary Disease (COPD), Hx Pulmonary Edema, Hx Pulmonary Embolism, Hx Sleep Apnea GI History: Reports: Other GI Disorders - Hep A and Hep B - followed by PCP - no issues at this time Denies: Hx Crohn's Disease, Hx Diverticulosis, Hx Gall Bladder Disease, Hx Gastroesophageal Reflux Disease, Hx Gastrointestinal Bleed, Hx Hiatal Hernia, Hx Irritable Bowel, Hx Obstructive Bowel, Hx Ulcer History: Reports: Other Problems/Disorders - ENLARGED PROSTATE Musculoskeletal History: Reports: Hx Arthritis - R/A, Hx Back Problems - wears an elastic wrap but makes blood pressure increase while on Sensory History: Reports: Hx Cataracts, Hx Contacts or Glasses - GLASSES Denies: Hx Hearing Aid Opthamlomology History: Reports: Hx Cataracts, Hx Contacts or Glasses - GLASSES Neurological History: Reports: Hx Migraine, Other Neuro Impairments/Disorders - HX DISK PROBLEM 1967 Psychiatric History: Reports: Hx Anxiety, Hx Depression, Hx Panic Disorder - Cancer History Cancer Type, Location and Year: None reported - Surgical History Surgery Procedure, Year, and Place: BILATERAL BREAST GLAND SURGERY 2007&1973 Hx Anesthesia Reactions: No - Immunization History Date of Influenza Vaccine: 11/2016 Hx Pertussis Vaccination: No Immunizations Up to Date: Yes Infectious Disease History: No Infectious Disease History: Reports: Hx Hepatitis Denies: Traveled Outside the [place] in Last 30 Days - Family History Known Family History: Positive: Cardiac Disease - mom, Hypertension, Diabetes Negative: Blood Disorder - Social History Occupation: Unemployed Lives: With Family Alcohol Use: None Hx Substance Use: No Substance Use Type: Reports: Prescribed Hx Tobacco Use: No Smoking Status (MU): Never Smoked Tobacco Have You Smoked in the Last Year: No Review of Systems Constitutional: Negative Negative: Fever, Chills, Fatigue, Skin Diaphoresis Negative: Palpitations, Chest Pain Negative: Shortness Of Breath, Cough Genitourinary: Negative Positive: no symptoms reported, see HPI Negative: Arthralgia, Myalgia Skin: Negative Neurological: Negative All Other Systems Reviewed And Are Negative: Yes Physical Exam Triage Information Reviewed: Yes Vital Signs On Initial Exam: Initial Vitals Temp Pulse Resp BP Pulse Ox 98.2 F 76 16 99/78 100 11/01/18 15:56 11/01/18 15:56 11/01/18 15:56 11/01/18 15:56 11/01/18 15:56 Vital Signs Reviewed: Yes Appearance: Positive: Well-Appearing, Well-Nourished Skin: Positive: Warm, Skin Color Reflects Adequate Perfusion, Other - bruising to the top of the foot Eyes: Positive: EOMI, VENTURA, Conjunctiva Clear Neck: Positive: Supple, No Lymphadenopathy Respiratory/Lung Sounds: Positive: Clear to Auscultation, Breath Sounds Present Cardiovascular: Positive: RRR, Pulses are Symmetrical in both Upper and Lower Extremities Neurological: Positive: Sensory/Motor Intact, Alert, Oriented to Person Place, Time Psychiatric: Positive: Normal, Affect/Mood Appropriate Diagnostics - Vital Signs Vital Signs Temp Pulse Resp BP Pulse Ox 11/01/18 15:56 98.2 F 76 16 99/78 100 - Laboratory Lab Statement: Any lab studies that have been ordered have been reviewed, and results considered in the medical decision making process. Bite Injury Course/Dx - Course Course Of Treatment: Patient presents to the ED with a dog bite to the foot. He states his hiberian husky accidentally bit him when trying to go for something else. The husky also recently had puppies and may have been more protective. Denies hx of this with animal. The dog stays in the house all vaccinations are UTD. He endorses 1 small puncture wound to the lateral side of the dorsum of the foot with some bruising without bleeding. This occurred 2 days ago. Tetanus was updated. No rabies needed as this was his dog, updates on vaccinations and animal is able to be observed. - Diagnoses Provider Diagnosis: Puncture wound, Dog bite Discharge ED - Sign-Out/Discharge Documenting (check all that apply): Patient Departure Patient Received Moderate/Deep Sedation with Procedure: No - Discharge Plan Condition: Stable Disposition: HOME Referrals: Michael Perez PA [Primary Care Provider] - Additional Instructions: Please follow up with your PCP Ice to the top of the foot Your tetanus is updated today - Billing Disposition and Condition Condition: STABLE Disposition: Home
== END 2018-11-01 16:40 | disposition home or self-care (01) ==
LOC: ED 15:53
DX: S91.352A Open bite, left foot, initial encounter (principal); Z23 Encounter for immunization; W54.0XXA Bitten by dog, initial encounter; Y92.009 Unspecified place in unspecified non-institutional (private) residence as the place of occurrence of the external cause; D64.9 Anemia, unspecified; J45.909 Unspecified asthma, uncomplicated; F41.9 Anxiety disorder, unspecified; F32.9 Major depressive disorder, single episode, unspecified; Z79.899 Other long term (current) drug therapy; Z88.0 Allergy status to penicillin; Z88.2 Allergy status to sulfonamides
CPT/HCPCS: 90471; 90715; 99282

== ENCOUNTER 2018-12-12 20:47 | Emergency (ER) | payer MEDICARE, MEDICAID ==
--- OUTSIDE RECORDS SUMMARY | 2018-12-12 21:03 | XMS REPORT ---
:1945 Author Organization [facility] Address [address] [place] [address] Care Team Providers Name Role Phone Michael Perez Unavailable Unavailable PROBLEMS Type Condition ICD9-CM Code [id number] Onset Condition SNOMED Code Code Dates Status Problem High cholesterol E78.00 Active 94728206 Problem Environmental Z91.09 Active 096345656 allergies Problem Chronic GERD K21.9 Active 618208584 Problem Primary M15.0 Active 548149567 osteoarthritis involving multiple joints Problem Right inguinal K40.90 Active 321208767 hernia Problem Overweight (BMI E66.3 Active 186994367 25.0-29.9) Problem Migraine without G43.009 Active 683809307 aura and without status migrainosus, not intractable Problem History of Z86.59 Active 217383582 depression ALLERGIES No Information ENCOUNTERS Encounter Location Date Diagnosis [address] Oct, [place] [address] [place] [address] [place] Oct, [place] [address] [place] [address], [place] [address] Sep, [place] [address] Sep, [place] [address] involving multiple joints M15.0 ; Overweight (BMI 25.0-29.9) E66.3 ; BMI 26.0-26.9,adult Z68.26 and Encounter for immunization Z23 [place] [id number] [facility] Aug, [place] [address] Aug, [place] [address] [facility] Aug, [place] [address] [facility] [address] [facility] Aug, [place] [address] [facility] [address] [facility] Jul, [facility] [place] [address] [facility] [address] Jul, [place] [address] [facility] [address] [facility] Jul, [place] [address] [facility] [address] [place], [place] [address] Jul, [facility], [place] [address] [facility] [address] June, Mood disorder F39 ; [place] [address] Environmental allergies Z91.09 ; Chronic GERD K21.9 and High cholesterol E78.00 [facility] [address] [place], [place] [address] [facility] [place] [facility] [address] [facility] [place] June, Environmental [place] [address] Z91.09 [place] [address] June, [place] [address] [facility] [address] [facility] June, [place] [address] [place] [address] [place] June, Mood disorder F39 [place] [address] [facility] [place] [facility] [address] [facility] June, Mood disorder F39 [place] [address] June, Mood disorder F39 [facility] [place] [address] [place] [address] June, [place] [address] M25.512 and Environmental allergies Z91.09 [place] [address] May, [place] [address] disorders Z13.[address] [place] [address] May, [place] [address] [place] [address] May, Sore throat J02.9 ; [place] [address] disorder F39 and Chronic GERD K21.[address] [place] [address] May, [place] [address] [place] [address] [place] May, [place] [address] effusion [address] May, [place] [address] May, [place] [address] [place] [address] Apr, [place] [address] R10.12 and Right inguinal hernia K40.90 [place] [address] Apr, [place] [address] [facility] [place] [address] Apr, [place] [address] Apr, [place] [address] Mar, Cellulitis, neck L03.221 [place] [address] Mood disorder F39 [address] Jan, [place] [address] Jan, [place] [address] [place] [address] [place], [place] [address] [place] [address] [address] [facility] Jan, [place] [address] Jan, [place] [address] Dec, [place] [address] Dec, [place] [address] infectious origin R19.[address] Dec, Skin rash R21 ; [place] [address] blood pressure reading without diagnosis of hypertension R03.0 and Shaking R25.[address] Nov, [place] [address] Nov, Dermatitis L30.9 ; [place] [address] without aura and without status migrainosus, not intractable G43.009 ; Elevated blood pressure reading without diagnosis of hypertension R03.0 and Encounter for immunization Z23 [address] Nov, [place] [address] Nov, Mood disorder F39 [place] [address] Nov, Mood disorder F39 [place] [address] Nov, [facility], [place] [address] [facility] [address] [facility] Oct, [place] [address] Oct, Mood disorder F39 [place] [address] [facility] [address] [facility] Sep, Migraine [place] [address] without status migrainosus, not intractable G43.009 and Chronic fatigue R53.[address] [facility] Sep, Migraine [place] [address] without status migrainosus, not intractable G43.009 [facility] [address] [facility] Sep, [place] [address] Sep, [place] [address] [facility] [address] Sep, [place] [address] Sep, [place] [address] [facility] [address] Sep, [place] [address] [facility] [address] [place] [address] Sep, Other [place] [address] externa of left ear H60.392 and Migraine without aura and without status migrainosus, not intractable G43.[address] [place] [address] Sep, [facility] [place] [address] Sep, [place] [address] [facility] [address] [facility] Aug, [place] [address] Aug, [place] [address] Aug, [place] [address] Jul, [place] [address] [facility] [address] [facility] Jul, [place] [address] Jul, [place] [address] Jul, History of depression Z86.59 [place] [address] Jul, [place] [address] Jul, [place] [address] [place] [address] Jul, [place] [address] Jul, [place] [address] Jul, En[place] [address] cardiovascular examination Z01.810 ; Snoring R06.83 ; Postnasal drip R09.82 and Moderately severe depression F32.[address] June, [place] [address] June, [place] [address] June, [place] [address] [facility] June, [place] [address] June, [place] [address] without status migrainosus, not intractable G43.[address] June, [place] [address] June, Right inguinal hernia K40.90 [place] [address] ; Screening for lipid disorders Z13.220 ; Screening for prostate cancer Z12.5 and Anxiety F41.[address] June, [place] [address] June, [place] [address] June, [place] [address] June, [place] [address] [facility] [address] [place], [place] [address] June, [place] [address] [place] [address] June, [place] [address] June, [place] [address] F32.2 ; Hypomagnesemia E83.42 ; Anxiety F41.9 ; Pain in right knee M25.561 and Pain in left knee M25.[address] June, [place] [address] May, [place] [address] May, [place] [address] May, Neck pain M54.2 ; [place] [address] Hypomagnesemia E83.42 ; Rash R21 ; Moderately severe depression F32.2 and Elevated blood pressure reading without diagnosis of hypertension R03.[address] May, [place] [address] May, Migraine without aura [place] without status migrainosus, [address] not intractable G43.[address] May, [place] [address] May, [place] [address] without status migrainosus, not intractable G43.009 and Environmental allergies Z91.[address] May, [place] [address] May, [place] [address] F32.2 and Migraine without aura and without status migrainosus, not intractable G43.009 [facility] [address] [place], [place] [address] Apr, [place] [address] Apr, [place] [address] Apr, [place] [address] Apr, [place] [address] Apr, Worst headache of life R51 [place] [address] Apr, [place] [address] M25.541 ; Hepatitis B core antibody positive R76.8 and Pain in joints of left hand M25.[address] Apr, [place] [address] Apr, [place] [address] Apr, Pain [place] [address] M25.541 ; Pain in joints of left hand M25.542 and Need for hepatitis C screening test Z11.[address] Apr, Anxiety F41.9 [place] [address] Apr, Chest tightness R07.89 ; [place] [address] Overweight (BMI 25.0-29.9) E66.3 ; BMI 27.0-27.9,adult Z68.27 and History of asthma Z87.[address] Mar, Chest tightness R07.89 [place] [address] Mar, [place] [address] Mar, [place] [address] Z91[address] Mar, [place] [address] Mar, Chest tightness R07.89 [place] [address] Mar, [place] [address] Mar, Heart palpitations R00.2 ; [place] [address] Nasal congestion R09.81 ; Screening for HIV (human immunodeficiency virus) Z11.4 ; Right inguinal hernia K40.90 ; Anxiety F41.9 ; Screening for colon cancer Z12.11 and Anemia, unspecified type D64.[address] Jan, Chest congestion R09.89 [place] [address] Unilateral recurrent inguinal hernia without obstruction or gangrene K40.91 [place] [address] Jan, [place] [address] Z91.09 ; Anxiety F41.9 ; Skin lesion L98.9 ; Screening, lipid Z13.220 and Right inguinal hernia K40.90 [place] [address] Nov, [place] [address] [place] [address] Sep, [place] [address] IMMUNIZATIONS No Known Immunizations SOCIAL HISTORY Never Assessed REASON FOR REFERRAL FUNCTIONAL STATUS PLAN OF CARE VITAL SIGNS MEDICATIONS Medication Instructions Dosage Frequency Start End Date Duration Status Date Nasonex 50 Nasally Once a 2 sprays in 24h 30 day(s) Active MCG/ACT day each nostril PROCEDURES No Known procedures RESULTS No Results REASON FOR VISIT Nasonex JIM Insurance Providers [facility] Health Member Patient Patient Patient Patient Patient Subscriber Subscriber Subscriber Group Insurance Plan Plan Plan Plan ID Relationship Address Phone Name Date of ID Name Date of No Type Insurance Insurance Insurance Coverage to Subscriber Address Phone Name Dates Medicare National 837 Medicare self [place] [id number] PPS QMB No Government 41 PPS QMB No [facility] [employer] [facility] [address] [place] [id number] Case [phone] Case self G[place] [id number] Management [place] [address] [facility] [address] Community Medicare National Medicare self [place] [id number] PPS QMB No Government 41 PPS QMB No [facility] [employer] [facility] [address] [place] [id number] Medicaid [id number] Medicaid self [place] [id number] [facility] [address] [facility] [address] MEDICAL (GENERAL) HISTORY Type Description Date Medical History anxiety and panic disorder Medical History hyperactive Medical History Hep A and B Medical History Herpes Medical History Asthma (as a child) Medical History Heart palpitations Surgical History glands in breast removed Hospitalization History glands removed 2007
--- OUTSIDE RECORDS SUMMARY | 2018-12-12 21:03 | XMS REPORT ---
:1945 Author Organization [facility] Address [address] [place] [address] Care Team Providers Name Role Phone Michael Perez Unavailable Unavailable PROBLEMS Type Condition ICD9-CM Code [id number] Onset Condition SNOMED Code Code Dates Status Problem High cholesterol E78.00 Active 80922614 Problem Environmental Z91.09 Active 350503603 allergies Problem Chronic GERD K21.9 Active 554814281 Problem Primary M15.0 Active 666298648 osteoarthritis involving multiple joints Problem Right inguinal K40.90 Active 977100139 hernia Problem Overweight (BMI E66.3 Active 431878108 25.0-29.9) Problem Migraine without G43.009 Active 978692093 aura and without status migrainosus, not intractable Problem History of Z86.59 Active 404674563 depression ALLERGIES No Information ENCOUNTERS Encounter Location Date Diagnosis [address] Oct, [place] [address] [place] [address] [place] Oct, [place] [address] [place] [address] Oct, [place] [address] Sep, [place] [address] Sep, [place] [address] involving multiple joints M15.0 ; Overweight (BMI 25.0-29.9) E66.3 ; BMI 26.0-26.9,adult Z68.26 and Encounter for immunization Z23 [place] [id number] [facility] Aug, [place] [address] Aug, [place] [address] [facility] [address] [facility] Aug, [place] [address] [facility] [address] [facility] Aug, [place] [address] [facility] [address] [facility] Jul, [facility] [place] [address] [facility] [address] Jul, [place] [address] [facility] [address] [facility] Jul, [place] [address] [facility] [address] [place], [place] [address] Jul, [facility] [place] [address] [facility] [address] June, Mood disorder F39 ; [place] [address] Environmental allergies Z91.09 ; Chronic GERD K21.9 and High cholesterol E78.00 [facility] [address] [place], [place] [address] [facility] [address] [facility] [address] June, Environmental [place] [address] Z91.09 [place] [address] June, [place] [address] [facility] [address] [facility] June, [place] [address] [place] [address] June, Mood disorder F39 [place] [address] [facility] [address] [facility] June, Mood disorder [place]39 [place] [address] June, Mood disorder F39 [facility] [place] [address] [place] [address] June, [place] [address] M25.512 and Environmental allergies Z91.09 [place] [address] May, [place] [address] disorders Z13.220 [place] [address] May, [place] [address] [place] [address] May, Sore throat J02.9 ; [place] [address] disorder F39 and Chronic GERD K21.9 [place] [address] May, [place] [address] [place] [address] May, [place] [address] effusion H65.[address] May, [place] [address] May, [place] [address] [place] [address] Apr, [place] [address] R10.12 and Right inguinal hernia K40.90 [place] [address] Apr, [place] [address] [facility] [place] [address] Apr, [place] [address] Apr, [place] [address] Mar, Cellulitis, neck L03.221 [place] [address] Mood disorder F39 [address] Jan, [place] [address] Jan, [place] [address] [place] [address] Jan[place] [address] [place] [address] [facility] Jan, [place] [address] Jan, [place] [address] Dec, [place] [address] Dec, [place] [address] infectious origin R19.[address] Dec, Skin rash R21 ; [place] [address] blood pressure reading without diagnosis of hypertension R03.0 and Shaking R25.[address] Nov, [place] [address] Nov, Dermatitis L30.9 ; [place] [address] without aura and without status migrainosus, not intractable G43.009 ; Elevated blood pressure reading without diagnosis of hypertension R03.0 and Encounter for immunization Z23 [address] Nov, [place] [address] Nov, Mood disorder F39 [place] [address] Nov, Mood disorder F39 [place] [address] Nov, [place] [address] [facility] [address] [facility] Oct, [place] [address] Oct, Mood disorder F39 [place] [address] [facility] [address] [facility] Sep, [place]raine [place] [address] without status migrainosus, not intractable G43.009 and Chronic fatigue R53.[address] [facility] Sep, Migraine without aura [place] [address] without status migrainosus, not intractable G43.009 [facility] [address] [facility] Sep, [place] [address] Sep, [place] [address] [facility] [address] Sep, [place] [address] Sep, [place] [address] [facility] [address] Sep, [place] [address] [facility] [address] [place] [address] Sep, Other [place] [address] externa of left ear H60.392 and Migraine without aura and without status migrainosus, not intractable G43.[address] [place] [address] Sep, [facility] [address] Sep, [place] [address] [facility] [address] [facility] Aug, [place] [address] Aug, [place] [address] Aug, [place] [address] Jul, [place] [address] [facility] [address] [facility] Jul, [place] [address] Jul, [place] [address] Jul, History of depression Z86.59 [place] [address] Jul, [place] [address] Jul, [place] [address] [place] Jul, [place] [address] Jul, [place] [address] Jul, [place] [address] cardiovascular examination Z01.810 ; Snoring R06.83 ; Postnasal drip R09.82 and Moderately severe depression F32.[address] June, [place] [address] June, [place] [address] June, [place] [address] [facility] June, [place] [address] June, [place] [address] without status migrainosus, not intractable G43.[address] June, [place] [address] June, Right inguinal hernia K40.90 [place] [address] ; Screening for lipid disorders Z13.220 ; Screening for prostate cancer Z12.5 and Anxiety F41.[address] June, [place] [address] June, [place] [address] June, [place] [address] June, [place] [address] [facility] [address] [place], [place] [address] June, [place] [address] [place] [address] June, [place] [address] June, [place] [address] F32.2 ; Hypomagnesemia E83.42 ; Anxiety F41.9 ; Pain in right knee M25.561 and Pain in left knee M25.[address] June, [place] [address] May, [place] [address] May, [place] [address] May, Neck pain M54.2 ; [place] [address] Hypomagnesemia E83.42 ; Rash R21 ; Moderately severe depression F32.2 and Elevated blood pressure reading without diagnosis of hypertension R03.[address] May, [place] [address] May, Migraine without aura [place] without status migrainosus, [address] not intractable G43.[address] May, [place] [address] May, [place] [address] without status migrainosus, not intractable G43.009 and Environmental allergies Z91.[address] May, [place] [address] May, [place] [address] F32.2 and Migraine without aura and without status migrainosus, not intractable G43.009 [facility] [address] [place], [place] [address] Apr, [place] [address] Apr, [place] [address] Apr, [place] [address] Apr, [place] [address] Apr, Worst headache of life R51 [place] [address] Apr, Pain [place] [address] M25.541 ; Hepatitis B core antibody positive R76.8 and Pain in joints of left hand M25.[address] Apr, [place] [address] Apr, [place] [address] Apr, Pain [place] [address] M25.541 ; Pain in joints of left hand M25.542 and Need for hepatitis C screening test Z11.[address] Apr, Anxiety F41.9 [place] [address] Apr, Chest tightness R07.89 ; [place] [address] Overweight (BMI 25.0-29.9) E66.3 ; BMI 27.0-27.9,adult Z68.27 and History of asthma Z87.[address] Mar, Chest tightness R07.89 [place] [address] Mar, [place] [address] Mar, [place] [address] Z91.[address] Mar, [place] [address] Mar, Chest tightness R07.89 [place] [address] Mar, [place] [address] Mar, Heart palpitations R00.2 ; [place] [address] Nasal congestion R09.81 ; Screening for HIV (human immunodeficiency virus) Z11.4 ; Right inguinal hernia K40.90 ; Anxiety F41.9 ; Screening for colon cancer Z12.11 and Anemia, unspecified type D64.[address] Jan, Chest congestion R09.89 [place] [address] Unilateral recurrent inguinal hernia without obstruction or gangrene K40.91 [place] [address] 14 Jan, 2017 [place] [address] Z91.09 ; Anxiety F41.9 ; Skin lesion L98.9 ; Screening, lipid Z13.220 and Right inguinal hernia K40.90 [place] [address] Nov, [place] [address] [place] [address] Sep, [place] [address] IMMUNIZATIONS No Known Immunizations SOCIAL HISTORY Never Assessed REASON FOR REFERRAL FUNCTIONAL STATUS PLAN OF CARE VITAL SIGNS MEDICATIONS Medication Instructions Dosage Frequency Start End Date Duration Status Date Sumatriptan Orally Once a day 1 tablet 30 Active Succinate 100 mg as needed for headache PROCEDURES No Known procedures RESULTS No Results REASON FOR VISIT Refill Medication Insurance Providers [facility] Member Patient Patient Patient Patient Patient Subscriber Subscriber Subscriber Group Insurance Plan Plan Plan Plan ID Relationship Address Phone Name Date of ID Name Date of No Type Insurance Insurance Insurance Coverage to Subscriber Address Phone Name Dates Medicaid [address] [phone] Medicaid [place] [id number] [facility] [address] [place] [address] [phone] Case self [place] [id number] Management [place] [address] Management [facility] [address] Community Medicare National 7-02 Medicare self [place] [id number] PPS QMB No Government 41 PPS QMB No [facility] [employer] e [address] [place] [id number] Medicare National [id number] Medicare self [place] [id number] PPS QMB No Government 41 PPS QMB No [place] [employer] e [address] [place] [id number] MEDICAL (GENERAL) HISTORY Type Description Date Medical History anxiety and panic disorder Medical History hyperactive Medical History Hep A and B Medical History Herpes Medical History Asthma (as a child) Medical History Heart palpitations Surgical History glands in breast removed Hospitalization History glands removed 2007
--- OUTSIDE RECORDS SUMMARY | 2018-12-12 21:03 | XMS REPORT | Continuity of Care Document ---
:1945 External Reference #:[id number] Author Name Robert Dia M.D. (transmitted by agent of provider Oanh Zurita) Address [address] [place] [address] Care Team Providers Name Role Phone Vinh King MD - Gastroenterology Care Team Information Telegraph Office Manager Jean Claude Sher MD - Urology Care Team Information Telegraph Office Manager [phone] Thomas Eubanks MD - Care Team Information Telegraph Office Manager [phone] Otolaryngology Francisco Doan MD - Endocrinology, Care Team Information Telegraph Office Manager [phone] Diabetes & Metabolism Laurel Dunbar MD - Dermatology Care Team Information Telegraph Office Manager Zuhair Escoto MD - Surgery Care Team Information Telegraph Office Manager [phone] Michael Perez PA-C - Physician Care Team Information Telegraph Office Manager [phone] Maximino Terrazas DO, [facility] - Care Team Information Telegraph Office Manager [phone] Cardiovascular Disease Problems Active Problems Provider Date [...] Patient has never smoked Smoking Status Reviewed: 11/26/18 Patient has never smoked Exercise Type/Frequency Does not exercise Allergies, Adverse Reactions, Alerts Active Allergies Reaction Severity Comments Date Sulfa 09/20/2008 Penicillin Anaphylaxis Severe 03/16/2009 Environmental Allergies 03/23/2017 Bee Pollen 08/25/2018 Medications Active Medications SIG Qnty Indications Ordering Provider Date Plaquenil 1 by mouth every 45tabs Robert Dia, 11/26/2018 200mg Tablets day for 1 week M.D. then 2 by mouth daily ongoing Saline Nasal [place] 1 spray both 44ml Other Ordering 12/09/2016 nares q 4 hrs Provider 0.65% Solution and prn Etdnu-6-Mdzc Ethyl Take 1 Capsule 180caps E78.2 Rogelio [...] Romina Caraballo, 08/15/2016 50mcg/Act each side twice [employer] Suspension daily Lipitor Take 1 Tablet By 90tabs Rogelio Zavaleta 09/20/2008 40mg Tablets Mouth Every FayetteJuan Carlos paredes,FACP Night AT Bedtime Veronica Allergy 1 by mouth every Unknown 60mg day Tablets Trazodone HCL TK 3 TS PO qd hs Unknown 100mg Tablets Medications Administered in Office Medication SIG Qnty Indications Ordering Provider Date Depomedrol 80MG Anton Agrawal M.D. 05/09/2014 Injection Depomedrol 80MG Anton Agrawal M.D. 12/23/2011 Injection Immunizations CPT Code Status Date Vaccine Reaction Lot # [id number] Given 01/03/2016 Influ Virus Vaccine, no reaction pt [id number] Quadrivalent, Split Virus, [place] [address] Given 12/27/2014 Influenza Virus Vaccine, [id number] Quadrivalent, Split, Preservative Free 55849 Given 12/27/2014 Pneumococcal Conjugate [id number] Vaccine 13 Valent For Intramuscular Use 85575 Given 12/26/2013 Flu Vaccine Split Virus [id number] Preservative Free For Indiv 3Yr Older 55766 Given 12/15/2012 Flu Vaccine Split Virus [id number] Preservative Free For Indiv 3Yr Older 43545 Given 11/08/2012 Pneumonia Vaccine [id number] Q2038 Given 10/31/2011 Fluzone Vaccine 17178 Given 10/31/2011 Zoster (Zostavax) [id number] Q2038 Given 12/04/2010 Fluzone Vaccine [id number] 34601 Given 04/13/2009 Influenza Virus 3Yrs & [id number] Over 51571 Given 03/09/2009 Influenza Virus Vaccine, [id number] [id number] Pandemic Formulation Vital Signs Date Vital Result Comment 11/26/2018 10:50am Height 69.5 inches 5'9.50" Weight 178.00 lb Heart Rate 65 /min BP Systolic Sitting 122 mmHg BP Diastolic Sitting 78 mmHg Pain Level 8 O2 % BldC Oximetry 98 % BMI (Body Mass Index) 25.9 kg/m2 10/13/2018 2:57pm Height 69.5 inches 5'9.50" Weight 177.00 lb Heart Rate 62 /min BP Systolic 114 mmHg BP Diastolic 70 mmHg Body Temperature 97.4 F O2 % BldC Oximetry 98 % BMI (Body Mass Index) 25.8 kg/m2 Results Test Date Facility Test Result H/L Range Note Nuclear AB 10/13/2018 [facility] Nuclear Ab Positive 1:320 Abnormal 1 (Minnie) By If[facility] (Minnie) by [place], [place] [address] IgG [phone] Minnie Titer: 1:320 Minnie Pattern: Homogeneous 2 Laboratory test 10/13/2018 [facility] Rheumatoid 28 IU/mL High <[place] [address] [phone] Cyclic Citrullinated Pep Igg <15.6 U 3 Kimberli Igg AB Reflex 10/13/2018 [facility] SS-A/Ro Antibody <0.[address] [place] [address] [place] [address] [phone] SS-B/La Antibody 0.6 U 5 Sm ([place]) IgG Antibody <0.2 U 6 HEAD [employer]THLETIC TRAINER Antibody, IgG <0.2 U 7 Scl-70 (Scleroderma) Antibody <0.2 U 8 Kelin-1 Antibody <0.2 U 9 Laboratory test 10/13/2018 [facility] Complement C3 105 mg/dL 75 - [address] [place] [address] [phone] Complement C4 20 mg/dL 14 - 40 11 Strep AB Anti 10/13/2018 [facility] Anti Streptolysin 162 IU/mL 0 - [address] [place] [address] [phone] Anti-DNase B <76 U/mL 0 - 300 12 Cardiolipin 10/13/2018 [facility] Phospholipid Ab < 9.4 MPL 13 Igg/Igm [address] [facility] IgM, [place] [address] [phone] Phospholipid Ab IgG < 9.4 GPL 14 Hepatitis Acute 10/13/2018 [facility] Hepatitis A AB Negative Negative Panel [address] [facility] [place] [address] [phone] Hepatitis B Core AB Igm Nonreactive Nonreactive Hepatitis B Surface Ag Negative Negative Hepatitis C Antibody 10/13/2018 [facility] HCV Index 0.02 s/c [address] [place] [address] [phone] Hepatitis C Antibody Negative Negative Laboratory test 10/13/2018 [facility] Cryoglobulin Negative % ppt Negative 15 [address] [place] [address] [phone] C Reactive Protein < 1.00 mg/L Normal <8.01 1 REFERENCE VALUE <1:80 (Negative) 2 Test Performed by: [facility] [employer] [address] [place] [address] 3 REFERENCE VALUE <20.0 (Negative) Test Performed by: [facility] [place] [address] 4 REFERENCE VALUE <1.0 (Negative) 5 REFERENCE VALUE <1.0 (Negative) 6 REFERENCE VALUE <1.0 (Negative) 7 REFERENCE VALUE <1.0 (Negative) 8 REFERENCE VALUE <1.0 (Negative) 9 REFERENCE VALUE <1.0 (Negative) Test Performed by: [place] [address] 10 Test Performed by: [facility] [place] [address] 11 Test Performed by: [place] [address] 12 Test Performed by: [place] [address] 13 REFERENCE VALUE <15.0 (Negative) 14 REFERENCE VALUE <15.0 (Negative) Test Performed by: [place] [address] 15 This test is negative at 24 hours. All samples are held and reviewed again at 7 days. If delayed precipitation occurs after 7 days, Immunofixation will be performed and an additional report will follow. Test Performed by: [place] [address] Procedures Date Code Description Status 09/09/2007 75903097 Colonoscopy Completed Medical Devices Description No Information Available Encounters Type Date Location Provider Dx Diagnosis Office Visit 10/13/2018 Rheumatology Robert Dia, R76.0 Raised antibody 3:00p [facility]angel titer R76.8 Other specified abnormal immunological findings in serum M25.512 Pain in left shoulder M54.5 Low back pain M25.559 Pain in unspecified hip M79.673 Pain in unspecified foot Office Visit 08/25/2018 Dennis Bernal G43.009 Migraine w/o aura, 2:45p Estefania Aparicio M.D. 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 of multiple sites without organ or systems involvement 11/26/2018 Z79.899 Other superintendent container terminal (current) drug therapy Robert Dia M.D. 11/26/2018 M54.5 Low back pain Robert Dia M.D. 11/26/2018 I73.00 Raynaud's syndrome without gangrene Robert Dia M.D. 10/13/2018 R76.0 Raised antibody titer Robert Dia [...] M.D. skills, unspecified Plan of Treatment Future Appointment(s):01/31/2019 3:20 pm - Ife[facility].D. [facility]11/26/2018 - Robert Dia M.D.M05.79 Rheumatoid arthritis with rheumatoid factor of multiple sites without organ or systems qyvzudpjvgvU02.899 Other superintendent container terminal (current) drug therapyReferral:Davis Mccoy MD, KzwbpisscfydsF31.5 Low back painNew Therapy:Physical AdyyngrP11.00 Raynaud's syndrome without gangreneFollow up:Follow up in 2 months or sooner if needed Functional Status Description No Information Available Mental Status Description No Information Available Referrals Refer to Dr Reason for Referral Status Appt Date Davis Mccoy MD Please monitor for Plaquenil toxicity Created [address] [place] [address] [phone]
--- OUTSIDE RECORDS SUMMARY | 2018-12-12 21:03 | XMS REPORT ---
:1945 Author Organization [facility] Address [address] [place] [address] Care Team Providers Name Role Phone Michael Perez Unavailable Unavailable PROBLEMS Type Condition ICD9-CM Code [id number] Onset Condition SNOMED Code Code Dates Status Problem High cholesterol E78.00 Active 28564748 Problem Environmental Z91.09 Active 388655543 allergies Problem Chronic GERD K21.9 Active 685490461 Problem Primary M15.0 Active 506421095 osteoarthritis involving multiple joints Problem Right inguinal K40.90 Active 203750783 hernia Problem Overweight (BMI E66.3 Active 316411056 25.0-29.9) Problem Migraine without G43.009 Active 457536365 aura and without status migrainosus, not intractable Problem History of Z86.59 Active 605244694 depression ALLERGIES No Information ENCOUNTERS Encounter Location Date Diagnosis [address] Sep, [place] [address] [facility] [address] [facility] Sep, [place] [address] involving multiple joints M15.0 ; Overweight (BMI 25.0-29.9) E66.3 ; BMI 26.0-26.9,adult Z68.26 and Encounter for immunization Z23 [address] Aug, [place] [address] Aug, [place] [address] Aug, [place] [address] Aug, [place] [address] Jul, [place] [address] [facility] [address] Jul, [place] [address] [place] [address] [facility] [address] [place], [place] [address] Jul, [facility] [place] [address] [facility] [address] June, Mood disorder F39 ; [place] [address] Environmental allergies Z91.09 ; Chronic GERD K21.9 and High cholesterol E78.00 [facility] [address] [place], [place] [address] June, [place] [address] Z91.[address] [place] [address] June, [place] [address] June, [place] [address] [place] [address] [place] June, Mood disorder F39 [place] [address] June, Mood disorder F39 [place] [address] June, Mood disorder F39 [facility] [place] [address] [place] [address] [place] June, Pain in left shoulder [place] [address] M25.512 and Environmental allergies Z91.09 [place] [address] [place] May, Screening for [place] [address] disorders Z13.[address] [place] [address] May, [place] [address] [place] [address] May, Sore throat J02.9 ; [place] [address] disorder F39 and Chronic GERD K21.[address] [place] [address] May, [place] [address] [place] [address] May, Bilateral otitis media [place] [address] effusion H65.[address] [place] [address] May, [place] [address] May, [place] [address] Apr, [place] [address] R10.12 and Right inguinal hernia K40.[address] Apr, [place] [address] [facility] [place] [employer] [facility] Apr, [place] [address] Apr, [place] [address] Mar, Cellulitis, neck L03.221 [place] [address] Mood disorder F39 [address] Jan, [place] [address] [facility] [address] [place] [address] Jan, [place] [address] Jan, [place] [address] [place] [address] Jan, [place] [address] Jan, [place] [address] Dec, [place] [address] Dec, [place] [address] infectious origin R19.[address] Dec, Skin rash R21 ; [place] [address] blood pressure reading without diagnosis of hypertension R03.0 and Shaking R25.[address] Nov, [place] [address] Nov, Dermatitis L30.9 ; [place] [address] without aura and without status migrainosus, not intractable G43.009 ; Elevated blood pressure reading without diagnosis of hypertension R03.0 and Encounter for immunization Z23 [address] Nov, [place] [address] [facility] [address] [place] [address] Nov, Mood disorder F39 [place] [address] [facility] Nov, Mood disorder F39 [place] [address] Nov, [facility] [place] [place] [address] [facility] [address] [facility] Oct, [place] [address] Oct, Mood disorder F39 [place] [address] [facility] [address] [facility] Sep, Migraine without aura [place] [address] without status migrainosus, not intractable G43.009 and Chronic fatigue R53.[address] [facility] Sep, Migraine without [place] [address] without status migrainosus, not intractable G43.009 [facility] [address] [facility] Sep, [place] [address] Sep, [place] [address] Sep, [place] [address] Sep, [place] [address] [facility] [address] [facility] Sep, [place] [address] [facility] [address] [place] [address] Sep, Other infective acute [place]itis [place] [address] externa of left ear H60.392 and Migraine without aura and without status migrainosus, not intractable G43.[address] Sep, [facility] [place] [address] Sep, [place] [address] [facility] [address] [facility] Aug, [place] [address] Aug, [place] [address] Aug, [place] [address] Jul, [place] [address] [facility] [address] [facility] Jul, [place] [address] Jul, [place] [address] [facility] [address] [facility] Jul, History of depression Z86.59 [place] [address] [facility] [address] [place] [address] Jul, [place] [address] Jul, [place] [address] Jul, [facility] [place] [address] Jul, [place] [address] Jul, Encounter for preprocedural [place] [address] cardiovascular examination Z01.810 ; Snoring R06.83 ; Postnasal drip R09.82 and Moderately severe depression F32.[address] June, [place] [address] June, [place] [address] June, [place] [address] [facility] June, [place] [address] June, [place] [address] without status migrainosus, not intractable G43.[address] June, [place] [address] June, Right inguinal hernia K40.90 [place] [address] ; Screening for lipid disorders Z13.220 ; Screening for prostate cancer Z12.5 and Anxiety F41.[address] June, [place] [address] June, [place] [address] June, [place] [address] June, [place] [address] [facility] [address] [place], [place] [address] June, [place] [address] [facility] [address] [place] [address] June, [place] [address] June, Moderately severe depression [place] [address] F32.2 ; Hypomagnesemia E83.42 ; Anxiety F41.9 ; Pain in right knee M25.561 and Pain in left knee M25.[address] June, [place] [address] Teod[facility] [place] [address] May, [place] [address] May, [place] [address] May, Neck pain M54.2 ; [place] [address] Hypomagnesemia E83.42 ; Rash R21 ; Moderately severe depression F32.2 and Elevated blood pressure reading without diagnosis of hypertension R03.[address] May, [place] [address] May, Migraine without aura and [place] without status migrainosus, [address] not intractable G43.[address] May, [place] [address] May, [place] [address] without status migrainosus, not intractable G43.009 and Environmental allergies Z91.[address] [facility] May, [place] [address] May, [place] [address] F32.2 and Migraine without aura and without status migrainosus, not intractable G43.009 [facility] [address] [place], [place] [address] Apr, [place] [address] [place] [address] [place] Apr, [place] [address] [place] [address] [place] Apr, [place] [address] Apr, [place] [address] Apr, Worst headache of life R51 [place] [address] Apr, Pain [place] [address] M25.541 ; Hepatitis B core antibody positive R76.8 and Pain in joints of left hand M25.[address] Apr, [place] [address] Apr, [place] [address] Apr, Pain [place] [address] M25.541 ; Pain in joints of left hand M25.542 and Need for hepatitis C screening test Z11.[address] Apr, Anxiety F41.9 [place] [address] Apr, Chest tightness R07.89 ; [place] [address] Overweight (BMI 25.0-29.9) E66.3 ; BMI 27.0-27.9,adult Z68.27 and History of asthma Z87.[address] Mar, Chest tightness R07.89 [place] [address] Mar, [place] [address] Mar, [place] [address] [address]91[address] Mar, [place] [address] Mar, Chest tightness R07.89 [place] [address] Mar, [place] [address] Mar, Heart palpitations R00.2 ; [place] [address] Nasal congestion R09.81 ; Screening for HIV (human immunodeficiency virus) Z11.4 ; Right inguinal hernia K40.90 ; Anxiety F41.9 ; Screening for colon cancer Z12.11 and Anemia, unspecified type D64.[address] Jan, Chest congestion R09.89 [place] [address] Unilateral recurrent inguinal hernia without obstruction or gangrene K40.[address] Jan, [place] [address] Z91.09 ; Anxiety F41.9 ; Skin lesion L98.9 ; Screening, lipid Z13.220 and Right inguinal hernia K40.90 [place] [address] [place] Nov, [place] [address] [place] [address] [place] Sep, [place] [address] IMMUNIZATIONS No Known Immunizations SOCIAL HISTORY Never Assessed REASON FOR REFERRAL FUNCTIONAL STATUS PLAN OF CARE VITAL SIGNS MEDICATIONS Medication Instructions Dosage Frequency Start End Date Duration Status Date Nasonex 50 Nasally Once a 2 sprays in 24h 30 Active MCG/ACT day each nostril PROCEDURES No Known procedures RESULTS No Results REASON FOR VISIT refill request Insurance Providers [facility] Member Patient Patient Patient Patient Patient Subscriber Subscriber Subscriber Group Insurance Plan Plan Plan Plan ID Relationship Address Phone Name Date of ID Name Date of No Type Insurance Insurance Insurance Coverage to Subscriber Address Phone Name Dates Case [phone] Case self [place] [id number] Management [place] [address] [facility] [address] Community Medicare National [id number] Medicare self [place] [id number] PPS QMB No Government 41 PPS QMB No [employer] [address] [place] [id number] Medicare National [id number] Medicare self [place] [id number] PPS QMB No Government 41 PPS QMB No [employer] [address] [place] [id number] Medicaid [id number] Medicaid self [place] [id number] [facility] [address] [facility] [address] MEDICAL (GENERAL) HISTORY Type Description Date Medical History anxiety and panic disorder Medical History hyperactive Medical History Hep A and B Medical History Herpes Medical History Asthma (as a child) Medical History Heart palpitations Surgical History glands in breast removed Hospitalization History glands removed 2007
--- OUTSIDE RECORDS SUMMARY | 2018-12-12 21:03 | XMS REPORT ---
:1945 Author Organization [facility] Address [address] [place] [address] Care Team Providers Name Role Phone Michael Perez Unavailable Unavailable PROBLEMS Type Condition ICD9-CM Code [id number] Onset Condition SNOMED Code Code Dates Status Problem High cholesterol E78.00 Active 98212160 Problem Environmental Z91.09 Active 162481432 allergies Problem Chronic GERD K21.9 Active 814029746 Problem Primary M15.0 Active 846999767 osteoarthritis involving multiple joints Problem Right inguinal K40.90 Active 560349417 hernia Problem Overweight (BMI E66.3 Active 611374377 25.0-29.9) Problem Migraine without G43.009 Active 316955478 aura and without status migrainosus, not intractable Problem History of Z86.59 Active 793570951 depression ALLERGIES No Information ENCOUNTERS Encounter Location Date Diagnosis [address] Oct, [place] [address] Sep, [place] [address] Sep, [place] [address] involving multiple joints M15.0 ; Overweight (BMI 25.0-29.9) E66.3 ; BMI 26.0-26.9,adult Z68.26 and Encounter for immunization Z23 [address] Aug, [place] [address] Aug, [place] [address] Aug, [place] [address] Aug, [place] [address] [facility] [address] [facility] Jul, [place] [address] [facility] [address] Jul, [place] [address] Jul, [place] [address] [facility] [address] [place], [place] [address] Jul, [place] [address] [place] [address] June, Mood disorder F39 ; [place] [address] Environmental allergies Z91.09 ; Chronic GERD K21.9 and High cholesterol E78.00 [facility] [address] [place], [place] [address] June, [place] [address] Z91.09 [place] [address] June, [place] [address] June, [place] [address] [place] [address] June, Mood disorder F39 [place] [address] June, Mood disorder F39 [place] [address] June, Mood disorder F39 [place] [address] [place] [address] June, [place] [address] M25.512 and Environmental allergies Z91.09 [place] [address] May, [place] [address] disorders Z13.[address] [place] [address] May, [place] [address] [place] [address] May, Sore throat J02.9 ; [place] [address] disorder F39 and Chronic GERD K21.[address] [place] [address] May, [place] [address] [place] [address] May, [place] [address] effusion H65.[address] May, [place] [address] May, [place] [address] Apr, [place] [address] R10.12 and Right inguinal hernia K40.[address] Apr, [place] [address] [facility], [facility] - Resource - [place] [facility] Apr, [place] [address] Apr, [place] [address] Mar, Cellulitis, neck L03.221 [place] [address] Mood disorder F39 [address] Jan, [place] [address] [facility] [address] [place] [address] Jan, [place] [address] [place] [address] [place], [place] [address] [place] [address] [address] [facility] Jan, [place] [address] [facility] [address] [place] [address] Jan, [place] [address] Dec, [place] [address] Dec, [place] [address] infectious origin R19.[address] Dec, Skin rash R21 ; [place] [address] blood pressure reading without diagnosis of hypertension R03.0 and Shaking R25.[address] Nov, [place] [address] Nov, Dermatitis L30.9 ; [place] [address] without aura and without status migrainosus, not intractable G43.009 ; Elevated blood pressure reading without diagnosis of hypertension R03.0 and Encounter for immunization Z23 [address] Nov, [facility] [place] [address] [facility] [address] [facility] Nov, Mood disorder F39 [place] [address] [place] Nov, Mood disorder F39 [place] [address] [place] Nov, [place] [address] [facility] [address] Oct, [place] [address] Oct, Mood disorder F39 [place] [address] [facility] [address] Sep, [place] [address] without status migrainosus, not intractable G43.009 and Chronic fatigue R53.[address] [facility] Sep, Migraine without [place] [address] without status migrainosus, not intractable G43.009 [facility] [address] Sep, [place] [address] Sep, [place] [address] [facility] [address] Sep, [place] [address] Sep, [place] [address] [facility] [address] Sep, [place] [address] [facility] [address] Sep, Other [place] [address] externa of left ear H60.392 and Migraine without aura and without status migrainosus, not intractable G43.[address] [place] [address] Sep, Health [facility] [place] [address] Sep, [place] [address] [facility] [address] Aug, [place] [address] Aug, [place] [address] Aug, [place] [address] Jul, [place] [address] [facility] [address] Jul, [place] [address] Jul, [place] [address] Jul, History of depression Z86.59 [place] [address] [facility] [address] [place] [address] Jul, [place] [address] Jul, [place] [address] Jul, [place] [address] Jul, [place] [address] Jul, [place] [address] cardiovascular examination Z01.810 ; Snoring R06.83 ; Postnasal drip R09.82 and Moderately severe depression F32.[address] June, [place] [address] June, [place] [address] June, [place] [address] June, [place] [address] June, Migraine [place] [address] without status migrainosus, not intractable G43.[address] June, [place] [address] June, Right inguinal hernia K40.90 [place] [address] ; Screening for lipid disorders Z13.220 ; Screening for prostate cancer Z12.5 and Anxiety F41.[address] June, [place] [address] June, [place] [address] June, [place] [address] June, [place] [address] [facility] [address] [place], [place] [address] June, [place] [address] [facility] [address] [place] [address] June, [place] [address] June, Moder[place] [address] F32.2 ; Hypomagnesemia E83.42 ; Anxiety F41.9 ; Pain in right knee M25.561 and Pain in left knee M25.[address] June, [place] [address] [place] May, [place] [address] May, [place] [address] May, Neck pain M54.2 ; [place] [address] Hypomagnesemia E83.42 ; Rash R21 ; Moderately severe depression F32.2 and Elevated blood pressure reading without diagnosis of hypertension R03.[address] May, [place] [address] May, Migraine without aura [place] without status migrainosus, [address] not intractable G43.[address] May, [place] [address] May, Migraine [place] [address] without status migrainosus, not intractable G43.009 and Environmental allergies Z91.[address] [facility] May, [place] [address] May, Moderately [place] [address] F32.2 and Migraine without aura and without status migrainosus, not intractable G43.009 [facility] [address] [place], [place] [address] Apr, [place] [address] [place] [address] Apr, [place] [address] [place] [address] Apr, [place] [address] Apr, [place] [address] Apr, Worst headache of life R51 [place] [address] Apr, Pain [place] [address] M25.541 ; Hepatitis B core antibody positive R76.8 and Pain in joints of left hand M25.[address] Apr, [place] [address] Apr, [place] [address] Apr, Pain [place] [address] M25.541 ; Pain in joints of left hand M25.542 and Need for hepatitis C screening test Z11.[address] Apr, Anxiety F41.9 [place] [address] Apr, Chest tightness R07.89 ; [place] [address] Overweight (BMI 25.0-29.9) E66.3 ; BMI 27.0-27.9,adult Z68.27 and History of asthma Z87.[address] Mar, Chest tightness R07.89 [place] [address] Mar, [place] [address] Mar, [place] [address] Z91.[address] Mar, [place] [address] Mar, Chest tightness R07.89 [place] [address] Mar, [place] [address] Mar, Heart palpitations R00.2 ; [place] [address] Nasal congestion R09.81 ; Screening for HIV (human immunodeficiency virus) Z11.4 ; Right inguinal hernia K40.90 ; Anxiety F41.9 ; Screening for colon cancer Z12.11 and Anemia, unspecified type D64.[address] Jan, Chest congestion R09.89 [place] [address] Unilateral recurrent inguinal hernia without obstruction or gangrene K40.[address] Jan, [place] [address] Z91.09 ; Anxiety F41.9 ; Skin lesion L98.9 ; Screening, lipid Z13.220 and Right inguinal hernia K40.90 [place] [address] Nov, [place] [address] [place] [address] Sep, [place] [address] IMMUNIZATIONS No Known Immunizations SOCIAL HISTORY Never Assessed REASON FOR REFERRAL FUNCTIONAL STATUS PLAN OF CARE VITAL SIGNS MEDICATIONS Medication Instructions Dosage Frequency Start End Date Duration Status Date Nasonex 50 Nasally Once a 2 sprays in 24h Active MCG/ACT day each nostril PROCEDURES No Known procedures RESULTS No Results REASON FOR VISIT Refill Medication Insurance Providers [facility] Health Member Patient Patient Patient Patient Patient Subscriber Subscriber Subscriber Group Insurance Plan Plan Plan Plan ID Relationship Address Phone Name Date of ID Name Date of No Type Insurance Insurance Insurance Coverage to Subscriber Address Phone Name Dates Medicare National [id number] Medicare self [place] [id number] PPS QMB No Government 41 PPS QMB No [place] [employer] [address] [place] [id number] Medicaid [id number] [phone] Medicaid self [place] [id number] [facility] [address] [place] [address] Case [phone] Case self Gardner [id number] Management [place] [address] [facility] [address] Community Medicare National [phone] Medicare self [place] [id number] PPS QMB No Government 41 PPS QMB No Sae [employer] e [address] [place] [id number] MEDICAL (GENERAL) HISTORY Type Description Date Medical History anxiety and panic disorder Medical History hyperactive Medical History Hep A and B Medical History Herpes Medical History Asthma (as a child) Medical History Heart palpitations Surgical History glands in breast removed Hospitalization History glands removed 2007
--- NOTE | 2018-12-12 22:58 | ED ---
Abdominal Pain/Male - HPI Summary HPI Summary: Patient complains of pain in right inguinal groin starting today. Patient states he tried to have a bowel movement and was passed out the pain. Patient has history of right inguinal hernia, concerned about hernia. Denies fever, cough, sore throat, CP, SOB, N/V/D, change in urine, change in BM. - History of Current Complaint Chief Complaint: EDAbdPain Stated Complaint: GROIN PAIN PER PT Time Seen by Provider: 12/12/18 21:53 Hx Obtained From: Patient Onset/Duration: Sudden Onset, Lasting Minutes Timing: Constant Severity Initially: Mild Severity Currently: Mild Pain Intensity: 3 Pain Scale Used: 0-10 Numeric Location: Discrete At: RLQ Radiates: No - Allergies/Home Medications Allergies/Adverse Reactions: Allergies Allergy/AdvReac Type Severity Reaction Status Date / Time Penicillins Allergy Unknown Verified 12/12/18 20:54 Reaction Details red dye Allergy Facial Verified 12/12/18 20:54 Redness/Flushing Sulfa (Sulfonamide Allergy Unknown Verified 12/12/18 20:54 Antibiotics) Reaction Details PMH/Surg Hx/FS Hx/Imm Hx Endocrine/Hematology History: Reports: Hx Anemia Denies: Hx Anticoagulant Therapy, Hx Blood Disorders, Hx Blood Transfusions, Hx Diabetes, Hx Systemic Lupus Erythematosus, Hx Thyroid Disease, Hx Unexplained Bleeding Cardiovascular History: Reports: Hx Angina - DOESN;T TAKE ANYTHING FOR THIS, 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" - no meds, Other Cardiovascular Problems/Disorders - "arrhythmia" in the past - no meds Denies: Hx Aneurysm, Hx Atrial Fibrillation, Hx Cardiomegaly, Hx Congenital Heart Disease, Hx Congestive Heart Failure, Hx Coronary Artery Disease, Hx Deep Vein Thrombosis, Hx Hypercholesterolemia, Hx Hypotension, Hx Hypertension, Hx Myocardial Infarction, Hx Pacemaker/ICD, Hx Peripheral Vascular Disease, Hx Rheumatic Fever, Hx Syncope Respiratory History: Reports: Hx Asthma - INHALER, Hx Pneumonia, Hx Seasonal Allergies, Other Respiratory Problems/Disorders - pleurisy, bronchitis IN THE PAST Denies: Hx Chronic Obstructive Pulmonary Disease (COPD), Hx Pulmonary Edema, Hx Pulmonary Embolism, Hx Sleep Apnea GI History: Reports: Other GI Disorders - Hep A and Hep B - followed by PCP - no issues at this time Denies: Hx Crohn's Disease, Hx Diverticulosis, Hx Gall Bladder Disease, Hx Gastroesophageal Reflux Disease, Hx Gastrointestinal Bleed, Hx Hiatal Hernia, Hx Irritable Bowel, Hx Obstructive Bowel, Hx Ulcer History: Reports: Other Problems/Disorders - ENLARGED PROSTATE Musculoskeletal History: Reports: Hx Arthritis - R/A, Hx Back Problems - wears an elastic wrap but makes blood pressure increase while on Sensory History: Reports: Hx Cataracts, Hx Contacts or Glasses - GLASSES Denies: Hx Hearing Aid Opthamlomology History: Reports: Hx Cataracts, Hx Contacts or Glasses - GLASSES Neurological History: Reports: Hx Migraine, Other Neuro Impairments/Disorders - HX DISK PROBLEM 1967 Psychiatric History: Reports: Hx Anxiety, Hx Depression, Hx Panic Disorder - Cancer History Cancer Type, Location and Year: None reported - Surgical History Surgery Procedure, Year, and Place: BILATERAL BREAST GLAND SURGERY 2007&1973 Hx Anesthesia Reactions: No - Immunization History Date of Influenza Vaccine: 11/2016 Infectious Disease History: No Infectious Disease History: Reports: Hx Hepatitis Denies: Traveled Outside the [place] in Last 30 Days - Family History Known Family History: Positive: Cardiac Disease - mom, Hypertension, Diabetes Negative: Blood Disorder - Social History Alcohol Use: None Hx Substance Use: No Substance Use Type: Reports: Prescribed Hx Tobacco Use: No Smoking Status (MU): Never Smoked Tobacco Have You Smoked in the Last Year: No Review of Systems Constitutional: Negative Eyes: Other ENT: Negative Cardiovascular: Negative Respiratory: Negative Gastrointestinal: Negative Genitourinary: Negative Musculoskeletal: Negative Skin: Negative Neurological: Negative Psychological: Normal All Other Systems Reviewed And Are Negative: Yes Physical Exam - Summary Physical Exam Summary: No noticeable hernia in right inguinal area. Normal exam of genitalia. Abdomen soft nontender. Triage Information Reviewed: Yes Vital Signs On Initial Exam: Initial Vitals Temp Pulse Resp BP Pulse Ox 98.4 F 79 15 143/82 100 12/12/18 20:52 12/12/18 20:52 12/12/18 20:52 12/12/18 20:52 12/12/18 20:52 Vital Signs Reviewed: Yes Appearance: Positive: Well-Appearing Skin: Positive: Warm Head/Face: Positive: Normal Head/Face Inspection Eyes: Positive: Normal Neck: Positive: Supple Respiratory/Lung Sounds: Positive: Clear to Auscultation Cardiovascular: Positive: Normal Abdomen Description: Positive: Nontender Male Genital Exam: Positive: Normal Genitalia Musculoskeletal: Positive: Normal Neurological: Positive: Normal Psychiatric: Positive: Normal AVPU Assessment: Alert - [place] Coma Scale Best Eye Response: 4 - Spontaneous Best Motor Response: 6 - Obeys Commands Best Verbal Response: 5 - Oriented Coma Scale Total: 15 Procedures - Sedation Patient Received Moderate/Deep Sedation with Procedure: No Diagnostics - Vital Signs Vital Signs Temp Pulse Resp BP Pulse Ox 12/12/18 20:52 98.4 F 79 15 143/82 100 - Laboratory Lab Statement: Any lab studies that have been ordered have been reviewed, and results considered in the medical decision making process. Abdominal Pain Male Course/Dx - Course Course Of Treatment: Patient complains of pain in right inguinal groin starting today. Patient states he tried to have a bowel movement and was passed out the pain. Patient has history of right inguinal hernia, concerned about hernia. Denies fever, cough, sore throat, CP, SOB, N/V/D, change in urine, change in BM. Vital signs within normal limits. No indication for imaging. Advised patient follow up with his surgeon. - Diagnoses Provider Diagnoses: Inguinal hernia Discharge ED - Sign-Out/Discharge Documenting (check all that apply): Patient Departure - Discharge Plan Condition: Stable Disposition: HOME Patient Education Materials: Inguinal Hernia (ED) Referrals: Michael Perez PA [Primary Care Provider] - Maximino Dudley MD [Medical Doctor] - Additional Instructions: Follow-up with your surgeon for further evaluation. Return to the ED for any worsened - Billing Disposition and Condition Condition: STABLE Disposition: Home
[2018-12-12 23:59] VITALS: BP 135/79
== END 2018-12-12 23:30 | disposition home or self-care (01) ==
LOC: ED 20:47
DX: K40.90 Unilateral inguinal hernia, without obstruction or gangrene, not specified as recurrent (principal); J45.909 Unspecified asthma, uncomplicated; Z88.0 Allergy status to penicillin; Z88.2 Allergy status to sulfonamides; Z91.048 Other nonmedicinal substance allergy status
CPT/HCPCS: 99282

== ENCOUNTER 2018-12-25 14:34 | Emergency (ER) | payer MEDICARE, MEDICAID ==
--- NOTE | 2018-12-25 15:06 | ED ---
Throat Pain/Nasal Congestion - HPI Summary HPI Summary: The patient is a 73 y/o M presenting to [facility] with ear symptoms onset about a month ago with recent worsening. He reports that he has seen Dr. Meléndez (last 1.5 months ago) for ENT issues he has dealt with for a few years. He is now experiencing bilateral ear pain with blood (right), drainage and swelling (left) inside the ear, and pruritus, as well as a sore throat and a headache. Currently, his symptoms are rated 6/10 in severity. He has used allergy medications (Nasonex) to no relief. No prior ENT surgery. PMHx: seasonal allergies, anemia, mitral valve issue, bronchitis, hepatitis. FHx: DM, cardiac disease, HTN. Nonsmoker, no EtOH, no substance use. Medications reviewed. Allergies noted. - History of Current Complaint Chief Complaint: EDEarPain Time Seen by Provider: 12/25/18 14:48 Hx Obtained From: Patient Onset/Duration: Lasting Days, Still Present Severity: Moderate Cough: None - Allergies/Home Medications Allergies/Adverse Reactions: Allergies Allergy/AdvReac Type Severity Reaction Status Date / Time Penicillins Allergy Unknown Verified 12/12/18 20:54 Reaction Details red dye Allergy Facial Verified 12/12/18 20:54 Redness/Flushing Sulfa (Sulfonamide Allergy Unknown Verified 12/12/18 20:54 Antibiotics) Reaction Details PMH/Surg Hx/FS Hx/Imm Hx Endocrine/Hematology History: Reports: Hx Anemia Denies: Hx Anticoagulant Therapy, Hx Blood Disorders, Hx Blood Transfusions, Hx Diabetes, Hx Systemic Lupus Erythematosus, Hx Thyroid Disease, Hx Unexplained Bleeding Cardiovascular History: Reports: Hx Angina - DOESN;T TAKE ANYTHING FOR THIS, 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" - no meds, Other Cardiovascular Problems/Disorders - "arrhythmia" in the past - no meds Denies: Hx Aneurysm, Hx Atrial Fibrillation, Hx Cardiomegaly, Hx Congenital Heart Disease, Hx Congestive Heart Failure, Hx Coronary Artery Disease, Hx Deep Vein Thrombosis, Hx Hypercholesterolemia, Hx Hypotension, Hx Hypertension, Hx Myocardial Infarction, Hx Pacemaker/ICD, Hx Peripheral Vascular Disease, Hx Rheumatic Fever, Hx Syncope Respiratory History: Reports: Hx Asthma - INHALER, Hx Pneumonia, Hx Seasonal Allergies, Other Respiratory Problems/Disorders - pleurisy, bronchitis IN THE PAST Denies: Hx Chronic Obstructive Pulmonary Disease (COPD), Hx Pulmonary Edema, Hx Pulmonary Embolism, Hx Sleep Apnea GI History: Reports: Other GI Disorders - Hep A and Hep B - followed by PCP - no issues at this time Denies: Hx Crohn's Disease, Hx Diverticulosis, Hx Gall Bladder Disease, Hx Gastroesophageal Reflux Disease, Hx Gastrointestinal Bleed, Hx Hiatal Hernia, Hx Irritable Bowel, Hx Obstructive Bowel, Hx Ulcer History: Reports: Other Problems/Disorders - ENLARGED PROSTATE Musculoskeletal History: Reports: Hx Arthritis - R/A, Hx Back Problems - wears an elastic wrap but makes blood pressure increase while on Sensory History: Reports: Hx Cataracts, Hx Contacts or Glasses - GLASSES Denies: Hx Hearing Aid Opthamlomology History: Reports: Hx Cataracts, Hx Contacts or Glasses - GLASSES Neurological History: Reports: Hx Migraine, Other Neuro Impairments/Disorders - HX DISK PROBLEM 1967 Psychiatric History: Reports: Hx Anxiety, Hx Depression, Hx Panic Disorder - Cancer History Cancer Type, Location and Year: None reported - Surgical History Surgical History: Yes Surgery Procedure, Year, and Place: BILATERAL BREAST GLAND SURGERY 2007&1973 Hx Anesthesia Reactions: No - Immunization History Date of Influenza Vaccine: 11/2016 Infectious Disease History: No Infectious Disease History: Reports: Hx Hepatitis Denies: Traveled Outside the [place] in Last 30 Days - Family History Known Family History: Positive: Cardiac Disease - mom, Hypertension, Diabetes Negative: Blood Disorder - Social History Alcohol Use: None Hx Substance Use: No Substance Use Type: Reports: Prescribed Hx Tobacco Use: No Smoking Status (MU): Never Smoked Tobacco Have You Smoked in the Last Year: No Review of Systems Positive: Sore Throat, Ear Ache - blood in right ear, swelling and drainage from left ear, pruritus Positive: Headache All Other Systems Reviewed And Are Negative: Yes Physical Exam - Summary Physical Exam Summary: Constitutional: Well-developed, Well-nourished, Alert. (-) Distressed Skin: Warm, Dry HENT: Normocephalic; Atraumatic; Superficial abrasion of external ear canal of the right ear, mild crusting of the inner left ear, bilateral TMs clear. Eyes: Conjunctiva normal Neck: Musculoskeletal ROM normal neck. (-) JVD, (-) Stridor, (-) Nuchal rigidity Cardio: Rhythm regular, rate normal, Heart sounds normal; Intact distal pulses; Radial pulses are 2+ and symmetric. (-) Murmur Pulmonary/Chest wall: Effort normal. (-) Respiratory distress, (-) Wheezes, (-) Rales Abd: Soft, (-) tenderness, (-) Distension, (-) Guarding, (-) Rebound Musculoskeletal: (-) Edema Lymph: (-) Cervical adenopathy Neuro: Alert, Oriented x3 Psych: Mood and affect Normal Triage Information Reviewed: Yes Vital Signs On Initial Exam: Initial Vitals Temp Pulse Resp BP Pulse Ox 98.6 F 74 15 143/81 100 12/25/18 14:42 12/25/18 14:42 12/25/18 14:42 12/25/18 14:42 12/25/18 14:42 Vital Signs Reviewed: Yes Procedures - Sedation Patient Received Moderate/Deep Sedation with Procedure: No Diagnostics - Vital Signs Vital Signs Temp Pulse Resp BP Pulse Ox 12/25/18 14:42 98.6 F 74 15 143/81 100 - Laboratory Lab Statement: Any lab studies that have been ordered have been reviewed, and results considered in the medical decision making process. Re-Evaluation - Re-Evaluation First Eval Re-Evaluation Time: 15:40 Change: Unchanged Comment: We discussed the plan for discharge. EENT Course/Dx - Course Course Of Treatment: 73 y/o male w hx allergic rhinitis p/w ear pain. - PE with mild irritation of L ear canal, no swelling of ear. No fevers or systemtic symptoms, no post auricular swelling. Throat clear. Treat as otitis externa. - Diagnoses Provider Diagnoses: Otitis externa Discharge ED - Sign-Out/Discharge Documenting (check all that apply): Patient Departure - Patient will be discharged home. - Discharge Plan Condition: Stable Disposition: HOME Prescriptions: Ciproflox/Dexameth OTIC.SUSP* [Ciprodex OTIC.SUSP*] 3 drop .SEE ORDER BID 7 Days #1 btl Patient Education Materials: Otitis Externa (ED) Referrals: Brian Eubanks MD [Medical Doctor] - 3 Days Michael Perez PA [Primary Care Provider] - 3 Days Additional Instructions: You were seen in the emergency department for ear pain. Please use ciprodex drops in LEFT ear twice a day for 7 days. Please follow up with your primary care doctor in the next 2-3 days and return to the emergency department for worsening pain, swelling, drainage or concerning symptoms. It was a pleasure taking care of you today. - Billing Disposition and Condition Condition: STABLE Disposition: Home - Attestation Statements Document Initiated by Kristine: Yes Documenting Scribe: Raquel Thompson Provider For Whom Krsitine is Documenting (Include Credential): Dr. Hakan Ferguson MD Scribe Attestation: I, Raquel Thompson, scribed for Dr. Hakan Ferguson MD on 12/25/18 at 1544. Scribe Documentation Reviewed: Yes Provider Attestation: The documentation as recorded by the Raquel garcia accurately reflects the service I personally performed and the decisions made by me, Dr. Hakan Ferguson MD Status of Scribe Document: Viewed
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
[2018-12-25 15:55] VITALS: BP 139/80
== END 2018-12-25 15:32 | disposition home or self-care (01) ==
LOC: ED 14:34
DX: H60.93 Unspecified otitis externa, bilateral (principal); Z88.0 Allergy status to penicillin; Z88.2 Allergy status to sulfonamides; D64.9 Anemia, unspecified; J45.909 Unspecified asthma, uncomplicated; F41.9 Anxiety disorder, unspecified; E03.9 Hypothyroidism, unspecified; Z79.890 Hormone replacement therapy; Z79.899 Other long term (current) drug therapy
CPT/HCPCS: 99282

== ENCOUNTER 2019-01-23 15:00 | Emergency (ER) | payer MEDICARE, MEDICAID ==
[2019-01-23] MEDS ORDERED: Cephalexin CAP* 500 MG PO ONE (15:25)
--- NOTE | 2019-01-23 15:27 | ED ---
Skin Complaint - HPI Summary HPI Summary: Patient complains of lump in left armpit 1 week, 2 lumps in right side neck 1 week. Denies trauma, purulent discharge, fever, cough, sore throat, CP, SOB, N/ 3/D, abdominal pain, change in urine, change in BM. - History of Current Complaint Chief Complaint: EDRashSkinAbscess Time Seen by Provider: 01/23/19 15:16 Stated Complaint: LUMP UNDER ARMPIT AND ON NECK PER PT Hx Obtained From: Patient Onset/Duration: Started Days Ago Skin Exposure Onset/Duration: Days Ago Timing: Constant Onset Severity: Moderate Current Severity: Moderate Pain Intensity: 4 Pain Scale Used: 0-10 Numeric Skin Location: Discrete Aggravating Symptom(s): Nothing Alleviating Symptom(s): Nothing Associated Signs & Symptoms: Negative - Allergy/Home Medications Allergies/Adverse Reactions: Allergies Allergy/AdvReac Type Severity Reaction Status Date / Time Penicillins Allergy Unknown Verified 01/23/19 15:14 Reaction Details red dye Allergy Facial Verified 01/23/19 15:14 Redness/Flushing Sulfa (Sulfonamide Allergy Unknown Verified 01/23/19 15:14 Antibiotics) Reaction Details PMH/Surg Hx/FS Hx/Imm Hx Endocrine/Hematology History: Reports: Hx Anemia Denies: Hx Anticoagulant Therapy, Hx Blood Disorders, Hx Blood Transfusions, Hx Diabetes, Hx Systemic Lupus Erythematosus, Hx Thyroid Disease, Hx Unexplained Bleeding Cardiovascular History: Reports: Hx Angina - DOESN;T TAKE ANYTHING FOR THIS, 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" - no meds, Other Cardiovascular Problems/Disorders - "arrhythmia" in the past - no meds Denies: Hx Aneurysm, Hx Atrial Fibrillation, Hx Cardiomegaly, Hx Congenital Heart Disease, Hx Congestive Heart Failure, Hx Coronary Artery Disease, Hx Deep Vein Thrombosis, Hx Hypercholesterolemia, Hx Hypotension, Hx Hypertension, Hx Myocardial Infarction, Hx Pacemaker/ICD, Hx Peripheral Vascular Disease, Hx Rheumatic Fever, Hx Syncope Respiratory History: Reports: Hx Asthma - INHALER, Hx Pneumonia, Hx Seasonal Allergies, Other Respiratory Problems/Disorders - pleurisy, bronchitis IN THE PAST Denies: Hx Chronic Obstructive Pulmonary Disease (COPD), Hx Pulmonary Edema, Hx Pulmonary Embolism, Hx Sleep Apnea GI History: Reports: Other GI Disorders - Hep A and Hep B - followed by PCP - no issues at this time Denies: Hx Crohn's Disease, Hx Diverticulosis, Hx Gall Bladder Disease, Hx Gastroesophageal Reflux Disease, Hx Gastrointestinal Bleed, Hx Hiatal Hernia, Hx Irritable Bowel, Hx Obstructive Bowel, Hx Ulcer History: Reports: Other Problems/Disorders - ENLARGED PROSTATE Musculoskeletal History: Reports: Hx Arthritis - R/A, Hx Back Problems - wears an elastic wrap but makes blood pressure increase while on Sensory History: Reports: Hx Cataracts, Hx Contacts or Glasses - GLASSES Denies: Hx Hearing Aid Opthamlomology History: Reports: Hx Cataracts, Hx Contacts or Glasses - GLASSES Neurological History: Reports: Hx Migraine, Other Neuro Impairments/Disorders - HX DISK PROBLEM 1967 Psychiatric History: Reports: Hx Anxiety, Hx Depression, Hx Panic Disorder - Cancer History Cancer Type, Location and Year: None reported - Surgical History Surgery Procedure, Year, and Place: BILATERAL BREAST GLAND SURGERY 2007&1973 Hx Anesthesia Reactions: No - Immunization History Date of Influenza Vaccine: 11/2016 Infectious Disease History: No Infectious Disease History: Reports: Hx Hepatitis Denies: Traveled Outside the [place] in Last 30 Days - Family History Known Family History: Positive: Cardiac Disease - mom, Hypertension, Diabetes Negative: Blood Disorder - Social History Alcohol Use: None Hx Substance Use: No Substance Use Type: Reports: Prescribed Hx Tobacco Use: No Smoking Status (MU): Never Smoked Tobacco Have You Smoked in the Last Year: No Review of Systems Constitutional: Negative Eyes: Negative ENT: Negative Cardiovascular: Negative Respiratory: Negative Gastrointestinal: Negative Genitourinary: Negative Musculoskeletal: Negative Skin: Other Neurological: Negative Psychological: Normal All Other Systems Reviewed And Are Negative: Yes Physical Exam - Summary Physical Exam Summary: 2 cm x 2 cm hard indurated mass in left axilla. No fluctuance. Erythematous, tender to palpation. Findings consistent with abscess. Vital signs are subdermal most likely swollen lymph nodes. Nontender to palpation. Triage Information Reviewed: Yes Vital Signs On Initial Exam: Initial Vitals Temp Pulse Resp BP Pulse Ox 99 F 90 16 134/81 100 01/23/19 15:11 01/23/19 15:11 01/23/19 15:11 01/23/19 15:11 01/23/19 15:11 Vital Signs Reviewed: Yes Appearance: Positive: Well-Appearing Skin: Positive: Warm Head/Face: Positive: Normal Head/Face Inspection Eyes: Positive: Normal ENT: Positive: Normal ENT inspection Neck: Positive: Supple Respiratory/Lung Sounds: Positive: Clear to Auscultation Cardiovascular: Positive: Normal Abdomen Description: Positive: Nontender Musculoskeletal: Positive: Normal Neurological: Positive: Normal Psychiatric: Positive: Normal AVPU Assessment: Alert - [place] Coma Scale Best Eye Response: 4 - Spontaneous Best Motor Response: 6 - Obeys Commands Best Verbal Response: 5 - Oriented Coma Scale Total: 15 Procedures - Sedation Patient Received Moderate/Deep Sedation with Procedure: No Diagnostics - Vital Signs Vital Signs Temp Pulse Resp BP Pulse Ox 01/23/19 15:11 99 F 90 16 134/81 100 - Laboratory Lab Statement: Any lab studies that have been ordered have been reviewed, and results considered in the medical decision making process. Course/Dx - Course Course Of Treatment: Patient complains of lump in left armpit 1 week, 2 lumps in right side neck 1 week. Denies trauma, purulent discharge, fever, cough, sore throat, CP, SOB, N/3/D, abdominal pain, change in urine, change in BM. Vital signs within normal limits. No fluctuance, no indication for I&D. Patient placed on trial of Keflex as he is allergic to Bactrim. - Diagnoses Provider Diagnoses: Abscess Discharge ED - Sign-Out/Discharge Documenting (check all that apply): Patient Departure - Discharge Plan Condition: Stable Disposition: HOME Prescriptions: Cephalexin CAP* [Keflex CAP*] 500 mg PO QID 7 Days #28 cap Patient Education Materials: Abscess (ED) Referrals: Michael Perez PA [Primary Care Provider] - Additional Instructions: Take antibiotics as directed. Use warm compresses to help soften and drain abscess in left armpit. If abscess continues to worsen after two days return to the ED. Return to the ED for any worsening symptoms. - Billing Disposition and Condition Condition: STABLE Disposition: Home - Attestation Statements Provider Attestation: I was available for consult. This patient was seen by the GALEN. The patient was not presented to, seen by, or examined by me. Grady Taylor MD
--- OUTSIDE RECORDS SUMMARY | 2019-01-23 15:36 | XMS REPORT ---
:1945 Author Organization [facility] Address [address] [place] [address] Care Team Providers Name Role Phone Michael Perez Unavailable Unavailable PROBLEMS Type Condition ICD9-CM Code [id number] Onset Condition SNOMED Code Code Dates Status Problem High cholesterol E78.00 Active 81013797 Problem Environmental Z91.09 Active 666761662 allergies Problem Chronic GERD K21.9 Active 378095717 Problem Primary M15.0 Active 246374416 osteoarthritis involving multiple joints Problem Right inguinal K40.90 Active 983686567 hernia Problem Overweight (BMI E66.3 Active 153960427 25.0-29.9) Problem Migraine without G43.009 Active 899656185 aura and without status migrainosus, not intractable Problem History of Z86.59 Active 443530739 depression ALLERGIES No Information ENCOUNTERS Encounter Location Date Diagnosis [address] Nov, [place] [address] Oct, [place] [address] Oct, [place] [address] Oct, [place] [address] Sep, [place] [address] Sep, [place] [address] involving multiple joints M15.0 ; Overweight (BMI 25.0-29.9) E66.3 ; BMI 26.0-26.9,adult Z68.26 and Encounter for immunization Z23 [address] Aug, [place] [address] Teodoro Mortensen [address] Aug, [facility] [place] [address] Aug[place] [address] Aug, [place] [address] Jul, [place] [address] Jul, [place] [address] Jul, [place] [address] [facility] [address] [place], [place] [address] Jul, [facility] [place] [address] June, Mood disorder F39 ; [place] [address] Environmental allergies Z91.09 ; Chronic GERD K21.9 and High cholesterol E78.00 [facility] [address] [place], [place] [address] June, Environmental [place] [address] Z91.[address] June, [place] [address] June, [place] [address] June, Mood disorder F39 [place] [address] June, Mood disorder [place] [address] June, Mood disorder F39 [facility] [address] [place] [address] June, [place] [address] M25.512 and Environmental allergies Z91.09 [place] [address] May, [place] [address] disorders Z13.220 [place] [address] May, [place] [address] [place] [address] May, Sore throat J02.9 ; [place] [address] disorder F39 and Chronic GERD K21.[address] May, [place] [address] [place] [address] May, Bilateral [place] [address] effusion H65.[address] May, [place] [address] [facility] [address] [facility] May, [place] [address] Apr, [place] [address] R10.12 and Right inguinal hernia K40.[address] Apr, [place] [address] [facility] [place] [facility] [address] Apr, [place] [address] Apr, [place] [address] Mar, Cellulitis, neck L03.221 [place] [address] Mood disorder F39 [address] Jan, [place] [address] [facility] [facility] Jan, [place] [address] Jan, [place] [address] [facility] [address] [facility] Jan, [place] [address] [facility] [address] [place] [address] Jan, [place] [address] Dec, [place] [address] Dec, [place] [address] infectious origin R19.[address] Dec, Skin rash R21 ; [place] [address] blood pressure reading without diagnosis of hypertension R03.0 and Shaking R25.1 [place] [address] Nov, [place] [address] Nov, Dermatitis L30.9 ; [place] [address] without aura and without status migrainosus, not intractable G43.009 ; Elevated blood pressure reading without diagnosis of hypertension R03.0 and Encounter for immunization Z23 Teodoro Mortensen [facility] [address] [facility] Nov, [place] [address] Nov, Mood disorder F39 [place] [address] [facility] Nov, Mood disorder F39 [place] [address] Nov, [facility] [place] [address] [facility] [address] [facility] Oct, [place] [address] Oct, Mood disorder F39 [place] [address] Sep, Migraine [place] [address] without status migrainosus, not intractable G43.009 and Chronic fatigue R53.[address] [facility] Sep, Migraine [place] [address] without status migrainosus, not intractable G43.009 [facility] [address] [facility] Sep, [place] [address] Sep, [place] [address] [facility] [address] [place] [address] Sep, [place] [address] Sep, [place] [address] [facility] [address] [place] [address] Sep, [place] [address] Sep, Other infective [place] [address] externa of left ear H60.392 and Migraine without aura and without status migrainosus, not intractable G43.[address] Sep, [facility] [place] [address] Sep, [place] [address] [facility] [address] [place] [address] Aug, [place] [address] Aug, [place] [address] Aug, [place] [address] [facility] Jul, [place] [address] [facility] [address] [facility] Jul, [place] [address] Jul, [place] [address] Jul, History of depression Z86.59 [place] [address] Jul, [place] [address] Jul, [place] [address] Jul, [place] [address] Jul, [place] [address] Jul, Encounter [place] [address] cardiovascular examination Z01.810 ; Snoring R06.83 ; Postnasal drip R09.82 and Moderately severe depression F32.[address] June, [place] [address] June, [place] [address] June, [place] [address] [facility] June, [place] [address] June, [place]raine [place] [address] without status migrainosus, not intractable G43.[address] June, [place] [address] June, Right inguinal hernia K40.90 [place] [address] ; Screening for lipid disorders Z13.220 ; Screening for prostate cancer Z12.5 and Anxiety F41.9 [facility] [address] [place] [address] June, [place] [address] June, [place] [address] [facility] [address] [place] [address] June[place] [address] June, [place] [address] [facility] [address] [place], 03 May, 2018 [place] [address] June, [place] [address] June, [place] [address] June, Moder[place] [address] F32.2 ; Hypomagnesemia E83.42 ; Anxiety F41.9 ; Pain in right knee M25.561 and Pain in left knee M25.[address] June, [place] [address] May, [place] [address] May, [place] [address] May, Neck pain M54.2 ; [place] [address] Hypomagnesemia E83.42 ; Rash R21 ; Moderately severe depression F32.2 and Elevated blood pressure reading without diagnosis of hypertension R03.[address] May, [place] [address] May, Migraine without aura and [place] without status migrainosus, [address] not intractable G43.[address] May, [place] [address] May, [place]raine [place] [address] without status migrainosus, not intractable G43.009 and Environmental allergies Z91.[address] May, [place] [address] May, [place] [address] F32.2 and Migraine without aura and without status migrainosus, not intractable G43.[address] [facility] [address] [place], [place] [address] [place] Apr, [facility] [address] Apr, [place] [address] Apr, [place] [address] Apr, [place] [address] Apr, Worst headache of life R51 [place] [address] Apr, Pain [place] [address] M25.541 ; Hepatitis B core antibody positive R76.8 and Pain in joints of left hand M25.[address] Apr, [place] [address] Apr, [place] [address] Apr, Pain [place] [address] M25.541 ; Pain in joints of left hand M25.542 and Need for hepatitis C screening test Z11.[address] Apr, Anxiety F41.9 [place] [address] Apr, Chest tightness R07.89 ; [place] [address] Overweight (BMI 25.0-29.9) E66.3 ; BMI 27.0-27.9,adult Z68.27 and History of asthma Z87.[address] Mar, Chest tightness R07.89 [place] [address] Mar, [place] [address] Mar, [place] [address] Z91.[address] Mar, [place] [address] Mar, Chest tightness R07.89 [place] [address] Mar, [place] [address] Mar, Heart palpitations R00.2 ; [place] [address] Nasal congestion R09.81 ; Screening for HIV (human immunodeficiency virus) Z11.4 ; Right inguinal hernia K40.90 ; Anxiety F41.9 ; Screening for colon cancer Z12.11 and Anemia, unspecified type D64.9 [place] [address] Jan, Chest congestion R09.89 [place] [address] Unilateral recurrent inguinal hernia without obstruction or gangrene K40.91 [place] [address] 14 Jan, 2017 [place] [address] Z91.09 ; Anxiety F41.9 ; Skin lesion L98.9 ; Screening, lipid Z13.220 and Right inguinal hernia K40.90 [place] [address] Nov, [place] [address] [place] [address] Sep, [place] [address] IMMUNIZATIONS No Known Immunizations SOCIAL HISTORY Never Assessed REASON FOR REFERRAL FUNCTIONAL STATUS PLAN OF CARE VITAL SIGNS MEDICATIONS Unknown Medications PROCEDURES No Known procedures RESULTS No Results REASON FOR VISIT MARCELA [id number] Insurance Providers [facility] Member Patient Patient Patient Patient Patient Subscriber Subscriber Subscriber Group Insurance Plan Plan Plan Plan ID Relationship Address Phone Name Date of ID Name Date of No Type Insurance Insurance Insurance Coverage to Subscriber Address Phone Name Dates Medicare National [id number] Medicare self [place] [id number] PPS QMB No Government 41 PPS QMB No [facility] [employer] [facility] [address] [place] [id number] Case [phone] Case self [place] [id number] Management [place] 02 Management [facility] [address] Community Medicaid [phone] Medicaid self [place] [id number] [facility] [address] [place] [address] Medicare National [id number] Medicare self [place] [id number] PPS QMB No Government 41 PPS QMB No [facility] [employer] [employer] [facility] [address] [place] [id number] MEDICAL (GENERAL) HISTORY Type Description Date Medical History anxiety and panic disorder Medical History hyperactive Medical History Hep A and B Medical History Herpes Medical History Asthma (as a child) Medical History Heart palpitations Surgical History glands in breast removed Hospitalization History glands removed 2007
[2019-01-23 15:44] VITALS: BP 134/80
== END 2019-01-23 15:44 | disposition home or self-care (01) ==
LOC: ED 15:00
DX: L02.412 Cutaneous abscess of left axilla (principal); D64.9 Anemia, unspecified; N40.0 Benign prostatic hyperplasia without lower urinary tract symptoms; F41.9 Anxiety disorder, unspecified; F32.9 Major depressive disorder, single episode, unspecified; Z86.19 Personal history of other infectious and parasitic diseases; Z88.0 Allergy status to penicillin; Z88.2 Allergy status to sulfonamides
CPT/HCPCS: 99281; A9270-GY